=== PATIENT | female | born 1935 | race Caucasian/White ===

== ENCOUNTER 2016-11-06 14:05 | Observation (INO) ==
--- NOTE | 2016-11-06 14:36 | Emergency Department Note ---
Disposition Clinical Impression: Syncope Qualifiers: Syncope type: unspecified Qualified Code(s): R55 - Syncope and collapse Anemia Qualifiers: Anemia type: unspecified type Qualified Code(s): D64.9 - Anemia, unspecified Disposition: Admitted As Inpatient Condition: Good Time of Disposition: 19:08 General Adult HPI - General Chief complaint: ED Syncope Stated complaint: syncopal Time Seen by Provider: 11/06/16 14:13 Source: patient, EMS Limitations: age Nursing Notes Reviewed: Yes Vital Signs Reviewed: Yes - History of Present Illness HPI Narrative: Female patient presenting to emergency department complaining of a syncopal episode after leaving the Coumadin clinic. She presents by EMS. Her only complaint currently is left shoulder pain. Patient daughter advises that she believes the patient had a syncopal event. The daughter assisted her to the ground. Biases the patient has been complaining of floaters in her vision today and has been going to sleep whenever she is talking to her. She states she just has not been acting appropriate today. Pain Scale: 0 - Related Data Home Medications Medication Instructions Recorded Confirmed Aspirin [Adult Low Dose Aspirin EC] 81 mg PO DAILY 03/18/15 11/06/16 Citalopram Hydrobromide [Celexa] 20 mg PO QAM 03/18/15 11/06/16 CloNIDine HCl 0.2 mg PO TID 03/18/15 11/06/16 Glucosamine Sulfate Dipot Chlr 1,000 mg PO QAM 03/18/15 11/06/16 [Glucosamine Relief] Hydralazine HCl 50 mg PO TID 03/18/15 11/06/16 Loratadine [Claritin] 10 mg PO QAM 03/18/15 11/06/16 Memantine HCl [Namenda Xr] 28 mg PO QPM 03/18/15 11/06/16 Metoprolol [Lopressor] 100 mg PO BID 03/18/15 11/06/16 Nitroglycerin [Nitrostat] 0.4 mg SL Q5M PRN 03/18/15 11/06/16 Raloxifene [Evista] 60 mg PO QAM 03/18/15 11/06/16 SitaGLIPtin [Januvia] 50 mg PO QAM 03/18/15 11/06/16 Warfarin [Coumadin] 2.5 mg PO TUTHSA 03/18/15 11/06/16 Ergocalciferol (VITAMIN D2) 50,000 unit PO WE 05/04/15 11/06/16 [Vitamin D2 (50,000 UNIT)] Multivitamin/Iron/Folic Acid 1 each PO QAM 05/04/15 11/06/16 [Centrum Complete Multivit Tab] Valsartan/Hydrochlorothiazide 1 each PO QAM 05/04/15 11/06/16 [Diovan Hct 320-12.5 mg Tab] Warfarin [Coumadin] 5 mg PO SUMOWEFR 05/04/15 11/06/16 Allopurinol [Zyloprim] 100 mg PO DAILY 03/08/16 11/06/16 Atorvastatin [Lipitor] 40 mg PO HS 03/08/16 11/06/16 Calcium Polycarbophil [Fibercon] 625 mg PO BID 03/08/16 11/06/16 Docusate [Colace] 200 mg PO TID 03/08/16 11/06/16 Felodipine [Felodipine ER] 10 mg PO DAILY 03/08/16 11/06/16 L. Acidophilus/Pectin, [place] 1 each PO BID 03/08/16 11/06/16 [Acidophilus Probiotic Capsule] Diltiazem HCl [Diltiazem 24Hr Cd] 180 mg PO QPM 11/06/16 11/06/16 Famotidine [Pepcid] 40 mg PO QPM 11/06/16 11/06/16 OxyCODONE Immed Rel [Roxicodone 5 5 mg PO Q6H PRN 11/06/16 11/06/16 MG] Pantoprazole Sodium 40 mg PO BID 11/06/16 11/06/16 Pioglitazone [Actos] 15 mg PO QPM 11/06/16 11/06/16 Allergies Allergy/AdvReac Type Severity Reaction Status Date / Time No Known Drug Allergies Allergy See Verified 01/05/15 14:50 Comments All systems ED: reviewed and negative except as stated. Constitutional: Denies: fever, chills Eyes: Reports: vision change Cardiovascular: Reports: syncope. Denies: chest pain Respiratory: Denies: cough, dyspnea Gastrointestinal: Reports: constipation (No bowel movement in over a week.). Denies: abdominal pain, nausea, vomiting, diarrhea Musculoskeletal: Reports: other (Left shoulder pain). Denies: back pain, neck pain Integumentary: Denies: rash Neurological: Denies: headache Past Medical History - Past Medical History Medical history: Reports: atrial fibrillation, dementia, diabetes, hyperlipidemia, hypertension, renal disease Surgical history: Reports: appendectomy, cataract, hysterectomy, knee replacement, orthopedic, other, pacemaker/AICD Psychiatric history: Reports: no psych history - Social History Smoking Status: Never smoker Smokeless Tobacco Status: No Alcohol use: Reports: none Drug use: Reports: none Physical Exam - General Limitations: age General appearance: alert, in no apparent distress - Head Head exam: atraumatic, normocephalic, normal inspection - Eye Eye exam: Present: normal appearance, PERRL, EOMI. Absent: scleral icterus - ENT ENT exam: normal exam, normal oropharynx, mucous membranes moist - Neck Neck exam: Present: normal inspection, full ROM, trachea midline. Absent: tenderness, meningismus, lymphadenopathy - Chest Chest inspection: Present: normal inspection, symmetric chest wall rise. Absent : tenderness, rash - Respiratory Respiratory exam: Present: normal lung sounds bilaterally. Absent: respiratory distress, accessory muscle use - Cardiovascular Cardiovascular exam: Present: regular rate, normal rhythm, normal heart sounds - Abdominal Exam Abdominal exam: Present: soft, Non-Tender, normal bowel sounds. Absent: tenderness, distention, guarding, rebound, rigidity, organomegaly Course Course Narrative: Female patient brought in by EMS for a syncopal event. She is coming out of the Coumadin clinic and fell. EMS reports that the patient's daughter helped her down to the ground. Patient's daughter arrives and states that the patient has been complaining of some visual trouble today. Seeing floaters and has been very tired. States that she falls asleep while talking. She states that the patient said that she had tripped however she believes patient actually passed out. She states she then helped her to the ground. She insists that the patient did not strike her head very hard. She states that she used her fall. I do not appreciate any signs of trauma to the patient at this time. The patient's only complaint reanalysis of left shoulder pain. She recently had shoulder surgery 6 days ago. Patient is alert and oriented 3 at this time. However daughter states she does have a history of dementia. Daughter also notes that the patient has not had a bowel movement in greater than one week. She states that she has tried Metamucil several times with no relief. Patient denies of any abdominal pain on palpation. She has bowel sounds in all 4 quadrants. Patient has no signs of trauma to her body. Her pupils are equal and reactive. She is mentating appropriately. She does not appear to be in any distress. He does complain of left shoulder pain. This is to be expected from her surgery. She also has some ecchymosis to her left shoulder and left chest most likely from the surgery as well. Due to patient's fall and the complaints of her having visual trouble today we will scan patient's head. Patient denies any visual disturbance at this time. We will also get a chest x- ray and abdominal CT. I am concerned since patient does have a pacemaker and had a syncopal event today that this may be a cardiac etiology. EKG showed no signs of acute ischemia and a paced rhythm at 60. We will do basic lab workup on patient and most likely admit. - Reevaluation(s) Reevaluation #1: Patient workup showed a low hemoglobin. I do not see any signs of active bleeding. However she did have a recent left shoulder surgery there is a large amount of ecchymosis. The daughter states that the sutures did bust open on Saturday and had to be replaced there is a significant amount of bleeding associated with that. Could possibly be the cause. She also has a mildly increased creatinine from her baseline. We will admit patient to hospital for serial neuro exams. Time: 17:50 - Consultations Consultation #1: Dr Srivastava accepted Pt in stable condition. Time: 18:02 Vital Signs Temperature 97.9 F 11/06/16 14:07 Pulse Rate 61 11/06/16 14:07 Respiratory Rate 18 11/06/16 14:07 Blood Pressure 131/64 11/06/16 14:07 O2 Sat by Pulse Oximetry 97 11/06/16 14:07 Temperature 98.1 F 11/06/16 20:07 Pulse Rate 59 11/06/16 20:07 Respiratory Rate 16 11/06/16 20:07 Blood Pressure 166/82 11/06/16 20:07 O2 Sat by Pulse Oximetry 95 11/06/16 20:07 Oxygen Delivery Oxygen Delivery Room Air Medical Decision Making - Medical Records Medical records reviewed: Yes I reviewed the patient's medical records. - Lab Data Lab results reviewed: Yes I reviewed the patient's lab results. Result diagrams: 11/06/16 14:32 11/06/16 14:32 Lab Results 11/06/16 11/06/16 11/06/16 Range/Units 14:32 14:32 14:32 WBC 11.3 H (4.3-11.1) K/mcL RBC 2.87 L (3.82-4.97) M/mcL Hgb 8.9 L (11.5-15.4) g/dL Hct 27.3 L (35.3-44.9) % MCV 95.1 (83.0-100.0) fL MCH 31.0 (28.0-33.3) pg MCHC 32.6 (31.6-35.5) g/dL RDW 15.3 H (11.5-14.5) % Plt Count 175 (140-400) K/mcL MPV 10.4 (9.4-12.4) fL Immature Gran % 1.1 (0-4) % Seg Neutrophils % 75.8 % Lymphocytes % 12.7 % Monocytes % 9.5 % Eosinophils % 0.5 % Basophils % 0.4 % Neutrophils # 8.6 (1.6-8.9) K/mcL Lymphocytes # 1.4 (0.6-4.6) K/mcL Monocytes # 1.1 (0.0-1.3) K/mcL Eosinophils # 0.1 (0.0-0.6) K/mcL Basophils # 0.0 (0.0-0.2) K/mcL Nucleated RBCs/100 WBC 0.2 H (0) /100 WBC PT 23.6 H (9.4-12.1) Seconds INR 2.1 APTT 43.1 H (26.0-36.0) Seconds Sodium 131 L (136-145) mEq/L Potassium 3.9 (3.5-4.5) mEq/L Chloride 96 L (98-109) mEq/L Carbon Dioxide 29 (19-29) mEq/L BUN 53 H (7-20) mg/dL Creatinine 1.85 H (0.57-1.11) mg/dL Est GFR ( Amer) 32 L (> 60) Est GFR (Non-Af Amer) 26 L (> 60) BUN/Creatinine Ratio 29 H (6-26) Glucose 201 H (70-99) mg/dL Calculated Osmolality 292 (280-300) Lactic Acid (0.5-2.2) mmol/L Calcium 9.2 (8.6-10.8) mg/dL Troponin I (0-0.03) ng/mL Urine Color (Yellow) Urine Clarity (Clear) Urine pH (5.0-8.0) pH Units Ur Specific [place] (1.010-1.025) Urine Protein (Neg-Trace) mg/dL Urine Glucose (UA) (Normal) mg/dL Urine Ketones (Negative) mg/dL Urine Blood (Negative) Urine Nitrite (Negative) Urine Bilirubin (Negative) Urine Urobilinogen (Normal) mg/dL Ur Leukocyte Esterase (Negative) Urine Microscopic RBC (0-3) per hpf Urine Microscopic WBC (0-3) per hpf Ur Squamous Epith Cells (None-Few) per lpf Urine Bacteria (None-Few) per hpf Hyaline Casts (None-Few) per lpf 11/06/16 11/06/16 11/06/16 Range/Units 14:32 14:32 17:07 WBC (4.3-11.1) K/mcL RBC (3.82-4.97) M/mcL Hgb (11.5-15.4) g/dL Hct (35.3-44.9) % MCV (83.0-100.0) fL MCH (28.0-33.3) pg MCHC (31.6-35.5) g/dL RDW (11.5-14.5) % Plt Count (140-400) K/mcL MPV (9.4-12.4) fL Immature Gran % (0-4) % Seg Neutrophils % % Lymphocytes % % Monocytes % % Eosinophils % % Basophils % % Neutrophils # (1.6-8.9) K/mcL Lymphocytes # (0.6-4.6) K/mcL Monocytes # (0.0-1.3) K/mcL Eosinophils # (0.0-0.6) K/mcL Basophils # (0.0-0.2) K/mcL Nucleated RBCs/100 WBC (0) /100 WBC PT (9.4-12.1) Seconds INR APTT (26.0-36.0) Seconds Sodium (136-145) mEq/L Potassium (3.5-4.5) mEq/L Chloride (98-109) mEq/L Carbon Dioxide (19-29) mEq/L BUN (7-20) mg/dL Creatinine (0.57-1.11) mg/dL Est GFR ( Amer) (> 60) Est GFR (Non-Af Amer) (> 60) BUN/Creatinine Ratio (6-26) Glucose (70-99) mg/dL Calculated Osmolality (280-300) Lactic Acid 1.2 (0.5-2.2) mmol/L Calcium (8.6-10.8) mg/dL Troponin I 0.01 (0-0.03) ng/mL Urine Color Yellow (Yellow) Urine Clarity Clear (Clear) Urine pH 6.0 (5.0-8.0) pH Units Ur Specific [place] 1.013 (1.010-1.025) Urine Protein Negative (Neg-Trace) mg/dL Urine Glucose (UA) Normal (Normal) mg/dL Urine Ketones Negative (Negative) mg/dL Urine Blood Negative (Negative) Urine Nitrite Negative (Negative) Urine Bilirubin Negative (Negative) Urine Urobilinogen Normal (Normal) mg/dL Ur Leukocyte Esterase Trace H (Negative) Urine Microscopic RBC 0-3 (0-3) per hpf Urine Microscopic WBC 5-15 H (0-3) per hpf Ur Squamous Epith Cells Many H (None-Few) per lpf Urine Bacteria None Seen (None-Few) per hpf Hyaline Casts None Seen (None-Few) per lpf - Radiology Data Radiology results reviewed: Yes I reviewed the patient's radiology results. Chest X-Ray 11/06/16 14:16 IMPRESSION: No acute cardiopulmonary disease. D/ / Terrell Cao MD / Terrell Cao MD Interpreting Provider: Terrell Cao MD Head CT 11/06/16 14:17 IMPRESSION: No acute intracranial abnormality. D/ / Joel Gaming MD / Joel Gaming MD Interpreting Provider: Joel Gaming MD Abdomen/Pelvis CT 11/06/16 14:18 IMPRESSION: 1. Dense stool in the proximal colon suggests underlying constipation. The GI tract is otherwise unremarkable. 2. Decreased size of a complex lesion at the upper pole of the left kidney from prior imaging. Please correlate with interval workup. 3. Limited evaluation of additional simple and complex cysts in the kidneys on this noncontrast exam although there has been no interval detrimental change with regards to size. D/ / Luis Manuel Vee MD / Luis Manuel Vee MD Interpreting Provider: Luis Manuel Vee MD - EKG Data EKG #1 EKG attestation: Yes I reviewed and interpreted this EKG. EKG results narrative: Atrially paced rhythm. Rate is 60. UT interval is 140. QRS duration is 160. QT is 461. QTC is 462. No signs of acute ischemia. Attestation Statement - Attestation Attestation: I, Fabián Dwyer, examined this patient and my medical decision-making was reviewed with the ROLL UP OPERATOR/PA/Advanced Practice Nurse/Resident Physician. I agree with the documented findings, disposition and treatment plan as described except to the extent set forth below. 81-year-old female presents to the emergency department for evaluation after a fall. Patient states she was walking into a Coumadin clinic for evaluation of her INR when she stumbled forward, falling to the ground. Daughter is present when this occurred and caught her, lowing her to the ground however she is unclear whether or not she hit her head. Daughter states the patient was dazed and did not respond for a few seconds after the fall. Patient was not incontinent of urine and did not bite her tongue and there was no other associated tonic-clonic movements. Patient denies pain in the emergency department. Patient is alert and oriented during the exam and she does not have evidence of new focal neurologic deficits. Laboratory evaluation reveals anemia. This is likely secondary to bleeding from the surgical site she had of her left rotator cuff. CT of the head and was not neck was negative for acute fracture or intracranial hemorrhage. Patient will be admitted to the hospital for further care and evaluation of her anemia and her syncopal event.
[2016-11-06 14:44] LABS: Basophils % 0.4 %; Eosinophils # 0.1 K/mcL (0.0-0.6); Eosinophils % 0.5 %; Hematocrit 27.3 % (35.3-44.9); Hemoglobin 8.9 g/dL (11.5-15.4); Immature Granulocytes % 1.1 % (0-4); Lymphocytes # 1.4 K/mcL (0.6-4.6); Lymphocytes % 12.7 %; Mean Corpuscular HGB Conc 32.6 g/dL (31.6-35.5); Mean Corpuscular Volume 95.1 fL (83.0-100.0); Mean Platelet Volume 10.4 fL (9.4-12.4); Monocytes # 1.1 K/mcL (0.0-1.3); Monocytes % 9.5 %; Neutrophils # 8.6 K/mcL (1.6-8.9); Nucleated Red Blood Cells 0.2 /100 WBC (0); Platelet Count 175 K/mcL (140-400); Red Blood Count 2.87 M/mcL (3.82-4.97); Red Cell Distribution Width 15.3 % (11.5-14.5); Segmented Neutrophils % 75.8 %
[2016-11-06 14:54] LABS: INR 2.1; Prothrombin Time 23.6 Seconds (9.4-12.1)
[2016-11-06 14:56] LABS: Calcium 9.2 mg/dL (8.6-10.8); Potassium 3.9 mEq/L (3.5-4.5)
[2016-11-06 14:57] LABS: Activated Partial Thrombo Time 43.1 Seconds (26.0-36.0)
[2016-11-06 17:38] LABS: Bilirubin,Urine Negative (Negative); Blood,Urine Negative (Negative); Clarity,Urine Clear (Clear); Color,Urine Yellow (Yellow); Glucose,Urine (UA) Normal (Normal); Ketones,Urine Negative (Negative); Leukocyte Esterase,Urine Trace (Negative); Nitrite,Urine Negative (Negative); Protein,Urine Negative (Neg-Trace); Specific Gravity,Urine 1.013 (1.010-1.025); Urobilinogen,Urine Normal (Normal)
[2016-11-06 17:41] LABS: Bacteria,Urine None Seen per hpf (None-Few); Hyaline Casts,Urine None Seen per lpf (None-Few); RBC,Urine 0-3 per hpf (0-3); Squamous Epithelial Cell,Urine Many per lpf (None-Few)
[2016-11-06] MEDS ORDERED: Nitroglycerin 0.4 MG TAB.SUBL SL PRN (19:27)
[2016-11-06] MEDS ORDERED: MOM Conc 10 ML UD.LIQ PO ONE (19:30)
[2016-11-06] MEDS ORDERED: D5% in Water 1,000 ML IVC PRN (19:34)
[2016-11-06] MEDS ORDERED: Dextrose Gel 15 GM PO PRN ×2 (19:34)
[2016-11-06] MEDS ORDERED: *HR* Dextrose 50 % in Water (Syg) 50 ML SYRINGE IVP PRN (19:34)
--- NOTE | 2016-11-06 19:42 | Internal Med History&Physical ---
Date of Encounter: 11/06/16 Time of Encounter: 19:00 Assessment and Plan (1) Syncope and collapse Current visit: Yes Status: Acute I am concerned that this is secondary to acute blood loss anemia from left shoulder surgery while on Coumadin. Also possibly compounded by narcotics ( Percocet) and hypotension (on a multitude of antihypertensives). INR is 2.1. Unclear recent baseline Hb, but before July 2016, it has always been around 12 g. Today, is 8.9. Will not resume Coumadin this evening. Will type and screen and patient already consented for blood products. If hemoglobin continues to drop, will transfuse given her symptoms (shortness of breath, syncope). Will also order CT of the left shoulder and consult Orthopedic Surgery (daytime hospitalist will need to contact in a.m.). For completeness sake, will order Echocardiogram and bilateral carotid ultrasounds. Holding some antihypertensives (see below). (2) Anemia due to blood loss, acute Current visit: Yes Status: Acute Secondary to left shoulder surgery (was seen at [place] for bleeding complications postoperatively on November 02). Unclear recent baseline Hb, but before July 2016, it has always been around 12 g. Today, is 8.9. Will not resume Coumadin this evening. Will type and screen and patient already consented for blood products. If hemoglobin continues to drop, will transfuse given her symptoms (shortness of breath, syncope). Denies any rectal bleeding, but will order guaic stool. (3) SHAREE (acute kidney injury) Current visit: No Status: Acute Likely secondary to decrease PO intake and emesis (prerenal). Given her edema, will give small bolus of .9NS of 250cc x 1. Check urine lytes. (4) Diabetes Current visit: No Status: Chronic Holding PO agents. low dose SSI coverage. Qualifiers: Diabetes mellitus type: type 2 Diabetes mellitus complication status: without complication Diabetes mellitus fci insulin use: without fci use Qualified Code(s): E11.9 - Type 2 diabetes mellitus without complications (5) Constipation Current visit: Yes Status: Acute Senna and Milk of Mag ordered. Continue Fibercon and Docusate Sodium. Qualifiers: Constipation type: unspecified constipation type Qualified Code(s): K59.00 - Constipation, unspecified (6) Atrial fibrillation Current visit: Yes Status: Acute s/p pacemaker. Continue Diltiazem and Metoprolol per home dose. Holding anticoaguation as patient is already therapeutic (INR 2.1) and patient appears to have significant bleed. Daytime hospitalist to resume anticoagulation when clinically appropriate. Qualifiers: Atrial fibrillation type: chronic Qualified Code(s): I48.2 - Chronic atrial fibrillation (7) HTN (hypertension) Current visit: No Status: Chronic Holding Losartan given SHAREE. Patient's blood pressure is only in the 120s systolic, thus I have held her TID Clonidine. I have continue Hydralazine per home dose. Qualifiers: Hypertension type: essential hypertension Qualified Code(s): I10 - Essential (primary) hypertension Internal Medicine - H&P: HPI Chief complaint: passed out, bleeding from shoulder Admitted From: Home Plans for Post Hospital Care: Home History of present illness: Ms. Davison is a 81 year old female with PMH dementia, afib on Coumadin s/p pacemaker placement, DM II, HTN who presents with syncope. Patient is accompanied by her daughter who witnessed the event. The patient underwent a left shoulder arthroscopy on November 01 at [facility]. Surgery was performed by Dr. Hoffman. She developed bleeding at surgical site, and returned to the ED on the . Per daughter, the sutures were replaced and another dressing was placed and was to be removed tomorrow (11/07). Over the weekend, her wound continued to bleed. She has been sleeping quite a bit, had two episodes of non-bloody emesis. She was walking from the car to the coumadin clinic and passed out, falling forward. Her daughter was able to break her fall, and patient did not hit her head or cause any further injury. Patient denies any chest pain or palpations recently, but admits to shortness of breath on minimal exertion over the last month. Past Med Surg Social Fam HX - Past Medical History Medical history: atrial fibrillation, dementia, diabetes, hyperlipidemia, hypertension, renal disease Psychiatric history: no psych history - Past Surgical History Surgical History: appendectomy, cataract, hysterectomy, knee replacement, orthopedic, other, pacemaker/AICD - Social History Smoking Status: Never smoker Smokeless Tobacco Status: No Alcohol use: none Drug use: none - Family History Mother Living Status: Hx Family Cardiac Disorders: No Hx Family Respiratory Disorders: No Hx Family Cancer: Yes (Breast) Hx Family GI Disorders: No Hx Family Endocrine Disorder: No Hx Family Neuromuscular Disorders: No Hx Family Neurologic Disorders: No Hx Family HEENT Disorders: Yes (Blind, Glaucoma) Hx Family Autoimmune Disorders: No Father Living Status: Hx Family Cardiac Disorders: No Hx Family Respiratory Disorders: No Hx Family Cancer: No Hx Family GI Disorders: Yes (Cirrhosis) Hx Family Endocrine Disorder: No Hx Family Neuromuscular Disorders: No Hx Family Neurologic Disorders: No Hx Family HEENT Disorders: No Hx Family Autoimmune Disorders: No Internal Medicine - H&P: Meds Aspirin [Adult Low Dose Aspirin EC] 81 mg PO DAILY 03/18/15 [History] Citalopram Hydrobromide [Celexa] 20 mg PO QAM 03/18/15 [History] CloNIDine HCl 0.2 mg PO TID 03/18/15 [History] Glucosamine Sulfate Dipot Chlr [Glucosamine Relief] 1,000 mg PO QAM 03/18/15 [ History] Hydralazine HCl 50 mg PO TID 03/18/15 [History] Loratadine [Claritin] 10 mg PO QAM 03/18/15 [History] Memantine HCl [Namenda Xr] 28 mg PO QPM 03/18/15 [History] Metoprolol [Lopressor] 100 mg PO BID 03/18/15 [History] Nitroglycerin [Nitrostat] 0.4 mg SL Q5M PRN 03/18/15 [History] Raloxifene [Evista] 60 mg PO QAM 03/18/15 [History] SitaGLIPtin [Januvia] 50 mg PO QAM 03/18/15 [History] Warfarin [Coumadin] 2.5 mg PO TUTHSA 03/18/15 [History] Ergocalciferol (VITAMIN D2) [Vitamin D2 (50,000 UNIT)] 50,000 unit PO WE [History] Multivitamin/Iron/Folic Acid [Centrum Complete Multivit Tab] 1 each PO QAM 05/04 [History] Valsartan/Hydrochlorothiazide [Diovan Hct 320-12.5 mg Tab] 1 each PO QAM [History] Warfarin [Coumadin] 5 mg PO SUMOWEFR 05/04/15 [History] Allopurinol [Zyloprim] 100 mg PO DAILY 12/01/16 [History] Atorvastatin [Lipitor] 40 mg PO HS 03/08/16 [History] Calcium Polycarbophil [Fibercon] 625 mg PO BID 03/08/16 [History] Docusate [Colace] 200 mg PO TID 03/08/16 [History] Felodipine [Felodipine ER] 10 mg PO DAILY 03/08/16 [History] L. Acidophilus/Pectin, [place] [Acidophilus Probiotic Capsule] 1 each PO BID 04/23 [History] Diltiazem HCl [Diltiazem 24Hr Cd] 180 mg PO QPM 11/06/16 [History] Famotidine [Pepcid] 40 mg PO QPM 11/06/16 [History] OxyCODONE Immed Rel [Roxicodone 5 MG] 5 mg PO Q6H PRN 11/06/16 [History] Pantoprazole Sodium 40 mg PO BID 11/06/16 [History] Pioglitazone [Actos] 15 mg PO QPM 11/06/16 [History] Allergies No Known Drug Allergies Allergy (Verified 01/05/15 14:50) See Comments All Systems PM: A 10-system review of systems was performed and is negative for pertinent findings except as documented above in the HPI. - Constitutional Constitutional: chills, no fever(s) - EENT Additional comments: occasional blurred vision - Cardiovascular Cardiovascular ROS IM: lightheadedness, syncope, no chest pain - Respiratory Respiratory: dyspnea on exertion - Gastrointestinal Gastrointestinal: constipation, nausea Additional comments: last bm was 6 days ago - Neurological Neurological ROS: confusion - Constitutional Vitals: Temp Pulse Resp BP Pulse Ox 97.9 F 60 16 120/72 96 11/06/16 14:07 11/06/16 16:39 11/06/16 18:12 11/06/16 18:12 11/06/16 16:39 General appearance: Present: A&O X 3, no acute distress Exam: appears confused at times with some inappropriate answers. - Head Head exam: Present: atraumatic - Eye Eye exam: Present: EOMI - Neck Neck exam general surgery: Present: supple. Absent: thyromegaly - Respiratory Respiratory exam: Present: CTAB - Cardiovascular Cardiovascular exam: Present: +S1, +S2 Additional comments: paced rhythm - GI/Abdominal GI/Abdominal exam: Present: normal bowel sounds, soft. Absent: tenderness - Extremities Exam Extremities exam: Present: pedal edema (non pitting pedal edema), radial pulses palpable and symetrical. Absent: calf tenderness Additional comments: L-shoulder dressing is clean and intact. Has L-forearm swelling. - Psychiatric Psychiatric exam: Present: normal affect, normal mood - Skin Additional comments: left forearm swelling with erthema. forearm is nontender Internal Med - H&P Results - Labs CBC & Chem 7: 11/06/16 14:32 11/06/16 14:32
[2016-11-06] MEDS ORDERED: Naloxone 0.4 MG/ML INJ IVP PRN (20:58)
[2016-11-06] MEDS ORDERED: 0.9 % Sodium Chloride 250 ML IVC ONE (21:07)
[2016-11-06] MEDS: Metoprolol 100 MG TABLET PO SCH (22:00)
[2016-11-06] MEDS: Sennosides 8.6 MG TABLET PO SCH (22:01)
[2016-11-06] MEDS: hydrALAZINE 25 MG TABLET PO SCH (22:01)
[2016-11-06] MEDS: Diltiazem CD (24hr) 180 MG CAPSULE PO SCH (22:05)
[2016-11-06] MEDS: Insulin LISPRO 300 UNITS/3 ML VIAL SQ SCH (22:05)
[2016-11-07 04:34] LABS: INR 2.3; Prothrombin Time 25.7 Seconds (9.4-12.1)
[2016-11-07 05:17] LABS: Folate 15.8 ng/mL (7.0-31.4)
[2016-11-07] MEDS: Multivit/Ca/Min/Fe/FA 1 TAB TABLET PO SCH (09:10)
[2016-11-07] MEDS: hydrALAZINE 25 MG TABLET PO SCH ×3 (09:10→21:27)
[2016-11-07] MEDS: Metoprolol 100 MG TABLET PO SCH ×2 (09:10→21:27)
[2016-11-07] MEDS: Loratadine 10 MG TABLET PO SCH (09:11)
[2016-11-07] MEDS: *HR* OxyCODONE Immed Rel 5 MG TABLET PO PRN ×2 (09:11→18:23)
[2016-11-07] MEDS: (Felodipine [Felodipine Er] 10 MG) PO SCH (09:12)
[2016-11-07] MEDS: Insulin LISPRO 300 UNITS/3 ML VIAL SQ SCH ×4 (09:17→21:26)
--- NOTE | 2016-11-07 10:50 | Cardiology Consult Note ---
Date of Encounter: 11/07/16 Time of Encounter: 10:47 Assessment and Plan (1) Syncope and collapse Current Visit: Yes Status: Acute Negative orthostatics. Could be secondary to blood loss s/p shoulder surgery with HGB 8.9, baseline 12 range. Pt also with SHAREE on CKD, creatinine 1.85. Possible dehydration could be contributing. Also on narcotics s/p surgery. Will interrogate dual chamber PPM to rule out cardiac cause. Echo pending. Prior echo 04/2015 EF 60%. If no significant findings on device interrogation or echo, anticipate sign off once seen and evaluated by Dr. Fabián Villa. (2) Atrial fibrillation Current Visit: No Status: Chronic Known A-Fib, currently paced. Continue BB and CCB. Previously anticoagulated on Coumadin, currently on hold due to anemia and blood loss s/p surgery. CHADSVASC score 5 (Age, HTN, DM, Female). Recommend resuming Coumadin when okay with ortho, as pt is high stroke risk. Qualifiers: Atrial fibrillation type: paroxysmal Qualified Code(s): I48.0 - Paroxysmal atrial fibrillation (3) Pacemaker Current Visit: No Status: Acute Last interrogated 07/2016 Multiple high atrial rates, longest 13 hours on 2016, average ventricular rate 135. Will interrogate again given syncopal episode. (4) Anemia Current Visit: Yes Status: Acute HGB 8.9 s/p shoulder surgery last week with bleeding at site. Coumadin currently on hold. Baseline HGB ~12 range. Recommend resuming Coumadin once okay with ortho. Qualifiers: Anemia type: unspecified type Qualified Code(s): D64.9 - Anemia, unspecified (5) HTN (hypertension) Current Visit: No Status: Chronic Not well controlled, 160 systolic this AM. Resume home Hydralazine. Continue BB and CCB. Adjust as necessary. Qualifiers: Hypertension type: essential hypertension Qualified Code(s): I10 - Essential (primary) hypertension Discussion w patient/family: The assessment and plan as outlined above was discussed with the patient and/or family members who expressed understanding and agreement. All questions were answered. Thank you for involving us in the care of your patient. Please call with any questions. I will discuss all the above with Dr. Fabián Villa and make changes as necessary. History of Present Illness Consult date: 11/07/16 Requesting physician: Pratima Nelson Consult reason: syncope Chief complaint: syncope History of present illness: Ms. Davison is a 81 year old female with PMH of dementia, afib on Coumadin, s/p pacemaker placement for SSS, DM II, HTN who presented to ED for syncope. Patient reports the syncopal event occurred yesterday while ambulating. She was dizzy/lightheaded prior to episode. It was reportedly witnessed by her daughter and per pt, she regained consciousness quickly after. The patient underwent a left shoulder arthroscopy on November 01 at [facility]. Surgery was performed by Dr. Hoffman. She developed bleeding at surgical site, and returned to the ED on the . Per daughter, the sutures were replaced and another dressing was placed and was to be removed tomorrow (11/07). Over the weekend, her wound continued to bleed. She has been sleeping quite a bit, had two episodes of non-bloody emesis. She was walking from the car to the coumadin clinic and passed out, falling forward. Her daughter was able to break her fall, and patient did not hit her head or cause any further injury. Patient denies any chest pain or palpations recently, but admits to shortness of breath on minimal exertion over the last month and increased lower extremity edema. HGB found to be 8.9, baseline ~12. Coumadin currently on hold. Orthostatic vitals negative. Prior CV testing: Carotid duplex 01/11/2016: Essentially normal bilaterally. Echocardiogram 05/04/2015: EF 60%. Mild MR, TR, PI. Mild pulmonary hypertension. RVSP 43 mmHg. Pharmacological nuclear stress test 05/05/2015: Negative for ischemia or prior infarct. Left heart catheterization 04/30/2011: Minimal CAD described. Device interrogation 07/18/2016: Multiple high atrial rates, longest 13 hours on 05/25/2016, average ventricular rate 135. Past Med Surg Social Fam HX - Past Medical History Medical history: atrial fibrillation, dementia, diabetes, hyperlipidemia, hypertension, renal disease Psychiatric history: no psych history - Past Surgical History Surgical History: appendectomy, cataract, hysterectomy, knee replacement, orthopedic, other, pacemaker - Social History Smoking Status: Never smoker Smokeless Tobacco Status: No Alcohol use: none Drug use: none - Family History Mother Living Status: Hx Family Cardiac Disorders: No Hx Family Respiratory Disorders: No Hx Family Cancer: Yes (Breast) Hx Family GI Disorders: No Hx Family Endocrine Disorder: No Hx Family Neuromuscular Disorders: No Hx Family Neurologic Disorders: No Hx Family HEENT Disorders: Yes (Blind, Glaucoma) Hx Family Autoimmune Disorders: No Father Living Status: Hx Family Cardiac Disorders: No Hx Family Respiratory Disorders: No Hx Family Cancer: No Hx Family GI Disorders: Yes (Cirrhosis) Hx Family Endocrine Disorder: No Hx Family Neuromuscular Disorders: No Hx Family Neurologic Disorders: No Hx Family HEENT Disorders: No Hx Family Autoimmune Disorders: No Medications and Allergies Aspirin [Adult Low Dose Aspirin EC] 81 mg PO DAILY 03/18/15 [History] Citalopram Hydrobromide [Celexa] 20 mg PO QAM 03/18/15 [History] CloNIDine HCl 0.2 mg PO TID 03/18/15 [History] Glucosamine Sulfate Dipot Chlr [Glucosamine Relief] 1,000 mg PO QAM 03/18/15 [ History] Hydralazine HCl 50 mg PO TID 03/18/15 [History] Loratadine [Claritin] 10 mg PO QAM 03/18/15 [History] Memantine HCl [Namenda Xr] 28 mg PO QPM 03/18/15 [History] Metoprolol [Lopressor] 100 mg PO BID 03/18/15 [History] Nitroglycerin [Nitrostat] 0.4 mg SL Q5M PRN 03/18/15 [History] Raloxifene [Evista] 60 mg PO QAM 03/18/15 [History] SitaGLIPtin [Januvia] 50 mg PO QAM 03/18/15 [History] Warfarin [Coumadin] 2.5 mg PO TUTHSA 03/18/15 [History] Ergocalciferol (VITAMIN D2) [Vitamin D2 (50,000 UNIT)] 50,000 unit PO WE [History] Multivitamin/Iron/Folic Acid [Centrum Complete Multivit Tab] 1 each PO QAM 05/04 [History] Valsartan/Hydrochlorothiazide [Diovan Hct 320-12.5 mg Tab] 1 each PO QAM [History] Warfarin [Coumadin] 5 mg PO SUMOWEFR 05/04/15 [History] Allopurinol [Zyloprim] 100 mg PO DAILY 03/08/16 [History] Atorvastatin [Lipitor] 40 mg PO HS 03/08/16 [History] Calcium Polycarbophil [Fibercon] 625 mg PO BID 03/08/16 [History] Docusate [Colace] 200 mg PO TID 03/08/16 [History] L. Acidophilus/Pectin, [place] [Acidophilus Probiotic Capsule] 1 each PO BID 04/23 [History] Diltiazem HCl [Diltiazem 24Hr Cd] 180 mg PO QPM 11/06/16 [History] Famotidine [Pepcid] 40 mg PO QPM 11/06/16 [History] OxyCODONE Immed Rel [Roxicodone 5 MG] 5 mg PO Q6H PRN 11/06/16 [History] Pantoprazole Sodium 40 mg PO BID 11/06/16 [History] Pioglitazone [Actos] 15 mg PO QPM 11/06/16 [History] Allergies No Known Drug Allergies Allergy (Verified 01/05/15 14:50) See Comments All Systems Review: A 10-system review of systems was performed and is negative for pertinent findings except as documented above in the HPI. - Cardiovascular Cardiovascular: as per HPI, dyspnea on exertion, leg edema, syncope - Respiratory Respiratory: dyspnea Physical Examination Vital Signs, Last 4 Hours Temp Pulse Resp BP Pulse Ox 11/07/16 08:50 98.2 F 65 17 192/75 94 Vital Signs Temp Pulse Pulse Pulse Pulse Resp BP 11/07/16 08:50 98.2 F 65 17 192/75 11/07/16 03:56 99 F 61 62 63 62 16 145/72 11/06/16 22:23 98.3 F 61 16 190/72 11/06/16 20:07 98.1 F 59 16 166/82 11/06/16 18:12 16 120/72 11/06/16 16:39 60 16 115/66 11/06/16 15:16 61 18 130/49 11/06/16 14:07 97.9 F 61 18 131/64 BP BP BP Pulse Ox 11/07/16 08:50 94 11/07/16 03:56 145/72 197/73 184/72 95 11/06/16 22:23 94 11/06/16 20:07 95 11/06/16 18:12 11/06/16 16:39 96 11/06/16 15:16 98 11/06/16 14:07 97 Intake and Output 11/06/16 11/07/16 11/07/16 23:59 07:59 15:59 Intake Total 480 / 480 Output Total 300 / 300 900 / 900 350 / 350 Balance -300 / -300 -900 / -900 130 / 130 Intake: Oral 480 / 480 Output: Urine 300 / 300 900 / 900 350 / 350 Other: Meal Breakfast Percent of Meal Consumed 30% Weight 82.4 kg Blood Glucose* 164 192 Patient Weight 11/07/16 23:59 Weight 82.4 kg General: Conversant, No Apparent Distress HEENT: Atraumatic, Normocephaly, Mucus Membranes Moist Neck: No JVD, Normal carotid pulses Cardiac: Reg Rate and Rhythm, Normal S1 and S2, No Murmur Lungs: Normal Breath Sounds, No Wheeze, Rales, Rhonchi Neuro: Alert and responsive, No focal deficits noted Abdomen: Soft, Non-Tender Skin: No rashes noted on visualized skin Musculoskeletal: No Chest Wall Tenderness Extremities: Other (mild BLE edema) Results 11/06/16 14:32 11/06/16 14:32 Lab Results 11/07/16 11/07/16 04:19 04:19 INR 2.3 B-Natriuretic Peptide 550 H Short CBC 11/06/16 Range/Units 14:32 WBC 11.3 H (4.3-11.1) K/mcL Hgb 8.9 L (11.5-15.4) g/dL Hct 27.3 L (35.3-44.9) % Plt Count 175 (140-400) K/mcL Neutrophils # 8.6 (1.6-8.9) K/mcL BMP 11/06/16 Range/Units 14:32 Sodium 131 L (136-145) mEq/L Potassium 3.9 (3.5-4.5) mEq/L Chloride 96 L (98-109) mEq/L Carbon Dioxide 29 (19-29) mEq/L BUN 53 H (7-20) mg/dL Creatinine 1.85 H (0.57-1.11) mg/dL Glucose 201 H (70-99) mg/dL Calcium 9.2 (8.6-10.8) mg/dL Cardiac Enzymes 11/06/16 Range/Units 14:32 Troponin I 0.01 (0-0.03) ng/mL Urine 11/06/16 Range/Units 17:07 Urine Color Yellow (Yellow) Urine Clarity Clear (Clear) Urine pH 6.0 (5.0-8.0) pH Units Ur Specific [place] 1.013 (1.010-1.025) Urine Protein Negative (Neg-Trace) mg/dL Urine Glucose (UA) Normal (Normal) mg/dL Impressions Chest X-Ray 11/06/16 14:16 IMPRESSION: No acute cardiopulmonary disease. D/ / Terrell Cao MD / Terrell Cao MD Interpreting Provider: Terrell Cao MD Head CT 11/06/16 14:17 IMPRESSION: No acute intracranial abnormality. D/ / Joel Gaming MD / Joel Gaming MD Interpreting Provider: Joel Gaming MD Abdomen/Pelvis CT 11/06/16 14:18 IMPRESSION: 1. Dense stool in the proximal colon suggests underlying constipation. The GI tract is otherwise unremarkable. 2. Decreased size of a complex lesion at the upper pole of the left kidney from prior imaging. Please correlate with interval workup. 3. Limited evaluation of additional simple and complex cysts in the kidneys on this noncontrast exam although there has been no interval detrimental change with regards to size. D/ / Luis Manuel Vee MD / Luis Manuel Vee MD Interpreting Provider: Luis Manuel Vee MD Shoulder CT 11/06/16 19:31 IMPRESSION: 1. 5.2 x 5.1 x 2.3 cm lobular heterogeneous soft tissue density collection in the subcutaneous fat superior to the distal left clavicle and acromion process compatible with a postoperative hematoma. Superimposed infection not excluded. Adjacent subcutaneous fat stranding and soft tissue gas may represent expected postoperative changes. Heterogeneous attenuation of the infraspinatus muscle suggesting intramuscular hematoma. 2. Postoperative changes of the distal left clavicle and acromion process. 3. Question partially visualized soft tissue mass in the left breast. Recommend correlation with mammography. D/ / Francisco Ortiz MD / Francisco Ortiz MD Interpreting Provider: Francisco Ortiz MD Active Medications Allopurinol (Zyloprim) 100 mg PO DAILY [facility]E Stop: 05/09/17 09:01 Last Admin: 11/07/16 09:11 Dose: 100 mg Atorvastatin Calcium (Lipitor) 40 mg PO HS [facility] Stop: 05/08/17 21:01 Last Admin: 11/06/16 22:01 Dose: 40 mg Calcium Polycarbophil (Fibercon) 625 mg PO BID [facility] Stop: 05/08/17 21:01 Last Admin: 11/07/16 09:10 Dose: 625 mg Citalopram Hydrobromide (Celexa) 20 mg PO QAM [facility] Stop: 05/09/17 09:01 Last Admin: 11/07/16 09:10 Dose: 20 mg Dextrose/Water (Dextrose 50% (Syg)) 25 ml IVP AD PRN PRN Reason: Hypoglycemia Stop: 05/08/17 19:35 Diltiazem HCl (Cardizem Cd) 180 mg PO QPM [facility] Stop: 05/08/17 19:31 Last Admin: 11/06/16 22:05 Dose: 180 mg Docusate Sodium (Colace) 200 mg PO TID [facility] PRN Reason: Protocol Stop: 05/08/17 21:01 Last Admin: 11/07/16 09:11 Dose: 200 mg Ergocalciferol (Drisdol (50,000 Unit)) 50,000 unit PO WE [facility] Stop: 05/09/17 19:31 Famotidine (Pepcid) 20 mg PO QPM [facility] Stop: 05/09/17 18:01 Glucagon (Glucagen) 1 mg IM ONCE PRN PRN Reason: Hypoglycemia Stop: 05/08/17 19:35 Glucose (Gluctose) 15 gm PO ONCE PRN PRN Reason: Hypoglycemia Stop: 05/08/17 19:35 Glucose (Gluctose) 30 gm PO ONCE PRN PRN Reason: Hypoglycemia Stop: 05/08/17 19:35 Hydralazine HCl (Hydralazine) 50 mg PO TID [facility] Stop: 05/08/17 21:01 Last Admin: 11/07/16 09:10 Dose: 50 mg Dextrose (Dextrose 5%) 1,000 mls @ 100 mls/hr IVC .Q10H PRN PRN Reason: HYPOGLYCEMIA Stop: 05/08/17 19:35 Ceftriaxone Sodium 1,000 mg/ (Dextrose) 100 mls @ 200 mls/hr IVPB Q24H [facility] Stop: 05/08/17 20:01 Last Admin: 11/06/16 21:58 Dose: 200 mls/hr Insulin Human Lispro (Humalog) 0 units SQ HS [facility] PRN Reason: Protocol Stop: 05/08/17 21:01 Last Admin: 11/06/16 22:05 Dose: Not Given Insulin Human Lispro (Humalog) 0 units SQ TIDAC [facility] PRN Reason: Protocol Stop: 05/09/17 07:31 Last Admin: 11/07/16 09:17 Dose: 4 units Loratadine (Claritin) 10 mg PO QAM [facility] PRN Reason: Protocol Stop: 05/09/17 09:01 Last Admin: 11/07/16 09:11 Dose: 10 mg Metoprolol Tartrate (Lopressor) 100 mg PO BID [facility] Stop: 05/08/17 21:01 Last Admin: 11/07/16 09:10 Dose: 100 mg Multivitamins/Calcium (Thera M Plus) 1 tab PO QAM [facility] Stop: 05/09/17 09:01 Last Admin: 11/07/16 09:10 Dose: 1 tab Naloxone HCl (Narcan) 0.4 mg IVP Q2MIN PRN PRN Reason: Opioid Reversal Stop: 05/08/17 20:59 Nitroglycerin (Nitroglycerin) 0.4 mg SL Q5M PRN PRN Reason: Chest Pain Stop: 05/08/17 19:28 Omeprazole (Prilosec) 20 mg PO BIDAC [facility] Stop: 05/08/17 20:16 Last Admin: 11/07/16 09:11 Dose: 20 mg Oxycodone HCl (Roxicodone) 5 mg PO Q6H PRN PRN Reason: Pain Stop: 05/08/17 19:28 Last Admin: 11/07/16 09:11 Dose: 5 mg Pharmacy Profile Note (Patient Taking Own Medication) 0 each PO DAILY [facility] Stop: 05/09/17 09:01 Last Admin: 11/07/16 09:12 Dose: Not Given Pharmacy Profile Note (Patient Taking Own Medication) 0 each PO QPM [facility] Stop: 05/09/17 18:01 Senna (Senna) 17.2 mg PO HS [facility] Stop: 05/08/17 21:01 Last Admin: 11/06/16 22:01 Dose: 17.2 mg - Imaging and Cardiology Stress Test: report reviewed Echo: report reviewed - EKG Interpretation EKG results cardiology: personally reviewed (paced), other (12 hr tele AVG HR 62 , paced, no significant pauses) Consult Discharge Plan - Plan Referrals: Elmer Davey MD [Primary Care Provider] -
--- NOTE | 2016-11-07 13:10 | Event Note ---
Date of Encounter: 11/07/16 Time of Encounter: 13:08 - Cardiology Event Note Echo resulted. Impressions: LVEF 65%. Normal left ventricular size and systolic function. Mild concentric hypertrophy of the left ventricle. There is evidence of moderate diastolic dysfunction of the left ventricle. Normal right ventricular size and function. Mild mitral regurgitation. Mild tricuspid regurgitation. Mild pulmonic regurgitation. No pulmonary hypertension. Device interrogation shows atrial high rates, but no events to explain yesterday 's syncopal event. AT/AF 2.8% of the time. Cardiology signing off. Reconsult PRN. Restart Coumadin when okay with ortho. If recurrent falls or syncope, will then need to re-evaluate anticoagulation risks and benefits.
[2016-11-07 13:21] LABS: Basophils % 0.2 %; Eosinophils % 0.1 %; Hematocrit 28.3 % (35.3-44.9); Hemoglobin 9.2 g/dL (11.5-15.4); Immature Granulocytes % 0.9 % (0-4); Lymphocytes # 1.2 K/mcL (0.6-4.6); Lymphocytes % 7.5 %; Mean Corpuscular HGB Conc 32.5 g/dL (31.6-35.5); Mean Corpuscular Hemoglobin 31.2 pg (28.0-33.3); Mean Corpuscular Volume 95.9 fL (83.0-100.0); Mean Platelet Volume 10.3 fL (9.4-12.4); Monocytes # 1.8 K/mcL (0.0-1.3); Monocytes % 11.2 %; Nucleated Red Blood Cells 0.2 /100 WBC (0); Platelet Count 200 K/mcL (140-400); Red Blood Count 2.95 M/mcL (3.82-4.97); Red Cell Distribution Width 15.4 % (11.5-14.5); Segmented Neutrophils % 80.1 %
[2016-11-07 13:29] LABS: Calcium 9.4 mg/dL (8.6-10.8); Potassium 3.9 mEq/L (3.5-4.5)
--- NOTE | 2016-11-07 18:04 | Orthopedic Consult Note ---
Date of Encounter: 11/07/16 Time of Encounter: 17:58 History of Present Illness Chief complaint: Bleeding left shoulder HPI: Ms. Davison is a 81 year old female who underwent an uncomplicated left shoulder arthroscopy with subacromial decompression and distal clavicle resection approximately 1 week ago. Surgery was performed as an outpatient. Patient was off her anticoagulation prior. The patient reportedly went to the emergency room the next day after having broken or torn her sutures in her arthroscopy portals. She was noted to have some bleeding at that time. She is put in a new dressing and was scheduled for follow-up by phone on Saturday. At that time there was some persistent of leakage from the wound and the patient was instructed to continue with dressing changes and for follow-up today. Unfortunately the patient had a syncopal episode and was admitted for further evaluation and treatment. Patient was noted to have a diminished hemoglobin with concerns for a symptomatic anemia. For complete history and physical data please refer the formal medical chart. Pertinent orthopedic examination at this time reveals an obvious hematoma in the subcutaneous tissues anterior superior. Portals are intact. There is a steadied dark blood oozing from the lateral portal. Ecchymosis extends posteriorly. Neurovascular exam is normal. I reviewed the CT scan of the shoulder and this is consistent with a subcutaneous hematoma as evidenced clinically as well. Patient's coloration is good. Hemoglobin is currently 9.2. Impression: Soft tissue hematoma left shoulder Recommendation: Agree with holding Coumadin at this time and continue with dressing changes as needed and ice to the left shoulder. Bleeding should slow down. Would not proceed with evacuation of the clot at this time. Discussed this with the patient and daughter. Minimize use of the shoulder of some gentle range of motion exercises. Will follow up in the office as scheduled in about 10 days' time. Thank you for taking care of Mrs. Davison and allowing me to see her. Sincerely , Siddharth Hoffman,DO Past Med Surg Social Fam HX - Past Medical History Medical history: atrial fibrillation, dementia, diabetes, hyperlipidemia, hypertension, renal disease Psychiatric history: no psych history - Past Surgical History Surgical History: appendectomy, cataract, hysterectomy, knee replacement, orthopedic, other, pacemaker - Social History Smoking Status: Never smoker Smokeless Tobacco Status: No Alcohol use: none Drug use: none - Family History Mother Living Status: Hx Family Cardiac Disorders: No Hx Family Respiratory Disorders: No Hx Family Cancer: Yes (Breast) Hx Family GI Disorders: No Hx Family Endocrine Disorder: No Hx Family Neuromuscular Disorders: No Hx Family Neurologic Disorders: No Hx Family HEENT Disorders: Yes (Blind, Glaucoma) Hx Family Autoimmune Disorders: No Father Living Status: Hx Family Cardiac Disorders: No Hx Family Respiratory Disorders: No Hx Family Cancer: No Hx Family GI Disorders: Yes (Cirrhosis) Hx Family Endocrine Disorder: No Hx Family Neuromuscular Disorders: No Hx Family Neurologic Disorders: No Hx Family HEENT Disorders: No Hx Family Autoimmune Disorders: No Medications and Allergies Aspirin [Adult Low Dose Aspirin EC] 81 mg PO DAILY 03/18/15 [History] Citalopram Hydrobromide [Celexa] 20 mg PO QAM 03/18/15 [History] CloNIDine HCl 0.2 mg PO TID 03/18/15 [History] Glucosamine Sulfate Dipot Chlr [Glucosamine Relief] 1,000 mg PO QAM 03/18/15 [ History] Hydralazine HCl 50 mg PO TID 03/18/15 [History] Loratadine [Claritin] 10 mg PO QAM 03/18/15 [History] Memantine HCl [Namenda Xr] 28 mg PO QPM 03/18/15 [History] Metoprolol [Lopressor] 100 mg PO BID 03/18/15 [History] Nitroglycerin [Nitrostat] 0.4 mg SL Q5M PRN 03/18/15 [History] Raloxifene [Evista] 60 mg PO QAM 03/18/15 [History] SitaGLIPtin [Januvia] 50 mg PO QAM 03/18/15 [History] Warfarin [Coumadin] 2.5 mg PO TUTHSA 03/18/15 [History] Ergocalciferol (VITAMIN D2) [Vitamin D2 (50,000 UNIT)] 50,000 unit PO WE [History] Multivitamin/Iron/Folic Acid [Centrum Complete Multivit Tab] 1 each PO QAM 05/04 [History] Valsartan/Hydrochlorothiazide [Diovan Hct 320-12.5 mg Tab] 1 each PO QAM [History] Warfarin [Coumadin] 5 mg PO SUMOWEFR 05/04/15 [History] Allopurinol [Zyloprim] 100 mg PO DAILY 03/08/16 [History] Atorvastatin [Lipitor] 40 mg PO HS 03/08/16 [History] Calcium Polycarbophil [Fibercon] 625 mg PO BID 03/08/16 [History] Docusate [Colace] 200 mg PO TID 03/08/16 [History] L. Acidophilus/Pectin, [place] [Acidophilus Probiotic Capsule] 1 each PO BID 04/23 [History] Diltiazem HCl [Diltiazem 24Hr Cd] 180 mg PO QPM 11/06/16 [History] Famotidine [Pepcid] 40 mg PO QPM 11/06/16 [History] OxyCODONE Immed Rel [Roxicodone 5 MG] 5 mg PO Q6H PRN 11/06/16 [History] Pantoprazole Sodium 40 mg PO BID 11/06/16 [History] Pioglitazone [Actos] 15 mg PO QPM 11/06/16 [History] Allergies No Known Drug Allergies Allergy (Verified 01/05/15 14:50) See Comments All Systems Reviewed: A 10-system review of systems was performed and is negative for pertinent findings except as documented above in the HPI. Physical Exam - Constitutional Vitals: Temp Pulse Resp BP Pulse Ox 98.8 F 60 15 183/73 93 11/07/16 15:40 11/07/16 15:40 11/07/16 15:40 11/07/16 15:40 11/07/16 15:40 Results - Labs Result Diagrams: 11/07/16 13:03 11/07/16 13:03 Labs: Abnormal lab results WBC 16.3 K/mcL (4.3-11.1) H 11/07/16 13:03 RBC 2.95 M/mcL (3.82-4.97) L 11/07/16 13:03 Hgb 9.2 g/dL (11.5-15.4) L 11/07/16 13:03 Hct 28.3 % (35.3-44.9) L 11/07/16 13:03 RDW 15.4 % (11.5-14.5) H 11/07/16 13:03 Neutrophils # 13.0 K/mcL (1.6-8.9) H 11/07/16 13:03 Monocytes # 1.8 K/mcL (0.0-1.3) H 11/07/16 13:03 Nucleated RBCs/100 WBC 0.2 /100 WBC (0) H 11/07/16 13:03 PT 25.7 Seconds (9.4-12.1) H 11/07/16 04:19 APTT 43.1 Seconds (26.0-36.0) H 11/06/16 14:32 Sodium 135 mEq/L (136-145) L 11/07/16 13:03 Carbon Dioxide 30 mEq/L (19-29) H 11/07/16 13:03 BUN 38 mg/dL (7-20) H D 11/07/16 13:03 Creatinine 1.42 mg/dL (0.57-1.11) H 11/07/16 13:03 Est GFR ( Amer) 43 (> 60) L 11/07/16 13:03 Est GFR (Non-Af Amer) 35 (> 60) L 11/07/16 13:03 BUN/Creatinine Ratio 27 (6-26) H 11/07/16 13:03 Glucose 180 mg/dL (70-99) H 11/07/16 13:03 POC Glucose 228 (58-89) H 11/07/16 12:02 B-Natriuretic Peptide 550 pg/mL (0-100) H 11/07/16 04:19 Vitamin B12 883 pg/mL (213-816) H 11/07/16 04:19 Ur Leukocyte Esterase Trace (Negative) H 11/06/16 17:07 Urine Microscopic WBC 5-15 per hpf (0-3) H 11/06/16 17:07 Ur Squamous Epith Cells Many per lpf (None-Few) H 11/06/16 17:07 H & H 11/07/16 Range/Units 13:03 Hgb 9.2 L (11.5-15.4) g/dL Hct 28.3 L (35.3-44.9) % All other labs normal. - Diagnostic results Shoulder CT: image reviewed Consult Discharge Plan - Plan Referrals: Elmer Davey MD [Primary Care Provider] -
--- NOTE | 2016-11-07 18:11 | Internal Med Progress Note ---
Date of Encounter: 11/07/16 Time of Encounter: 14:00 - Assessment and plan (1) Syncope and collapse Current Visit: Yes Status: Acute Assessment and plan: Patient has had bleeding at surgical site since left shoulder arthroscopy on November 01 [facility]. She returned to the emergency department on the for evaluation. At this time she states that she had ripped her stitches out somehow and the sutures were replaced and another dressing was placed and was to be removed today. Patient had continued bleeding even after new sutures placed. She has been increasingly somnolent and has had 2 episodes of nonbloody emesis. Daughter states she was walking from her car to the Coumadin clinic and passed out, falling forward. Her daughter was able to break the fall patient did not hit her head causing any further injury. Patient denies any chest pain, palpitations but does admit to shortness of breath, dyspnea on exertion, and fatigue over the last month. Her cardiogram today showed LVEF of 65% with normal systolic function, mild concentric hypertrophy of LV evidence of moderate LV DD, mild MR, mild TR, mild UT and no pulmonary hypertension. All wall segments showed normal motion. Preliminary report for carotid Dopplers is right has nonstenotic plaque in left has 40-59% stenosis ICA. Syncope is most likely due to hypovolemia, blood loss anemia. IV fluid resuscitation Prepare to Transfuse if hemoglobin drops below 8. On another patient for falls, up with assist. Continue to monitor labs and vital signs. (2) Anemia due to blood loss, acute Current Visit: Yes Status: Acute Assessment and plan: Patient has had almost constant bleeding since surgery 6 days ago. At this time she has a dressing to the left shoulder that is saturated with blood. On initial presentation, hemoglobin was 8.9, today is 9.2. We will need to continue to monitor this. Prepared to transfuse if hemoglobin is below 8. Patient is symptomatic. IV fluid resuscitation Stop any anticoagulation. (3) Atrial fibrillation Current Visit: No Status: Chronic Assessment and plan: Patient is having a pacemaker. She is rate controlled with diltiazem and metoprolol. Anticoagulation is already held, INR subtherapeutic at 2.1 yesterday. Continue to monitor INR Telemetry Continue medications Qualifiers: Atrial fibrillation type: paroxysmal Qualified Code(s): I48.0 - Paroxysmal atrial fibrillation (4) HTN (hypertension) Current Visit: Yes Status: Chronic Assessment and plan: Chronic continue home medications. Qualifiers: Hypertension type: essential hypertension Qualified Code(s): I10 - Essential (primary) hypertension (5) Diabetes Current Visit: Yes Status: Chronic Assessment and plan: Chronic. Continue sliding scale insulin, diabetic diet, Accu-Cheks before meals and at bedtime Qualifiers: Diabetes mellitus type: type 2 Diabetes mellitus complication status: without complication Diabetes mellitus tank terminal gauger insulin use: without tank terminal gauger use Qualified Code(s): E11.9 - Type 2 diabetes mellitus without complications (6) Constipation Current Visit: Yes Status: Acute Assessment and plan: Continue laxatives, stool softener, fiber supplementation. Abdomen is soft and nontender, bowel sounds are present. Qualifiers: Constipation type: unspecified constipation type Qualified Code(s): K59.00 - Constipation, unspecified (7) SHAREE (acute kidney injury) Current Visit: No Status: Acute Assessment and plan: This is most likely due to decreased by mouth intake and blood/fluid loss. Renal function has improved with serum creatinine at 1.42 and GFR improved to 35. We will continue to monitor renal status and avoid nephrotoxins and NSAIDs. - Time Spent With Patient less than 15 minutes - Subjective Interval history: Patient was seen and assessed about 2 PM. She is sitting up in her bed, alert, awake, oriented 3. Speech is clear. He does state that she has already been to her echocardiogram and carotid Dopplers. Patient denies pain to left arm and appears to have range of motion to elbow wrist and fingers left upper extremity. Patient has palpable pulse and +3-4 nonpitting edema. - Constitutional Vitals: Temp Pulse Resp BP Pulse Ox 98.8 F 60 15 183/73 93 11/07/16 15:40 11/07/16 15:40 11/07/16 15:40 11/07/16 15:40 11/07/16 15:40 General appearance: Present: cooperative, A&O X 3, pleasant, no acute distress, answers questions appropriately - Head Head exam: Present: normal inspection - ENT ENT exam: Present: mucous membranes moist, normal exam - Neck Neck exam general surgery: Present: normal inspection. Absent: lymphadenopathy , tenderness - Respiratory Respiratory exam: Present: CTAB. Absent: chest wall tenderness, decreased breath sounds, rales, respiratory distress, rhonchi, stridor, wheezes, tachypnea - Cardiovascular Cardiovascular exam: Present: RRR, +S1, +S2. Absent: diastolic murmur, systolic murmur - GI/Abdominal GI/Abdominal exam: Present: distended, normal bowel sounds, soft. Absent: hepatomegaly, tenderness - Extremities Exam Extremities exam: Present: warm, radial pulses palpable and symetrical. Absent : calf tenderness, joint swelling, pedal edema - Expanded Upper Extremities Exam Shoulder exam: Present: ecchymosis, swelling, tenderness Upper Arm exam: Present: erythema, swelling Forearm wrist exam: Present: swelling Hand wrist exam: Present: ecchymosis, swelling Vascular exam: Present: pedal pulse right, pedal pulse left, radial pulse right , radial pulse left. Absent: normal capillary refill - Neurological Exam Neurological exam: Present: alert, oriented X3. Absent: facial droop, speech deficit Internal Medicine: Result - Labs CBC & Chem 7: 11/07/16 13:03 11/07/16 13:03 Labs: Short CBC 11/07/16 Range/Units 13:03 WBC 16.3 H (4.3-11.1) K/mcL Hgb 9.2 L (11.5-15.4) g/dL Hct 28.3 L (35.3-44.9) % Plt Count 200 (140-400) K/mcL Neutrophils # 13.0 H (1.6-8.9) K/mcL BMP 11/07/16 13:03 Sodium 135 L Potassium 3.9 Chloride 98 Carbon Dioxide 30 H BUN 38 H D Creatinine 1.42 H Glucose 180 H Calcium 9.4 - ABG Interpretation ABG results: PT/INR, D-dimer PT 25.7 Seconds (9.4-12.1) H 11/07/16 04:19 - Impressions Impressions Echocardiogram 11/07/16 19:33 Impressions: LVEF 65%. Normal left ventricular size and systolic function. Mild concentric hypertrophy of the left ventricle. There is evidence of moderate diastolic dysfunction of the left ventricle. Normal right ventricular size and function. Mild mitral regurgitation. Mild tricuspid regurgitation. Mild pulmonic regurgitation. No pulmonary hypertension. Left Ventricular Wall Motion: Rest Echo Findings All wall segments showed normal motion. Findings: Study Quality * Technically adequate exam. ECG Findings * Sinus rhythm. Left Ventricle * Mild concentric left ventricular hypertrophy. * LVEF 65%. * Moderate left ventricular diastolic dysfunction. Aorta * Normally sized aortic root. Aortic Valve * No aortic regurgitation. * Trileaflet aortic valve. * No aortic stenosis. Mitral Valve * No mitral stenosis. * Mild mitral annular calcification * Mild mitral regurgitation. * Mildly calcified mitral valve leaflets. Tricuspid Valve * Tricuspid valve not well visualized. * Mild tricuspid regurgitation. * Estimated RA pressure is 3 mmHg. * Estimated RVSP is 47 mmHg. * Mild pulmonary hypertension. Pulmonic Valve * Pulmonic valve is not well visualized. * No pulmonic stenosis. * Mild pulmonic regurgitation. Pulmonary Artery * Pulmonary artery not well visualized. Right Ventricle * Normal right ventricular structure and function. Right Atrium * Normal right atrial size. Left Atrium * Severely dilated left atrium. Pericardium * There is no pericardial effusion present. Interatrial Septum * No evidence of PFO by color Doppler. IVC * Normal IVC dimensions and inspiratory collapse. Device lead * A device lead was visualized in the right atrium and right ventricle. - VTE Documentation of Mechanical Device: Graduated compression elastic hosiery Consult Discharge Plan - Plan Referrals: Elmer Davey MD [Primary Care Provider] -
[2016-11-07] MEDS: Diltiazem CD (24hr) 180 MG CAPSULE PO SCH (18:23)
[2016-11-07] MEDS: (Memantine Hcl [Namenda Xr] 28 MG) PO SCH (18:24)
[2016-11-07] MEDS: Famotidine 20 MG TABLET PO SCH (18:24)
--- NOTE | 2016-11-07 20:36 | Electrocardiograph Report ---
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
[2016-11-07] MEDS: Sennosides 8.6 MG TABLET PO SCH (21:27)
[2016-11-08 06:14] LABS: Basophils % 0.2 %; Eosinophils % 0.1 %; Hematocrit 26.4 % (35.3-44.9); Hemoglobin 8.5 g/dL (11.5-15.4); Immature Granulocytes % 1.2 % (0-4); Lymphocytes # 1.6 K/mcL (0.6-4.6); Lymphocytes % 9.8 %; Mean Corpuscular HGB Conc 32.2 g/dL (31.6-35.5); Mean Corpuscular Hemoglobin 30.7 pg (28.0-33.3); Mean Corpuscular Volume 95.3 fL (83.0-100.0); Mean Platelet Volume 10.8 fL (9.4-12.4); Monocytes # 2.4 K/mcL (0.0-1.3); Monocytes % 14.6 %; Nucleated Red Blood Cells 0.3 /100 WBC (0); Platelet Count 194 K/mcL (140-400); Red Blood Count 2.77 M/mcL (3.82-4.97); Red Cell Distribution Width 15.3 % (11.5-14.5); Segmented Neutrophils % 74.1 %
[2016-11-08 06:37] LABS: Calcium 9.5 mg/dL (8.6-10.8); Potassium 3.9 mEq/L (3.5-4.5)
[2016-11-08] MEDS: Insulin LISPRO 300 UNITS/3 ML VIAL SQ SCH ×4 (08:43→21:06)
[2016-11-08] MEDS: Multivit/Ca/Min/Fe/FA 1 TAB TABLET PO SCH (08:44)
[2016-11-08] MEDS: hydrALAZINE 25 MG TABLET PO SCH ×3 (08:44→19:45)
[2016-11-08] MEDS: Loratadine 10 MG TABLET PO SCH (08:44)
[2016-11-08] MEDS: (Felodipine [Felodipine Er] 10 MG) PO SCH (08:44)
[2016-11-08] MEDS: Metoprolol 100 MG TABLET PO SCH ×2 (08:44→19:45)
--- NOTE | 2016-11-08 08:54 | Carotid Imaging Report ---
Carotid Duplex Patient Name:Rachel Davison Order Number:[id number] Procedure Date:11/07/2016 Date:1935ge:81 yrs Gender:Female Rt.BP:178 / 88 mmHgHeart Rate: Location:[facility] Room #: 3B14 Boarding Machine Operator:Tee Sotelo RN Referring MD:Pratima Nelson MD stepdown nurse:Elmer Davey MD Reading MD:Terry Winslow MD , [facility] Primary Indications:Syncope Risk Factors Yes/No Hypertension Yes Hypercholesterolemia Yes Diabetes Yes Impressions: Findings: Right carotid system has nonstenotic plaque. Findings: Left mid ICA has a moderate, 40-59% stenosis. Recommendations: Test completed on 11/07/2016 at 7:40:00 am. Findings Carotid Duplex: Right: The right proximal common carotid artery has a PSV of 150 cm/s and a EDV of 15 cm/s. The right mid common carotid artery has a PSV of 86 cm/s and a EDV of 10 cm/s. There is nonstenotic plaque in the right distal common carotid artery with a PSV of 77 cm/s and a EDV of 11 cm/s. There is smooth, heterogeneous calcified plaque. There is nonstenotic plaque in the right bifurcation with a PSV of 63 cm/s and a EDV of 13 cm/s. There is smooth, heterogeneous calcified plaque. There is nonstenotic plaque in the right proximal internal carotid artery with a PSV of 89 cm/s and a EDV of 14 cm/s. There is smooth, heterogeneous calcified plaque. The right mid internal carotid artery has a PSV of 64 cm/s and a EDV of 12 cm/s. The right distal internal carotid artery has a PSV of 80 cm/s and a EDV of 14 cm/s. The right eca has a PSV of 126 cm/s and a EDV of 12 cm/s. The right vertebral artery has a PSV of 62 cm/s and a EDV of 11 cm/s. Left: The left proximal common carotid artery has a PSV of 135 cm/s and a EDV of 14 cm/s. The left mid common carotid artery has a PSV of 101 cm/s and a EDV of 15 cm/s. There is nonstenotic plaque in the left distal common carotid artery with a PSV of 78 cm/s and a EDV of 13 cm/s. There is smooth, heterogeneous calcified plaque. There is nonstenotic plaque in the left bifurcation with a PSV of 79 cm/s and a EDV of 14 cm/s. There is smooth, heterogeneous calcified plaque. There is nonstenotic plaque in the left proximal internal carotid artery with a PSV of 92 cm/s and a EDV of 17 cm/s. There is smooth, heterogeneous calcified plaque. There is 40-59% stenosis in the left mid internal carotid artery with a PSV of 141 cm/s and a EDV of 27 cm/s. There is 40-59% stenosis in the left distal internal carotid artery with a PSV of 147 cm/s and a EDV of 19 cm/s. The left eca has a PSV of 94 cm/s and a EDV of 10 cm/s. The left vertebral artery has a PSV of 73 cm/s and a EDV of 9 cm/s. Prior Study: Changes noted compared to prior study dated: 01/11/2016. Carotid Results Right PSV EDV Assessment Proximal CCA 150 15 Normal Mid CCA 86 10 Normal Distal CCA 77 11 Non Stenotic Plaque Bifurcation 63 13 Non Stenotic Plaque Proximal ICA 89 14 Non Stenotic Plaque Mid ICA 64 12 Normal Distal ICA 80 14 Normal ECA 126 12 Normal Vertebral Artery 62 11 Normal Left PSV EDV Assessment Proximal CCA 135 14 Normal Mid CCA 101 15 Normal Distal CCA 78 13 Non Stenotic Plaque Bifurcation 79 14 Non Stenotic Plaque Proximal ICA 92 17 Non Stenotic Plaque Mid ICA 141 27 40-59% stenosis Distal ICA 147 19 40-59% stenosis ECA 94 10 Normal Vertebral Artery 73 9 Normal Ratio's Right ICA/CCA Ratio: 0.97 ICA/CCA Values: 86/89 Left ICA/CCA Ratio: 1.46 ICA/CCA Values: 147/101 Updated by Terry Winslow MD, FACS on 11/08/2016 8:47:02 AM Terry Winslow MD electronically signed on 11/08/2016 8:47:26 AM with status of Final
[2016-11-08] MEDS ORDERED: Acetaminophen 325 MG TABLET PO PRN (11:04)
[2016-11-08 16:33] LABS: Hematocrit 27.4 % (35.3-44.9); Hemoglobin 8.9 g/dL (11.5-15.4)
[2016-11-08] MEDS: Diltiazem CD (24hr) 180 MG CAPSULE PO SCH (17:19)
[2016-11-08] MEDS: Famotidine 20 MG TABLET PO SCH (17:19)
[2016-11-08] MEDS: (Memantine Hcl [Namenda Xr] 28 MG) PO SCH (17:19)
--- NOTE | 2016-11-08 18:15 | Internal Med Progress Note ---
Date of Encounter: 11/08/16 Time of Encounter: 16:00 - Assessment and plan (1) Syncope and collapse Current Visit: Yes Status: Acute Assessment and plan: Pt has not had anymore syncopal episodes since arrival. She has been involved in PT without problems. We will continue to monitor. Pt is close to the nurse's station and has a bed alarm. We are replacing fluids monitoring labs. (2) Anemia due to blood loss, acute Current Visit: Yes Status: Acute Assessment and plan: Hbg is staying around 9, 8.9 after repeat draw. We will continue to monitor hgb and transfuse if less than 8 and symptomatic. Pt denies chest pain or SOB currently, though she does say that she has been SOB over the last week. Stool occult blood is positive today. GI consult is in, day hospitalist will need to call. (3) Atrial fibrillation Current Visit: No Status: Chronic Assessment and plan: Patient has a pacemaker. She is rate controlled with diltiazem and metoprolol. Anticoagulation is already held, INR subtherapeutic at 2.1 yesterday. Continue to monitor INR Telemetry Continue medications Qualifiers: Atrial fibrillation type: paroxysmal Qualified Code(s): I48.0 - Paroxysmal atrial fibrillation (4) HTN (hypertension) Current Visit: Yes Status: Chronic Assessment and plan: Chronic. continue home medications. Pt has been hypertensive today. She returned to baseline with Hydralazine IV. Continue to monitor. Qualifiers: Hypertension type: essential hypertension Qualified Code(s): I10 - Essential (primary) hypertension (5) Diabetes Current Visit: Yes Status: Chronic Assessment and plan: Chronic. Continue sliding scale insulin, diabetic diet, Accu-Cheks before meals and at bedtime Qualifiers: Diabetes mellitus type: type 2 Diabetes mellitus complication status: without complication Diabetes mellitus intermediate insulin use: without buttermaker use Qualified Code(s): E11.9 - Type 2 diabetes mellitus without complications (6) Constipation Current Visit: Yes Status: Acute Assessment and plan: Continue laxatives, stool softener, fiber supplementation. Abdomen is soft and nontender, bowel sounds are present. Pt has had a BM today, however, we will continue with plan due to pain medications, decreased activity. Qualifiers: Constipation type: unspecified constipation type Qualified Code(s): K59.00 - Constipation, unspecified (7) SHAREE (acute kidney injury) Current Visit: No Status: Acute Assessment and plan: This is most likely due to decreased by mouth intake and blood/fluid loss. Renal function has improved with serum creatinine at 1.28 and GFR improved to 40. We will continue to monitor renal status and avoid nephrotoxins and NSAIDs. (8) Pacemaker Current Visit: No Status: Chronic (9) DVT prophylaxis Current Visit: Yes Status: Acute Assessment and plan: Pt is not receiving pharmacological prophylaxis due to anemia and blood loss. Pt has MARLON hose and is up to side of bed with PT and for meals. (10) Diastolic CHF Current Visit: Yes Status: Acute Assessment and plan: Pt with elevated BNP and SOB. Lungs are clear. Pt has +3 non-pitting edema to BLE and BUE. Lasix 20mg po daily, continue to monitor renal function. Qualifiers: Congestive heart failure chronicity: acute Qualified Code(s): I50.31 - Acute diastolic (congestive) heart failure - Time Spent With Patient less than 15 minutes - Subjective Interval history: Patient was seen and assessed 1600. She is sitting up in her bed, alert, awake , oriented 3. Speech is clear. Patient denies pain to left arm and appears to have range of motion to elbow wrist and fingers left upper extremity. Patient has palpable pulse and +3-4 nonpitting edema. Pt states that she is better. I feel that if her hgb stays steady overnight, she may be ready for discharge tomorrow. - Constitutional Vitals: Temp Pulse Resp BP Pulse Ox 98.3 F 61 16 199/71 97 11/08/16 15:33 11/08/16 15:33 11/08/16 15:33 11/08/16 15:33 11/08/16 15:33 General appearance: Present: cooperative, A&O X 3, pleasant, no acute distress, answers questions appropriately - Head Head exam: Present: normal inspection - Eye Eye exam: Present: normal appearance, conjuntiva pink - ENT ENT exam: Present: mucous membranes moist, normal exam, normal external ear exam - Neck Neck exam general surgery: Present: normal inspection. Absent: lymphadenopathy , tenderness - Respiratory Respiratory exam: Present: CTAB. Absent: chest wall tenderness, decreased breath sounds, rales, respiratory distress, rhonchi, stridor, wheezes - Cardiovascular Cardiovascular exam: Present: RRR, +S1, +S2. Absent: diastolic murmur, systolic murmur - GI/Abdominal GI/Abdominal exam: Present: soft. Absent: distended, hepatomegaly, tenderness - Extremities Exam Extremities exam: Present: pedal edema, warm, radial pulses palpable and symetrical. Absent: tenderness - Neurological Exam Neurological exam: Present: alert, oriented X3, no focal deficits. Absent: strengths equal and symetr throughout, facial droop, speech deficit Internal Medicine: Result - Labs CBC & Chem 7: 11/08/16 16:22 11/08/16 05:27 Labs: Short CBC 11/08/16 11/08/16 Range/Units 05:27 16:22 WBC 16.2 H (4.3-11.1) K/mcL Hgb 8.5 L 8.9 L (11.5-15.4) g/dL Hct 26.4 L 27.4 L (35.3-44.9) % Plt Count 194 (140-400) K/mcL Neutrophils # 12.0 H (1.6-8.9) K/mcL BMP 11/08/16 05:27 Sodium 137 Potassium 3.9 Chloride 99 Carbon Dioxide 34 H BUN 30 H Creatinine 1.28 H Glucose 167 H Calcium 9.5 - ABG Interpretation ABG results: PT/INR, D-dimer PT 25.7 Seconds (9.4-12.1) H 11/07/16 04:19 - VTE Documentation of Mechanical Device: Graduated compression elastic hosiery Consult Discharge Plan - Plan Referrals: Elmer Davey MD [Primary Care Provider] - 11/12/16 9:45 am
[2016-11-08] MEDS ORDERED: Furosemide 20 MG TABLET PO PRN (18:34)
[2016-11-08] MEDS: Sennosides 8.6 MG TABLET PO SCH (19:45)
[2016-11-09 05:09] LABS: Basophils % 0.2 %; Eosinophils % 0.3 %; Hematocrit 27.7 % (35.3-44.9); Hemoglobin 8.8 g/dL (11.5-15.4); Immature Granulocytes % 1.5 % (0-4); Lymphocytes # 1.9 K/mcL (0.6-4.6); Lymphocytes % 12.1 %; Mean Corpuscular HGB Conc 31.8 g/dL (31.6-35.5); Mean Corpuscular Hemoglobin 30.2 pg (28.0-33.3); Mean Corpuscular Volume 95.2 fL (83.0-100.0); Monocytes # 1.9 K/mcL (0.0-1.3); Monocytes % 12.1 %; Neutrophils # 11.5 K/mcL (1.6-8.9); Nucleated Red Blood Cells 0.3 /100 WBC (0); Platelet Count 213 K/mcL (140-400); Red Blood Count 2.91 M/mcL (3.82-4.97); Red Cell Distribution Width 15.3 % (11.5-14.5); Segmented Neutrophils % 73.8 %
[2016-11-09 05:34] LABS: Calcium 9.6 mg/dL (8.6-10.8); Potassium 4.1 mEq/L (3.5-4.5)
--- NOTE | 2016-11-09 08:20 | Gastroenterology Consult Note ---
<Rachel Maxwell - Last Filed: 11/09/16 11:01> Date of Encounter: 11/09/16 Time of Encounter: 10:25 - Assessment and plan (1) Anemia Current Visit: Yes Status: Acute Assessment and plan: Likely 2ndary to recent surgical procedure, no evidence of GIB other than positive hemoccult. Currently hgb stable in the 11-14. EGD/Colon on SATURDAY to r/o esophagitis, gastritis, duodenitis, PUD, MW tear, AVM, tumor, polyp, varices, anorectal pathology, colitis. Qualifiers: Anemia type: other cause Other causes of anemia: acute posthemorrhagic Qualified Code(s): D62 - Acute posthemorrhagic anemia (2) Syncope Current Visit: Yes Status: Resolved Qualifiers: Syncope type: unspecified Qualified Code(s): R55 - Syncope and collapse (3) Renal failure, chronic Current Visit: No Status: Chronic Qualifiers: Chronic kidney disease stage: unspecified stage Qualified Code(s): N18.9 - Chronic kidney disease, unspecified - Time Spent With Patient Total time spent is greater than 50% in coordination of care (as documented) at patient's floor/unit and/or counseling patient: less than 15 minutes GI History of Present Illness - Data of Consult Patient: new to practice Consult date: 11/09/16 Requesting Physician: Sisi Santo - Consult Narrative Reason for consult: anemia History of present illness: Ms. Davison is a 81 year old female with a PMH significant for dementia, afib on Coumadin, AICD/PM, DM, HTN who presented to ED 11/06/16 following a syncopal event. The patient underwent a left shoulder arthroscopy on November 01 at [facility]. Surgery was performed by Dr. Hoffman. She developed bleeding at surgical site, and returned to the ED on the . Per daughter, the sutures were replaced and another dressing was placed and was to be removed tomorrow (11/07). Over the weekend, her wound continued to bleed. She has been sleeping quite a bit, had two episodes of non-bloody emesis. She was walking from the car to the coumadin clinic and passed out, falling forward. Her daughter was able to break her fall, and patient did not hit her head or cause any further injury. Patient denies any chest pain or palpations recently, but admits to shortness of breath on minimal exertion over the last month. Daughter also notes that the patient has not had a bowel movement in greater than one week at the time of admission. GI was consulted due to persistant anemia, patient is 8-9 and was normal prior to that. Patient also had positive occult blood in stool. She denies any BRBPR or black stools, has been constipated since the surgery until yesterday. Appetite is good, however, patient has some long-standing abdominal pain that worsens after eating mid-abdomen. Some acid reflux even on current regimen. Denies N/V or dysphagia. Colonoscopy: [id number] EGD: None Past Med Surg Social Fam HX - Past Medical History Medical history: atrial fibrillation, dementia, diabetes, hyperlipidemia, hypertension, renal disease Psychiatric history: no psych history - Past Surgical History Surgical History: appendectomy, cataract, hysterectomy, knee replacement, orthopedic, other, pacemaker - Social History Smoking Status: Never smoker Smokeless Tobacco Status: No Alcohol use: none Drug use: none - Family History Mother Living Status: Hx Family Cardiac Disorders: No Hx Family Respiratory Disorders: No Hx Family Cancer: Yes (Breast) Hx Family GI Disorders: No Hx Family Endocrine Disorder: No Hx Family Neuromuscular Disorders: No Hx Family Neurologic Disorders: No Hx Family HEENT Disorders: Yes (Blind, Glaucoma) Hx Family Autoimmune Disorders: No Father Living Status: Hx Family Cardiac Disorders: No Hx Family Respiratory Disorders: No Hx Family Cancer: No Hx Family GI Disorders: Yes (Cirrhosis) Hx Family Endocrine Disorder: No Hx Family Neuromuscular Disorders: No Hx Family Neurologic Disorders: No Hx Family HEENT Disorders: No Hx Family Autoimmune Disorders: No - Gastrointestinal NSAID use: None noted Anticoagulation Use: Coumadin Number of BM Per Day: qod Gastrointestinal: Present: abdominal pain, constipation - Constitutional Constitutional: fatigue - EENT Eyes: as per HPI Ears: Present: as per HPI Nose, mouth and throat: Present: as per HPI - Cardiovascular Cardiovascular ROS: Present: irregular heart rhythm - Respiratory Respiratory IM: Present: as per HPI - Neurological ROS Neurological GI: Present: dizziness, weakness - Hematologic/Lymphatic Hematologic/Lymphatic pediatric: Present: as per HPI - Musculoskeletal Musculoskeletal ROS GI: Present: as per HPI - Integumentary Integumentary GI: Present: as per HPI - Psychiatric ROS Psychiatric GI: Present: as per HPI - Endocrine Endocrine IM: Present: as per HPI - Constitutional Vitals: Temp Pulse Resp BP Pulse Ox 98.2 F 70 14 169/69 92 11/09/16 07:08 11/09/16 07:08 11/09/16 07:08 11/09/16 07:08 11/09/16 07:08 General appearance: Present: cooperative, A&O X 3, pleasant, no acute distress, answers questions appropriately - Head Head exam: Present: atraumatic, normocephalic - Eye Eye exam: Present: normal appearance, sclera anicteric - ENT ENT exam: Present: mucous membranes moist - Neck Neck exam general surgery: Present: normal inspection, trachea midline - Respiratory Respiratory exam: Present: CTAB - Cardiovascular Cardiovascular exam: Present: irregular rhythm - GI/Abdominal GI/Abdominal exam: Present: normal bowel sounds, soft, no peritoneal signs - Rectal Rectal exam: Present: deferred - Extremities Exam Additional comments: L arm/shoulder bandaged, noticeable amount of edema in L hand with ecchymosis. - Neurological Exam Neurological exam: Present: no focal deficits - Psychiatric Psychiatric exam: Present: normal affect, normal mood - Skin Skin exam: Present: dry, intact, pallor, warm Results - Labs CBC & Chem 7: 11/09/16 04:26 11/09/16 04:26 Labs: Last Result Calcium 9.6 mg/dL (8.6-10.8) 11/09/16 04:26 Troponin I 0.01 ng/mL (0-0.03) 11/06/16 14:32 Vitamin B12 883 pg/mL (213-816) H 11/07/16 04:19 Folate 15.8 ng/mL (7.0-31.4) 11/07/16 04:19 Stool Occult Blood Positive (Negative) A 11/08/16 09:30 Entire Visit Hgb 8.8 g/dL (11.5-15.4) L 11/09/16 04:26 Hct 27.7 % (35.3-44.9) L 11/09/16 04:26 PT 25.7 Seconds (9.4-12.1) H 11/07/16 04:19 Folate 15.8 ng/mL (7.0-31.4) 11/07/16 04:19 - ABG ABG results: PT/INR, D-dimer PT 25.7 Seconds (9.4-12.1) H 11/07/16 04:19 Consult Discharge Plan - Plan Referrals: Elmer Davey MD [Primary Care Provider] - 11/12/16 9:45 am <[email or web address] - Last Filed: 11/09/16 12:26> Date of Encounter: 11/09/16 Time of Encounter: 12:00 - Time Spent With Patient Total time spent is greater than 50% in coordination of care (as documented) at patient's floor/unit and/or counseling patient: GI History of Present Illness - Data of Consult Requesting Physician: Sisi Santo - Consult Narrative History of present illness: Ms. Davison is a 81 year old female - Constitutional Vitals: Temp Pulse Resp BP Pulse Ox 98.6 F 121 18 163/78 93 11/09/16 11:27 11/09/16 11:27 11/09/16 11:27 11/09/16 11:27 11/09/16 11:27 Results - Labs CBC & Chem 7: 11/09/16 04:26 11/09/16 04:26 Labs: Last Result Calcium 9.6 mg/dL (8.6-10.8) 11/09/16 04:26 Troponin I 0.01 ng/mL (0-0.03) 11/06/16 14:32 Vitamin B12 883 pg/mL (213-816) H 11/07/16 04:19 Folate 15.8 ng/mL (7.0-31.4) 11/07/16 04:19 Stool Occult Blood Positive (Negative) A 11/08/16 09:30 Entire Visit Hgb 8.8 g/dL (11.5-15.4) L 11/09/16 04:26 Hct 27.7 % (35.3-44.9) L 11/09/16 04:26 PT 14.9 Seconds (9.4-12.1) H 11/09/16 08:35 Folate 15.8 ng/mL (7.0-31.4) 11/07/16 04:19 - ABG ABG results: PT/INR, D-dimer PT 14.9 Seconds (9.4-12.1) H 11/09/16 08:35 - Attending Attestation I examined this patient and my medical decision-making was reviewed with the Resident Physician. I agree with the documented findings, disposition and treatment plan as described except to the extent set forth below.
[2016-11-09] MEDS: Insulin LISPRO 300 UNITS/3 ML VIAL SQ SCH ×3 (08:26→16:20)
[2016-11-09] MEDS: Loratadine 10 MG TABLET PO SCH (08:27)
[2016-11-09] MEDS: Multivit/Ca/Min/Fe/FA 1 TAB TABLET PO SCH (08:27)
[2016-11-09] MEDS: (Felodipine [Felodipine Er] 10 MG) PO SCH (08:27)
[2016-11-09] MEDS: Metoprolol 100 MG TABLET PO SCH ×2 (08:27→20:22)
[2016-11-09] MEDS: hydrALAZINE 25 MG TABLET PO SCH ×3 (08:27→20:22)
[2016-11-09] MEDS ORDERED: Furosemide 40 MG/4 ML VIAL IVP SCH (09:00)
[2016-11-09 09:17] LABS: INR 1.4; Prothrombin Time 14.9 Seconds (9.4-12.1)
--- NOTE | 2016-11-09 09:41 | Internal Med Progress Note ---
Date of Encounter: 11/09/16 Time of Encounter: 08:35 - Assessment and plan (1) Syncope and collapse Current Visit: Yes Status: Acute Assessment and plan: Pt has not had anymore syncopal episodes since arrival. She has been involved in PT without problems. We will continue to monitor. Pt is close to the nurse's station and has a bed alarm. Continue to monitor labs. (2) Anemia due to blood loss, acute Current Visit: Yes Status: Acute Assessment and plan: Hbg is staying around 9, 8.9 after repeat draw. We will continue to monitor hgb and transfuse if less than 8 and symptomatic. Pt denies chest pain or SOB currently, though she does say that she has been SOB over the last week. Stool occult blood is positive today. Pt has been assessed by GI, no intervention required at this time. Primary RN reports that daughter does not want the pt to have a scope due to the risks vs benefits. (3) Atrial fibrillation Current Visit: No Status: Chronic Assessment and plan: Patient has a pacemaker. She is rate controlled with diltiazem and metoprolol. Anticoagulation is already held, INR subtherapeutic at 1.4 today. Continue to monitor INR Telemetry Continue medications Qualifiers: Atrial fibrillation type: paroxysmal Qualified Code(s): I48.0 - Paroxysmal atrial fibrillation (4) HTN (hypertension) Current Visit: Yes Status: Chronic Assessment and plan: Chronic. continue home medications. Pt is closer to goal today, 160s/60s. Continue to monitor. Qualifiers: Hypertension type: essential hypertension Qualified Code(s): I10 - Essential (primary) hypertension (5) Diabetes Current Visit: Yes Status: Chronic Assessment and plan: A1c ordered. Pt remains hyperglycemic. Continue diabetic diet. SSI changed to medium dose. Continue to monitor. Qualifiers: Diabetes mellitus type: type 2 Diabetes mellitus complication status: without complication Diabetes mellitus intermediate insulin use: without terminal supervisor use Qualified Code(s): E11.9 - Type 2 diabetes mellitus without complications (6) Constipation Current Visit: Yes Status: Acute Assessment and plan: Continue laxatives, stool softener, fiber supplementation. Abdomen is soft and nontender, bowel sounds are present. Qualifiers: Constipation type: unspecified constipation type Qualified Code(s): K59.00 - Constipation, unspecified (7) SHAREE (acute kidney injury) Current Visit: No Status: Acute Assessment and plan: Sr Cr 1.27, GFR 40 today. Creatinine appears to be at baseline for her known CKD III. Continue to monitor and avoid nephrotoxins and NSAIDS (8) Pacemaker Current Visit: No Status: Chronic Assessment and plan: Per history. (9) DVT prophylaxis Current Visit: Yes Status: Acute Assessment and plan: Pt is not receiving pharmacological prophylaxis due to anemia and blood loss. Pt has MARLON hose and is up to side of bed and BSC with PT and for meals. (10) Diastolic CHF Current Visit: Yes Status: Acute Assessment and plan: Pt with elevated BNP and SOB. Lungs are clear. BLE edema has improved to +2, non -pitting. LUE edema has significantly increased, most likely related to surgery , doppler has been ordered. Lasix 20mg po daily, continue to monitor renal function. I and O Daily weight Low Na diet. Qualifiers: Congestive heart failure chronicity: acute Qualified Code(s): I50.31 - Acute diastolic (congestive) heart failure (11) Edema extremities Current Visit: Yes Status: Acute Assessment and plan: pt has increasing LUE edema, significant change from yesterday. Doppler has been ordered to assess for DVT, same side as surgical site. BLE edema has improved, pt is wearing MARLON hose and receiving lasix. - Time Spent With Patient less than 15 minutes - Subjective Interval history: Patient was seen and assessed 0835. She is sitting up in her bed, alert, awake , oriented 3. Speech is clear. Patient denies pain to left arm and appears to have range of motion to elbow wrist and fingers left upper extremity. Pt's LUE with increased edema since yesterday. She has hematoma shoulder, upper arm and upper back, appears to be improving. Pt's daughter states that she normally has edema, however, due to the significant change, doppler will be done. Pt states that her BLE edema has improved. Pt is wearing MARLON hose and has gotten po Lasix. She states that she feels better today. - Constitutional Vitals: Temp Pulse Resp BP Pulse Ox 98.2 F 70 14 169/69 92 11/09/16 07:08 11/09/16 07:08 11/09/16 07:08 11/09/16 07:08 11/09/16 07:08 General appearance: Present: cooperative, A&O X 3, pleasant, no acute distress, answers questions appropriately - Head Head exam: Present: normal inspection - Eye Eye exam: Present: normal appearance, conjuntiva pink - ENT ENT exam: Present: mucous membranes moist, normal exam, normal external ear exam - Respiratory Respiratory exam: Present: decreased breath sounds, CTAB. Absent: rales, respiratory distress, rhonchi, stridor, wheezes - Cardiovascular Cardiovascular exam: Present: RRR, +S1, +S2. Absent: diastolic murmur, systolic murmur - GI/Abdominal GI/Abdominal exam: Present: distended, normal bowel sounds, soft. Absent: tenderness - Extremities Exam Extremities exam: Present: pedal edema, warm. Absent: full ROM, normal capillary refill, normal inspection, tenderness - Expanded Upper Extremities Exam General: Absent: normal inspection Shoulder exam: Present: swelling, tenderness Upper Arm exam: Present: ecchymosis, swelling. Absent: normal inspection Elbow exam: Present: swelling. Absent: full ROM, normal inspection Hand wrist exam: Present: swelling. Absent: normal inspection - Neurological Exam Neurological exam: Present: alert, oriented X3. Absent: facial droop, speech deficit - Skin Skin exam: Present: dry, intact, normal color, warm Internal Medicine: Result - Labs CBC & Chem 7: 11/09/16 04:26 11/09/16 04:26 Labs: Short CBC 11/08/16 11/09/16 Range/Units 16:22 04:26 WBC 15.6 H (4.3-11.1) K/mcL Hgb 8.9 L 8.8 L (11.5-15.4) g/dL Hct 27.4 L 27.7 L (35.3-44.9) % Plt Count 213 (140-400) K/mcL Neutrophils # 11.5 H (1.6-8.9) K/mcL BMP 11/09/16 04:26 Sodium 139 Potassium 4.1 Chloride 100 Carbon Dioxide 31 H BUN 24 H Creatinine 1.27 H Glucose 191 H Calcium 9.6 - ABG Interpretation ABG results: PT/INR, D-dimer PT 14.9 Seconds (9.4-12.1) H 11/09/16 08:35 - VTE Documentation of Mechanical Device: Graduated compression elastic hosiery Consult Discharge Plan - Plan Referrals: Elmer Davey MD [Primary Care Provider] - 11/12/16 9:45 am
[2016-11-09] MEDS ORDERED: Dextrose Gel 15 GM PO PRN ×2 (09:49)
[2016-11-09] MEDS ORDERED: D5% in Water 1,000 ML IVC PRN (09:49)
[2016-11-09] MEDS ORDERED: *HR* Dextrose 50 % in Water (Syg) 50 ML SYRINGE IVP PRN (09:49)
[2016-11-09 11:13] LABS: Hemoglobin A1C 6.8 %
[2016-11-09] MEDS: *HR* OxyCODONE Immed Rel 5 MG TABLET PO PRN (13:08)
[2016-11-09] MEDS: (Memantine Hcl [Namenda Xr] 28 MG) PO SCH (16:21)
[2016-11-09] MEDS: Diltiazem CD (24hr) 240 MG CAPSULE PO SCH (16:21)
[2016-11-09] MEDS: Famotidine 20 MG TABLET PO SCH (16:21)
--- NOTE | 2016-11-09 18:30 | Venous Imaging Report ---
UE Venous Duplex Patient Name:Rachel Davison Order Number:[id number] Procedure Date:11/09/2016 Date:1935ge:81 yrs Gender:Female Location:[facility] Room #: 3B41 Auto Suspension And Steering Mechanic:Beth Gamble RDMOOKIE Referring MD:Ashley Bell CNP management trainee marketing:Elmer Davey MD Reading MD:Terry Winslow MD , FACS Primary Indications:Swelling of limb Secondary Indications: Impressions: Bilateral upper extremity: normal superficial and deep exam. Recommendations: Preliminary noted in pt EMR. Findings Venous Duplex Results: Right: Venous imaging of the upper extremity reveals full patency and normal vessel compressibility of the right jugular, right subclavian, right axillary, right brachial, right cephalic, right basilic, right radial and right ulnar. Doppler signals in the evaluated veins were normal. Left: Venous imaging of the upper extremity reveals full patency and normal vessel compressibility of the left jugular, left subclavian, left axillary, left brachial, left cephalic, left basilic, left radial and left ulnar. Doppler signals in the evaluated veins were normal. Prior Study: No prior study available for comparison. Upper Extremity Venous Duplex Side Vein Compress Spontaneous Flow Augment Right Jugular Normal Yes Phasic Yes Right Subclavian Normal Yes Phasic Yes Right Axillary Normal Yes Phasic Yes Right Brachial Normal Yes Phasic Yes Right Cephalic Normal Yes Phasic Yes Right Basilic Normal Yes Phasic Yes Right Radial Normal Yes Phasic Yes Right Ulnar Normal Yes Phasic Yes Left Jugular Normal Yes Phasic Yes Left Subclavian Normal Yes Phasic Yes Left Axillary Normal Yes Phasic Yes Left Brachial Normal Yes Phasic Yes Left Cephalic Normal Yes Phasic Yes Left Basilic Normal Yes Phasic Yes Left Radial Normal Yes Phasic Yes Left Ulnar Normal Yes Phasic Yes Updated by Terry Winslow MD, FACS on 11/09/2016 6:23:06 PM Terry Winslow MD electronically signed on 11/09/2016 6:23:24 PM with status of Final
[2016-11-09] MEDS: Sennosides 8.6 MG TABLET PO SCH (20:22)
[2016-11-10] MEDS: Insulin LISPRO 300 UNITS/3 ML VIAL SQ SCH ×5 (00:39→21:39)
[2016-11-10 07:56] LABS: Calcium 9.5 mg/dL (8.6-10.8); Potassium 4.1 mEq/L (3.5-4.5)
[2016-11-10 08:02] LABS: Basophils % 0.3 %; Eosinophils # 0.1 K/mcL (0.0-0.6); Eosinophils % 0.5 %; Hematocrit 28.4 % (35.3-44.9); Hemoglobin 9.2 g/dL (11.5-15.4); Immature Granulocytes % 1.1 % (0-4); Lymphocytes # 1.3 K/mcL (0.6-4.6); Mean Corpuscular HGB Conc 32.4 g/dL (31.6-35.5); Mean Corpuscular Volume 95.6 fL (83.0-100.0); Mean Platelet Volume 10.8 fL (9.4-12.4); Monocytes # 1.3 K/mcL (0.0-1.3); Monocytes % 9.1 %; Neutrophils # 11.7 K/mcL (1.6-8.9); Nucleated Red Blood Cells 0.2 /100 WBC (0); Platelet Count 248 K/mcL (140-400); Red Blood Count 2.97 M/mcL (3.82-4.97); Red Cell Distribution Width 15.4 % (11.5-14.5)
--- NOTE | 2016-11-10 08:57 | Internal Med Progress Note ---
Date of Encounter: 11/10/16 Time of Encounter: 08:51 - Assessment and plan (1) Syncope Current Visit: Yes Status: Resolved Assessment and plan: Mostly due to ortho static and vaso vagal reaction given her anemia and hematoma over left shoulder after recent left shoulder arthroscope No more syncopal episodes here cont close monitoring Qualifiers: Syncope type: unspecified Qualified Code(s): R55 - Syncope and collapse (2) Anemia due to blood loss, acute Current Visit: Yes Status: Acute Assessment and plan: Her anemia is multi factorial with post procedural hematoma + Occult GI bleed cont holding coumading and anti platelet medication so far stable Hb : 9.2 GI scheduled for EGD / Colonoscopy on Saturday (3) Edema extremities Current Visit: Yes Status: Acute Assessment and plan: dependent edema over LUE recommend to keep elevated the arm and properly placed sling ruled out DVT - Venous doppler negative (4) Hematoma following procedure Current Visit: Yes Status: Acute Assessment and plan: stable Hb cont close monitoring Ortho on board no further interventions needed (5) HTN (hypertension) Current Visit: Yes Status: Chronic Assessment and plan: stable.. Cont home medications. Continue to monitor. Qualifiers: Hypertension type: essential hypertension Qualified Code(s): I10 - Essential (primary) hypertension (6) Diabetes Current Visit: Yes Status: Chronic Assessment and plan: HbA1C - 6.8 resumed home breanna Pathak will educate the pt to d/c Actos due to her CHF Qualifiers: Diabetes mellitus type: type 2 Diabetes mellitus complication status: without complication Diabetes mellitus terminal superintendent insulin use: without [facility] use Qualified Code(s): E11.9 - Type 2 diabetes mellitus without complications (7) Atrial fibrillation Current Visit: Yes Status: Acute Assessment and plan: rate controlled with Cardizem Hled Coumadin due to anemia / hematoma Qualifiers: Atrial fibrillation type: chronic Qualified Code(s): I48.2 - Chronic atrial fibrillation (8) Constipation Current Visit: Yes Status: Acute Assessment and plan: improved. Continue laxatives, stool softener, fiber supplementation Qualifiers: Constipation type: unspecified constipation type Qualified Code(s): K59.00 - Constipation, unspecified (9) Diastolic CHF Current Visit: Yes Status: Acute Assessment and plan: not in exacerbation Lasix 20mg po daily, continue to monitor renal function. I and O Daily weight Low Na diet. Qualifiers: Congestive heart failure chronicity: acute Qualified Code(s): I50.31 - Acute diastolic (congestive) heart failure - Subjective Interval history: Ms. Davison is a 81 year old female with a PMH significant for dementia, afib on Coumadin, AICD/PM, DM, HTN who presented to ED 11/06/16 following a syncopal event. The patient underwent a left shoulder arthroscopy on November 01 at [facility]. Surgery was performed by Dr. Hoffman. She developed bleeding at surgical site, and returned to the ED on the . Per daughter, the sutures were replaced and another dressing was placed and was to be removed tomorrow (11/07). Over the weekend, her wound continued to bleed. She has been sleeping quite a bit, had two episodes of non-bloody emesis. She was walking from the car to the coumadin clinic and passed out, falling forward. Her daughter was able to break her fall, and patient did not hit her head or cause any further injury. Pt was admitted her for syncope, also noted to have Left shoulder hematoma and occult GI bleed. Pt is resting comfortably now. Denied any CP. had a BM y/d. No bright red blood per rectum. - Constitutional Vitals: Temp Pulse Resp BP Pulse Ox 98.8 F 108 16 177/83 93 11/10/16 07:39 11/10/16 07:39 11/10/16 07:39 11/10/16 07:39 11/10/16 07:39 General appearance: Present: cooperative, A&O X 3, pleasant, no acute distress, answers questions appropriately - Head Head exam: Present: atraumatic, normal inspection - Neck Neck exam general surgery: Present: supple - Respiratory Respiratory exam: Present: decreased breath sounds, wheezes. Absent: rales, respiratory distress, rhonchi - Cardiovascular Cardiovascular exam: Present: irregular rhythm, +S1, +S2. Absent: systolic murmur - GI/Abdominal GI/Abdominal exam: Present: soft. Absent: distended, firm, rebound, rigid, tenderness - Extremities Exam Additional comments: moderate edema in Left UE due to dependent edema limited ORM over Left shoulder. Dressing and sling placed on Left UE - Psychiatric Psychiatric exam: Present: normal affect, normal mood Internal Medicine: Result - Labs CBC & Chem 7: 11/10/16 06:52 08/05/17 06:52 Labs: Short CBC 11/10/16 Range/Units 06:52 WBC 14.6 H (4.3-11.1) K/mcL Hgb 9.2 L (11.5-15.4) g/dL Hct 28.4 L (35.3-44.9) % Plt Count 248 (140-400) K/mcL Neutrophils # 11.7 H (1.6-8.9) K/mcL BMP 11/10/16 06:52 Sodium 136 Potassium 4.1 Chloride 98 Carbon Dioxide 30 H BUN 23 H Creatinine 1.29 H Glucose 216 H Calcium 9.5 - ABG Interpretation ABG results: PT/INR, D-dimer PT 14.9 Seconds (9.4-12.1) H 11/09/16 08:35 - VTE Documentation of Mechanical Device: Graduated compression elastic hosiery Consult Discharge Plan - Plan Referrals: Elmer Davey MD [Primary Care Provider] - 11/12/16 9:45 am
[2016-11-10] MEDS: Loratadine 10 MG TABLET PO SCH (10:27)
[2016-11-10] MEDS: hydrALAZINE 25 MG TABLET PO SCH ×3 (10:27→21:38)
[2016-11-10] MEDS: Multivit/Ca/Min/Fe/FA 1 TAB TABLET PO SCH (10:27)
[2016-11-10] MEDS: Metoprolol 100 MG TABLET PO SCH ×2 (10:27→21:36)
[2016-11-10] MEDS: (Felodipine [Felodipine Er] 10 MG) PO SCH (10:38)
[2016-11-10] MEDS: *HR* OxyCODONE Immed Rel 5 MG TABLET PO PRN (15:38)
[2016-11-10] MEDS: Famotidine 20 MG TABLET PO SCH (18:48)
[2016-11-10] MEDS: (Memantine Hcl [Namenda Xr] 28 MG) PO SCH (18:49)
[2016-11-10] MEDS: Diltiazem CD (24hr) 240 MG CAPSULE PO SCH (18:49)
[2016-11-10] MEDS: Sennosides 8.6 MG TABLET PO SCH (21:36)
--- NOTE | 2016-11-11 08:33 | Internal Med Progress Note ---
Date of Encounter: 11/11/16 Time of Encounter: 08:31 - Assessment and plan (1) Syncope Current Visit: Yes Status: Resolved Assessment and plan: Mostly due to ortho static and vaso vagal reaction given her anemia and hematoma over left shoulder after recent left shoulder arthroscope No more syncopal episodes here cont close monitoring Talked to pt's daughter and updated to her about current care. Pt and her daughter both requested for DNR / DNI.. so will changer her code status. Qualifiers: Syncope type: unspecified Qualified Code(s): R55 - Syncope and collapse (2) Anemia due to blood loss, acute Current Visit: Yes Status: Acute Assessment and plan: Her anemia is multi factorial with post procedural hematoma + Occult GI bleed cont holding coumading and anti platelet medication so far stable Hb : 9.2 GI scheduled for EGD / Colonoscopy on Saturday (3) Edema extremities Current Visit: Yes Status: Acute Assessment and plan: dependent edema over LUE recommend to keep elevated the arm and properly placed sling ruled out DVT - Venous doppler negative (4) Hematoma following procedure Current Visit: Yes Status: Acute Assessment and plan: stable Hb cont close monitoring Ortho on board no further interventions needed (5) HTN (hypertension) Current Visit: Yes Status: Chronic Assessment and plan: stable.. Cont home medications. Continue to monitor. Qualifiers: Hypertension type: essential hypertension Qualified Code(s): I10 - Essential (primary) hypertension (6) Diabetes Current Visit: Yes Status: Chronic Assessment and plan: HbA1C - 6.8 resumed home breanna Pathak will educate the pt to d/c Actos due to her CHF Qualifiers: Diabetes mellitus type: type 2 Diabetes mellitus complication status: without complication Diabetes mellitus halfway insulin use: without termite treater use Qualified Code(s): E11.9 - Type 2 diabetes mellitus without complications (7) Atrial fibrillation Current Visit: Yes Status: Acute Assessment and plan: rate controlled with Cardizem Held Coumadin due to anemia / hematoma Qualifiers: Atrial fibrillation type: chronic Qualified Code(s): I48.2 - Chronic atrial fibrillation (8) Constipation Current Visit: Yes Status: Acute Assessment and plan: improved. Continue laxatives, stool softener, fiber supplementation Qualifiers: Constipation type: unspecified constipation type Qualified Code(s): K59.00 - Constipation, unspecified (9) Diastolic CHF Current Visit: Yes Status: Chronic Assessment and plan: not in exacerbation Lasix 20mg po daily, continue to monitor renal function. I and O Daily weight Low Na diet. Qualifiers: Congestive heart failure chronicity: acute Qualified Code(s): I50.31 - Acute diastolic (congestive) heart failure - Subjective Interval history: Ms. Davison is a 81 year old female with a PMH significant for dementia, afib on Coumadin, AICD/PM, DM, HTN who presented to ED 11/06/16 following a syncopal event. The patient underwent a left shoulder arthroscopy on November 01 at [facility]. Surgery was performed by Dr. Hoffman. She developed bleeding at surgical site, and returned to the ED on the . Per daughter, the sutures were replaced and another dressing was placed and was to be removed tomorrow (11/07). Over the weekend, her wound continued to bleed. She has been sleeping quite a bit, had two episodes of non-bloody emesis. She was walking from the car to the coumadin clinic and passed out, falling forward. Her daughter was able to break her fall, and patient did not hit her head or cause any further injury. Pt was admitted her for syncope, also noted to have Left shoulder hematoma and occult GI bleed. Pt is resting comfortably now. Denied any CP. had a BM y/d. No bright red blood per rectum. - Constitutional Vitals: Temp Pulse Resp BP Pulse Ox 98.4 F 97 16 191/96 97 11/11/16 07:26 11/11/16 07:26 11/11/16 07:26 11/11/16 07:26 11/11/16 07:26 General appearance: Present: cooperative, A&O X 3, pleasant, no acute distress, answers questions appropriately - Head Head exam: Present: atraumatic, normal inspection - Respiratory Respiratory exam: Present: decreased breath sounds, wheezes. Absent: rales, respiratory distress, rhonchi - Cardiovascular Cardiovascular exam: Present: RRR, +S1, +S2 - GI/Abdominal GI/Abdominal exam: Present: normal bowel sounds, soft. Absent: rebound, rigid, tenderness - Extremities Exam Additional comments: dressing and shoulder sling placed in.. ROM limited in Left shoulder due to pain. Improving edema in LUE - Psychiatric Psychiatric exam: Present: normal affect, normal mood Internal Medicine: Result - Labs CBC & Chem 7: 11/10/16 06:52 11/10/16 06:52 - ABG Interpretation ABG results: PT/INR, D-dimer PT 14.9 Seconds (9.4-12.1) H 11/09/16 08:35 - VTE Documentation of Mechanical Device: Graduated compression elastic hosiery Consult Discharge Plan - Plan Referrals: Elmer Davey MD [Primary Care Provider] - 11/12/16 9:45 am
[2016-11-11] MEDS: Insulin LISPRO 300 UNITS/3 ML VIAL SQ SCH ×4 (09:17→21:01)
[2016-11-11] MEDS: (Felodipine [Felodipine Er] 10 MG) PO SCH (09:18)
[2016-11-11] MEDS: Metoprolol 100 MG TABLET PO SCH ×2 (09:18→21:38)
[2016-11-11] MEDS: hydrALAZINE 25 MG TABLET PO SCH ×3 (09:18→21:26)
[2016-11-11] MEDS: *HR* SitaGLIPtin 25 MG TABLET PO SCH (09:18)
[2016-11-11] MEDS: Loratadine 10 MG TABLET PO SCH (09:18)
[2016-11-11] MEDS: Multivit/Ca/Min/Fe/FA 1 TAB TABLET PO SCH (09:19)
[2016-11-11] MEDS: Diltiazem CD (24hr) 240 MG CAPSULE PO SCH (16:11)
[2016-11-11] MEDS ORDERED: Polyethylene Glycol 3350 255 GM POWDER PO ONE (17:00)
[2016-11-11] MEDS: Famotidine 20 MG TABLET PO SCH (17:21)
[2016-11-11] MEDS: (Memantine Hcl [Namenda Xr] 28 MG) PO SCH (17:21)
[2016-11-11] MEDS ORDERED: amLODIPine 5 MG TABLET PO ONE ×2 (21:27)
[2016-11-11] MEDS: Sennosides 8.6 MG TABLET PO SCH (21:38)
[2016-11-12 04:52] LABS: Basophils % 0.3 %; Eosinophils # 0.1 K/mcL (0.0-0.6); Hematocrit 27.3 % (35.3-44.9); Immature Granulocytes % 0.8 % (0-4); Lymphocytes # 1.9 K/mcL (0.6-4.6); Lymphocytes % 14.3 %; Mean Corpuscular Hemoglobin 30.9 pg (28.0-33.3); Mean Corpuscular Volume 93.8 fL (83.0-100.0); Mean Platelet Volume 10.7 fL (9.4-12.4); Monocytes # 1.2 K/mcL (0.0-1.3); Monocytes % 8.9 %; Neutrophils # 9.8 K/mcL (1.6-8.9); Nucleated Red Blood Cells 0.2 /100 WBC (0); Platelet Count 247 K/mcL (140-400); Red Blood Count 2.91 M/mcL (3.82-4.97); Red Cell Distribution Width 14.9 % (11.5-14.5); Segmented Neutrophils % 74.7 %
[2016-11-12 05:02] LABS: BUN/Creatinine Ratio 17 (6-26); Blood Urea Nitrogen 18 mg/dL (7-20); Calcium 9.2 mg/dL (8.6-10.8); Carbon Dioxide 28 mEq/L (19-29); Chloride 95 mEq/L (98-109); Glucose 226 mg/dL (70-99); Magnesium 1.7 mg/dL (1.6-2.6); Osmolality,Calculated 283 (280-300); Potassium 4.4 mEq/L (3.5-4.5); Sodium 132 mEq/L (136-145); eGFR For African Americans > 60 (> 60); eGFR For Non-African Americans 50 (> 60)
[2016-11-12] MEDS: *HR* SitaGLIPtin 25 MG TABLET PO SCH (08:38)
[2016-11-12] MEDS: Metoprolol 100 MG TABLET PO SCH (08:38)
[2016-11-12] MEDS: Loratadine 10 MG TABLET PO SCH (08:38)
[2016-11-12] MEDS: Insulin LISPRO 300 UNITS/3 ML VIAL SQ SCH ×2 (08:38→12:15)
[2016-11-12] MEDS: Multivit/Ca/Min/Fe/FA 1 TAB TABLET PO SCH (08:39)
[2016-11-12] MEDS: (Felodipine [Felodipine Er] 10 MG) PO SCH (08:39)
--- NOTE | 2016-11-12 12:33 | Anesthesia Evaluation PreOp ---
Date of Encounter: 11/12/16 Time of Encounter: 12:31 - Past History Planned Operation: EGD/Colon Cardiac History: HTN (maintained on Hydralazine, Valsartan/Hctz, Felopdipine, Clonidine), Hyperlipidemia (maintained on Atrovastatin), Arrhythmia (AFib nmaitnained on Diltiaze, Metoprolol, Anticoagulated on Coumadin), Pacemaker/ICD , Other (See Echo [11/06/2016] report Below) Pulmonary History: Denies Any Significant HX MUSEUM SECURITY CHIEF History: Syncope (Witnessed syncope 11/06/16 s/p Shoulder scope 11/01 at [place] [[facility]]), Other (Dementia maintained on Namenda) Other Medical History: Renal (SHAREE this admission), Diabetes Type II (maintained on Januvia, Actos, Evista), GERD (maintained on Pepcid) Anesthesia History: No Prior Anesthetic Complications, Past Anesthesia (Appy, Cataracts, Hsyter, Knee replacement) Alcohol Use: none Drug use: none Medications and Allergies Aspirin [Adult Low Dose Aspirin EC] 81 mg PO DAILY 03/18/15 [History] Citalopram Hydrobromide [Celexa] 20 mg PO QAM 03/18/15 [History] CloNIDine HCl 0.2 mg PO TID 03/18/15 [History] Glucosamine Sulfate Dipot Chlr [Glucosamine Relief] 1,000 mg PO QAM 03/18/15 [ History] Hydralazine HCl 50 mg PO TID 03/18/15 [History] Loratadine [Claritin] 10 mg PO QAM 03/18/15 [History] Memantine HCl [Namenda Xr] 28 mg PO QPM 03/18/15 [History] Metoprolol [Lopressor] 100 mg PO BID 03/18/15 [History] Nitroglycerin [Nitrostat] 0.4 mg SL Q5M PRN 03/18/15 [History] Raloxifene [Evista] 60 mg PO QAM 03/18/15 [History] SitaGLIPtin [Januvia] 50 mg PO QAM 03/18/15 [History] Warfarin [Coumadin] 2.5 mg PO TUTHSA 03/18/15 [History] Ergocalciferol (VITAMIN D2) [Vitamin D2 (50,000 UNIT)] 50,000 unit PO WE [History] Multivitamin/Iron/Folic Acid [Centrum Complete Multivit Tab] 1 each PO QAM 05/04 [History] Valsartan/Hydrochlorothiazide [Diovan Hct 320-12.5 mg Tab] 1 each PO QAM [History] Warfarin [Coumadin] 5 mg PO SUMOWEFR 05/04/15 [History] Allopurinol [Zyloprim] 100 mg PO DAILY 03/08/16 [History] Atorvastatin [Lipitor] 40 mg PO HS 03/08/16 [History] Calcium Polycarbophil [Fibercon] 625 mg PO BID 03/08/16 [History] Docusate [Colace] 200 mg PO TID 03/08/16 [History] L. Acidophilus/Pectin, Jenkins [Acidophilus Probiotic Capsule] 1 each PO BID 04/23 [History] Diltiazem HCl [Diltiazem 24Hr Cd] 180 mg PO QPM 11/06/16 [History] Famotidine [Pepcid] 40 mg PO QPM 11/06/16 [History] OxyCODONE Immed Rel [Roxicodone 5 MG] 5 mg PO Q6H PRN 11/06/16 [History] Pantoprazole Sodium 40 mg PO BID 11/06/16 [History] Pioglitazone [Actos] 15 mg PO QPM 11/06/16 [History] Allergies No Known Drug Allergies Allergy (Verified 01/05/15 14:50) See Comments - Meds/Allergy Pre-op Review Medications Reviewed: Yes Allergies Reviewed: Yes Beta Blockers on Current Med List: Yes (Metoprolol ) If Beta Blockers taken, Date/Time (Last Dose taken): 11/12/2016 @ 0838 Anesthesia Results - Labs 11/12/16 04:16 11/12/16 04:16 Laboratory Results WBC 13.1 K/mcL (4.3-11.1) H 11/12/16 04:16 RBC 2.91 M/mcL (3.82-4.97) L 11/12/16 04:16 Hgb 9.0 g/dL (11.5-15.4) L 11/12/16 04:16 Hct 27.3 % (35.3-44.9) L 11/12/16 04:16 MCV 93.8 fL (83.0-100.0) 11/12/16 04:16 MCH 30.9 pg (28.0-33.3) 11/12/16 04:16 MCHC 33.0 g/dL (31.6-35.5) 11/12/16 04:16 RDW 14.9 % (11.5-14.5) H 11/12/16 04:16 Plt Count 247 K/mcL (140-400) 11/12/16 04:16 MPV 10.7 fL (9.4-12.4) 11/12/16 04:16 Immature Gran % 0.8 % (0-4) 11/12/16 04:16 Seg Neutrophils % 74.7 % 11/12/16 04:16 Lymphocytes % 14.3 % 11/12/16 04:16 Monocytes % 8.9 % 11/12/16 04:16 Eosinophils % 1.0 % 11/12/16 04:16 Basophils % 0.3 % 11/12/16 04:16 Neutrophils # 9.8 K/mcL (1.6-8.9) H 11/12/16 04:16 Lymphocytes # 1.9 K/mcL (0.6-4.6) 11/12/16 04:16 Monocytes # 1.2 K/mcL (0.0-1.3) 11/12/16 04:16 Eosinophils # 0.1 K/mcL (0.0-0.6) 11/12/16 04:16 Basophils # 0.0 K/mcL (0.0-0.2) 11/12/16 04:16 Nucleated RBCs/100 WBC 0.2 /100 WBC (0) H 11/12/16 04:16 PT 14.9 Seconds (9.4-12.1) H 11/09/16 08:35 INR 1.4 11/09/16 08:35 APTT 43.1 Seconds (26.0-36.0) H 11/06/16 14:32 Sodium 132 mEq/L (136-145) L 11/12/16 04:16 Potassium 4.4 mEq/L (3.5-4.5) 11/12/16 04:16 Chloride 95 mEq/L (98-109) L 11/12/16 04:16 Carbon Dioxide 28 mEq/L (19-29) 11/12/16 04:16 BUN 18 mg/dL (7-20) 11/12/16 04:16 Creatinine 1.06 mg/dL (0.57-1.11) 11/12/16 04:16 Est GFR ( Amer) > 60 (> 60) 11/12/16 04:16 Est GFR (Non-Af Amer) 50 (> 60) L 11/12/16 04:16 BUN/Creatinine Ratio 17 (6-26) 11/12/16 04:16 Glucose 226 mg/dL (70-99) H 11/12/16 04:16 POC Glucose 136 (58-89) H 11/12/16 11:59 Est Mean Plasma Glucose 148 mg/dl 11/09/16 04:26 Hemoglobin A1c 6.8 % (-5.6) H 11/09/16 04:26 Calculated Osmolality 283 (280-300) 11/12/16 04:16 Lactic Acid 1.0 mmol/L (0.5-2.2) 11/07/16 04:19 Calcium 9.2 mg/dL (8.6-10.8) 11/12/16 04:16 Magnesium 1.7 mg/dL (1.6-2.6) 11/12/16 04:16 Creatine Kinase 75 Units/L (29-168) 11/07/16 04:19 Troponin I 0.01 ng/mL (0-0.03) 11/06/16 14:32 B-Natriuretic Peptide 550 pg/mL (0-100) H 11/07/16 04:19 Vitamin B12 883 pg/mL (213-816) H 11/07/16 04:19 Folate 15.8 ng/mL (7.0-31.4) 11/07/16 04:19 Urine Color Yellow (Yellow) 11/06/16 17:07 Urine Clarity Clear (Clear) 11/06/16 17:07 Urine pH 6.0 pH Units (5.0-8.0) 11/06/16 17:07 Ur Specific Keyes 1.013 (1.010-1.025) 11/06/16 17:07 Urine Protein Negative mg/dL (Neg-Trace) 11/06/16 17:07 Urine Glucose (UA) Normal mg/dL (Normal) 11/06/16 17:07 Urine Ketones Negative mg/dL (Negative) 11/06/16 17:07 Urine Blood Negative (Negative) 11/06/16 17:07 Urine Nitrite Negative (Negative) 11/06/16 17:07 Urine Bilirubin Negative (Negative) 11/06/16 17:07 Urine Urobilinogen Normal mg/dL (Normal) 11/06/16 17:07 Ur Leukocyte Esterase Trace (Negative) H 11/06/16 17:07 Urine Microscopic RBC 0-3 per hpf (0-3) 11/06/16 17:07 Urine Microscopic WBC 5-15 per hpf (0-3) H 11/06/16 17:07 Ur Squamous Epith Cells Many per lpf (None-Few) H 11/06/16 17:07 Urine Bacteria None Seen per hpf (None-Few) 11/06/16 17:07 Hyaline Casts None Seen per lpf (None-Few) 11/06/16 17:07 Urine Creatinine 56 mg/dL 11/06/16 17:07 Urine Sodium 24.0 mEq/L 11/06/16 17:07 Stool Occult Blood Positive (Negative) A 11/08/16 09:30 Blood Type B POSITIVE 11/07/16 04:19 Antibody Screen NEGATIVE 11/07/16 04:19 Impressions Chest X-Ray 11/06/16 14:16 IMPRESSION: No acute cardiopulmonary disease. D/ / Terrell Cao MD / Terrell Cao MD Interpreting Provider: Terrell Cao MD Head CT 11/06/16 14:17 IMPRESSION: No acute intracranial abnormality. D/ / Joel Gaming MD / Joel Gaming MD Interpreting Provider: Joel Gaming MD Abdomen/Pelvis CT 11/06/16 14:18 IMPRESSION: 1. Dense stool in the proximal colon suggests underlying constipation. The GI tract is otherwise unremarkable. 2. Decreased size of a complex lesion at the upper pole of the left kidney from prior imaging. Please correlate with interval workup. 3. Limited evaluation of additional simple and complex cysts in the kidneys on this noncontrast exam although there has been no interval detrimental change with regards to size. D/ / Luis Manuel Vee MD / Luis Manuel Vee MD Interpreting Provider: Luis Manuel Vee MD Shoulder CT 11/06/16 19:31 IMPRESSION: 1. 5.2 x 5.1 x 2.3 cm lobular heterogeneous soft tissue density collection in the subcutaneous fat superior to the distal left clavicle and acromion process compatible with a postoperative hematoma. Superimposed infection not excluded. Adjacent subcutaneous fat stranding and soft tissue gas may represent expected postoperative changes. Heterogeneous attenuation of the infraspinatus muscle suggesting intramuscular hematoma. 2. Postoperative changes of the distal left clavicle and acromion process. 3. Question partially visualized soft tissue mass in the left breast. Recommend correlation with mammography. D/ / Francisco Ortiz MD / Francisco Ortiz MD Interpreting Provider: Francisco Ortiz MD Echocardiogram 11/07/16 19:33 Impressions: LVEF 65%. Normal left ventricular size and systolic function. Mild concentric hypertrophy of the left ventricle. There is evidence of moderate diastolic dysfunction of the left ventricle. Normal right ventricular size and function. Mild mitral regurgitation. Mild tricuspid regurgitation. Mild pulmonic regurgitation. No pulmonary hypertension. Left Ventricular Wall Motion: Rest Echo Findings All wall segments showed normal motion. Findings: Study Quality * Technically adequate exam. ECG Findings * Sinus rhythm. Left Ventricle * Mild concentric left ventricular hypertrophy. * LVEF 65%. * Moderate left ventricular diastolic dysfunction. Aorta * Normally sized aortic root. Aortic Valve * No aortic regurgitation. * Trileaflet aortic valve. * No aortic stenosis. Mitral Valve * No mitral stenosis. * Mild mitral annular calcification * Mild mitral regurgitation. * Mildly calcified mitral valve leaflets. Tricuspid Valve * Tricuspid valve not well visualized. * Mild tricuspid regurgitation. * Estimated RA pressure is 3 mmHg. * Estimated RVSP is 47 mmHg. * Mild pulmonary hypertension. Pulmonic Valve * Pulmonic valve is not well visualized. * No pulmonic stenosis. * Mild pulmonic regurgitation. Pulmonary Artery * Pulmonary artery not well visualized. Right Ventricle * Normal right ventricular structure and function. Right Atrium * Normal right atrial size. Left Atrium * Severely dilated left atrium. Pericardium * There is no pericardial effusion present. Interatrial Septum * No evidence of PFO by color Doppler. IVC * Normal IVC dimensions and inspiratory collapse. Device lead * A device lead was visualized in the right atrium and right ventricle. Anesthesia Exam Vital Signs Temp Pulse Resp BP Pulse Ox 11/12/16 12:38 98.7 F 62 20 198/78 92 11/12/16 12:18 98.7 F 68 18 169/81 92 11/12/16 11:56 98.0 F 63 16 161/67 94 11/12/16 07:37 98.2 F 88 16 199/71 96 11/12/16 04:48 98.2 F 59 16 163/72 96 11/12/16 02:41 179/81 11/11/16 23:58 98.5 F 91 16 208/68 96 11/11/16 21:45 97 11/11/16 20:44 98.6 F 78 16 169/92 97 11/11/16 15:51 98.1 F 103 18 179/90 93 Intake and Output 11/11/16 11/12/16 11/12/16 23:59 07:59 15:59 Intake Total 0 / 0 Balance 0 / 0 Intake: Oral 0 / 0 Other: Meal Breakfast Percent of Meal Consumed 0% Stool Size Copious Small Stool Consistency soft liquid Stool Color Brown Brown # Voids 1 2 # Bowel Movements 1 1 Weight 76.9 kg Blood Glucose* 227 187 136 Patient Weight 11/12/16 23:59 Weight 76.9 kg Height: 5'6" Weight: 169# BMI = 27 NPO (# of Hours): MNoc - HEENT Pupil (Motor): Pupils equal, EOMI Mallampati: II Teeth: Missing Denture Type: Upper: Partial, Lower: Complete Oral Opening: Greater than 3 - MUSEUM SECURITY CHIEF LOC: Oriented MUSEUM SECURITY CHIEF Motor: Normal RUE, Normal LUE, Normal RLE, Normal LLE, Normal Face MUSEUM SECURITY CHIEF Sensory: Normal: RUE, LUE, RLE, LLE, Face - Cardiac Rhythm: Irregular Murmur: Systolic JVD: No - Pulmonary Breath Sounds: bilateral Clear Respiratory Effort: Symmetrical Anesthesia Assess/Plan ASA Score: 3 (AFib, HTN, Chol, DM, Acute Blood Loss Anemia) Modified Stephy Scale for Level of Consciousness: Cooperative, oriented, and tranquil Anesthetic Plan: MAC Monitoring Plan: Standard Monitors Recovery Plan: Other Anes Supervising Prov Stmt: Pt seen/evaluated, R&B discussed, questions answered and consent obtained. Eamon River MD
[2016-11-12] MEDS ORDERED: Simethicone 40 MG/0.6 ML MLS IR ONE (13:05)
[2016-11-12] MEDS ORDERED: Tetracaine/Benzocaine/Butamben 200MG/SPRAY (100SPY/BOT) MM ONE (13:05)
[2016-11-12] MEDS ORDERED: 0.9 % Sodium Chloride 1,000 ML IVC SCH (13:15)
[2016-11-12] MEDS: hydrALAZINE 25 MG TABLET PO SCH ×2 (14:21→14:24)
[2016-11-12] MEDS: *HR* OxyCODONE Immed Rel 5 MG TABLET PO PRN (14:21)
--- NOTE | 2016-11-12 15:08 | Electrocardiograph Report ---
[address] [place] [address] Test Date: 2016-11-09 Pat Name: Rachel Davison Department: 113 Room: 3B41 Gender: F [employer]: : 1935 Requested By: Sisi Griffith Order Number: [id number] Reading MD: Verena Henson Measurements Intervals [place] Rate: 112 P: [place]: 0 QRS: 3 QRSD: 90 T: 95 QT: 240 QTc: 307 Interpretive Statements ATRIAL FIBRILLATION WITH RAPID VENTRICULAR RESPONSE NONSPECIFIC ST & T-WAVE ABNORMALITY Electronically Signed On 11-11-2016 11:54:30 EDT by Verena Henson
--- NOTE | 2016-11-12 15:46 | Discharge Summary ---
Date of Encounter: 11/12/16 Time of Encounter: 15:40 - Discharge Diagnosis (1) Syncope Priority: Primary Status: Resolved Qualifiers: Syncope type: unspecified Qualified Code(s): R55 - Syncope and collapse (2) Anemia due to blood loss, acute Priority: Primary Status: Acute (3) Edema extremities Priority: Secondary Status: Acute (4) Hematoma following procedure Priority: Secondary Status: Acute (5) HTN (hypertension) Priority: Secondary Status: Chronic Qualifiers: Hypertension type: essential hypertension Qualified Code(s): I10 - Essential (primary) hypertension (6) Diabetes Priority: Secondary Status: Chronic Qualifiers: Diabetes mellitus type: type 2 Diabetes mellitus complication status: without complication Diabetes mellitus terminal operations manager insulin use: without terminal operations manager use Qualified Code(s): E11.9 - Type 2 diabetes mellitus without complications (7) Atrial fibrillation Priority: Secondary Status: Chronic Qualifiers: Atrial fibrillation type: chronic Qualified Code(s): I48.2 - Chronic atrial fibrillation (8) Constipation Priority: Secondary Status: Acute Qualifiers: Constipation type: unspecified constipation type Qualified Code(s): K59.00 - Constipation, unspecified (9) Diastolic CHF Priority: Secondary Status: Chronic Qualifiers: Congestive heart failure chronicity: acute Qualified Code(s): I50.31 - Acute diastolic (congestive) heart failure - Discharge Medications Prescriptions: Ferrous Sulfate 324 mg PO DAILY #30 tablet. OxyCODONE Immed Rel [Roxicodone 5 MG] 5 mg PO Q6H PRN #15 PRN Reason: Pain Home Medications: Aspirin [Adult Low Dose Aspirin EC] 81 mg PO DAILY 03/18/15 [History] Citalopram Hydrobromide [Celexa] 20 mg PO QAM 03/18/15 [History] CloNIDine HCl 0.2 mg PO TID 03/18/15 [History] Glucosamine Sulfate Dipot Chlr [Glucosamine Relief] 1,000 mg PO QAM 03/18/15 [ History] Hydralazine HCl 50 mg PO TID 03/18/15 [History] Loratadine [Claritin] 10 mg PO QAM 03/18/15 [History] Memantine HCl [Namenda Xr] 28 mg PO QPM 03/18/15 [History] Metoprolol [Lopressor] 100 mg PO BID 03/18/15 [History] Nitroglycerin [Nitrostat] 0.4 mg SL Q5M PRN 03/18/15 [History] Raloxifene [Evista] 60 mg PO QAM 03/18/15 [History] SitaGLIPtin [Januvia] 50 mg PO QAM 03/18/15 [History] Ergocalciferol (VITAMIN D2) [Vitamin D2 (50,000 UNIT)] 50,000 unit PO WE [History] Multivitamin/Iron/Folic Acid [Centrum Complete Multivit Tab] 1 each PO QAM 05/04 [History] Valsartan/Hydrochlorothiazide [Diovan Hct 320-12.5 mg Tab] 1 each PO QAM [History] Allopurinol [Zyloprim] 100 mg PO DAILY 03/08/16 [History] Atorvastatin [Lipitor] 40 mg PO HS 03/08/16 [History] Calcium Polycarbophil [Fibercon] 625 mg PO BID 03/08/16 [History] Docusate [Colace] 200 mg PO TID 03/08/16 [History] L. Acidophilus/Pectin, Cassia [Acidophilus Probiotic Capsule] 1 each PO BID 04/23 [History] Diltiazem HCl [Diltiazem 24Hr Cd] 180 mg PO QPM 11/06/16 [History] Famotidine [Pepcid] 40 mg PO QPM 11/06/16 [History] Pantoprazole Sodium 40 mg PO BID 11/06/16 [History] Ferrous Sulfate 324 mg PO DAILY #30 tablet. 11/12/16 [Rx] OxyCODONE Immed Rel [Roxicodone 5 MG] 5 mg PO Q6H PRN #15 11/12/16 [Rx] Allergies/Adverse Reactions: Allergies No Known Drug Allergies Allergy (Verified 01/05/15 14:50) See Comments Date of admission: 11/06/16 20:58 Primary care physician: Elmer Davey MD Consults: 11/08/16 18:39 Consult to Gastroenterology [CONS] Routine Consulting Provider: Gastroenterology [place] Reason for Consult: Pt has blood loss anemia, recent shoulder surgery with known bleeding at site. Stool occult blood positive today. Time Notified: 18:40 Call Completed: No - Patient Status Disposition: Home, Self-Care Condition: Good - Discharge Instructions Follow Up With: Elmer Davey MD [Primary Care Provider] - Additional Instructions: f/u with PCP in one week f/u with Cardiology in 1-2 weeks f/u with Ortho in 1 week Stop taking coumadin until you see your barrel washer machine - Diet and Activity Activity: increase activity as tolerated Diet: low salt diet Hospital course: Ms. Davison is a 81 year old female with a PMH significant for dementia, afib on Coumadin, AICD/PM, DM, HTN who presented to ED 11/06/16 following a syncopal event. The patient underwent a left shoulder arthroscopy on November 01 at [facility]. Surgery was performed by Dr. Hoffman. She developed bleeding at surgical site, and returned to the ED on the . Per daughter, the sutures were replaced and another dressing was placed and was to be removed tomorrow (11/07). Over the weekend, her wound continued to bleed. She has been sleeping quite a bit, had two episodes of non-bloody emesis. She was walking from the car to the coumadin clinic and passed out, falling forward. Her daughter was able to break her fall, and patient did not hit her head or cause any further injury. Pt was admitted her for syncope, also noted to have Left shoulder hematoma and occult GI bleed. Pt was admittd her and placed her onc ardiac monitor, checked troponin which were negative. Her 2 D Echo showed normal LVEF no wall motion abnormalities. Her Carotid doppler showed Rt carotid non stenotic plaque and 40- 59% stenosis of Left Mid ICA noticed. We did held her Coumadin, and monitor Hb closely. her is stable in last 3 days. She did go for EGD and Colonoscopy today which showed normal esophagus, stomach and 10mm non bleeding colon polyp which got removed. Pt is resting comfortably now. Denied any CP. had a BM y/d. No bright red blood per rectum. Will d/c her home today in stable condition. Talked to pt's daughter at bed side. - Time Spent with Patient Total time spent providing and/or coordinating discharge services: - Constitutional Vitals: Temp Pulse Resp BP Pulse Ox 98.4 F 96 17 185/79 93 11/12/16 14:36 11/12/16 14:36 11/12/16 14:36 11/12/16 14:36 11/12/16 14:36 General appearance: Present: cooperative, A&O X 3, pleasant, no acute distress, answers questions appropriately - Head Head exam: Present: atraumatic, normal inspection - Respiratory Respiratory exam: Present: decreased breath sounds, wheezes. Absent: rales, respiratory distress, rhonchi - Cardiovascular Cardiovascular exam: Present: +S1, +S2. Absent: systolic murmur - GI/Abdominal GI/Abdominal exam: Present: normal bowel sounds, soft. Absent: distended, guarding, tenderness - Extremities Exam Additional comments: clean incisons noticed over Left shoulder. Improved swelling..ROM also little better now - Psychiatric Psychiatric exam: Present: normal affect, normal mood - VTE Documentation of Mechanical Device: Graduated compression elastic hosiery
[2016-11-12] MEDS: (Memantine Hcl [Namenda Xr] 28 MG) PO SCH (17:58)
[2016-11-12] MEDS: Diltiazem CD (24hr) 240 MG CAPSULE PO SCH (17:58)
[2016-11-12] MEDS: Famotidine 20 MG TABLET PO SCH (17:58)
[2016-11-12 18:03] VITALS: BP 139/81
[2016-11-12] MEDS ORDERED: *HR* Propofol 500 MG/50 ML BOTTLE IVC ONE (18:17)
== END 2016-11-12 18:18 | disposition home health service (06) | DRG 919 ==
LOC: 3BNU 14:05 → EMEROO 14:05 → 3BNU 18:53
PROVIDERS: ADMIT Nurse Practitioner Family; ATTEND Nurse Practitioner Family

== ENCOUNTER 2016-11-14 15:30 | Inpatient (IN) ==
--- NOTE | 2016-11-14 15:54 | Emergency Department Note ---
Disposition Clinical Impression: Syncope and collapse, Acute kidney injury, Dehydration Anemia Qualifiers: Anemia type: unspecified type Qualified Code(s): D64.9 - Anemia, unspecified Disposition: Admitted As Inpatient Condition: Good Forms: ED Satisfaction Letter Time of Disposition: 19:25 General Adult HPI - General Chief complaint: ED Dizziness Stated complaint: Dizziness Time Seen by Provider: 11/14/16 15:36 Source: patient Mode of arrival: ambulatory Limitations: no limitations Nursing Notes Reviewed: Yes Vital Signs Reviewed: Yes - History of Present Illness HPI Narrative: Patient presents emergency room by EMS for near-syncopal event at home. She has had these issues for approximately 2 weeks. Patient was seen her primary care provider's office today and was describing dizziness then. They sent her home to follow-up in several days. Patient went home and needed help this afternoon secondary to almost passing out while the daughter was trying to help her into the house. She denied any chest pain shortness of breath headache vision changes nausea vomiting or diarrhea. She denies palpitations or other symptoms except for lightheadedness dizziness and tunnel vision just prior to feeling actually pass out Onset (ago): Just E [employer] Radiation: non-radiation Pain Severity: moderate Pain Scale: 5 Consistency: now resolved Improves with: rest Worsens with: movement Associated symptoms: Reports: loss of appetite, weakness Treatments Prior to Arrival: none - Related Data Home Medications Medication Instructions Recorded Confirmed Aspirin [Adult Low Dose Aspirin EC] 81 mg PO DAILY 03/18/15 11/06/16 Citalopram Hydrobromide [Celexa] 20 mg PO QAM 03/18/15 11/06/16 CloNIDine HCl 0.2 mg PO TID 03/18/15 11/06/16 Glucosamine Sulfate Dipot Chlr 1,000 mg PO QAM 03/18/15 11/06/16 [Glucosamine Relief] Hydralazine HCl 50 mg PO TID 03/18/15 11/06/16 Loratadine [Claritin] 10 mg PO QAM 03/18/15 11/06/16 Memantine HCl [Namenda Xr] 28 mg PO QPM 03/18/15 11/06/16 Metoprolol [Lopressor] 100 mg PO BID 03/18/15 11/06/16 Nitroglycerin [Nitrostat] 0.4 mg SL Q5M PRN 03/18/15 11/06/16 Raloxifene [Evista] 60 mg PO QAM 03/18/15 11/06/16 SitaGLIPtin [Januvia] 50 mg PO QAM 03/18/15 11/06/16 Ergocalciferol (VITAMIN D2) 50,000 unit PO WE 05/04/15 11/06/16 [Vitamin D2 (50,000 UNIT)] Multivitamin/Iron/Folic Acid 1 each PO QAM 05/04/15 11/06/16 [Centrum Complete Multivit Tab] Valsartan/Hydrochlorothiazide 1 each PO QAM 05/04/15 11/06/16 [Diovan Hct 320-12.5 mg Tab] Allopurinol [Zyloprim] 100 mg PO DAILY 03/08/16 11/06/16 Atorvastatin [Lipitor] 40 mg PO HS 03/08/16 11/06/16 Calcium Polycarbophil [Fibercon] 625 mg PO BID 03/08/16 11/06/16 Docusate [Colace] 200 mg PO TID 03/08/16 11/06/16 L. Acidophilus/Pectin, [place] 1 each PO BID 03/08/16 11/06/16 [Acidophilus Probiotic Capsule] Diltiazem HCl [Diltiazem 24Hr Cd] 180 mg PO QPM 11/06/16 11/06/16 Famotidine [Pepcid] 40 mg PO QPM 11/06/16 11/06/16 Pantoprazole Sodium 40 mg PO BID 11/06/16 11/06/16 Previous Rx's Medication Instructions Recorded Ferrous Sulfate 324 mg PO DAILY #30 tablet. 11/12/16 OxyCODONE Immed Rel [Roxicodone 5 5 mg PO Q6H PRN #15 11/12/16 MG] Allergies Allergy/AdvReac Type Severity Reaction Status Date / Time No Known Drug Allergies Allergy See Verified 01/05/15 14:50 Comments All systems ED: reviewed and negative except as stated. Review of Systems: As Per HPI Constitutional: Denies: fever, chills Cardiovascular: Denies: chest pain, palpitations, dyspnea on exertion, orthopnea , edema Respiratory: Denies: cough, dyspnea, wheezes Gastrointestinal: Denies: abdominal pain, nausea, vomiting, diarrhea Genitourinary: Denies: dysuria, frequency, hematuria, discharge Musculoskeletal: Denies: back pain, neck pain Integumentary: Denies: rash Neurological: Reports: weakness. Denies: headache Endocrine: Reports: fatigue Past Medical History - Past Medical History Attestation: Yes The following information was validated with the patient. Source: patient Medical history: Reports: atrial fibrillation, dementia, diabetes, hyperlipidemia, hypertension, renal disease Surgical history: Reports: appendectomy, cataract, hysterectomy, knee replacement, orthopedic, other, pacemaker Psychiatric history: Reports: no psych history - Social History Smoking Status: Former smoker Smokeless Tobacco Status: No Alcohol use: Reports: none Drug use: Reports: none Physical Exam - General Limitations: no limitations General appearance: alert - Head Head exam: atraumatic, normocephalic, normal inspection - Eye Eye exam: Present: normal appearance, PERRL, EOMI. Absent: conjunctival injection - ENT ENT exam: normal exam, normal oropharynx, mucous membranes moist - Neck Neck exam: Present: normal inspection, full ROM, trachea midline. Absent: tenderness, lymphadenopathy - Chest Chest inspection: Present: normal inspection, symmetric chest wall rise. Absent : tenderness - Respiratory Respiratory exam: Present: normal lung sounds bilaterally. Absent: respiratory distress - Cardiovascular Cardiovascular exam: Present: regular rate, normal rhythm, normal heart sounds - Abdominal Exam Abdominal exam: Present: soft, Non-Tender, normal bowel sounds. Absent: tenderness, distention, guarding, rebound, rigidity, Graham's sign, Rovsing's sign, tenderness at McBurney's Point - Extremities Exam Extremities exam: Present: normal inspection, full ROM, normal capillary refill. Absent: tenderness, pedal edema - Back Exam Back exam: Present: normal inspection, full ROM. Absent: tenderness - Neurological Exam Neurological exam: Present: alert, oriented X3, CN II-XII intact, normal gait - Skin Skin exam: Present: warm, dry, intact, normal color Course Course Narrative: Patient seen and examined at the time of arrival. See history of present illness. 81-year-old female presents emergency room with complaint of near syncopal event and weakness. She has had these symptoms for approximately 2-1/ 2 weeks. She just discharged from the hospital on Saturday night. She had these symptoms time of discharge and they have not changed. She was at her primary care provider's office today and after leaving there felt very lightheaded and weak. On arrival home she did not from her car to the house and felt so lightheaded that she almost passed out. The daughter had to catch her. Prior to this event she denied any chest pain palpitations shortness of breath headache vision changes nausea vomiting or diarrhea. Her only complaint was dizziness and feeling weak. She is alert and able to answer questions appropriately this time. She does have some baseline dementia but does not appear to have any acute exacerbation of this at this point. The daughter is at bedside during my evaluation confirms that she is acting appropriately. Today she did not hit her head. Daughter denied any other trauma. She did not completely pass out. She is mentating appropriately directly after the event. Patient this point denies any other symptoms. Physical exam is otherwise benign. Head is atraumatic pupils are equal round reactive to light. Ocular muscles are intact. No visible signs of nystagmus cranial nerve II through XII appear to be grossly intact. Left upper extremity is in a sling deformity or injury. She did have an orthopedic procedure 2 weeks ago. She does have a history of being on Coumadin secondary to atrial fibrillation. She has stopped that medication for the last several weeks secondary to anemia and the surgery. Patient was evaluated approximately [address] imaging of the head echocardiogram and carotid duplex Dopplers. These were all negative workups at that time. Patient's symptoms of been persistent over that timeframe. Because the presentation today there is concern for orthostasis secondary to her anemia and her atrial fibrillation as well as possible cerebellar defect at this point. She does not have any active cerebellar dysfunction on physical exam at the bedside but the daughter is describing some wobbly ataxia at home. Disposition pending EKG troponin labs including CBC chemistry and MRI imaging of the brain. Chest x-ray and screening evaluation to be completed. Orthostatic blood pressure to be established. Patient is otherwise stable mentating appropriately with no visible signs of trauma this time - Reevaluation(s) Reevaluation #1: patient found to have decrease in her hemoglobin today by 1.2 g. She also shows signs of acute kidney insufficiency. Patient be provided with fluids at this time. Type and screen was completed within the last week during hospital admission does not require to be done at this point. Patient has had recent endoscopy and colonoscopy completed with no acute findings. Patient is symptomatic with ambulation this point. MRI is still pending. Admission process was completed afterwards for secondary symptoms including generalized weakness near-syncopal event with most likely etiology being dehydration and anemia Time: 17:12 Reevaluation #2: Patient is still waiting for MRI at this time. His posterior be completed at 1925 hrs. Time: 18:56 Reevaluation #3: MRI will not be able to be completed till tomorrow assuming the patient have a pacemaker. They will confirm that it is MRI compatible. Patient has urine pending at this point admission process will be completed for acute kidney insufficiency anemia and symptomatic orthostatic hypotension. Hospitalist to be page this time. Although the medical equipment repair technician came back to say that the pacemaker that is in place is unable to have MRI imaging completed. We will review the CT imaging echocardiogram and carotid Dopplers with the hospitalist at admission. Orthostatics appear to be consistent with dehydration as well as her physical exam and findings. Time: 19:24 Additional Reevaluation(s): Patient was discussed with the hospitalist Dr. De Jesus. We reviewed the presentation symptoms medical history and intervention. No other concerns recommendations this time. Patient is stable and in good medical condition at the time of admission. We will continue to monitor his treatment course is completed Vital Signs Temperature 98.3 F 11/14/16 15:35 Pulse Rate 67 11/14/16 15:35 Respiratory Rate 22 11/14/16 15:35 Blood Pressure 111/57 11/14/16 15:35 O2 Sat by Pulse Oximetry 97 11/14/16 15:35 Temperature 98.3 F 11/14/16 15:35 Pulse Rate 67 11/14/16 15:35 Respiratory Rate 22 11/14/16 15:35 Blood Pressure 111/57 11/14/16 15:35 O2 Sat by Pulse Oximetry 97 11/14/16 15:35 Oxygen Delivery Oxygen Delivery Room Air Medical Decision Making - MDM Narrative Medical decision making narrative: Ataxia, dizziness, near syncope - Medical Records Medical records reviewed: Yes I reviewed the patient's medical records. - Lab Data Lab results reviewed: Yes I reviewed the patient's lab results. - Radiology Data Radiology results reviewed: Yes I reviewed the patient's radiology results. Chest x-ray is negative for acute pathology - EKG Data EKG #1 EKG attestation: Yes I reviewed and interpreted this EKG. Rhythm: A.Fib [place]/QRS: normal Voltage: increased voltage throughout When compared to previous EKG there are: no significant changes Interpretation: no acute changes, unchanged when compared to prior tracing (date ) (11/09/16)
[2016-11-14] MEDS: 0.9 % Sodium Chloride 1,000 ML IVC SCH (16:07)
[2016-11-14 16:19] LABS: Basophils % 0.3 %; Eosinophils # 0.2 K/mcL (0.0-0.6); Eosinophils % 1.4 %; Hematocrit 24.2 % (35.3-44.9); Immature Granulocytes % 0.9 % (0-4); Lymphocytes # 1.8 K/mcL (0.6-4.6); Lymphocytes % 13.2 %; Mean Corpuscular HGB Conc 32.2 g/dL (31.6-35.5); Mean Corpuscular Hemoglobin 31.3 pg (28.0-33.3); Mean Corpuscular Volume 97.2 fL (83.0-100.0); Mean Platelet Volume 9.4 fL (9.4-12.4); Monocytes % 7.6 %; Neutrophils # 10.2 K/mcL (1.6-8.9); Platelet Count 251 K/mcL (140-400); Red Blood Count 2.49 M/mcL (3.82-4.97); Red Cell Distribution Width 15.5 % (11.5-14.5); Segmented Neutrophils % 76.6 %
[2016-11-14 16:30] LABS: INR 1.2; Prothrombin Time 12.5 Seconds (9.4-12.1)
[2016-11-14 16:32] LABS: Calcium 9.2 mg/dL (8.6-10.8); Potassium 3.9 mEq/L (3.5-4.5)
[2016-11-14 16:42] LABS: Hemoglobin 7.8 g/dL (11.5-15.4)
[2016-11-14] MEDS ORDERED: 0.9 % Sodium Chloride 1,000 ML IVC ONE ×2 (16:48→18:50)
[2016-11-14 19:36] LABS: Bilirubin,Urine Negative (Negative); Blood,Urine Negative (Negative); Clarity,Urine Clear (Clear); Color,Urine Yellow (Yellow); Glucose,Urine (UA) Normal (Normal); Ketones,Urine Negative (Negative); Leukocyte Esterase,Urine Negative (Negative); Nitrite,Urine Negative (Negative); Protein,Urine Negative (Neg-Trace); Specific Gravity,Urine 1.012 (1.010-1.025); Urobilinogen,Urine Normal (Normal)
[2016-11-14] MEDS ORDERED: Naloxone 0.4 MG/ML INJ IVP PRN (20:44)
[2016-11-14] MEDS ORDERED: *HR* OxyCODONE Immed Rel 5 MG TABLET PO PRN (20:50)
--- NOTE | 2016-11-14 21:05 | Internal Med History&Physical ---
<Serafin Hunter - Last Filed: 11/14/16 21:27> Date of Encounter: 11/14/16 Time of Encounter: 20:57 Assessment and Plan (1) Pre-syncope Current visit: Yes Status: Acute 81 F cc of near syncope patient had gotten out of car walked about 10 feet and stumbled and then almost collapsed but was caught by daughter. denies passing out denies trauma 2nd episode, first one was last week and was a syncopal determined to be 2nd to anemia, dehydration and orthostatic hypotension. Was admitted with full work up done including: echo, b/l carotid doppler, dual-chamber pacemaker interrogation, b/l UE dopplers , head CT, upper and lower endoscopy workup was WNL since left shoulder surgery, remains anemic baseline Hgb used to be 12, now averages 8 reports decreased appetite since surgery Currently in [facility] well 2nd to dehydration, anemia orthostatic vitals done in ER WNL Plan: IVF cardiac tele monitor hgb which is currently 7.8 PT/OT fall risk (2) Acute kidney injury Current visit: Yes Status: Acute 2nd dehydration Scr 1.97 baseline Scr 1.3 >.3 increase plan: IVF strict I/O daily weight (3) Anemia Current visit: Yes Status: Acute postoperative anemia s/p left shoulder surgery in november 02 has bleeding/hematoma at inscision site hgb baseline 12 now 7.8 poor recovery November 2016 EGD and endoscopy negative for bleeding Plan: continue iron supplementation seems like patient has poor appetite and may not be getting adequate protein. Will check albumin and obtain nutrition consult repeat cbc Qualifiers: Anemia type: iron deficiency Iron deficiency anemia type: other iron deficiency Qualified Code(s): D50.8 - Other iron deficiency anemias (4) HTN (hypertension) Current visit: Yes Status: Chronic controlled. continue home medications Qualifiers: Hypertension type: essential hypertension Qualified Code(s): I10 - Essential (primary) hypertension (5) Diabetes Current visit: Yes Status: Chronic controlled. low dose SSI ACHS cardiac/diabetic diet Qualifiers: Diabetes mellitus type: type 2 Diabetes mellitus complication status: without complication Diabetes mellitus longterm insulin use: without longterm use Qualified Code(s): E11.9 - Type 2 diabetes mellitus without complications (6) Atrial fibrillation Current visit: Yes Status: Chronic stable. currently has dual chamber pacemaker and paced rhythm on CCB and BB rate controlled Plan: continue CCB and BB not on anticoagulation due to anemia and postop bleeding. Qualifiers: Atrial fibrillation type: chronic Qualified Code(s): I48.2 - Chronic atrial fibrillation (7) Diastolic CHF Current visit: Yes Status: Chronic has b/l LE edema 2+ plus bibasilar crackles seems to be intravascularly dry otherwise fluid overloaded has been given 2L NS and on 100cc/hr which will be discontinued tomorrow morning Plan: with hold lasix currently due to recent presyncopal event closely monitor respiratory status albumin level: if low nutrition consulted. hypoalbuminenmia with diastolic CHF will worsen fluid overload cardiac/diabetic diet. strict I/O daily weight Qualifiers: Congestive heart failure chronicity: chronic Qualified Code(s): I50.32 - Chronic diastolic (congestive) heart failure (8) Hematoma following procedure Current visit: Yes Status: Acute sutures intact at two sites on left shoulder hematoma resolving no signs of bleeding, dishcarge erythema Plan: change dressing on left shoulder continue to monitor. Internal Medicine - H&P: HPI Chief complaint: near syncope Admitted From: Home History of present illness: Ms. Davison is a 81 year old female presents with chief complaint of near syncope that occurred today after visiting doctors office patient tried another car, uses a cane, walked 10 feet and stumbled forward and then almost fell to the ground, was caught by her daughter. Daughter states she did not obtain any injuries, no trauma to the head. Patient states she had dizziness described as room spinning and she was spinning as well. She denies passing out. This is the second episode patient has had, the first of which was last week and she was admitted to [facility]. Patient had a recent left shoulder surgery which was complicated by post operative anemia secondary to bleeding from surgical site. She was determined to be passing out due to dehydration, orthostasis, anemia. Patient had a workup of echocardiogram, carotid Dopplers, EGD, colonoscopy which were negative for any acute changes. She also has a Dual -chamber pacemaker which was checked last week by cardiology and was working as programmed. Patient denies unilateral weakness, slurred speech, acute change in vision, facial drooping. He reports chronic bilateral lower extremity numbness and tingling. Patient's daughter reports ever since her surgery, she has had poor appetite, weakness and a very slow recovery. Furthermore in the past in her 30s,40s patient has had episodes of syncope secondary to menstrual bleeding. Denies any family history of syncope. Past Med Surg Social Fam HX - Past Medical History Medical history: atrial fibrillation, dementia, diabetes, hyperlipidemia, hypertension, renal disease Psychiatric history: no psych history - Past Surgical History Surgical History: appendectomy, cataract, hysterectomy, knee replacement, orthopedic, other, pacemaker - Social History Smoking Status: Former smoker Smokeless Tobacco Status: No Alcohol use: none Drug use: none - Family History Mother Living Status: Hx Family Cardiac Disorders: No Hx Family Respiratory Disorders: No Hx Family Cancer: Yes (Breast) Hx Family GI Disorders: No Hx Family Endocrine Disorder: No Hx Family Neuromuscular Disorders: No Hx Family Neurologic Disorders: No Hx Family HEENT Disorders: Yes (Blind, Glaucoma) Hx Family Autoimmune Disorders: No Father Living Status: Hx Family Cardiac Disorders: No Hx Family Respiratory Disorders: No Hx Family Cancer: No Hx Family GI Disorders: Yes (Cirrhosis) Hx Family Endocrine Disorder: No Hx Family Neuromuscular Disorders: No Hx Family Neurologic Disorders: No Hx Family HEENT Disorders: No Hx Family Autoimmune Disorders: No Internal Medicine - H&P: Meds Aspirin [Adult Low Dose Aspirin EC] 81 mg PO DAILY 03/18/15 [History] Citalopram Hydrobromide [Celexa] 20 mg PO QAM 03/18/15 [History] CloNIDine HCl 0.2 mg PO TID 03/18/15 [History] Glucosamine Sulfate Dipot Chlr [Glucosamine Relief] 1,000 mg PO QAM 03/18/15 [ History] Hydralazine HCl 50 mg PO TID 03/18/15 [History] Loratadine [Claritin] 10 mg PO QAM 03/18/15 [History] Memantine HCl [Namenda Xr] 28 mg PO QPM 03/18/15 [History] Metoprolol [Lopressor] 100 mg PO BID 03/18/15 [History] Nitroglycerin [Nitrostat] 0.4 mg SL Q5M PRN 03/18/15 [History] Raloxifene [Evista] 60 mg PO QAM 03/18/15 [History] SitaGLIPtin [Januvia] 50 mg PO QAM 03/18/15 [History] Ergocalciferol (VITAMIN D2) [Vitamin D2 (50,000 UNIT)] 50,000 unit PO WE [History] Multivitamin/Iron/Folic Acid [Centrum Complete Multivit Tab] 1 each PO QAM 05/04 [History] Valsartan/Hydrochlorothiazide [Diovan Hct 320-12.5 mg Tab] 1 each PO QAM [History] Allopurinol [Zyloprim] 100 mg PO DAILY 03/08/16 [History] Atorvastatin [Lipitor] 40 mg PO HS 03/08/16 [History] Calcium Polycarbophil [Fibercon] 625 mg PO BID 03/08/16 [History] Docusate [Colace] 200 mg PO TID 03/08/16 [History] L. Acidophilus/Pectin, [place] [Acidophilus Probiotic Capsule] 1 each PO BID 04/23 [History] Diltiazem HCl [Diltiazem 24Hr Cd] 180 mg PO QPM 11/06/16 [History] Famotidine [Pepcid] 40 mg PO QPM 11/06/16 [History] Pantoprazole Sodium 40 mg PO BID 11/06/16 [History] Ferrous Sulfate 324 mg PO DAILY #30 tablet. 11/12/16 [Rx] OxyCODONE Immed Rel [Roxicodone 5 MG] 5 mg PO Q6H PRN #15 11/12/16 [Rx] Allergies No Known Drug Allergies Allergy (Verified 01/05/15 14:50) See Comments All Systems PM: A 10-system review of systems was performed and is negative for pertinent findings except as documented above in the HPI. Review of systems: Constitutional: Denies fever, chills, reports fatigue HEENT: Denies headache, vision changes, neck pain, sore throat, rhinorrhea Heart: Denies chest pain palpitations Lungs: Reports shortness of breath with exertion, denies cough Abdomen: Denies abdominal pain nausea vomiting diarrhea Skin: Denies bleeding from surgical site. Back: Denies back pain Kidney: Denies dysuria, hematuria Extremities: Reports bilateral lower swelling, denies pain Neuro: Reports bilateral lower extremity numbness and tingling Reports presyncope - Constitutional Vitals: Temp Pulse Resp BP Pulse Ox 98.3 F 62 18 151/59 97 11/14/16 15:35 11/14/16 19:50 11/14/16 20:33 11/14/16 20:33 11/14/16 19:30 - Other Additional findings: General: Alert and oriented to place time and situation. Without distress HEENT: Head atraumatic, normocephalic, EOMI, PERRLA, neck nontender to palpation , absent Lymphadenopathy, Moist Mucous Membranes, Heart: Regular rate and rhythm with no murmur Lungs: Bibasilar crackles Abdomen: Soft nontender, nondistended positive bowel sounds Extremities: 2+ pedal edema, left shoulder has to incision points which are sutured and intact without signs of bleeding, discharge, erythema There is multiple points of bruising. Neuro: Cranial nerves II through XII intact, sensation equal bilaterally, strength upper and lower extremity 5/5, alert oriented 3. Finger to nose intact. No dysdiadochokinesia. [id number]-md-jurm intact. Vascular: Pedal and radialpulses 2 out of 4 Internal Med - H&P Results - Labs CBC & Chem 7: 11/14/16 16:10 11/14/16 16:10 <Liza Quinonez - Last Filed: 11/14/16 21:37> Date of Encounter: 11/14/16 Internal Medicine - H&P: HPI History of present illness: Ms. Davison is a 81 year old female All Systems PM: A 10-system review of systems was performed and is negative for pertinent findings except as documented above in the HPI. - Constitutional Vitals: Temp Pulse Resp BP Pulse Ox 98.0 F 60 18 134/75 96 11/14/16 21:18 11/14/16 21:18 11/14/16 21:18 11/14/16 21:18 11/14/16 21:18 Internal Med - H&P Results - Labs CBC & Chem 7: 11/14/16 16:10 11/14/16 16:10 - Attending Attestation I examined this patient and my medical decision-making was reviewed with the Resident Physician. I agree with the documented findings, disposition and treatment plan as described except to the extent set forth below. Rachel Davison is an 81-year-old female with a history of atrial fibrillation status post atrial pacer who presents with recurrent dizziness , lightheadedness, and is syncopal episode. She was getting out of her car this afternoon when she felt dizzy and had a syncopal episode that was witnessed. Her family member with there to support her therefore voiding and a fall. History from her daughter suggest that she recently completed a left shoulder surgery several weeks ago with postoperative blood loss anemia as a complication. Due to her anemia she was recently admitted and underwent an upper and GI endoscopy which did not identify any source of GI bleeding despite a positive occult blood test. On speaking with her family it was suggested that her decline started after her left shoulder surgery with increased functional issues dizziness, anorexia and poor appetite. Objectively she was found to have an acute kidney injury and stable anemia. ROS 14 point review of systems reviewed as best as possible given presentation. Pertinent positive or negative as per HPI or otherwise reviewed as negative General - AAO x 3 Psych - Appropriate affect/speech. No agitation Eyes - [place]. Eye lids intact. No scleral icterus ENT - Oral mucosa pink, dentition intact. External ear clear/dry/intact. No thyromegaly Lymphatics - No cervical/inguinal lympadenopathy Neuro - No gross peripheral or central neuro deficits with intact CN 2-12 exam Heart - Sinus. RRR. S1 and S2 present. No added HS/murmurs appreciated. No elevated JVD appreciated. No calf swellings/erythema Lung - Adequate air entry b/l, No crackes/wheezes appreciated GI - Soft, non-tender. No hepatosplenomegaly/ascities. BS+ - No CVA/suprapubic tenderness or palpable bladder distension Skin - Intact. No rash/petechiae/ecchymosis. Warm extremities MSK - Joints with normal ROM. No joint swellings Reviewed tele with A-paced rhythm Syncope/presyncope - suspect orthostasis given [facility] - IVF bolus in ED, IVF on the floor [facility] - 2/2 to pre renal dehydration. - monitor Cr Anemia - Fe deficient - continue Fe supplementation - pRBC prn for symptoms if needed HTN DM
[2016-11-14] MEDS ORDERED: Sennosides/Docusate Sodium TABLET PO PRN (21:34)
[2016-11-14] MEDS: cloNIDine HCl 0.1 MG TABLET PO SCH (21:55)
[2016-11-14] MEDS: hydrALAZINE 25 MG TABLET PO SCH (21:55)
[2016-11-14] MEDS: Metoprolol 100 MG TABLET PO SCH (21:56)
[2016-11-15] MEDS: 0.9 % Sodium Chloride 1,000 ML IVC SCH (03:47)
[2016-11-15 04:40] LABS: Hematocrit 23.2 % (35.3-44.9); Hemoglobin 7.2 g/dL (11.5-15.4); Mean Corpuscular Hemoglobin 30.5 pg (28.0-33.3); Mean Corpuscular Volume 98.3 fL (83.0-100.0); Mean Platelet Volume 9.9 fL (9.4-12.4); Platelet Count 239 K/mcL (140-400); Red Blood Count 2.36 M/mcL (3.82-4.97); Red Cell Distribution Width 15.9 % (11.5-14.5)
[2016-11-15 05:09] LABS: Calcium 8.6 mg/dL (8.6-10.8); Magnesium 1.6 mg/dL (1.6-2.6); Potassium 4.1 mEq/L (3.5-4.5)
[2016-11-15] MEDS ORDERED: *HR* Dextrose 50 % in Water (Syg) 50 ML SYRINGE IVP PRN (08:30)
[2016-11-15] MEDS ORDERED: D5% in Water 1,000 ML IVC PRN (08:30)
[2016-11-15] MEDS ORDERED: Dextrose Gel 15 GM PO PRN ×2 (08:30)
[2016-11-15] MEDS ORDERED: NON-FORMULARY MEDICATION 1 EACH EACH (Valsartan/Hydrochlorothiazide [Diovan Hct 320-12.5 M PO SCH (09:00)
[2016-11-15] MEDS ORDERED: hydroCHLOROthiazide 25 MG TABLET PO SCH (09:00)
[2016-11-15] MEDS: hydrALAZINE 25 MG TABLET PO SCH ×3 (09:19→21:41)
[2016-11-15] MEDS: cloNIDine HCl 0.1 MG TABLET PO SCH ×3 (09:19→21:41)
[2016-11-15] MEDS: Aspirin Enteric Coated 81 MG Tablet PO SCH (09:20)
[2016-11-15] MEDS: Metoprolol 100 MG TABLET PO SCH ×2 (09:20→21:41)
[2016-11-15] MEDS: Valsartan 160 MG TABLET PO SCH (09:21)
[2016-11-15] MEDS: Insulin LISPRO 300 UNITS/3 ML VIAL SQ SCH ×4 (09:30→22:53)
--- NOTE | 2016-11-15 09:56 | Internal Med Progress Note ---
<Lanre Gonzalez - Last Filed: 11/15/16 15:24> Date of Encounter: 11/15/16 Time of Encounter: 09:56 - Assessment and plan (1) Pre-syncope Current Visit: Yes Status: Acute Assessment and plan: Multi factorial vs anemia vs dehydration vs oxycodone usage. Similiar Previous hospitalization received echo, b/l carotid doppler, b/l UE doppler, pacemaker interrogated, head CT, and EGD without associated cause for pre-syncopal symptoms. Post shoulder surgery on 11/02 patient as remained anemic hgb 8, normally 12, and has not been eating. As well, she was prescribed roxicodone and continued on it since surgery. On this admisison, orthostatics were performed and WNL prior to IVF. Was given 3L IVF. - Ct. IVF, telemetry - daily CBC and BMP - PT/OT consulted - Fall precautions - D/C'ed Roxycodone - Nutrition consulted (2) Acute kidney injury Current Visit: Yes Status: Acute Assessment and plan: most likely due to dehydration. on 11/12 Cr. 1.06. After admission Cr. 1.97. She was given 3 L IVF. Cr today 1.64. over 0.3 increase in less then 48 hours. - continue to monitor Cr (3) Type 2 diabetes mellitus Current Visit: No Status: Acute Assessment and plan: goal BG <180 during admission. 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 continue home HTN meds (5) Pacemaker Current Visit: No Status: Chronic Assessment and plan: currently stable (6) HTN (hypertension) Current Visit: Yes Status: Chronic Assessment and plan: BP were WNL on admission but has risen this AM after fluids BP 174/47 and 168/ 79. Continue to monitor closely. continue home meds. Qualifiers: Hypertension type: essential hypertension Qualified Code(s): I10 - Essential (primary) hypertension (7) Edema extremities Current Visit: No Status: Acute Assessment and plan: no change since discharge. stable for now (8) Dehydration Current Visit: Yes Status: Acute Assessment and plan: continue IVF as needed - Subjective Interval history: Ms Davison is an 81 yo Female on Day 1 of admission for presyncope with a recent hospital discharge with similar symptoms. Patient was getting out of car and patient was about to fall when her daughter caught her. no reported lost of consciouness or trauma. She had a full workup last week for similar symptoms without an positive findings. Patient also had shoulder surgery on 11/02. since the surgery she reports not having eaten anything. - Constitutional Vitals: Temp Pulse Resp BP Pulse Ox 97.6 F 62 14 168/79 96 11/15/16 06:53 11/15/16 06:53 11/15/16 06:53 11/15/16 06:53 11/15/16 06:53 General appearance: Present: A&O X 3 - Neck Neck exam general surgery: Present: supple, trachea midline. Absent: lymphadenopathy - Respiratory Respiratory exam: Present: CTAB. Absent: accessory muscle use, rales, rhonchi, wheezes - Cardiovascular Cardiovascular exam: Present: RRR, +S1, +S2. Absent: diastolic murmur, gallop, rubs, systolic murmur - GI/Abdominal GI/Abdominal exam: Present: normal bowel sounds, soft, no peritoneal signs. Absent: distended, tenderness - Extremities Exam Extremities exam: Present: radial pulses palpable and symmetrical (patient had 2 + UE and LE edema) - Neurological Exam Neurological exam: Present: oriented X3, no focal deficits - Psychiatric Psychiatric exam: Present: normal affect, normal mood Internal Medicine: Result - Labs CBC & Chem 7: 11/15/16 03:41 11/15/16 03:41 Labs: Short CBC 11/15/16 Range/Units 03:41 WBC 8.7 (4.3-11.1) K/mcL Hgb 7.2 L (11.5-15.4) g/dL Hct 23.2 L (35.3-44.9) % Plt Count 239 (140-400) K/mcL [facility] 11/15/16 03:41 Sodium 138 Potassium 4.1 Chloride 104 Carbon Dioxide 29 BUN 27 H Creatinine 1.64 H Glucose 174 H Calcium 8.6 - ABG Interpretation ABG results: PT/INR, D-dimer PT 12.5 Seconds (9.4-12.1) H 11/14/16 16:10 Consult Discharge Plan - Plan Referrals: Elmer Davey MD [Primary Care Provider] - (Possible ECF. Waiting to see if patient goes to ECF or returns home) <Daryn Santana - Last Filed: 11/15/16 17:08> Date of Encounter: 11/15/16 - Constitutional Vitals: Temp Pulse Resp BP Pulse Ox 98.3 F 63 18 164/70 96 11/15/16 16:48 11/15/16 16:48 11/15/16 16:48 11/15/16 16:48 11/15/16 16:48 Internal Medicine: Result - Labs CBC & Chem 7: 11/15/16 03:41 11/15/16 03:41 Labs: Short CBC 11/15/16 Range/Units 03:41 WBC 8.7 (4.3-11.1) K/mcL Hgb 7.2 L (11.5-15.4) g/dL Hct 23.2 L (35.3-44.9) % Plt Count 239 (140-400) K/mcL BMP 11/15/16 03:41 Sodium 138 Potassium 4.1 Chloride 104 Carbon Dioxide 29 BUN 27 H Creatinine 1.64 H Glucose 174 H Calcium 8.6 - ABG Interpretation ABG results: PT/INR, D-dimer PT 12.5 Seconds (9.4-12.1) H 11/14/16 16:10 - Attending Attestation I examined this patient and my medical decision-making was reviewed with the Resident Physician on 11/15/16. I agree with the documented findings, disposition and treatment plan as described except to the extent set forth below. 81 Y/O F admitted for SHAREE and presyncope She has a PMH of Atrial fi rillation, Anemia from blood loss from surgery, as well as iron deficiency, CHFpEF, DM, Afib, CKD III Her work up and history suggest multifactorial causes: High opiate use, poor oral intake, dehydration as well as use of diuretics She denies new complains Physical exam: VSS, not in distress, sitting up in bed, no tachycardia, BP is elevated and stable, chest is clear, HS S1, s2, irregular, Abdomen is soft and not tender, 1+ piting pedal edema Labs and Imaging reviewed: Leukocytosis resolved, Hb is stable at 7.2-7.5, SHAREE is improving, EKG: Afib, paced. CXR no acute processed A/P SHAREE on CKD-Improving, hold diuretics, continue ther management, avoid nephrotoxins Presyncope: Multifactorial. Fall precautions, PT/OT eval. Previous work up negative Anemia: Hemodynamically stable. Transfuse for Hb <7, continue iron therapu. No source of bleeding at this time Other chronic conditions remain stable Fall precautions Rest of details as in resident physician's documentation
--- NOTE | 2016-11-15 15:30 | Electrocardiograph Report ---
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
[2016-11-15] MEDS: Famotidine 20 MG TABLET PO SCH (16:59)
[2016-11-15] MEDS ORDERED: NAMENDA 28 MG PO SCH (18:00)
[2016-11-15] MEDS ORDERED: Diltiazem CD (24hr) 180 MG CAPSULE PO SCH (18:00)
[2016-11-16 05:01] LABS: Hematocrit 24.4 % (35.3-44.9); Hemoglobin 7.6 g/dL (11.5-15.4); Mean Corpuscular HGB Conc 31.1 g/dL (31.6-35.5); Mean Corpuscular Hemoglobin 30.8 pg (28.0-33.3); Mean Corpuscular Volume 98.8 fL (83.0-100.0); Mean Platelet Volume 9.8 fL (9.4-12.4); Platelet Count 250 K/mcL (140-400); Red Blood Count 2.47 M/mcL (3.82-4.97); Red Cell Distribution Width 16.1 % (11.5-14.5)
[2016-11-16 05:21] LABS: Potassium 4.1 mEq/L (3.5-4.5)
[2016-11-16] MEDS: Insulin LISPRO 300 UNITS/3 ML VIAL SQ SCH ×4 (07:57→20:13)
[2016-11-16] MEDS: hydrALAZINE 25 MG TABLET PO SCH ×3 (07:59→19:59)
[2016-11-16] MEDS: Metoprolol 100 MG TABLET PO SCH ×2 (07:59→20:00)
[2016-11-16] MEDS: Aspirin Enteric Coated 81 MG Tablet PO SCH (08:00)
[2016-11-16] MEDS: cloNIDine HCl 0.1 MG TABLET PO SCH ×3 (08:00→19:59)
[2016-11-16] MEDS: Valsartan 160 MG TABLET PO SCH (08:00)
--- NOTE | 2016-11-16 08:54 | Internal Med Progress Note ---
<Lanre Gonzalez - Last Filed: 11/16/16 08:52> Date of Encounter: 11/16/16 Time of Encounter: 08:52 - Assessment and plan (1) Pre-syncope Current Visit: Yes Status: Acute Assessment and plan: Multi factorial vs anemia vs dehydration vs oxycodone usage. Similiar Previous hospitalization received echo, b/l carotid doppler, b/l UE doppler, pacemaker interrogated, head CT, and EGD without associated cause for pre-syncopal symptoms. Post shoulder surgery on 11/02 patient as remained anemic hgb 8, normally 12, and has not been eating. As well, she was prescribed roxicodone and continued on it since surgery. On this admisison, orthostatics were performed and WNL prior to IVF. Was given 3L IVF. hgb today 7.6 - Ct. IVF, telemetry - daily CBC and BMP - PT/OT consulted - Fall precautions - D/C'ed Roxicodone - Nutrition consulted - diuretics held (2) Acute kidney injury Current Visit: Yes Status: Acute Assessment and plan: most likely due to dehydration. on 11/12 Cr. 1.06. After admission Cr. 1.97. She was given 3 L IVF. Cr today 1.64. over 0.3 increase in less then 48 hours. - continue to monitor Cr - Cr today 1.24 - SHAREE most likely resolved (3) Type 2 diabetes mellitus Current Visit: No Status: Acute Assessment and plan: goal BG <180 during admission. 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 continue home HTN meds (5) Pacemaker Current Visit: No Status: Chronic Assessment and plan: denies cardiac symptoms. stable for now. (6) HTN (hypertension) Current Visit: Yes Status: Chronic Assessment and plan: BP were WNL on admission but has risen this AM after fluids BP 174/47 and 168/ 79. - BP 183/75 today - Continue to monitor closely. - continue home meds. Qualifiers: Hypertension type: essential hypertension Qualified Code(s): I10 - Essential (primary) hypertension (7) Edema extremities Current Visit: No Status: Acute Assessment and plan: no change since discharge. stable for now (8) Dehydration Current Visit: Yes Status: Acute Assessment and plan: continue IVF as needed - Subjective Interval history: Ms Davison is an 81 yo Female on Day 2 of admission for presyncope with a recent hospital discharge with similar symptoms. Patient was getting out of car and patient was about to fall when her daughter caught her. no reported lost of consciouness or trauma. She had a full workup last week for similar symptoms without an positive findings. Patient also had shoulder surgery on 11/02. since the surgery she reports not having eaten anything. Roxicodone was stopped yesterday. This morning only complaint is lower back pain. Reports as a soreness. - Constitutional Vitals: Temp Pulse Resp BP Pulse Ox 98.4 F 61 15 183/75 94 11/16/16 07:55 11/16/16 07:55 11/16/16 07:55 11/16/16 07:55 11/16/16 07:55 General appearance: Present: A&O X 3 - Head Head exam: Present: atraumatic, normocephalic - Respiratory Respiratory exam: Present: CTAB. Absent: accessory muscle use, rales, rhonchi, wheezes - Cardiovascular Cardiovascular exam: Present: RRR, +S1, +S2. Absent: diastolic murmur, gallop, rubs, systolic murmur - GI/Abdominal GI/Abdominal exam: Present: normal bowel sounds, soft, no peritoneal signs. Absent: distended, tenderness - Back Exam Back exam: Present: normal inspection - Neurological Exam Neurological exam: Present: alert, oriented X3 Internal Medicine: Result - Labs CBC & Chem 7: 11/16/16 04:18 11/16/16 04:18 Labs: Short CBC 11/16/16 Range/Units 04:18 WBC 8.5 (4.3-11.1) K/mcL Hgb 7.6 L (11.5-15.4) g/dL Hct 24.4 L (35.3-44.9) % Plt Count 250 (140-400) K/mcL BMP 11/16/16 04:18 Sodium 138 Potassium 4.1 Chloride 105 Carbon Dioxide 28 BUN 24 H Creatinine 1.24 H Glucose 136 H Calcium 9.0 - ABG Interpretation ABG results: PT/INR, D-dimer PT 12.5 Seconds (9.4-12.1) H 11/14/16 16:10 Consult Discharge Plan - Plan Referrals: Elmer Davey MD [Primary Care Provider] - (Possible ECF. Waiting to see if patient goes to ECF or returns home) <Daryn Santana - Last Filed: 11/16/16 14:57> Date of Encounter: 11/16/16 - Constitutional Vitals: Temp Pulse Resp BP Pulse Ox 97.7 F 61 18 185/75 97 11/16/16 11:46 11/16/16 11:46 11/16/16 11:46 11/16/16 11:46 11/16/16 11:46 Internal Medicine: Result - Labs CBC & Chem 7: 11/16/16 04:18 11/16/16 04:18 Labs: Short CBC 11/16/16 Range/Units 04:18 WBC 8.5 (4.3-11.1) K/mcL Hgb 7.6 L (11.5-15.4) g/dL Hct 24.4 L (35.3-44.9) % Plt Count 250 (140-400) K/mcL BMP 11/16/16 04:18 Sodium 138 Potassium 4.1 Chloride 105 Carbon Dioxide 28 BUN 24 H Creatinine 1.24 H Glucose 136 H Calcium 9.0 - ABG Interpretation ABG results: PT/INR, D-dimer PT 12.5 Seconds (9.4-12.1) H 11/14/16 16:10 - Attending Attestation I examined this patient and my medical decision-making was reviewed with the Resident Physician on 11/16/16. I agree with the documented findings, disposition and treatment plan as described except to the extent set forth below. 81 Y/O F admitted for SHAREE and presyncope She has a PMH of Atrial fibrillation, Anemia from blood loss from surgery, as well as iron deficiency, CHFpEF, DM, Afib, CKD III Her work up and history suggest multifactorial causes: High opiate use, poor oral intake, dehydration as well as use of diuretics She denies new complains This morning, she is sitting upi bed, tolerating orally and states she feels much more improved Orthostatics are negative Physical exam: VSS, not in distress, sitting up in bed, no tachycardia, BP is elevated and stable, chest is clear, HS S1, s2, irregular, Abdomen is soft and not tender, 1+ piting pedal edema Labs and Imaging reviewed: Leukocytosis resolved, Hb is stable at 7.6 SHAREE is improving, EKG: Afib, paced. CXR no acute processes A/P SHAREE on CKD-Improving, hold diuretics, continue other management, avoid nephrotoxins Presyncope: Multifactorial. Fall precautions, PT/OT zack recommends ECF. Orthostats negative Anemia: Hemodynamically stable. Transfuse for Hb <7, continue iron therapu. No source of bleeding at this time Uncontrolled HTN: Increase ditliazem, continue current meds, continue to hold diuretics Other chronic conditions remain stable Fall precautions Rest of details as in resident physician's documentation
[2016-11-16] MEDS: Famotidine 20 MG TABLET PO SCH (16:53)
[2016-11-17 06:45] LABS: Calcium 9.3 mg/dL (8.6-10.8); Potassium 4.3 mEq/L (3.5-4.5)
--- NOTE | 2016-11-17 08:23 | Internal Med Progress Note ---
<Lanre Gonzalez - Last Filed: 11/17/16 12:19> Date of Encounter: 11/17/16 Time of Encounter: 08:21 - Assessment and plan (1) Pre-syncope Current Visit: Yes Status: Acute Assessment and plan: Multi factorial vs anemia vs dehydration vs oxycodone usage. Similiar Previous hospitalization received echo, b/l carotid doppler, b/l UE doppler, pacemaker interrogated, head CT, and EGD without associated cause for pre-syncopal symptoms. Post shoulder surgery on 11/02 patient as remained anemic hgb 8, normally 12, and has not been eating. As well, she was prescribed roxicodone and continued on it since surgery. Roxicodone was d/c'ed on 11/15, and since the patient appears more alert and interactive, and appetite has improved. On this admisison, orthostatics were performed and WNL prior to IVF. Was given 3L IVF. hgb - CBC pending - Ct. IVF, telemetry - daily CBC and BMP - PT/OT consulted - Fall precautions - D/C'ed Roxicodone - Nutrition consulted - diuretics held (2) Acute kidney injury Current Visit: Yes Status: Acute Assessment and plan: most likely due to dehydration. on 11/12 Cr. 1.06. After admission Cr. 1.97. She was given 3 L IVF. Cr today 1.64. over 0.3 increase in less then 48 hours. - continue to monitor Cr - Cr today 1.24 - SHAREE most likely resolved (3) Type 2 diabetes mellitus Current Visit: No Status: Acute Assessment and plan: goal BG <180 during admission. 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 continue home HTN meds (5) Pacemaker Current Visit: No Status: Chronic Assessment and plan: denies cardiac symptoms. stable for now. (6) HTN (hypertension) Current Visit: Yes Status: Chronic Assessment and plan: BP were WNL on admission but has risen this AM after fluids BP 174/47 and 168/ 79. - 10 mg hydralazine PRN if Sys >160 Nohelia >80, possibly due to withdrawal percocet PRN added - Continue to monitor closely. - continue home meds. Qualifiers: Hypertension type: essential hypertension Qualified Code(s): I10 - Essential (primary) hypertension (7) Edema extremities Current Visit: No Status: Acute Assessment and plan: no change since discharge. stable for now (8) Dehydration Current Visit: Yes Status: Acute Assessment and plan: continue IVF as needed - Subjective Interval history: Ms Davison is an 81 yo Female on Day 3 of admission for presyncope with a recent hospital discharge with similar symptoms with history of Atrial fibrillation, Anemia from blood loss from surgery, as well as iron deficiency, CHFpEF, DM, Afib, CKD III. Patient was getting out of car and patient was about to fall when her daughter caught her. no reported lost of consciouness or trauma. She had a full workup last week for similar symptoms without an positive findings. Patient also had shoulder surgery on 11/02. since the surgery she reports not having eaten anything. Patient reports feeling great this morning. Her stomach pain went away yesterday with a bowel movement - Constitutional Vitals: Temp Pulse Resp BP Pulse Ox 98.3 F 60 19 181/75 95 11/17/16 07:02 11/17/16 07:02 11/17/16 07:02 11/17/16 07:02 11/17/16 07:02 General appearance: Present: A&O X 3 - Head Head exam: Present: atraumatic, normocephalic - Respiratory Respiratory exam: Present: CTAB. Absent: accessory muscle use, rales, rhonchi, wheezes - Cardiovascular Cardiovascular exam: Present: RRR, +S1, +S2. Absent: diastolic murmur, gallop, rubs, systolic murmur - GI/Abdominal GI/Abdominal exam: Present: normal bowel sounds, soft, no peritoneal signs. Absent: distended, tenderness Internal Medicine: Result - Labs CBC & Chem 7: 11/17/16 07:55 11/17/16 06:00 Labs: BMP 11/17/16 06:00 Sodium 137 Potassium 4.3 Chloride 104 Carbon Dioxide 26 BUN 26 H Creatinine 1.29 H Glucose 143 H Calcium 9.3 - ABG Interpretation ABG results: PT/INR, D-dimer PT 12.5 Seconds (9.4-12.1) H 11/14/16 16:10 Consult Discharge Plan - Plan Referrals: Elmer Davey MD [Primary Care Provider] - (Possible ECF. Waiting to see if patient goes to ECF or returns home) <Daryn Santana - Last Filed: 11/17/16 13:15> Date of Encounter: 11/17/16 - Constitutional Vitals: Temp Pulse Resp BP Pulse Ox 98.5 F 60 20 192/73 94 11/17/16 11:56 11/17/16 11:56 11/17/16 11:56 11/17/16 11:56 11/17/16 11:56 Internal Medicine: Result - Labs CBC & Chem 7: 11/17/16 07:55 11/17/16 06:00 Labs: Short CBC 11/17/16 Range/Units 07:55 WBC 8.9 (4.3-11.1) K/mcL Hgb 8.4 L (11.5-15.4) g/dL Hct 26.2 L (35.3-44.9) % Plt Count 252 (140-400) K/mcL BMP 11/17/16 06:00 Sodium 137 Potassium 4.3 Chloride 104 Carbon Dioxide 26 BUN 26 H Creatinine 1.29 H Glucose 143 H Calcium 9.3 - ABG Interpretation ABG results: PT/INR, D-dimer PT 12.5 Seconds (9.4-12.1) H 11/14/16 16:10 - Attending Attestation I examined this patient and my medical decision-making was reviewed with the Resident Physician on 11/17/16. I agree with the documented findings, disposition and treatment plan as described except to the extent set forth below. 81 Y/O F admitted for SHAREE and presyncope She has a PMH of Atrial fibrillation, Anemia from blood loss from surgery, as well as iron deficiency, CHFpEF, DM, Afib, CKD III Her work up and history suggest multifactorial causes: High opiate use, poor oral intake, dehydration as well as use of diuretics She denies new complains She is clinically stable SHAREE has resolved and Cr is back to baseline, tolerating po Physical exam: Uncontrolled BP, not in distress, sitting up in bed, no tachycardia, BP is elevated and stable, chest is clear, HS S1, s2, irregular, Abdomen is soft and not tender, 1+ piting pedal edema Labs and Imaging reviewed: Leukocytosis resolved, Hb is stable at 7.6 SHAREE is improving, EKG: Afib, paced. CXR no acute processes A/P SHAREE on CKD-Resolved Presyncope: Multifactorial. Fall precautions, PT/OT zack recommends ECF. Orthostats negative Anemia: Hemodynamically stable. Transfuse for Hb <7, continue iron therapy. No source of bleeding at this time Uncontrolled HTN: Continu ditliazem, continue current meds, start HCTZ, patient may be withdrawing from opiates, start low dose percocet, increase hydralazine Other chronic conditions remain stable Fall precautions Rest of details as in resident physician's documentation
[2016-11-17 08:28] LABS: Hematocrit 26.2 % (35.3-44.9); Hemoglobin 8.4 g/dL (11.5-15.4); Mean Corpuscular HGB Conc 32.1 g/dL (31.6-35.5); Mean Corpuscular Hemoglobin 31.1 pg (28.0-33.3); Mean Platelet Volume 10.2 fL (9.4-12.4); Red Blood Count 2.7 M/mcL (3.82-4.97)
[2016-11-17] MEDS: cloNIDine HCl 0.1 MG TABLET PO SCH ×3 (09:05→20:46)
[2016-11-17] MEDS: Aspirin Enteric Coated 81 MG Tablet PO SCH (09:05)
[2016-11-17] MEDS: Valsartan 160 MG TABLET PO SCH (09:05)
[2016-11-17] MEDS: Diltiazem CD (24hr) 240 MG CAPSULE PO SCH (09:05)
[2016-11-17] MEDS: Metoprolol 100 MG TABLET PO SCH ×2 (09:05→20:46)
[2016-11-17] MEDS: hydrALAZINE 25 MG TABLET PO SCH ×3 (09:06→20:46)
[2016-11-17] MEDS: hydroCHLOROthiazide 25 MG TABLET PO SCH (09:06)
[2016-11-17] MEDS: Insulin LISPRO 300 UNITS/3 ML VIAL SQ SCH ×4 (09:09→21:10)
[2016-11-17] MEDS ORDERED: *HR* OxyCODONE/APAP 5/325 TABLET PO PRN (12:11)
[2016-11-17] MEDS: Famotidine 20 MG TABLET PO SCH (16:58)
[2016-11-18 05:24] LABS: Hematocrit 28.3 % (35.3-44.9); Mean Corpuscular HGB Conc 31.8 g/dL (31.6-35.5); Mean Corpuscular Hemoglobin 30.5 pg (28.0-33.3); Mean Corpuscular Volume 95.9 fL (83.0-100.0); Platelet Count 240 K/mcL (140-400); Red Blood Count 2.95 M/mcL (3.82-4.97)
[2016-11-18 05:28] LABS: Calcium 9.6 mg/dL (8.6-10.8); Potassium 4.1 mEq/L (3.5-4.5)
[2016-11-18] MEDS: Metoprolol 100 MG TABLET PO SCH ×2 (07:45→20:36)
[2016-11-18] MEDS: Valsartan 160 MG TABLET PO SCH (07:45)
[2016-11-18] MEDS: hydrALAZINE 25 MG TABLET PO SCH ×3 (07:45→20:36)
[2016-11-18] MEDS: cloNIDine HCl 0.1 MG TABLET PO SCH ×3 (07:45→20:36)
[2016-11-18] MEDS: hydroCHLOROthiazide 25 MG TABLET PO SCH (07:46)
[2016-11-18] MEDS: Diltiazem CD (24hr) 240 MG CAPSULE PO SCH (07:46)
[2016-11-18] MEDS: Aspirin Enteric Coated 81 MG Tablet PO SCH (07:46)
[2016-11-18] MEDS: Insulin LISPRO 300 UNITS/3 ML VIAL SQ SCH ×4 (07:49→20:40)
--- NOTE | 2016-11-18 10:51 | Internal Med Progress Note ---
Date of Encounter: 11/18/16 Time of Encounter: 10:51 - Assessment and plan (1) Acute kidney injury Current Visit: Yes Status: Acute Assessment and plan: Renal function is back to baseline Pre-renal , non-olguric, making urine (2) Pre-syncope Current Visit: Yes Status: Acute Assessment and plan: Multi factorial vs anemia vs dehydration vs oxycodone usage. Previous hospitalization received echo, b/l carotid doppler, b/l UE doppler, pacemaker interrogated, head CT, and EGD without associated cause for pre- syncopal symptoms. Post shoulder surgery on 11/02 patient as remained anemic hgb 8, normally 12, and has not been eating. 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 lobsterman insulin use: without lobsterman use Qualified Code(s): E11.9 - Type 2 diabetes mellitus without complications (4) HTN (hypertension) Current Visit: Yes Status: Chronic Assessment and plan: NO controlled Continue current meds Qualifiers: Hypertension type: essential hypertension Qualified Code(s): I10 - Essential (primary) hypertension (5) Atrial fibrillation Current Visit: Yes Status: Chronic Assessment and plan: HR controlled Anticoagulation was held during the last admission Continue Metoprolol Qualifiers: Atrial fibrillation type: paroxysmal Qualified Code(s): I48.0 - Paroxysmal atrial fibrillation (6) CKD (chronic kidney disease) stage 3, GFR 30-59 ml/min Current Visit: Yes Status: Chronic Assessment and plan: currently stable. continue home HTN meds (7) Pacemaker Current Visit: Yes Status: Chronic Assessment and plan: denies cardiac symptoms. stable for now. - Subjective Interval history: Seen and evaluated at bedside No new complains She feels better BP is better controlled Awaiting placement - Constitutional Vitals: Temp Pulse Resp BP Pulse Ox 97.8 F 77 16 178/96 94 11/18/16 07:30 11/18/16 07:30 11/18/16 07:30 11/18/16 07:30 11/18/16 07:30 General appearance: Present: A&O X 3, pleasant, obese - Head Head exam: Present: atraumatic, normocephalic - Eye Eye exam: Present: PERRL, conjuntiva pink, sclera anicteric Pupils: Present: PERRL - Neck Neck exam general surgery: Present: supple, trachea midline. Absent: lymphadenopathy - Respiratory Respiratory exam: Present: CTAB. Absent: accessory muscle use, rales, rhonchi, wheezes - Cardiovascular Cardiovascular exam: Present: RRR, +S1, +S2. Absent: diastolic murmur, gallop, rubs, systolic murmur - GI/Abdominal GI/Abdominal exam: Present: normal bowel sounds, soft, no peritoneal signs. Absent: distended, tenderness - Extremities Exam Extremities exam: Present: warm, radial pulses palpable and symmetrical. Absent : calf tenderness, cyanotic, pedal edema - Neurological Exam Neurological exam: Present: alert, CN II-XII intact, oriented X3, no focal deficits. Absent: pronater drift, facial droop, speech deficit - Skin Skin exam: Present: dry, intact Internal Medicine: Result - Labs CBC & Chem 7: 11/18/16 05:03 11/18/16 05:03 Labs: Short CBC 11/18/16 Range/Units 05:03 WBC 8.9 (4.3-11.1) K/mcL Hgb 9.0 L (11.5-15.4) g/dL Hct 28.3 L (35.3-44.9) % Plt Count 240 (140-400) K/mcL BMP 11/18/16 05:03 Sodium 138 Potassium 4.1 Chloride 102 Carbon Dioxide 29 BUN 29 H Creatinine 1.11 Glucose 155 H Calcium 9.6 - ABG Interpretation ABG results: PT/INR, D-dimer PT 12.5 Seconds (9.4-12.1) H 11/14/16 16:10 Consult Discharge Plan - Plan Referrals: Elmer Davey MD [Primary Care Provider] - (Possible ECF. Waiting to see if patient goes to ECF or returns home)
[2016-11-18] MEDS: Famotidine 20 MG TABLET PO SCH (17:46)
[2016-11-19 04:25] LABS: BUN/Creatinine Ratio 28 (6-26); Blood Urea Nitrogen 30 mg/dL (7-20); Calcium 9.5 mg/dL (8.6-10.8); Carbon Dioxide 28 mEq/L (19-29); Chloride 101 mEq/L (98-109); Glucose 152 mg/dL (70-99); Osmolality,Calculated 293 (280-300); Potassium 3.8 mEq/L (3.5-4.5); Sodium 137 mEq/L (136-145); eGFR For African Americans > 60 (> 60); eGFR For Non-African Americans 50 (> 60)
[2016-11-19 05:32] LABS: Hematocrit 25.9 % (35.3-44.9); Hemoglobin 8.2 g/dL (11.5-15.4); Mean Corpuscular HGB Conc 31.7 g/dL (31.6-35.5); Mean Corpuscular Hemoglobin 30.8 pg (28.0-33.3); Mean Corpuscular Volume 97.4 fL (83.0-100.0); Mean Platelet Volume 10.6 fL (9.4-12.4); Platelet Count 213 K/mcL (140-400); Red Blood Count 2.66 M/mcL (3.82-4.97)
[2016-11-19] MEDS: hydrALAZINE 25 MG TABLET PO SCH ×2 (07:49→15:01)
[2016-11-19] MEDS: Aspirin Enteric Coated 81 MG Tablet PO SCH (07:50)
[2016-11-19] MEDS: Diltiazem CD (24hr) 240 MG CAPSULE PO SCH (07:50)
[2016-11-19] MEDS: Metoprolol 100 MG TABLET PO SCH (07:50)
[2016-11-19] MEDS: cloNIDine HCl 0.1 MG TABLET PO SCH ×2 (07:50→15:01)
[2016-11-19] MEDS: Valsartan 160 MG TABLET PO SCH (07:50)
[2016-11-19] MEDS: hydroCHLOROthiazide 25 MG TABLET PO SCH (07:51)
[2016-11-19] MEDS: Insulin LISPRO 300 UNITS/3 ML VIAL SQ SCH ×2 (07:55→12:25)
--- NOTE | 2016-11-19 09:51 | Discharge Summary ---
Addendum entered and electronically signed by Lanre Gonzalez DO 11/19/16 13:38: Patient and Family are refusing Rehab placement, and prefer to bring patient home. 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 (4) CKD (chronic kidney disease) stage 3, GFR 30-59 ml/min Priority: Secondary Status: Chronic (5) Pacemaker Priority: Secondary Status: Chronic (6) HTN (hypertension) Priority: Secondary Status: Chronic Qualifiers: Hypertension type: essential hypertension Qualified Code(s): I10 - Essential (primary) hypertension (7) Edema extremities Priority: Secondary Status: Acute (8) Dehydration Priority: Secondary Status: Acute - Discharge Medications Home Medications: Aspirin [Adult Low Dose Aspirin EC] 81 mg PO DAILY 03/18/15 [History] Citalopram Hydrobromide [Celexa] 20 mg PO QAM 03/18/15 [History] CloNIDine HCl 0.2 mg PO TID 03/18/15 [History] Glucosamine Sulfate Dipot Chlr [Glucosamine Relief] 1,000 mg PO QAM 03/18/15 [ History] Hydralazine HCl 50 mg PO TID 03/18/15 [History] Loratadine [Claritin] 10 mg PO QAM 03/18/15 [History] Metoprolol [Lopressor] 100 mg PO BID 03/18/15 [History] Nitroglycerin [Nitrostat] 0.4 mg SL Q5M PRN 03/18/15 [History] Raloxifene [Evista] 60 mg PO QAM 03/18/15 [History] SitaGLIPtin [Januvia] 50 mg PO QAM 03/18/15 [History] Ergocalciferol (VITAMIN D2) [Vitamin D2 (50,000 UNIT)] 50,000 unit PO WE [History] Multivitamin/Iron/Folic Acid [Centrum Complete Multivit Tab] 1 each PO QAM 05/04 [History] Valsartan/Hydrochlorothiazide [Diovan Hct 320-12.5 mg Tab] 1 each PO QAM [History] Allopurinol [Zyloprim] 100 mg PO DAILY 03/08/16 [History] Atorvastatin [Lipitor] 40 mg PO HS 03/08/16 [History] Calcium Polycarbophil [Fibercon] 625 mg PO BID 03/08/16 [History] Docusate [Colace] 200 mg PO TID 03/08/16 [History] L. Acidophilus/Pectin, [place] [Acidophilus Probiotic Capsule] 1 each PO BID 04/23 [History] Diltiazem HCl [Diltiazem 24Hr Cd] 180 mg PO QPM 11/06/16 [History] Famotidine [Pepcid] 40 mg PO QPM 11/06/16 [History] Pantoprazole Sodium 40 mg PO BID 11/06/16 [History] Ferrous Sulfate 324 mg PO DAILY #30 tablet. 11/12/16 [Rx] Memantine [Namenda] 10 mg PO BID tab 11/19/16 [Rx] Allergies/Adverse Reactions: Allergies No Known Drug Allergies Allergy (Verified 01/05/15 14:50) See Comments Date of admission: 11/14/16 21:26 Primary care physician: Elmer Davey MD Consults: 11/15/16 15:30 Consult to Sports Team Marketing Intern [CONS] Routine Reason for SW Consult: needs ecf - Patient Status Disposition: Home, Self-Care Condition: Good Overall status at discharge: patient is progressing back to baseline - Discharge Instructions Instructions: Heart Failure (DC), Syncope (DC), Chronic Hypertension (DC) Follow Up With: Elmer Davey MD [Primary Care Provider] - 12/12/16 (Follow up as scheduled) - Diet and Activity Activity: as per physical therapy Diet: regular diet Hospital course: Ms. Davison is a 81 year old female was admited due to fall that was caught b daughter while getting out of car with a similar hospitalization that she was discharged the previous saturday at that time echo, b/l carotid doppler, dual- chamber pacemaker interrogation, b/l UE dopplers, head CT, upper and lower endoscopy were all WNL. since left shoulder surgery in earlier October, remains anemic, hgb 8 baseline Hgb used to be 12, and reported decreased appetite since surgery. PAtient was also given roxicodone for surgery, and was given another prescription upon last hospitalization. IVF were administered, placed on tele, PT/OT evaluation, nutrition consulted and Roxicodone discontinued. After roxicodone D/C'ed patient's appetite returned and was more lively on the second day. There were concerns that the patient was developing withdrawal symptoms in which she was given a percocet. Patient Cr on admission was 1.97, patient's baseline cr is 1.3. IVF given and second day of hospitalization Cr 1.06. Patient will be discharged to rehab facility. - Time Spent with Patient Total time spent providing and/or coordinating discharge services: - Constitutional Vitals: Temp Pulse Resp BP Pulse Ox 97.9 F 59 18 149/65 94 11/19/16 06:54 11/19/16 06:54 11/19/16 06:54 11/19/16 06:54 11/19/16 06:54 General appearance: Present: A&O X 3, pleasant, obese - Head Head exam: Present: atraumatic, normocephalic - Respiratory Respiratory exam: Present: CTAB. Absent: accessory muscle use, rales, rhonchi, wheezes - Cardiovascular Cardiovascular exam: Present: RRR, +S1, +S2. Absent: diastolic murmur, gallop, rubs, systolic murmur - GI/Abdominal GI/Abdominal exam: Present: normal bowel sounds, soft, no peritoneal signs. Absent: distended, tenderness - Neurological Exam Neurological exam: Present: alert, oriented X3 - Psychiatric Psychiatric exam: Present: normal affect, normal mood <Daryn Santana - Last Filed: 11/19/16 17:30> Date of Encounter: 11/19/16 - Discharge Diagnosis (1) Acute kidney injury Status: Acute (2) Pre-syncope Status: Acute (3) Diabetes Status: Chronic Qualifiers: Diabetes mellitus type: type 2 Diabetes mellitus complication status: without complication Diabetes mellitus tank terminal gauger insulin use: without tank terminal gauger use Qualified Code(s): E11.9 - Type 2 diabetes mellitus without complications (4) HTN (hypertension) Status: Chronic Qualifiers: Hypertension type: essential hypertension Qualified Code(s): I10 - Essential (primary) hypertension (5) Atrial fibrillation Status: Chronic Qualifiers: Atrial fibrillation type: paroxysmal Qualified Code(s): I48.0 - Paroxysmal atrial fibrillation (6) CKD (chronic kidney disease) stage 3, GFR 30-59 ml/min Status: Chronic (7) Pacemaker Status: Chronic Date of admission: 11/14/16 21:26 Primary care physician: Elmer Davey MD Consults: 11/15/16 15:30 Consult to Sports Team Marketing Intern [CONS] Routine Reason for SW Consult: needs ecf Hospital course: Ms. Davison is a 81 year old female - Time Spent with Patient Total time spent providing and/or coordinating discharge services: Greater than 30 minutes - Constitutional Vitals: Temp Pulse Resp BP Pulse Ox 97.4 F L 60 18 170/70 95 11/19/16 11:21 11/19/16 11:21 11/19/16 11:21 11/19/16 11:21 11/19/16 11:21 - Attending Attestation I examined this patient and my medical decision-making was reviewed with the Resident Physician on 11/19/16. I agree with the documented findings, disposition and treatment plan as described except to the extent set forth below. 81 Y/O F who was admitted for SHAREE and presyncope She has a PMH of Atrial fibrillation, Anemia from blood loss from surgery, as well as iron deficiency, CHFpEF, DM, Afib, CKD III Her work up and history suggest multifactorial causes: High opiate use, poor oral intake, dehydration as well as use of diuretics She has made significant clinical improvement and is stable for dsicharge PT/OT recommend SNF placement, however, family declines at this time and wish to take her home Physical exam: VSS, not in distress, sitting up in bed, no tachycardia, BP is elevated and stable, chest is clear, HS S1, s2, irregular, Abdomen is soft and not tender, no pedal edema Labs and Imaging reviewed: A/P Stable for discharge home on current medications D/C opiates upon discharge Rest of details as in resident physician's documentation
[2016-11-19 11:24] VITALS: BP 170/70
--- NOTE | 2016-11-19 11:55 | Physician Discharge Referral ---
ExtendedCare Referral Info Transfer To: Rehab facility Provider in Charge after Transfer: PCP Institutional Level of Care: Skilled - Diagnosis (1) Pre-syncope Priority: Primary Status: Acute (2) Acute kidney injury Priority: Secondary Status: Acute (3) Type 2 diabetes mellitus Priority: Secondary Status: Acute (4) CKD (chronic kidney disease) stage 3, GFR 30-59 ml/min Priority: Secondary Status: Chronic (5) Pacemaker Priority: Secondary Status: Chronic (6) HTN (hypertension) Priority: Secondary Status: Chronic (7) Edema extremities Priority: Secondary Status: Acute (8) Dehydration Priority: Secondary Status: Acute Prognosis: Fair Aware of Diagnosis: Patient, Family Aware of Prognosis: Patient, Family - Transfer Medications Home Medications: Aspirin [Adult Low Dose Aspirin EC] 81 mg PO DAILY 03/18/15 [History] Citalopram Hydrobromide [Celexa] 20 mg PO QAM 03/18/15 [History] CloNIDine HCl 0.2 mg PO TID 03/18/15 [History] Glucosamine Sulfate Dipot Chlr [Glucosamine Relief] 1,000 mg PO QAM 03/18/15 [ History] Hydralazine HCl 50 mg PO TID 03/18/15 [History] Loratadine [Claritin] 10 mg PO QAM 03/18/15 [History] Metoprolol [Lopressor] 100 mg PO BID 03/18/15 [History] Nitroglycerin [Nitrostat] 0.4 mg SL Q5M PRN 03/18/15 [History] Raloxifene [Evista] 60 mg PO QAM 03/18/15 [History] SitaGLIPtin [Januvia] 50 mg PO QAM 03/18/15 [History] Ergocalciferol (VITAMIN D2) [Vitamin D2 (50,000 UNIT)] 50,000 unit PO WE [History] Multivitamin/Iron/Folic Acid [Centrum Complete Multivit Tab] 1 each PO QAM 05/04 [History] Valsartan/Hydrochlorothiazide [Diovan Hct 320-12.5 mg Tab] 1 each PO QAM [History] Allopurinol [Zyloprim] 100 mg PO DAILY 03/08/16 [History] Atorvastatin [Lipitor] 40 mg PO HS 03/08/16 [History] Calcium Polycarbophil [Fibercon] 625 mg PO BID 03/08/16 [History] Docusate [Colace] 200 mg PO TID 03/08/16 [History] L. Acidophilus/Pectin, [place] [Acidophilus Probiotic Capsule] 1 each PO BID 04/23 [History] Diltiazem HCl [Diltiazem 24Hr Cd] 180 mg PO QPM 11/06/16 [History] Famotidine [Pepcid] 40 mg PO QPM 11/06/16 [History] Pantoprazole Sodium 40 mg PO BID 11/06/16 [History] Ferrous Sulfate 324 mg PO DAILY #30 tablet. 11/12/16 [Rx] Memantine [Namenda] 10 mg PO BID tab 11/19/16 [Rx] Naloxone [Narcan] 0.4 mg IVP Q2MIN PRN 11/19/16 [Rx] Allergies/Adverse Reactions: Allergies No Known Drug Allergies Allergy (Verified 01/05/15 14:50) See Comments - Respiratory Orders Smoking Cessation: Smoking cessation has been advised. For more information, call the [place] Tobacco Quit Line at 0-943-JHCV-NOW. CERTIFICATION: I certify that the transfer of the above named patient to an Extended Care Facility is necessary for the continuing treatment of the diagnosis listed. The above information is true and accurate reflection of patient's current condition. Confidential - Redisclosure prohibited without a patient's written consent.
== END 2016-11-19 16:35 | disposition home or self-care (01) | DRG 683 ==
LOC: 2ANU 15:30 → EMEROO 15:30 → 2ANU 20:54
PROVIDERS: ADMIT Internal Medicine; ATTEND Internal Medicine

== ENCOUNTER 2016-11-23 09:27 | Inpatient (IN) ==
[2016-11-23] MEDS ORDERED: Ipratropium/Albuterol Neb 3 ML IH ONE (09:42)
--- NOTE | 2016-11-23 09:50 | Emergency Department Note ---
Disposition Clinical Impression: Acute exacerbation of CHF (congestive heart failure) Qualifiers: Congestive heart failure type: unspecified congestive heart failure type Qualified Code(s): I50.9 - Heart failure, unspecified Disposition: Admitted As Inpatient Condition: Fair Time of Disposition: 15:30 General Adult HPI - General Chief complaint: ED General Medical Stated complaint: HTN Time Seen by Provider: 11/23/16 09:31 Source: patient, EMS Limitations: no limitations Nursing Notes Reviewed: Yes Vital Signs Reviewed: Yes - History of Present Illness HPI Narrative: Patient is an 81-year-old female past medical history of atrial fibrillation, syncope due to low blood count, recent shoulder surgery presents with the chief complaint of shortness of breath that started at 10 PM yesterday. The patient states the shortness of breath came on gradually overnight has been worsening. She also admits to chest pain that is central and pressure-like without radiation. She she has also been feeling feverish. Her medicine list states that she has not been on Coumadin since November 06 which may be secondary to her surgery. Patient denies a history of COPD. States she feels nauseous but she has not yet vomited. Pain Scale: 5 - Related Data Home Medications Medication Instructions Recorded Confirmed Aspirin [Adult Low Dose Aspirin EC] 81 mg PO DAILY 03/18/15 11/23/16 Citalopram Hydrobromide [Celexa] 20 mg PO QAM 03/18/15 11/23/16 CloNIDine HCl 0.2 mg PO TID 03/18/15 11/23/16 Glucosamine Sulfate Dipot Chlr 1,000 mg PO QAM 03/18/15 11/23/16 [Glucosamine Relief] Hydralazine HCl 50 mg PO TID 03/18/15 11/23/16 Loratadine [Claritin] 10 mg PO QAM 03/18/15 11/23/16 Metoprolol [Lopressor] 100 mg PO BID 03/18/15 11/23/16 Nitroglycerin [Nitrostat] 0.4 mg SL Q5M PRN 03/18/15 11/23/16 Raloxifene [Evista] 60 mg PO QAM 03/18/15 11/23/16 SitaGLIPtin [Januvia] 50 mg PO QAM 03/18/15 11/23/16 Ergocalciferol (VITAMIN D2) 50,000 unit PO WE 05/04/15 11/23/16 [Vitamin D2 (50,000 UNIT)] Multivitamin/Iron/Folic Acid 1 each PO QAM 05/04/15 11/23/16 [Centrum Complete Multivit Tab] Valsartan/Hydrochlorothiazide 1 each PO QAM 05/04/15 11/23/16 [Diovan Hct 320-12.5 mg Tab] Allopurinol [Zyloprim] 100 mg PO DAILY 03/08/16 11/23/16 Atorvastatin [Lipitor] 40 mg PO HS 03/08/16 11/23/16 Calcium Polycarbophil [Fibercon] 625 mg PO BID 03/08/16 11/23/16 Docusate [Colace] 200 mg PO TID 03/08/16 11/23/16 L. Acidophilus/Pectin, [place] 1 each PO BID 03/08/16 11/23/16 [Acidophilus Probiotic Capsule] Diltiazem HCl [Diltiazem 24Hr Cd] 180 mg PO QPM 11/06/16 11/23/16 Famotidine [Pepcid] 40 mg PO QPM 11/06/16 11/23/16 Pantoprazole Sodium 40 mg PO BID 11/06/16 11/23/16 Memantine HCl [Namenda Xr] 28 mg PO DAILY 11/23/16 11/23/16 Pioglitazone [Actos] 15 mg PO DAILY 11/23/16 11/23/16 Warfarin [Coumadin] 2.5 mg PO TUTHSA 11/23/16 11/23/16 Warfarin [Coumadin] 5 mg PO SUMOWEFR 11/23/16 11/23/16 Previous Rx's Medication Instructions Recorded Ferrous Sulfate 324 mg PO DAILY #30 tablet. 11/12/16 Allergies Allergy/AdvReac Type Severity Reaction Status Date / Time No Known Drug Allergies Allergy See Verified 11/23/16 10:04 Comments All systems ED: reviewed and negative except as stated. Constitutional: Reports: fever, chills Cardiovascular: Reports: chest pain, dyspnea on exertion. Denies: palpitations , syncope Respiratory: Reports: cough (Nonproductive), dyspnea, wheezes. Denies: hemoptysis, sputum production Gastrointestinal: Reports: nausea. Denies: abdominal pain, vomiting Genitourinary: Denies: urgency, dysuria Musculoskeletal: Denies: back pain Past Medical History - Past Medical History Medical history: Reports: atrial fibrillation, dementia, diabetes, hyperlipidemia, hypertension, renal disease Surgical history: Reports: appendectomy, cataract, hysterectomy, knee replacement, orthopedic, other, pacemaker Psychiatric history: Reports: no psych history - Social History Smoking Status: Former smoker Smokeless Tobacco Status: No Alcohol use: Reports: none Drug use: Reports: none Physical Exam Patient does appear to be short of breath she is having difficulty speaking in full sentences however she is alert and oriented 3. She is 99% on 2 L. - General General appearance: alert, in no apparent distress - Head Head exam: atraumatic, normocephalic, normal inspection - Eye Eye exam: Present: normal appearance, PERRL, EOMI - ENT ENT exam: normal exam, normal oropharynx, mucous membranes dry - Neck Neck exam: Present: normal inspection, full ROM, trachea midline. Absent: tenderness - Chest Chest inspection: Present: normal inspection, symmetric chest wall rise. Absent : tenderness - Respiratory Respiratory exam: Present: other (Patient's lungs were clear other than she had a left lower lobe crackles.) - Expanded Respiratory Exam Location: rales: Left - Cardiovascular Cardiovascular exam: Present: regular rate, normal rhythm, normal heart sounds - Abdominal Exam Abdominal exam: Present: soft, Non-Tender, normal bowel sounds - Extremities Exam Extremities exam: Present: full ROM, normal capillary refill, pedal edema. Absent: tenderness - Expanded Lower Extremity Exam Neurovascular/Tendon exam: Present: normal capillary refill. Absent: pulse deficit Gait: not tested/not observed - Back Exam Back exam: Present: normal inspection. Absent: tenderness - Neurological Exam Neurological exam: Present: alert, oriented X3 - Psychiatric Psychiatric exam: Present: normal affect, normal mood - Skin Skin exam: Present: warm, dry, intact, normal color. Absent: cyanosis, diaphoresis, pallor Course Course Narrative: Patient is a 1-year-old female who was recently discharged from the hospital for getting worked up for syncopal event which is found have a "low blood count ". Patient has a history of atrial fibrillation which she is not currently on Coumadin for due to her recent shoulder surgery in the past 2 weeks. The patient is presenting with complaint of shortness of breath and some substernal chest pain that all started around 10 PM yesterday evening. Patient arrived to the ER by squad she receive [place] in route. Physical exam she mainly had crackles in the left lower base and diffuse extremity edema. Upon her discharge date of November 20 it was recommended that she go to rehabilitation facility, however family felt differently and the patient went home. According to past records patient is otherwise had diffuse edema in her extremities. Plan is to do a cardiac workup to rule out any cardiac etiology and also with for an infectious cause such as pneumonia since patient's lungs do not sound fluid overload. We also ordered a d-dimer to r/o PE with patient's recent surgery and stopping of her Coumadin. - Reevaluation(s) Reevaluation #1: Patient was shown to have an elevated d-dimer and therefore order a CTA of her chest. Her creatinine and GFR are within normal ranges. I will give the patient a liter of normal saline and she will be sent for CTA of her chest. I will also trial the patient on nitroglycerin and provide her with a 324 mg of aspirin. Time: 10:26 Reevaluation #2: Patient's pain did not improve with nitroglycerin. Patients hemoglobin here is 9.1 which is consistent with her old hemoglobins. Patient had elevated d-dimer which we ordered a CTA of her chest was negative for pulmonary embolism. Patients chem panel was unremarkable except for a GFR of 49 and however creatinine was 1.07 which seems improved from prior labs. The patients troponin was negative her lactic acid was 1.1 which is normal. Her BNP is elevated which is 567. This is consistent with the patients symptoms also with her chest x-ray which read mild interstitial edema with small bilateral pleural effusions. The patient was started on 20 mg of Lasix in the emergency department. I was reviewing her past medical records it seems at her prior admission 10 days ago the patient was taken off her Lasix while inpatient and I am unsure if the patient was restarted on her Lasix medication. The patient states that she was not. I discussed this case with Dr. Bui who is the hospitalist Lorraine and he agrees to admit the patient for acute exacerbation of patients CHF. Time: 15:29 Vital Signs Temperature 98.2 F 11/23/16 09:29 Pulse Rate 94 11/23/16 09:29 Respiratory Rate 18 11/23/16 09:29 Blood Pressure 188/72 11/23/16 09:29 O2 Sat by Pulse Oximetry 95 11/23/16 09:29 Temperature 98.2 F 11/23/16 09:29 Pulse Rate 60 11/23/16 11:35 Respiratory Rate 16 11/23/16 11:35 Blood Pressure 152/74 11/23/16 11:35 O2 Sat by Pulse Oximetry 99 11/23/16 11:35 Oxygen Delivery Oxygen Delivery Nasal Cannula Medical Decision Making - Medical Records Medical records reviewed: Yes I reviewed the patient's medical records. - Lab Data Lab results reviewed: Yes I reviewed the patient's lab results. Result diagrams: 11/23/16 09:43 11/23/16 09:43 Lab Results 11/23/16 11/23/16 11/23/16 Range/Units 09:43 09:43 09:43 WBC 12.9 H (4.3-11.1) K/mcL RBC 3.02 L (3.82-4.97) M/mcL Hgb 9.1 L (11.5-15.4) g/dL Hct 29.2 L (35.3-44.9) % MCV 96.7 (83.0-100.0) fL MCH 30.1 (28.0-33.3) pg MCHC 31.2 L (31.6-35.5) g/dL RDW 15.9 H (11.5-14.5) % Plt Count 252 (140-400) K/mcL MPV 9.8 (9.4-12.4) fL Immature Gran % 0.7 (0-4) % Seg Neutrophils % 87.0 % Lymphocytes % 4.7 % Monocytes % 7.1 % Eosinophils % 0.2 % Basophils % 0.3 % Neutrophils # 11.2 H (1.6-8.9) K/mcL Lymphocytes # 0.6 (0.6-4.6) K/mcL Monocytes # 0.9 (0.0-1.3) K/mcL Eosinophils # 0.0 (0.0-0.6) K/mcL Basophils # 0.0 (0.0-0.2) K/mcL D-Dimer (0-500) ng/mLFEU Sodium 132 L (136-145) mEq/L Potassium 3.8 (3.5-4.5) mEq/L Chloride 94 L (98-109) mEq/L Carbon Dioxide 31 H (19-29) mEq/L BUN 28 H (7-20) mg/dL Creatinine 1.07 (0.57-1.11) mg/dL Est GFR ( Amer) 60 (> 60) Est GFR (Non-Af Amer) 49 L (> 60) BUN/Creatinine Ratio 26 (6-26) Glucose 181 H (70-99) mg/dL POC Glucose (58-89) Calculated Osmolality 284 (280-300) Lactic Acid 1.1 (0.5-2.2) mmol/L Calcium 9.8 (8.6-10.8) mg/dL Troponin I (0-0.03) ng/mL B-Natriuretic Peptide (0-100) pg/mL 11/23/16 11/23/16 11/23/16 Range/Units 09:43 09:43 09:43 WBC (4.3-11.1) K/mcL RBC (3.82-4.97) M/mcL Hgb (11.5-15.4) g/dL Hct (35.3-44.9) % MCV (83.0-100.0) fL MCH (28.0-33.3) pg MCHC (31.6-35.5) g/dL RDW (11.5-14.5) % Plt Count (140-400) K/mcL MPV (9.4-12.4) fL Immature Gran % (0-4) % Seg Neutrophils % % Lymphocytes % % Monocytes % % Eosinophils % % Basophils % % Neutrophils # (1.6-8.9) K/mcL Lymphocytes # (0.6-4.6) K/mcL Monocytes # (0.0-1.3) K/mcL Eosinophils # (0.0-0.6) K/mcL Basophils # (0.0-0.2) K/mcL D-Dimer 5552 H (0-500) ng/mLFEU Sodium (136-145) mEq/L Potassium (3.5-4.5) mEq/L Chloride (98-109) mEq/L Carbon Dioxide (19-29) mEq/L BUN (7-20) mg/dL Creatinine (0.57-1.11) mg/dL Est GFR ( Amer) (> 60) Est GFR (Non-Af Amer) (> 60) BUN/Creatinine Ratio (6-26) Glucose (70-99) mg/dL POC Glucose (58-89) Calculated Osmolality (280-300) Lactic Acid (0.5-2.2) mmol/L Calcium (8.6-10.8) mg/dL Troponin I 0.01 (0-0.03) ng/mL B-Natriuretic Peptide 567 H (0-100) pg/mL 11/23/16 Range/Units 09:49 WBC (4.3-11.1) K/mcL RBC (3.82-4.97) M/mcL Hgb (11.5-15.4) g/dL Hct (35.3-44.9) % MCV (83.0-100.0) fL MCH (28.0-33.3) pg MCHC (31.6-35.5) g/dL RDW (11.5-14.5) % Plt Count (140-400) K/mcL MPV (9.4-12.4) fL Immature Gran % (0-4) % Seg Neutrophils % % Lymphocytes % % Monocytes % % Eosinophils % % Basophils % % Neutrophils # (1.6-8.9) K/mcL Lymphocytes # (0.6-4.6) K/mcL Monocytes # (0.0-1.3) K/mcL Eosinophils # (0.0-0.6) K/mcL Basophils # (0.0-0.2) K/mcL D-Dimer (0-500) ng/mLFEU Sodium (136-145) mEq/L Potassium (3.5-4.5) mEq/L Chloride (98-109) mEq/L Carbon Dioxide (19-29) mEq/L BUN (7-20) mg/dL Creatinine (0.57-1.11) mg/dL Est GFR ( Amer) (> 60) Est GFR (Non-Af Amer) (> 60) BUN/Creatinine Ratio (6-26) Glucose (70-99) mg/dL POC Glucose 179 H (58-89) Calculated Osmolality (280-300) Lactic Acid (0.5-2.2) mmol/L Calcium (8.6-10.8) mg/dL Troponin I (0-0.03) ng/mL B-Natriuretic Peptide (0-100) pg/mL - Radiology Data Radiology results reviewed: Yes I reviewed the patient's radiology results. Chest X-Ray 11/23/16 09:38 IMPRESSION: Mild interstitial edema with small bilateral pleural effusions. D/ / Tabatha Hopkins MD / Tabatha Hopkins MD Interpreting Provider: Tabatha Hopkins MD Chest X-Ray 11/23/16 09:38 IMPRESSION: Mild interstitial edema with small bilateral pleural effusions. D/ / Tabatha Hopkins MD / Tabatha Hopkins MD Interpreting Provider: Tabatha Hopkins MD Chest CTA 11/23/16 10:08 IMPRESSION: 1. No pulmonary embolism. 2. Spectrum of findings suggest CHF and pulmonary edema. Moderate right and small left pleural effusions with associated atelectasis in the lower lobes. D/ / Luis Manuel Vee MD / Luis Manuel Vee MD Interpreting Provider: Luis Manuel Vee MD - EKG Data EKG #1 EKG attestation: Yes I reviewed and interpreted this EKG. EKG results narrative: Patient's EKG is a paced rhythm at 62 bpm. It is normal axis. LA is 184, QRS is 101, QT is 408 user within normal limits. No ST elevation or depression or Q waves. Unchanged from her EKG that was done on 11/24/2016
[2016-11-23] MEDS ORDERED: Aspirin 81 MG TAB.CHEW PO STA (09:56)
[2016-11-23 09:57] LABS: Basophils % 0.3 %; Eosinophils % 0.2 %; Hematocrit 29.2 % (35.3-44.9); Hemoglobin 9.1 g/dL (11.5-15.4); Immature Granulocytes % 0.7 % (0-4); Lymphocytes # 0.6 K/mcL (0.6-4.6); Lymphocytes % 4.7 %; Mean Corpuscular HGB Conc 31.2 g/dL (31.6-35.5); Mean Corpuscular Hemoglobin 30.1 pg (28.0-33.3); Mean Corpuscular Volume 96.7 fL (83.0-100.0); Mean Platelet Volume 9.8 fL (9.4-12.4); Monocytes # 0.9 K/mcL (0.0-1.3); Monocytes % 7.1 %; Neutrophils # 11.2 K/mcL (1.6-8.9); Platelet Count 252 K/mcL (140-400); Red Blood Count 3.02 M/mcL (3.82-4.97); Red Cell Distribution Width 15.9 % (11.5-14.5)
--- NOTE | 2016-11-23 09:57 | Emergency Department Note ---
Disposition Clinical Impression: Acute exacerbation of CHF (congestive heart failure) Disposition: Admitted As Inpatient Condition: Fair General Adult HPI - General Chief complaint: ED General Medical Stated complaint: HTN Time Seen by Provider: 11/23/16 09:31 Source: patient, EMS Limitations: no limitations Nursing Notes Reviewed: Yes Vital Signs Reviewed: Yes - History of Present Illness Pain Scale: 5 - Related Data Home Medications Medication Instructions Recorded Confirmed Aspirin [Adult Low Dose Aspirin EC] 81 mg PO DAILY 03/18/15 11/23/16 Citalopram Hydrobromide [Celexa] 20 mg PO QAM 03/18/15 11/23/16 CloNIDine HCl 0.2 mg PO TID 03/18/15 11/23/16 Glucosamine Sulfate Dipot Chlr 1,000 mg PO QAM 03/18/15 11/23/16 [Glucosamine Relief] Hydralazine HCl 50 mg PO TID 03/18/15 11/23/16 Loratadine [Claritin] 10 mg PO QAM 03/18/15 11/23/16 Metoprolol [Lopressor] 100 mg PO BID 03/18/15 11/23/16 Nitroglycerin [Nitrostat] 0.4 mg SL Q5M PRN 03/18/15 11/23/16 Raloxifene [Evista] 60 mg PO QAM 03/18/15 11/23/16 SitaGLIPtin [Januvia] 50 mg PO QAM 03/18/15 11/23/16 Ergocalciferol (VITAMIN D2) 50,000 unit PO WE 05/04/15 11/23/16 [Vitamin D2 (50,000 UNIT)] Multivitamin/Iron/Folic Acid 1 each PO QAM 05/04/15 11/23/16 [Centrum Complete Multivit Tab] Valsartan/Hydrochlorothiazide 1 each PO QAM 05/04/15 11/23/16 [Diovan Hct 320-12.5 mg Tab] Allopurinol [Zyloprim] 100 mg PO DAILY 03/08/16 11/23/16 Atorvastatin [Lipitor] 40 mg PO HS 03/08/16 11/23/16 Calcium Polycarbophil [Fibercon] 625 mg PO BID 03/08/16 11/23/16 Docusate [Colace] 200 mg PO TID 03/08/16 11/23/16 L. Acidophilus/Pectin, [place] 1 each PO BID 03/08/16 11/23/16 [Acidophilus Probiotic Capsule] Diltiazem HCl [Diltiazem 24Hr Cd] 180 mg PO QPM 11/06/16 11/23/16 Famotidine [Pepcid] 40 mg PO QPM 11/06/16 11/23/16 Pantoprazole Sodium 40 mg PO BID 11/06/16 11/23/16 Memantine HCl [Namenda Xr] 28 mg PO DAILY 11/23/16 11/23/16 Pioglitazone [Actos] 15 mg PO DAILY 11/23/16 11/23/16 Warfarin [Coumadin] 2.5 mg PO TUTHSA 11/23/16 11/23/16 Warfarin [Coumadin] 5 mg PO SUMOWEFR 11/23/16 11/23/16 Previous Rx's Medication Instructions Recorded Ferrous Sulfate 324 mg PO DAILY #30 tablet. 11/12/16 Allergies Allergy/AdvReac Type Severity Reaction Status Date / Time No Known Drug Allergies Allergy See Verified 11/23/16 10:04 Comments Constitutional: Reports: fever, chills Cardiovascular: Reports: chest pain, dyspnea on exertion. Denies: palpitations , syncope Respiratory: Reports: cough (Nonproductive), dyspnea, wheezes. Denies: hemoptysis, sputum production Gastrointestinal: Reports: nausea. Denies: abdominal pain, vomiting Genitourinary: Denies: urgency, dysuria Musculoskeletal: Denies: back pain Past Medical History - Past Medical History Medical history: Reports: atrial fibrillation, dementia, diabetes, hyperlipidemia, hypertension, renal disease Surgical history: Reports: appendectomy, cataract, hysterectomy, knee replacement, orthopedic, other, pacemaker Psychiatric history: Reports: no psych history - Social History Smoking Status: Former smoker Smokeless Tobacco Status: No Alcohol use: Reports: none Drug use: Reports: none Physical Exam - General Limitations: no limitations General appearance: alert, in no apparent distress Course Vital Signs Temperature 98.2 F 11/23/16 09:29 Pulse Rate 94 11/23/16 09:29 Respiratory Rate 18 11/23/16 09:29 Blood Pressure 188/72 11/23/16 09:29 O2 Sat by Pulse Oximetry 95 11/23/16 09:29 Temperature 98.2 F 11/23/16 09:29 Pulse Rate 60 11/23/16 11:35 Respiratory Rate 16 11/23/16 11:35 Blood Pressure 152/74 11/23/16 11:35 O2 Sat by Pulse Oximetry 99 11/23/16 11:35 Oxygen Delivery Oxygen Delivery Nasal Cannula Medical Decision Making - MDM Narrative Medical decision making narrative: I examined this patient and my medical decision-making was reviewed with the Resident Physician. I agree with the documented findings, disposition and treatment plan as described except to the extent set forth below. Patient seen and evaluated on arrival with EMS and Dr. West, I agree with his evaluation and treatment plan, supervise care the patient's stay. Patient was just discharged from the hospital due to it sounds like low blood count dehydration. She has been getting increased dyspnea. She has been off Coumadin as she had a recent shoulder surgery. She said no history of blood clots she said some pressure in her chest. Conversationally dyspneic to about 2 word she does have some edema in her lower extremities. No workup cardiac-wang micturition, PE and she will need admission. I also spoke with social science analyst. They said they had her set up for rehabilitation before but family did not want to do that so she went back home. She gets admitted here social science analyst will follow with her also. Patient's agreement with this plan. 1017 hrs.: Do not have a reason for the patient to be dyspneic at this time. Her d-dimer is elevated and she is low to moderate risk for DVT PE. We are awaiting CTA her since her creatinine is coming back normal fluid hydrate her. I do not think she will tolerate a V/Q well. Question is whether she needs to be heparinized or not since she was on Coumadin and does not currently want to make sure there is no risk factors for heparinizing her and then determine if she has a PE or not. Chest X-Ray 11/23/16 09:38 IMPRESSION: Mild interstitial edema with small bilateral pleural effusions. D/ / Tabatha Hopkins MD / Tabatha Hopkins MD Interpreting Provider: Tabatha Hopkins MD 1030 hrs.: Based upon her chest x-ray and her presentation we will give her a small dose of Lasix also. Chest X-Ray 11/23/16 09:38 IMPRESSION: Mild interstitial edema with small bilateral pleural effusions. D/ / Tabatha Hopkins MD / Tabatha Hopkins MD Interpreting Provider: Tabatha Hopkins MD Chest CTA 11/23/16 10:08 IMPRESSION: 1. No pulmonary embolism. 2. Spectrum of findings suggest CHF and pulmonary edema. Moderate right and small left pleural effusions with associated atelectasis in the lower lobes. D/ / Luis Manuel Vee MD / Luis Manuel Vee MD Interpreting Provider: Luis Manuel Vee MD 1434 hrs.: No signs of pulmonary embolism CT is consistent with CHF as hers or clinical signs and her chest x-ray. We will bring her in for dyspnea with new onset CHF. Patient's critical care time excluding any Separately billable procedures is 40 minutes. 1532 hrs.: Hospitalist pulses accepted patient for admission. - Lab Data Result diagrams: 11/23/16 09:43 11/23/16 09:43 Lab Results 11/23/16 11/23/16 11/23/16 Range/Units 09:43 09:43 09:43 WBC 12.9 H (4.3-11.1) K/mcL RBC 3.02 L (3.82-4.97) M/mcL Hgb 9.1 L (11.5-15.4) g/dL Hct 29.2 L (35.3-44.9) % MCV 96.7 (83.0-100.0) fL MCH 30.1 (28.0-33.3) pg MCHC 31.2 L (31.6-35.5) g/dL RDW 15.9 H (11.5-14.5) % Plt Count 252 (140-400) K/mcL MPV 9.8 (9.4-12.4) fL Immature Gran % 0.7 (0-4) % Seg Neutrophils % 87.0 % Lymphocytes % 4.7 % Monocytes % 7.1 % Eosinophils % 0.2 % Basophils % 0.3 % Neutrophils # 11.2 H (1.6-8.9) K/mcL Lymphocytes # 0.6 (0.6-4.6) K/mcL Monocytes # 0.9 (0.0-1.3) K/mcL Eosinophils # 0.0 (0.0-0.6) K/mcL Basophils # 0.0 (0.0-0.2) K/mcL D-Dimer (0-500) ng/mLFEU Sodium 132 L (136-145) mEq/L Potassium 3.8 (3.5-4.5) mEq/L Chloride 94 L (98-109) mEq/L Carbon Dioxide 31 H (19-29) mEq/L BUN 28 H (7-20) mg/dL Creatinine 1.07 (0.57-1.11) mg/dL Est GFR ( Amer) 60 (> 60) Est GFR (Non-Af Amer) 49 L (> 60) BUN/Creatinine Ratio 26 (6-26) Glucose 181 H (70-99) mg/dL POC Glucose (58-89) Calculated Osmolality 284 (280-300) Lactic Acid 1.1 (0.5-2.2) mmol/L Calcium 9.8 (8.6-10.8) mg/dL Troponin I (0-0.03) ng/mL B-Natriuretic Peptide (0-100) pg/mL 11/23/16 11/23/16 11/23/16 Range/Units 09:43 09:43 09:43 WBC (4.3-11.1) K/mcL RBC (3.82-4.97) M/mcL Hgb (11.5-15.4) g/dL Hct (35.3-44.9) % MCV (83.0-100.0) fL MCH (28.0-33.3) pg MCHC (31.6-35.5) g/dL RDW (11.5-14.5) % Plt Count (140-400) K/mcL MPV (9.4-12.4) fL Immature Gran % (0-4) % Seg Neutrophils % % Lymphocytes % % Monocytes % % Eosinophils % % Basophils % % Neutrophils # (1.6-8.9) K/mcL Lymphocytes # (0.6-4.6) K/mcL Monocytes # (0.0-1.3) K/mcL Eosinophils # (0.0-0.6) K/mcL Basophils # (0.0-0.2) K/mcL D-Dimer 5552 H (0-500) ng/mLFEU Sodium (136-145) mEq/L Potassium (3.5-4.5) mEq/L Chloride (98-109) mEq/L Carbon Dioxide (19-29) mEq/L BUN (7-20) mg/dL Creatinine (0.57-1.11) mg/dL Est GFR ( Amer) (> 60) Est GFR (Non-Af Amer) (> 60) BUN/Creatinine Ratio (6-26) Glucose (70-99) mg/dL POC Glucose (58-89) Calculated Osmolality (280-300) Lactic Acid (0.5-2.2) mmol/L Calcium (8.6-10.8) mg/dL Troponin I 0.01 (0-0.03) ng/mL B-Natriuretic Peptide 567 H (0-100) pg/mL 11/23/16 Range/Units 09:49 WBC (4.3-11.1) K/mcL RBC (3.82-4.97) M/mcL Hgb (11.5-15.4) g/dL Hct (35.3-44.9) % MCV (83.0-100.0) fL MCH (28.0-33.3) pg MCHC (31.6-35.5) g/dL RDW (11.5-14.5) % Plt Count (140-400) K/mcL MPV (9.4-12.4) fL Immature Gran % (0-4) % Seg Neutrophils % % Lymphocytes % % Monocytes % % Eosinophils % % Basophils % % Neutrophils # (1.6-8.9) K/mcL Lymphocytes # (0.6-4.6) K/mcL Monocytes # (0.0-1.3) K/mcL Eosinophils # (0.0-0.6) K/mcL Basophils # (0.0-0.2) K/mcL D-Dimer (0-500) ng/mLFEU Sodium (136-145) mEq/L Potassium (3.5-4.5) mEq/L Chloride (98-109) mEq/L Carbon Dioxide (19-29) mEq/L BUN (7-20) mg/dL Creatinine (0.57-1.11) mg/dL Est GFR ( Amer) (> 60) Est GFR (Non-Af Amer) (> 60) BUN/Creatinine Ratio (6-26) Glucose (70-99) mg/dL POC Glucose 179 H (58-89) Calculated Osmolality (280-300) Lactic Acid (0.5-2.2) mmol/L Calcium (8.6-10.8) mg/dL Troponin I (0-0.03) ng/mL B-Natriuretic Peptide (0-100) pg/mL
[2016-11-23 10:04] LABS: Calcium 9.8 mg/dL (8.6-10.8); Potassium 3.8 mEq/L (3.5-4.5)
[2016-11-23] MEDS ORDERED: 0.9 % Sodium Chloride 1,000 ML IVC ONE (10:09)
[2016-11-23] MEDS ORDERED: Ondansetron 4 MG/2 ML VIAL IVP ONE (10:09)
[2016-11-23] MEDS: Nitroglycerin 0.4 MG TAB.SUBL SL PRN ×3 (10:10→10:20)
[2016-11-23] MEDS ORDERED: Furosemide 20 MG/2 ML VIAL IVP ONE (10:31)
[2016-11-23] MEDS ORDERED: Naloxone 0.4 MG/ML INJ IVP PRN (17:00)
[2016-11-23] MEDS ORDERED: Nitroglycerin 0.4 MG TAB.SUBL SL PRN (17:03)
--- NOTE | 2016-11-23 17:12 | Electrocardiograph Report ---
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
--- NOTE | 2016-11-23 17:13 | Internal Med History&Physical ---
<Julieta David - Last Filed: 11/23/16 18:19> Date of Encounter: 11/23/16 Time of Encounter: 16:30 Assessment and Plan (1) Acute exacerbation of CHF (congestive heart failure) Current visit: Yes Status: Acute 1 last echo demonstrated EF of 65% with moderate diastolic dysfunction. Patient has been expressing increasing shortness of breath as well as lower extreme swelling over the past 2 days. Her BNP was 557. CTA did not reveal CHF and pulmonary edema with moderate right pleural effusion and a small left pleural effusion. Patient had not been taking any diuretics due to recent hospitalization for dehydration. She was given IV Lasix in the ER which we will continue 2 monitor intake and output daily weights 3 low sodium diet 4 continuous cardiac monitoring Qualifiers: Congestive heart failure type: diastolic Qualified Code(s): I50.33 - Acute on chronic diastolic (congestive) heart failure (2) DVT prophylaxis Current visit: No Status: Acute 1 patient is on Coumadin due to atrial fibrillation. She has had recent falls as well as recent surgery with anemia. She is a high risk for bleeding Presently Coumadin is being held. We will continue to hold we will place patient on SCDs. (3) Type 2 diabetes mellitus Current visit: No Status: Acute 1 Accu-Cheks before meals at bedtime with sliding scale insulin 2 diabetic diet Qualifiers: Diabetes mellitus complication status: with unspecified complications Diabetes mellitus snf insulin use: without emt intermediate use Qualified Code( s): E11.8 - Type 2 diabetes mellitus with unspecified complications (4) Atrial fibrillation Current visit: No Status: Chronic 1 present patient is atrially paced. We will continue with Cardizem and metoprolol. Coumadin is presently being held due to recent surgery and recent episode of fall with bleeding. We will continue with aspirin- patient's chads vasc score is 5 patient will need to be reevaluated concerning anticoagulation prior to discharge Qualifiers: Atrial fibrillation type: paroxysmal Qualified Code(s): I48.0 - Paroxysmal atrial fibrillation (5) CKD (chronic kidney disease) stage 3, GFR 30-59 ml/min Current visit: No Status: Chronic 1 CK D stage III. Presently creatinine is stable at 1.07. We will continue to monitor 2 monitor intake and output daily weight 3 avoid nephrotoxins (6) HTN (hypertension) Current visit: No Status: Chronic 1 we will continue with hydralazine clonidine metoprolol goal is to maintain systolic less than 140 Low-sodium diet Qualifiers: Hypertension type: essential hypertension Qualified Code(s): I10 - Essential (primary) hypertension Internal Medicine - H&P: HPI Chief complaint: Shortness of breath Admitted From: Emergency Dept Plans for Post Hospital Care: Home History of present illness: Ms. Davison is a 81 year old female past history dementia, atrial fibrillation status post pacemaker placement for sss diabetes type 2 hypertension recent left shoulder arthroscopy on November 01 at [facility] surgery was performed by Dr. Hoffman patient has had several hospitalizations since surgery was performed. She developed bleeding at the surgical site and return to the ED on the per the daughter sutures were replaced and not a dressing was placed and was removed. She continued to bleed and had a syncopal episode while at the Coumadin clinic on 11/07/2016. She was admitted to the hospital at that time , the bleeding was controlled, she remained anemic and hemoglobin 8 baseline is around 12 echo bilateral carotid Doppler dual-chamber pacemaker interrogation head CT and upper and lower endoscopy were all within normal limits. She was discharged home on 11/19/2016. That time her hydrochlorothiazide was held due to dehydration. Her daughter states that the patient has been experiencing increasing shortness of breath on exertion over the past 2 days. This a.m. patient felt lightheaded and was short of breath at rest. The daughter became concerned and she brought patient to the ER for evaluation. According to ER records chest x-ray was obtained which did reveal CHF with pulmonary edema with pleural effusion and a moderate right effusion and a small left effusion. D- dimer was elevated 5552 CTA was performed with no evidence of PE. BNP was 567 troponin was 0.01 rest of lab work unremarkable. Echo completed last week did show EF of 65% with moderate diastolic dysfunction. Patient was given IV Lasix and breathing treatment she has been admitted for further workup evaluation. Presently patient does not appear to be in any respiratory distress. Heart sounds are regular S1-S2 with no rubs clicks counts were as noted she does have scattered wheezes throughout her lung [place]. Abdomen soft nontender she does have +1 pitting edema up to her knees bilaterally. Presently she is hemodynamically stable. I reviewed this case with Dr. Bui who agrees with plan. Past Med Surg Social Fam HX - Past Medical History Medical history: atrial fibrillation, dementia, diabetes, hyperlipidemia, hypertension, renal disease Psychiatric history: no psych history - Past Surgical History Surgical History: appendectomy, cataract, hysterectomy, knee replacement, orthopedic, other, pacemaker - Social History Smoking Status: Former smoker Smokeless Tobacco Status: No Alcohol use: none Drug use: none - Family History Mother Living Status: Hx Family Cardiac Disorders: No Hx Family Respiratory Disorders: No Hx Family Cancer: Yes (Breast) Hx Family GI Disorders: No Hx Family Endocrine Disorder: No Hx Family Neuromuscular Disorders: No Hx Family Neurologic Disorders: No Hx Family HEENT Disorders: Yes (Blind, Glaucoma) Hx Family Autoimmune Disorders: No Father Living Status: Hx Family Cardiac Disorders: No Hx Family Respiratory Disorders: No Hx Family Cancer: No Hx Family GI Disorders: Yes (Cirrhosis) Hx Family Endocrine Disorder: No Hx Family Neuromuscular Disorders: No Hx Family Neurologic Disorders: No Hx Family HEENT Disorders: No Hx Family Autoimmune Disorders: No Internal Medicine - H&P: Meds Aspirin [Adult Low Dose Aspirin EC] 81 mg PO DAILY 03/18/15 [History] Citalopram Hydrobromide [Celexa] 20 mg PO QAM 03/18/15 [History] CloNIDine HCl 0.2 mg PO TID 03/18/15 [History] Glucosamine Sulfate Dipot Chlr [Glucosamine Relief] 1,000 mg PO QAM 03/18/15 [ History] Hydralazine HCl 50 mg PO TID 03/18/15 [History] Loratadine [Claritin] 10 mg PO QAM 03/18/15 [History] Metoprolol [Lopressor] 100 mg PO BID 03/18/15 [History] Nitroglycerin [Nitrostat] 0.4 mg SL Q5M PRN 03/18/15 [History] Raloxifene [Evista] 60 mg PO QAM 03/18/15 [History] SitaGLIPtin [Januvia] 50 mg PO QAM 03/18/15 [History] Ergocalciferol (VITAMIN D2) [Vitamin D2 (50,000 UNIT)] 50,000 unit PO WE [History] Multivitamin/Iron/Folic Acid [Centrum Complete Multivit Tab] 1 each PO QAM 05/04 [History] Valsartan/Hydrochlorothiazide [Diovan Hct 320-12.5 mg Tab] 1 each PO QAM [History] Allopurinol [Zyloprim] 100 mg PO DAILY 03/08/16 [History] Atorvastatin [Lipitor] 40 mg PO HS 03/08/16 [History] Calcium Polycarbophil [Fibercon] 625 mg PO BID 03/08/16 [History] Docusate [Colace] 200 mg PO TID 03/08/16 [History] L. Acidophilus/Pectin, [place] [Acidophilus Probiotic Capsule] 1 each PO BID 04/23 [History] Diltiazem HCl [Diltiazem 24Hr Cd] 180 mg PO QPM 11/06/16 [History] Famotidine [Pepcid] 40 mg PO QPM 11/06/16 [History] Pantoprazole Sodium 40 mg PO BID 11/06/16 [History] Ferrous Sulfate 324 mg PO DAILY #30 tablet. 11/12/16 [Rx] Memantine HCl [Namenda Xr] 28 mg PO DAILY 11/23/16 [History] Pioglitazone [Actos] 15 mg PO DAILY 11/23/16 [History] Warfarin [Coumadin] 2.5 mg PO TUTHSA 11/23/16 [History] Warfarin [Coumadin] 5 mg PO SUMOWEFR 11/23/16 [History] 3 Allergy/AdvReac Type Severity Reaction Status Date / Time No Known Drug Allergies Allergy See Verified 11/23/16 10:04 Comments All Systems PM: A 10-system review of systems was performed and is negative for pertinent findings except as documented above in the HPI. - Constitutional Vitals: Temp Pulse Resp BP Pulse Ox 98.2 F 60 16 205/72 97 11/23/16 09:29 11/23/16 15:35 11/23/16 16:41 11/23/16 16:41 11/23/16 15:35 Internal Med - H&P Results - Labs CBC & Chem 7: 11/23/16 09:43 11/23/16 09:43 - EKG Data Prior EKG available for review: yes When compared to previous EKG: there is no significant change EKG comments: 11/23/16 18:03 Atrial paced rhythm - Diagnostic Studies Chest x-ray Additional comments: Chest X-Ray 11/23/16 09:38 IMPRESSION: Mild interstitial edema with small bilateral pleural effusions. D/ / Tabatha Hopkins MD / Tabatha Hopkins MD Interpreting Provider: Tabatha Hopkins MD Chest CTA 11/23/16 10:08 IMPRESSION: 1. No pulmonary embolism. 2. Spectrum of findings suggest CHF and pulmonary edema. Moderate right and small left pleural effusions with associated atelectasis in the lower lobes. D/ / Luis Manuel Vee MD / Luis Manuel Vee MD Interpreting Provider: Luis Manuel Vee MD <Marybel Bui - Last Filed: 11/23/16 19:38> Date of Encounter: 11/23/16 Internal Medicine - H&P: HPI History of present illness: Ms. Davison is a 81 year old female All Systems PM: A 10-system review of systems was performed and is negative for pertinent findings except as documented above in the HPI. - Constitutional Vitals: Temp Pulse Resp BP Pulse Ox 98.6 F 60 16 186/75 96 11/23/16 18:54 11/23/16 18:54 11/23/16 18:54 11/23/16 18:54 11/23/16 18:54 Internal Med - H&P Results - Labs CBC & Chem 7: 11/23/16 09:43 11/23/16 09:43 Labs: Cardiac Enzymes 11/23/16 Range/Units 17:31 Troponin I 0.01 (0-0.03) ng/mL - Attending Attestation I saw and examined pt. I have discussed with STATE PATROL OFFICER regarding the management plan, agree with the documentation. Pt has pulmonary congestion, elevated BNP, c/o SOB consider CHF exacerbation. Pt also has nonproductive cough with sometimes wheezes, will give her nebulizer and cough syrup as well.
[2016-11-23] MEDS ORDERED: Albuterol 2.5 MG/3 ML NEBULIZER IH PRN (18:02)
[2016-11-23] MEDS ORDERED: D5% in Water 1,000 ML IVC PRN (18:06)
[2016-11-23] MEDS ORDERED: *HR* Dextrose 50 % in Water (Syg) 50 ML SYRINGE IVP PRN (18:06)
[2016-11-23] MEDS ORDERED: Dextrose Gel 15 GM PO PRN ×2 (18:06)
[2016-11-23] MEDS: Diltiazem CD (24hr) 180 MG CAPSULE PO SCH (18:21)
[2016-11-23] MEDS: cloNIDine HCl 0.1 MG TABLET PO SCH ×2 (18:21→20:12)
[2016-11-23] MEDS: Lactobacillus 1 EACH CAP.SPRINK PO SCH (20:11)
[2016-11-23] MEDS: hydrALAZINE 25 MG TABLET PO SCH (20:11)
[2016-11-23] MEDS: Metoprolol 100 MG TABLET PO SCH (20:11)
[2016-11-23] MEDS: Insulin LISPRO 300 UNITS/3 ML VIAL SQ SCH (20:58)
[2016-11-23] MEDS: Ipratropium/Albuterol Neb 3 ML IH SCH (22:31)
[2016-11-24 00:38] LABS: Basophils % 0.3 %; Eosinophils # 0.1 K/mcL (0.0-0.6); Eosinophils % 0.7 %; Hemoglobin 8.1 g/dL (11.5-15.4); Immature Granulocytes % 0.5 % (0-4); Lymphocytes # 0.9 K/mcL (0.6-4.6); Lymphocytes % 10.7 %; Mean Corpuscular HGB Conc 31.2 g/dL (31.6-35.5); Mean Corpuscular Hemoglobin 30.2 pg (28.0-33.3); Mean Platelet Volume 9.9 fL (9.4-12.4); Monocytes % 11.2 %; Neutrophils # 6.6 K/mcL (1.6-8.9); Platelet Count 195 K/mcL (140-400); Red Blood Count 2.68 M/mcL (3.82-4.97); Red Cell Distribution Width 16.1 % (11.5-14.5); Segmented Neutrophils % 76.6 %
[2016-11-24 00:53] LABS: Calcium 9.2 mg/dL (8.6-10.8); Chol/HDL Ratio 3.3 (0-4.9); Magnesium 1.5 mg/dL (1.6-2.6); Potassium 3.5 mEq/L (3.5-4.5)
[2016-11-24] MEDS: Ipratropium/Albuterol Neb 3 ML IH SCH ×4 (04:14→21:56)
[2016-11-24] MEDS: cloNIDine HCl 0.1 MG TABLET PO SCH ×3 (08:12→21:10)
[2016-11-24] MEDS: Loratadine 10 MG TABLET PO SCH (08:12)
[2016-11-24] MEDS: hydrALAZINE 25 MG TABLET PO SCH ×3 (08:12→21:11)
[2016-11-24] MEDS: Lactobacillus 1 EACH CAP.SPRINK PO SCH ×2 (08:12→21:10)
[2016-11-24] MEDS: Aspirin Enteric Coated 81 MG Tablet PO SCH (08:13)
[2016-11-24] MEDS: Metoprolol 100 MG TABLET PO SCH ×2 (08:13→21:11)
[2016-11-24] MEDS: Magnesium Oxide 400 MG TABLET PO SCH (08:13)
[2016-11-24] MEDS: Insulin LISPRO 300 UNITS/3 ML VIAL SQ SCH ×3 (08:14→17:08)
[2016-11-24] MEDS: (Memantine Hcl [Namenda Xr] 28 MG) PO SCH (08:29)
[2016-11-24] MEDS ORDERED: Furosemide 20 MG/2 ML VIAL IVP SCH (09:00)
--- NOTE | 2016-11-24 09:17 | Internal Med Progress Note ---
Date of Encounter: 11/24/16 Time of Encounter: 08:20 - Assessment and plan (1) Acute exacerbation of CHF (congestive heart failure) Current Visit: Yes Status: Acute Assessment and plan: Patient reports difficulty breathing and nonproductive cough for 2 days. Patient reports feeling a couple of lower extremity swelling for 3 years since the onset of A. fib. She denies any changes in lower extremity edema. Patient was not taking any diuretics due to recent hospitalization for dehydration. She was given IV Lasix in the ER which we will continue. She denies chest pain. She is wearing 2 L of oxygen to maintain her sats. Continue telemetry Continue cardiac diet and fluid restriction Monitor labs and patient condition. Continue IV Lasix and monitor renal function. Oxygen as needed to maintain sats greater than 92%. Chest X-Ray 11/23/16 09:38 IMPRESSION: Mild interstitial edema with small bilateral pleural effusions. D/ / Tabatha Hopkins MD / Tabatha Hopkins MD Interpreting Provider: Tabatha Hopkins MD Chest CTA 11/23/16 10:08 IMPRESSION: 1. No pulmonary embolism. 2. Spectrum of findings suggest CHF and pulmonary edema. Moderate right and small left pleural effusions with associated atelectasis in the lower lobes. D/ / Luis Manuel Vee MD / Luis Manuel Vee MD Interpreting Provider: Luis Manuel Vee MD Qualifiers: Congestive heart failure type: diastolic Qualified Code(s): I50.33 - Acute on chronic diastolic (congestive) heart failure (2) Type 2 diabetes mellitus Current Visit: Yes Status: Chronic Assessment and plan: A1c is 6.8. Continue sliding scale insulin, diabetic diet, Accu-Cheks before meals and at bedtime. Qualifiers: Diabetes mellitus complication status: with unspecified complications Diabetes mellitus half-way insulin use: without assistant terminal manager use Qualified Code( s): E11.8 - Type 2 diabetes mellitus with unspecified complications (3) Atrial fibrillation Current Visit: Yes Status: Chronic Assessment and plan: Patient is atrially paced. Continue Cardizem and metoprolol. Her Coumadin is held due to recent surgery and recent episode of fall with bleeding. We will continue the aspirin and she will need to be reevaluated concerning anticoagulation prior to discharge. Continue telemetry Continue Cardizem metoprolol for rate control Aspirin. Coumadin held. Qualifiers: Atrial fibrillation type: paroxysmal Qualified Code(s): I48.0 - Paroxysmal atrial fibrillation (4) CKD (chronic kidney disease) stage 3, GFR 30-59 ml/min Current Visit: Yes Status: Chronic Assessment and plan: Serum creatinine is 1.17 with a GFR 44. Continue to monitor labs. Avoid nephrotoxins and NSAIDs. Carefully monitor labs, patient is being diuresed for CHF and is on Lasix. (5) HTN (hypertension) Current Visit: Yes Status: Chronic Assessment and plan: Well-controlled. Continue home medications and continue to monitor vital signs. Qualifiers: Hypertension type: essential hypertension Qualified Code(s): I10 - Essential (primary) hypertension (6) Edema extremities Current Visit: No Status: Acute (7) DVT prophylaxis Current Visit: Yes Status: Acute Assessment and plan: Coumadin is being held due to recent fall and recent surgery. SCDs ordered. Patient up to chair twice a day. - Time Spent With Patient less than 15 minutes - Subjective Interval history: Patient was seen and assessed at 8:20 AM. She is sitting up in bed and primary nurse was in the room also. Patient is alert and oriented 3, however is slow to respond and seems to be altered at times. Patient reports that she could not breathe for the last 2 days and has had a nonproductive cough. Patient has +2-3 bilateral lower extremity pitting edema, patient states this is normal for her and is unchanged. Patient's left arm is also obviously more edematous than the right. She says that she feels there is damage to the arm and her pacemaker was inserted. She reports constant swelling to left upper extremity, but is worse at this time. He has adequate range of motion and strength are equal bilaterally. There is a no redness or signs of infection. He states that she lives home alone and does not have any oxygen or home health. Due to her apparent weakness and sometimes altered mental status, I am going to put in physical therapy and occupational therapy consultations. - Constitutional Vitals: Temp Pulse Resp BP Pulse Ox 98.1 F 101 15 147/92 97 11/24/16 07:01 11/24/16 07:01 11/24/16 07:01 11/24/16 07:01 11/24/16 07:01 General appearance: Present: cooperative, A&O X 3, pleasant, obese, answers questions appropriately - Head Head exam: Present: normal inspection, normocephalic - Eye Eye exam: Present: normal appearance, conjuntiva pink - ENT ENT exam: Present: mucous membranes moist, normal exam, normal external ear exam - Neck Neck exam general surgery: Present: normal inspection. Absent: lymphadenopathy , tenderness - Respiratory Respiratory exam: Present: decreased breath sounds. Absent: chest wall tenderness, respiratory distress, rhonchi, stridor, wheezes - Cardiovascular Cardiovascular exam: Present: RRR, +S1, +S2. Absent: diastolic murmur, systolic murmur - Expanded Cardiovascular Exam Peripheral pulses: 1+: Dorsalis Pedis (L) PM, Dorsalis Pedis (R) PM - GI/Abdominal GI/Abdominal exam: Present: distended, normal bowel sounds, soft. Absent: hepatomegaly, tenderness - Extremities Exam Extremities exam: Present: pedal edema, warm, radial pulses palpable and symmetrical. Absent: normal inspection, tenderness - Neurological Exam Neurological exam: Present: alert, oriented X3, no focal deficits. Absent: facial droop, speech deficit - Skin Skin exam: Present: dry, intact, warm Internal Medicine: Result - Labs CBC & Chem 7: 11/24/16 00:12 11/24/16 00:12 Labs: Short CBC 11/24/16 Range/Units 00:12 WBC 8.6 (4.3-11.1) K/mcL Hgb 8.1 L (11.5-15.4) g/dL Hct 26.0 L (35.3-44.9) % Plt Count 195 (140-400) K/mcL Neutrophils # 6.6 (1.6-8.9) K/mcL BMP 11/24/16 00:12 Sodium 136 Potassium 3.5 Chloride 97 L Carbon Dioxide 31 H BUN 27 H Creatinine 1.17 H Glucose 152 H Calcium 9.2 Cardiac Enzymes 11/23/16 11/24/16 Range/Units 17:31 00:12 Troponin I 0.01 0.02 (0-0.03) ng/mL - ABG Interpretation ABG results: PT/INR, D-dimer D-Dimer 5552 ng/mLFEU (0-500) H 11/23/16 09:43 Consult Discharge Plan - Plan Referrals: Elmer Davey MD [Primary Care Provider] -
[2016-11-24] MEDS: Diltiazem CD (24hr) 180 MG CAPSULE PO SCH (17:08)
[2016-11-25] MEDS: Insulin LISPRO 300 UNITS/3 ML VIAL SQ SCH ×5 (00:23→21:54)
[2016-11-25 03:26] LABS: Immature Granulocytes % 0.5 % (0-4); Immature Platelets 3.3 % (1.1-6.1); Lymphocytes % 16.7 %; Mean Corpuscular Hemoglobin 30.8 pg (28.0-33.3); Mean Corpuscular Volume 96.2 fL (83.0-100.0); Mean Platelet Volume 10.8 fL (9.4-12.4); Monocytes % 12.9 %; Platelet Count 192 K/mcL (140-400); Red Cell Distribution Width 15.9 % (11.5-14.5); Segmented Neutrophils % 68.2 %
[2016-11-25 03:27] LABS: Basophils % 0.3 %; Eosinophils # 0.1 K/mcL (0.0-0.6); Eosinophils % 1.4 %; Lymphocytes # 1.5 K/mcL (0.6-4.6); Monocytes # 1.1 K/mcL (0.0-1.3)
[2016-11-25 03:34] LABS: Calcium 8.6 mg/dL (8.6-10.8); Magnesium 1.6 mg/dL (1.6-2.6); Potassium 3.4 mEq/L (3.5-4.5)
[2016-11-25 03:37] LABS: Platelet Estimate Normal (Normal)
[2016-11-25] MEDS: Ipratropium/Albuterol Neb 3 ML IH SCH ×4 (03:51→21:29)
[2016-11-25] MEDS: cloNIDine HCl 0.1 MG TABLET PO SCH ×3 (08:29→21:53)
[2016-11-25] MEDS: Metoprolol 100 MG TABLET PO SCH ×2 (08:29→21:54)
[2016-11-25] MEDS: Lactobacillus 1 EACH CAP.SPRINK PO SCH ×2 (08:29→21:53)
[2016-11-25] MEDS: Magnesium Oxide 400 MG TABLET PO SCH (08:29)
[2016-11-25] MEDS: Loratadine 10 MG TABLET PO SCH (08:29)
[2016-11-25] MEDS: Furosemide 40 MG/4 ML VIAL IVP SCH (08:30)
[2016-11-25] MEDS: hydrALAZINE 25 MG TABLET PO SCH ×3 (08:30→21:53)
[2016-11-25] MEDS: Aspirin Enteric Coated 81 MG Tablet PO SCH (08:30)
[2016-11-25 08:33] LABS: INR 1.2; Prothrombin Time 12.5 Seconds (9.4-12.1)
[2016-11-25] MEDS: (Memantine Hcl [Namenda Xr] 28 MG) PO SCH (08:44)
--- NOTE | 2016-11-25 10:51 | Internal Med Progress Note ---
Date of Encounter: 11/25/16 Time of Encounter: 08:10 - Assessment and plan (1) Acute exacerbation of CHF (congestive heart failure) Current Visit: Yes Status: Acute Assessment and plan: Acute exacerbation of chronic CHF diastolic dysfunction LVEF 65% - causing shortness of breath and edema - slowly improving Continue IV Lasix, O2 via nasal cannula, Continue ASA, Metoprolol, statin Hold warfarin due to recent GI bleed BN peptide - 567 Chest x-ray - Mild interstitial edema with small bilateral pleural effusions Troponin - 0.02 CT angiogram of chest - No pulmonary embolism, CHF and pulmonary edema, Moderate right and small left pleural effusions with associated atelectasis in the lower lobes US Doppler - pending EKG - atrial pacemaker, incomplete RBBB Cardiac telemetry, strict I's and O's, daily weight, fluid restriction Labs in a.m. Qualifiers: Congestive heart failure type: diastolic Qualified Code(s): I50.33 - Acute on chronic diastolic (congestive) heart failure (2) Acute kidney injury Current Visit: No Status: Acute Assessment and plan: Acute kidney injury on chronic kidney disease stage III - likely secondary to CHF exacerbation and possibly due to medication use Monitor renal function closely, avoid nephrotoxins Labs in a.m. (3) Anemia Current Visit: No Status: Acute Assessment and plan: Acute on chronic anemia - probably due to acute illness and possibly due to recent GI bleed H&H now stable, no active bleeding Monitor H&H closely, transfuse PRBC if needed Colonoscopy (11/12/2016) - 110 mm nonbleeding polyp in the rectum removed, diverticulosis in sigmoid, internal hemorrhoids Qualifiers: Anemia type: iron deficiency Iron deficiency anemia type: other iron deficiency Qualified Code(s): D50.8 - Other iron deficiency anemias (4) Atrial fibrillation Current Visit: No Status: Chronic Assessment and plan: Chronic atrial fibrillation - controlled Continue home medications including metoprolol and Cardizem, aspirin Warfarin on hold due to recent GI bleed and recent fall Whether patient needs to be on anticoagulation due to fall risk and bleed risk Qualifiers: Atrial fibrillation type: chronic Qualified Code(s): I48.2 - Chronic atrial fibrillation (5) Type 2 diabetes mellitus Current Visit: Yes Status: Chronic Assessment and plan: HbA1c is 6.8, diabetes mellitus type 2, [id number], hyperglycemia Continue sliding scale insulin, diabetic diet, Accu-Cheks before meals and at bedtime Qualifiers: Diabetes mellitus complication status: with unspecified complications Diabetes mellitus termite control representative insulin use: without termite control representative use Qualified Code( s): E11.8 - Type 2 diabetes mellitus with unspecified complications (6) HTN (hypertension) Current Visit: Yes Status: Chronic Assessment and plan: Essential hypertension, controlled, continue home meds, monitor Qualifiers: Hypertension type: essential hypertension Qualified Code(s): I10 - Essential (primary) hypertension (7) DVT prophylaxis Current Visit: Yes Status: Acute Assessment and plan: Coumadin is being held due to recent fall and recent GI bleed. SCDs. Ambulate - Time Spent With Patient 25 - 35 minutes - Subjective Interval history: Examined this morning. Patient is awake and alert. Not in any distress. Tolerating oral diet. Denies chest pain or shortness of breath. No vomiting or abdominal pain. No fever. Hemodynamically stable. H&H is slightly lower. No active bleeding. No other acute events or complaints. - Constitutional Vitals: Temp Pulse Resp BP Pulse Ox 98.0 F 59 17 139/73 90 11/25/16 10:46 11/25/16 10:46 11/25/16 10:46 11/25/16 10:46 11/25/16 10:46 General appearance: Present: cooperative, A&O X 3, pleasant, obese, answers questions appropriately - Head Head exam: Present: atraumatic - Eye Eye exam: Present: EOMI - Respiratory Respiratory exam: Present: decreased breath sounds (Slightly decreased in both bases, but otherwise clear to auscultation). Absent: rales, rhonchi, wheezes, tachypnea - Cardiovascular Cardiovascular exam: Present: RRR, +S1, +S2 - GI/Abdominal GI/Abdominal exam: Present: distended, soft. Absent: firm, guarding, rigid, tenderness - Extremities Exam Extremities exam: Present: pedal edema (Bilateral lower leg 2+ pitting edema), radial pulses palpable and symmetrical. Absent: cyanotic - Neurological Exam Neurological exam: Present: alert, oriented X3, no focal deficits. Absent: facial droop, speech deficit Internal Medicine: Result - Labs CBC & Chem 7: 11/25/16 02:41 11/25/16 02:41 - ABG Interpretation ABG results: PT/INR, D-dimer PT 12.5 Seconds (9.4-12.1) H 11/25/16 08:06 D-Dimer 5552 ng/mLFEU (0-500) H 11/23/16 09:43 Consult Discharge Plan - Plan Referrals: Elmer Davey MD [Primary Care Provider] -
[2016-11-25] MEDS: Diltiazem CD (24hr) 180 MG CAPSULE PO SCH (16:52)
[2016-11-25] MEDS ORDERED: *HR* Morphine 2 MG/ML SYRINGE IVP PRN (23:11)
[2016-11-25] MEDS: Nitroglycerin 1 INCH/GM PACKET TP SCH (23:30)
[2016-11-26 03:05] LABS: Hemoglobin 8.6 g/dL (11.5-15.4)
[2016-11-26 03:10] LABS: Basophils # 0.1 K/mcL (0.0-0.2); Basophils % 0.5 %; Eosinophils # 0.1 K/mcL (0.0-0.6); Eosinophils % 1.2 %; Hematocrit 26.4 % (35.3-44.9); Immature Granulocytes % 0.6 % (0-4); Immature Platelets 3.4 % (1.1-6.1); Lymphocytes # 1.4 K/mcL (0.6-4.6); Lymphocytes % 12.7 %; Mean Corpuscular HGB Conc 32.6 g/dL (31.6-35.5); Mean Corpuscular Hemoglobin 30.8 pg (28.0-33.3); Mean Corpuscular Volume 94.6 fL (83.0-100.0); Mean Platelet Volume 10.6 fL (9.4-12.4); Monocytes # 1.2 K/mcL (0.0-1.3); Neutrophils # 8.1 K/mcL (1.6-8.9); Platelet Count 193 K/mcL (140-400); Red Blood Count 2.79 M/mcL (3.82-4.97); Red Cell Distribution Width 15.7 % (11.5-14.5)
[2016-11-26 03:18] LABS: Albumin 2.6 g/dL (3.5-5.0); Albumin/Globulin Ratio 0.8 (1.1-2.2); Bilirubin,Total 0.4 mg/dL (0.2-1.2); Calcium 9.2 mg/dL (8.6-10.8); Globulin 3.1 g/dL (2.4-3.5); Magnesium 2.2 mg/dL (1.6-2.6); Total Protein 5.7 g/dL (6.0-8.3)
[2016-11-26 03:30] LABS: Platelet Clumps Few (Not Present); Platelet Estimate Normal (Normal)
[2016-11-26 03:36] LABS: Potassium 4.9 mEq/L (3.5-4.5)
[2016-11-26] MEDS: Ipratropium/Albuterol Neb 3 ML IH SCH ×4 (05:42→22:42)
[2016-11-26] MEDS ORDERED: hydroCHLOROthiazide 25 MG TABLET PO SCH (09:00)
[2016-11-26] MEDS: Multivit/Ca/Min/Fe/FA 1 TAB TABLET PO SCH (09:28)
[2016-11-26] MEDS: Insulin LISPRO 300 UNITS/3 ML VIAL SQ SCH ×4 (09:28→21:43)
[2016-11-26] MEDS: Furosemide 40 MG/4 ML VIAL IVP SCH ×2 (09:28→17:13)
[2016-11-26] MEDS: Loratadine 10 MG TABLET PO SCH (09:28)
[2016-11-26] MEDS: Lactobacillus 1 EACH CAP.SPRINK PO SCH ×2 (09:29→21:37)
[2016-11-26] MEDS: hydrALAZINE 25 MG TABLET PO SCH ×3 (09:29→21:37)
[2016-11-26] MEDS: Aspirin Enteric Coated 81 MG Tablet PO SCH (09:29)
[2016-11-26] MEDS: Magnesium Oxide 400 MG TABLET PO SCH (09:29)
[2016-11-26] MEDS: cloNIDine HCl 0.1 MG TABLET PO SCH ×3 (09:29→21:36)
[2016-11-26] MEDS: Metoprolol 100 MG TABLET PO SCH ×2 (09:29→21:36)
[2016-11-26] MEDS: (Memantine Hcl [Namenda Xr] 28 MG) PO SCH (09:30)
[2016-11-26] MEDS: Nitroglycerin 1 INCH/GM PACKET TP SCH (13:32)
--- NOTE | 2016-11-26 13:32 | Palliative - Consult Note ---
Date of Encounter: 11/26/16 Time of Encounter: 13:25 - Assessment and Plan (1) Constipation Current Visit: No Status: Acute Assessment and plan: D/C Colace and begin Senna-Plus 2 tabs BID. Have Miralax available PRN if needed. Monitor. Last bm was 5 days ago Qualifiers: Constipation type: unspecified constipation type Qualified Code(s): K59.00 - Constipation, unspecified (2) Dyspnea Current Visit: Yes Status: Acute Assessment and plan: Patient symptoms have resolved. She continues on supportive oxygen. Monitor Qualifiers: Dyspnea type: unspecified Qualified Code(s): R06.00 - Dyspnea, unspecified (3) Counseling regarding advanced care planning and goals of care Current Visit: Yes Status: Acute Assessment and plan: Met with daughter Ann Marie YANEZ re: goals of care. Ann Marie lives next door to patient and her, her and daughter assist with her care. She states pt had been on decline the last month, and this is 3rd hospitalization in a short period of time. Daughter states that pt does not like coming to hospital, and they desire to try and manage her at home as much as possible. They are very focused on maintaining good quality of life. Patient's known EF if 65%, and she is not symptomatic at rest, she is not eligible for hospice at this time, but did give daughter information related to when she may be ready for hospice care. She has already completed advanced directives back in 2010 and have DPOA/ living will forms on her record here. Code status has also already been established as DNR/DNI. WE did discuss the option of the [facility] Palliative program, where the nurses would work with the pt's primary physician and try and better manage her illnesses at home. Gave daughter information pamphlet to review, and will follow up with her in am. (4) Atrial fibrillation Current Visit: Yes Status: Chronic Qualifiers: Atrial fibrillation type: paroxysmal Qualified Code(s): I48.0 - Paroxysmal atrial fibrillation (5) Diastolic CHF Current Visit: No Status: Chronic Qualifiers: Congestive heart failure chronicity: chronic Qualified Code(s): I50.32 - Chronic diastolic (congestive) heart failure Palliative-CN HPI - Data of Consult Consult date: 11/26/16 Requesting Physician: Ashley Bell CNP Primary Care Provider: Elmer Davey MD - Consult Narrative History of present illness: Ms. Davison is a 81 year old female with a history of afib, previously on coumadin, pacemaker insertion, early dementia, recent shoulder surgery and fall , who was admitted with shortness of breath. Patient had shoulder surgery in October,. Since that time, she had complications with bleeding from incision, and anticoagulation was stopped, then had admission for a fall. At that time, she was dehydrated and required some IV fluids. Patient and family had refused ECF placement and denied need for Home health at that time. Daughter, Ann Marie (POA) was transporting her to outtpt therapy. Ann Marie stated she noticed a change in her breathing a few days prior to admission. She was admitted for CHF, and treated with IV diuretics. BNP 567. Last EF at beginning of November was 65%. Her shortness of breath has now resolved. However, she has developed a lower extremity DVT. It is yet to be determined whether to restart blood thinners or place filter. She is a fall risk. At my visit, she is pleasant, alert, and oriented. Daughter Ann Marie is at bedside. Patient states she is no longer short of breath, denies any pain. Eating well and no nausea. She does complain of constipation and states last bm was 5 days ago. Daughter inquiring about different homecare options, and desires information regarding palliative care and hospice. CC: Ashley Bell, DANETTE Past Med Surg Social Fam HX - Past Medical History Medical history: atrial fibrillation, dementia, diabetes, hyperlipidemia, hypertension, renal disease Psychiatric history: no psych history - Past Surgical History Surgical History: appendectomy, cataract, hysterectomy, knee replacement, orthopedic, other, pacemaker - Social History Smoking Status: Former smoker Smokeless Tobacco Status: No Alcohol use: none Drug use: none - Family History Mother Living Status: Hx Family Cardiac Disorders: No Hx Family Respiratory Disorders: No Hx Family Cancer: Yes (Breast) Hx Family GI Disorders: No Hx Family Endocrine Disorder: No Hx Family Neuromuscular Disorders: No Hx Family Neurologic Disorders: No Hx Family HEENT Disorders: Yes (Blind, Glaucoma) Hx Family Autoimmune Disorders: No Father Living Status: Hx Family Cardiac Disorders: No Hx Family Respiratory Disorders: No Hx Family Cancer: No Hx Family GI Disorders: Yes (Cirrhosis) Hx Family Endocrine Disorder: No Hx Family Neuromuscular Disorders: No Hx Family Neurologic Disorders: No Hx Family HEENT Disorders: No Hx Family Autoimmune Disorders: No Medications and Allergies Aspirin [Adult Low Dose Aspirin EC] 81 mg PO DAILY 03/18/15 [History] Citalopram Hydrobromide [Celexa] 20 mg PO QAM 03/18/15 [History] CloNIDine HCl 0.2 mg PO TID 03/18/15 [History] Glucosamine Sulfate Dipot Chlr [Glucosamine Relief] 1,000 mg PO QAM 03/18/15 [ History] Hydralazine HCl 50 mg PO TID 03/18/15 [History] Loratadine [Claritin] 10 mg PO QAM 03/18/15 [History] Metoprolol [Lopressor] 100 mg PO BID 03/18/15 [History] Nitroglycerin [Nitrostat] 0.4 mg SL Q5M PRN 03/18/15 [History] Raloxifene [Evista] 60 mg PO QAM 03/18/15 [History] SitaGLIPtin [Januvia] 50 mg PO QAM 03/18/15 [History] Ergocalciferol (VITAMIN D2) [Vitamin D2 (50,000 UNIT)] 50,000 unit PO WE [History] Multivitamin/Iron/Folic Acid [Centrum Complete Multivit Tab] 1 each PO QAM 05/04 [History] Valsartan/Hydrochlorothiazide [Diovan Hct 320-12.5 mg Tab] 1 each PO QAM [History] Allopurinol [Zyloprim] 100 mg PO DAILY 03/08/16 [History] Atorvastatin [Lipitor] 40 mg PO HS 03/08/16 [History] Calcium Polycarbophil [Fibercon] 625 mg PO BID 03/08/16 [History] Docusate [Colace] 200 mg PO TID 03/08/16 [History] L. Acidophilus/Pectin, Mccurtain [Acidophilus Probiotic Capsule] 1 each PO BID 04/23 [History] Diltiazem HCl [Diltiazem 24Hr Cd] 180 mg PO QPM 11/06/16 [History] Famotidine [Pepcid] 40 mg PO QPM 11/06/16 [History] Pantoprazole Sodium 40 mg PO BID 11/06/16 [History] Ferrous Sulfate 324 mg PO DAILY #30 tablet. 11/12/16 [Rx] Memantine HCl [Namenda Xr] 28 mg PO DAILY 11/23/16 [History] Pioglitazone [Actos] 15 mg PO DAILY 11/23/16 [History] Warfarin [Coumadin] 2.5 mg PO TUTHSA 11/23/16 [History] Warfarin [Coumadin] 5 mg PO SUMOWEFR 11/23/16 [History] 3 Allergy/AdvReac Type Severity Reaction Status Date / Time No Known Drug Allergies Allergy See Verified 11/23/16 10:04 Comments All systems: reviewed and no additional remarkable complaints except as stated ( upper and lower extremity edema, constipation, occasional shortness of breath) Palliative Care-Exam - Constitutional Vitals: Temp Pulse Resp BP Pulse Ox 98.1 F 88 14 141/82 95 11/26/16 11:54 11/26/16 11:54 11/26/16 11:54 11/26/16 11:54 11/26/16 11:54 General appearance: Present: no acute distress - Head Head Exam: Present: normal inspection, normocephalic - Respiratory Respiratory exam: Present: decreased breath sounds, CTAB - Cardiovascular Cardiovascular exam: Present: irregular rhythm - GI/Abdominal Exam GI/Abdominal exam: Present: normal bowel sounds, soft - Extremities Exam Additional comments: Upper and lower extremity edema 1-2+ - Neurological Exam Neurological exam: Present: alert, oriented X3, strengths equal and symetr throughout - Skin Skin exam: Present: dry, pallor Internal Medicine - CN: Reslt - Labs CBC & Chem 7: 11/26/16 02:58 11/26/16 02:58 Labs: Short CBC 11/26/16 Range/Units 02:58 WBC 10.9 (4.3-11.1) K/mcL Hgb 8.6 L (11.5-15.4) g/dL Hct 26.4 L (35.3-44.9) % Plt Count 193 (140-400) K/mcL Neutrophils # 8.1 (1.6-8.9) K/mcL BMP 11/26/16 02:58 Sodium 136 Potassium 4.9 H D Chloride 99 Carbon Dioxide 28 BUN 39 H Creatinine 1.47 H Glucose 180 H Calcium 9.2 Liver Function 11/26/16 Range/Units 02:58 Total Bilirubin 0.4 (0.2-1.2) mg/dL AST 63 H (5-34) Units/L ALT 100 H (0-55) Units/L Alkaline Phosphatase 102 (38-126) Units/L Albumin 2.6 L (3.5-5.0) g/dL - ABG Interpretation ABG results: PT/INR, D-dimer PT 12.5 Seconds (9.4-12.1) H 11/25/16 08:06 D-Dimer 5552 ng/mLFEU (0-500) H 11/23/16 09:43 Consult Discharge Plan - Plan Referrals: Elmer Davey MD [Primary Care Provider] - Palliative Quality Palliative Quality: Screen for Code Status: Yes, Screen for Goals of Care: Yes, Screen for Pain: Yes, If Pain Regimen Started, Initiate Bowel Regimen: Yes, Screen for Nausea/Vomitting: Yes
[2016-11-26] MEDS: Sennosides/Docusate Sodium TABLET PO SCH ×2 (13:33→21:36)
--- NOTE | 2016-11-26 16:49 | Internal Med Progress Note ---
Date of Encounter: 11/26/16 Time of Encounter: 08:40 - Assessment and plan (1) Acute exacerbation of CHF (congestive heart failure) Current Visit: Yes Status: Acute Assessment and plan: Acute exacerbation of chronic CHF diastolic dysfunction LVEF 65% - causing shortness of breath and edema - slowly improving Continue IV Lasix, O2 via nasal cannula, Continue ASA, Metoprolol, statin BN peptide - 567 Chest x-ray - Mild interstitial edema with small bilateral pleural effusions Troponin - 0.02 CT angiogram of chest - No pulmonary embolism, CHF and pulmonary edema, Moderate right and small left pleural effusions with associated atelectasis in the lower lobes US Doppler - pending EKG - atrial pacemaker, incomplete RBBB Cardiac telemetry, strict I's and O's, daily weight, fluid restriction Labs in a.m. Qualifiers: Congestive heart failure type: diastolic Qualified Code(s): I50.33 - Acute on chronic diastolic (congestive) heart failure (2) DVT, popliteal, acute Current Visit: Yes Status: Acute Assessment and plan: Acute right popliteal DVT Continue low-dose IV heparin, consider warfarin Can also consider IVC filter - but this is patient's first episode of DVT Hematology/oncology consult pending Patient did have a recent GI bleed - recent colonoscopy revealed nonbleeding polyp in the rectum was removed and diverticulosis was noted in sigmoid colon Qualifiers: Laterality: right Qualified Code(s): I82.431 - Acute embolism and thrombosis of right popliteal vein (3) Acute kidney injury Current Visit: No Status: Acute Assessment and plan: Acute kidney injury on chronic kidney disease stage III - likely secondary to CHF exacerbation and possibly due to medication use Monitor renal function closely, avoid nephrotoxins Labs in a.m. (4) Anemia Current Visit: No Status: Acute Assessment and plan: Acute on chronic anemia - probably due to acute illness and possibly due to recent GI bleed H&H now stable, no active bleeding Monitor H&H closely, transfuse PRBC if needed Colonoscopy (11/12/2016) - 10 mm nonbleeding polyp in the rectum removed, diverticulosis in sigmoid, internal hemorrhoids Qualifiers: Anemia type: iron deficiency Iron deficiency anemia type: other iron deficiency Qualified Code(s): D50.8 - Other iron deficiency anemias (5) Atrial fibrillation Current Visit: No Status: Chronic Assessment and plan: Chronic atrial fibrillation - controlled Continue home medications including metoprolol and Cardizem, aspirin Warfarin on hold due to recent GI bleed and recent fall We will need to reevaluate whether patient needs to be on anticoagulation, due to fall risk and bleed risk Qualifiers: Atrial fibrillation type: chronic Qualified Code(s): I48.2 - Chronic atrial fibrillation (6) Type 2 diabetes mellitus Current Visit: Yes Status: Chronic Assessment and plan: HbA1c is 6.8, diabetes mellitus type 2, [id number], hyperglycemia Continue sliding scale insulin, diabetic diet, Accu-Cheks before meals and at bedtime Qualifiers: Diabetes mellitus complication status: with unspecified complications Diabetes mellitus penitentiary insulin use: without terminal worker use Qualified Code( s): E11.8 - Type 2 diabetes mellitus with unspecified complications (7) HTN (hypertension) Current Visit: Yes Status: Chronic Assessment and plan: Essential hypertension, controlled, continue home meds, monitor Qualifiers: Hypertension type: essential hypertension Qualified Code(s): I10 - Essential (primary) hypertension (8) DVT prophylaxis Current Visit: Yes Status: Acute Assessment and plan: Continue low-dose IV heparin. SCDs. Ambulate Patient is at risk of bleeding, recent GI bleed - Time Spent With Patient 25 - 35 minutes - Subjective Interval history: Examined this morning. Patient is awake and alert. Not in any distress. Tolerating oral diet. Denies chest pain or shortness of breath. No vomiting or abdominal pain. No fever. Hemodynamically stable. H&H is stable. No active bleeding. No other acute events or complaints. Daughter is at bedside and she states the patient has been on the decline over the past month. She has been explained the patient's condition and plan of care. - Constitutional Vitals: Temp Pulse Resp BP Pulse Ox 98.5 F 77 14 188/81 96 11/26/16 14:39 11/26/16 14:39 11/26/16 14:39 11/26/16 14:39 11/26/16 14:39 General appearance: Present: cooperative, A&O X 3, pleasant, obese, answers questions appropriately Exam: Patient is hard of hearing, she does have dementia - Head Head exam: Present: atraumatic - Eye Eye exam: Present: EOMI - ENT ENT exam: Present: mucous membranes moist - Respiratory Respiratory exam: Present: decreased breath sounds (Slightly decreased in both bases). Absent: rales, rhonchi, wheezes, tachypnea - Cardiovascular Cardiovascular exam: Present: RRR, +S1, +S2 - GI/Abdominal GI/Abdominal exam: Present: soft. Absent: distended, firm, guarding, tenderness - Extremities Exam Extremities exam: Present: pedal edema (Bilateral lower leg 3+ pitting edema), radial pulses palpable and symmetrical. Absent: cyanotic - Neurological Exam Neurological exam: Present: alert, no focal deficits. Absent: oriented X3, facial droop, speech deficit Internal Medicine: Result - Labs CBC & Chem 7: 11/26/16 02:58 11/26/16 02:58 Labs: Short CBC 11/26/16 Range/Units 02:58 WBC 10.9 (4.3-11.1) K/mcL Hgb 8.6 L (11.5-15.4) g/dL Hct 26.4 L (35.3-44.9) % Plt Count 193 (140-400) K/mcL Neutrophils # 8.1 (1.6-8.9) K/mcL BMP 11/26/16 02:58 Sodium 136 Potassium 4.9 H D Chloride 99 Carbon Dioxide 28 BUN 39 H Creatinine 1.47 H Glucose 180 H Calcium 9.2 Liver Function 11/26/16 Range/Units 02:58 Total Bilirubin 0.4 (0.2-1.2) mg/dL AST 63 H (5-34) Units/L ALT 100 H (0-55) Units/L Alkaline Phosphatase 102 (38-126) Units/L Albumin 2.6 L (3.5-5.0) g/dL - ABG Interpretation ABG results: PT/INR, D-dimer PT 12.5 Seconds (9.4-12.1) H 11/25/16 08:06 D-Dimer 5552 ng/mLFEU (0-500) H 11/23/16 09:43 Consult Discharge Plan - Plan Referrals: Elmer Davey MD [Primary Care Provider] -
[2016-11-26] MEDS: Diltiazem CD (24hr) 180 MG CAPSULE PO SCH (17:14)
[2016-11-27 03:47] LABS: Basophils % 0.4 %; Eosinophils # 0.1 K/mcL (0.0-0.6); Eosinophils % 1.1 %; Hematocrit 27.5 % (35.3-44.9); Hemoglobin 8.6 g/dL (11.5-15.4); Immature Granulocytes % 0.5 % (0-4); Lymphocytes # 1.3 K/mcL (0.6-4.6); Mean Corpuscular HGB Conc 31.3 g/dL (31.6-35.5); Mean Corpuscular Hemoglobin 29.9 pg (28.0-33.3); Mean Corpuscular Volume 95.5 fL (83.0-100.0); Mean Platelet Volume 11.3 fL (9.4-12.4); Monocytes # 1.1 K/mcL (0.0-1.3); Monocytes % 12.6 %; Neutrophils # 5.8 K/mcL (1.6-8.9); Platelet Count 205 K/mcL (140-400); Red Blood Count 2.88 M/mcL (3.82-4.97); Red Cell Distribution Width 15.5 % (11.5-14.5); Segmented Neutrophils % 69.4 %
[2016-11-27 04:00] LABS: Calcium 9.3 mg/dL (8.6-10.8)
[2016-11-27 04:01] LABS: Potassium 3.7 mEq/L (3.5-4.5)
[2016-11-27 04:09] LABS: Platelet Estimate Normal (Normal)
[2016-11-27] MEDS: Ipratropium/Albuterol Neb 3 ML IH SCH ×4 (05:05→23:08)
[2016-11-27] MEDS: *HR* Heparin 5,000 UNIT/ML VIAL SQ SCH ×3 (06:10→20:59)
[2016-11-27] MEDS: Magnesium Oxide 400 MG TABLET PO SCH (09:07)
[2016-11-27] MEDS: Insulin LISPRO 300 UNITS/3 ML VIAL SQ SCH ×4 (09:07→21:00)
[2016-11-27] MEDS: cloNIDine HCl 0.1 MG TABLET PO SCH ×3 (09:07→20:59)
[2016-11-27] MEDS: hydrALAZINE 25 MG TABLET PO SCH ×3 (09:07→20:58)
[2016-11-27] MEDS: Lactobacillus 1 EACH CAP.SPRINK PO SCH ×2 (09:07→20:59)
[2016-11-27] MEDS: Furosemide 40 MG/4 ML VIAL IVP SCH ×2 (09:07→17:52)
[2016-11-27] MEDS: Loratadine 10 MG TABLET PO SCH (09:07)
[2016-11-27] MEDS: Valsartan 160 MG TABLET PO SCH ×2 (09:08→11:17)
[2016-11-27] MEDS: Multivit/Ca/Min/Fe/FA 1 TAB TABLET PO SCH (09:08)
[2016-11-27] MEDS: Metoprolol 100 MG TABLET PO SCH ×2 (09:08→20:59)
[2016-11-27] MEDS: (Memantine Hcl [Namenda Xr] 28 MG) PO SCH (09:08)
[2016-11-27] MEDS: Sennosides/Docusate Sodium TABLET PO SCH ×2 (09:08→20:59)
[2016-11-27] MEDS: Aspirin Enteric Coated 81 MG Tablet PO SCH (09:08)
[2016-11-27] MEDS ORDERED: Ondansetron 4 MG/2 ML VIAL IVP PRN (09:31)
[2016-11-27] MEDS ORDERED: *HR* Morphine 2 MG/ML SYRINGE IVP PRN (10:26)
--- NOTE | 2016-11-27 10:48 | Palliative Progress Note ---
Date of Encounter: 11/27/16 Time of Encounter: 10:15 - Assessment and plan (1) Constipation Current Visit: No Status: Acute Assessment and plan: Continue Senna 2 tabs bid. Give Dulcolax suppository this am. Qualifiers: Constipation type: unspecified constipation type Qualified Code(s): K59.00 - Constipation, unspecified (2) Dyspnea Current Visit: Yes Status: Acute Qualifiers: Dyspnea type: unspecified Qualified Code(s): R06.00 - Dyspnea, unspecified (3) Counseling regarding advanced care planning and goals of care Current Visit: Yes Status: Acute Assessment and plan: Daughter Ann Marie and pt would like to enroll in [facility] upon discharge. Daughter would like for PT to be transitioned to home, as it is difficult at this point getting her to outpt therapy. Will D/W social work - she has DME needs of W/C and may need qualified for home oxygen. (4) Atrial fibrillation Current Visit: Yes Status: Chronic Qualifiers: Atrial fibrillation type: paroxysmal Qualified Code(s): I48.0 - Paroxysmal atrial fibrillation (5) Diastolic CHF Current Visit: No Status: Chronic Qualifiers: Congestive heart failure chronicity: chronic Qualified Code(s): I50.32 - Chronic diastolic (congestive) heart failure - Time Spent With Patient Total time spent is greater than 50% in coordination of care (as documented) at patient's floor/unit and/or counseling patient: - Subjective Interval history: Patient awake and alert, CIRCLE. Daughter Ann Marie at bedside. Patient still with no BM, having some cramping. No other complaints. - Constitutional Vitals: Abnormal lab results RBC 2.88 M/mcL (3.82-4.97) L 11/27/16 03:02 Hgb 8.6 g/dL (11.5-15.4) L 11/27/16 03:02 Hct 27.5 % (35.3-44.9) L 11/27/16 03:02 MCHC 31.3 g/dL (31.6-35.5) L 11/27/16 03:02 RDW 15.5 % (11.5-14.5) H 11/27/16 03:02 Clumped Platelets Few (Not Present) A 11/26/16 02:58 PT 12.5 Seconds (9.4-12.1) H 11/25/16 08:06 D-Dimer 5552 ng/mLFEU (0-500) H 11/23/16 09:43 Chloride 95 mEq/L (98-109) L 11/27/16 03:02 Carbon Dioxide 35 mEq/L (19-29) H 11/27/16 03:02 BUN 40 mg/dL (7-20) H 11/27/16 03:02 Creatinine 1.28 mg/dL (0.57-1.11) H 11/27/16 03:02 Est GFR ( Amer) 48 (> 60) L 11/27/16 03:02 Est GFR (Non-Af Amer) 40 (> 60) L 11/27/16 03:02 BUN/Creatinine Ratio 31 (6-26) H 11/27/16 03:02 Glucose 145 mg/dL (70-99) H 11/27/16 03:02 POC Glucose 251 (58-89) H 11/26/16 21:04 AST 63 Units/L (5-34) H 11/26/16 02:58 ALT 100 Units/L (0-55) H 11/26/16 02:58 B-Natriuretic Peptide 567 pg/mL (0-100) H 11/23/16 09:43 Serum Total Protein 5.7 g/dL (6.0-8.3) L 11/26/16 02:58 Albumin 2.6 g/dL (3.5-5.0) L 11/26/16 02:58 Albumin/Globulin Ratio 0.8 (1.1-2.2) L 11/26/16 02:58 HDL Cholesterol 36 mg/dL (40-59) L 11/24/16 00:12 Palliative Quality Palliative Quality: Screen for Code Status: Yes, Screen for Goals of Care: Yes, Screen for Pain: Yes, If Pain Regimen Started, Initiate Bowel Regimen: Yes, Screen for Nausea/Vomitting: Yes - Labs CBC & Chem 7: 11/27/16 03:02 11/27/16 03:02 Labs: Laboratory Results - last 24 hr 11/26/16 11/26/16 11/26/16 06:41 11:56 16:26 WBC RBC Hgb Hct MCV MCH MCHC RDW Plt Count MPV Immature Gran % Seg Neutrophils % Lymphocytes % Monocytes % Eosinophils % Basophils % Neutrophils # Lymphocytes # Monocytes # Eosinophils # Basophils # Platelet Estimate Sodium Potassium Chloride Carbon Dioxide BUN Creatinine Est GFR ( Amer) Est GFR (Non-Af Amer) BUN/Creatinine Ratio Glucose POC Glucose 176 H 288 H 188 H Calculated Osmolality Calcium 11/26/16 11/27/16 11/27/16 21:04 03:02 03:02 WBC 8.4 RBC 2.88 L Hgb 8.6 L Hct 27.5 L MCV 95.5 MCH 29.9 MCHC 31.3 L RDW 15.5 H Plt Count 205 MPV 11.3 Immature Gran % 0.5 Seg Neutrophils % 69.4 Lymphocytes % 16.0 Monocytes % 12.6 Eosinophils % 1.1 Basophils % 0.4 Neutrophils # 5.8 Lymphocytes # 1.3 Monocytes # 1.1 Eosinophils # 0.1 Basophils # 0.0 Platelet Estimate Normal Sodium 137 Potassium 3.7 D Chloride 95 L Carbon Dioxide 35 H BUN 40 H Creatinine 1.28 H Est GFR ( Amer) 48 L Est GFR (Non-Af Amer) 40 L BUN/Creatinine Ratio 31 H Glucose 145 H POC Glucose 251 H Calculated Osmolality 296 Calcium 9.3 - ABG Interpretation ABG results: PT/INR, D-dimer PT 12.5 Seconds (9.4-12.1) H 11/25/16 08:06 D-Dimer 5552 ng/mLFEU (0-500) H 11/23/16 09:43 Consult Discharge Plan - Plan Referrals: Elmer Davey MD [Primary Care Provider] -
[2016-11-27] MEDS: Bisacodyl 10 MG RECTAL SUPPOSITORY RC SCH (11:16)
--- NOTE | 2016-11-27 14:23 | Oncology Inp Consult Note ---
<Tessy Maldonado E - Last Filed: 11/27/16 14:20> Date of Encounter: 11/27/16 Time of Encounter: 13:30 Assessment and Plan (1) Atrial fibrillation Status: Chronic Qualifiers: Atrial fibrillation type: paroxysmal Qualified Code(s): I48.0 - Paroxysmal atrial fibrillation (2) DVT, popliteal, acute Status: Acute Assessment and plan: Patient will be seen by Dr Andujar with recommendation regarding anticoagulation. Qualifiers: Laterality: right Qualified Code(s): I82.431 - Acute embolism and thrombosis of right popliteal vein - Data of Consult Patient: new to practice Consult date: 11/27/16 Requesting Physician: Ashley Bell CNP Primary Care Provider: Elmer Davey MD - Consult Narrative Reason for consult: History of atrial fibrillation, new DVT recommendations for anticoagulation History of present illness: Ms. Davison is a 81 year old female with a past medical history of atrial fibrillation, dementia, diabetes, hyperlipidemia, hypertension, and renal disease who was admitted through the ED secondary increased shortness of breath. She was recently discharged from the hospital due to dehydration, She has been off coumadin, she recently had shoulder surgery and had bleeding from operative site. Surgery was on 11/01/2016. She was also seen in the emergency department on 11/07/2016 for syncopal episode that occurred at the Coumadin clinic. We have been asked to see patient regarding anticoagulation. 11/23/2016 CTA of chest indicated CHF, pulmonary edema and bilateral effusions but no evidence of pulmonary embolus. At that time her d-dimer was 5552. 11/25/16 INR 1.2 On 11/26/2016 venous imaging of upper extremities was negative for DVT. On 11/27/2016 she had a Doppler of the lower extremities with preliminary report indicating a DVT of the right popliteal and right peroneal vein. No thrombus noted in the left lower extremity. Chart reviewed, patient examined at beside. Her daughter was not present. Patient had difficulty at times remembering history. ` Past Med Surg Social Fam HX - Past Medical History Medical history: atrial fibrillation (prior to admission had beenon coumadin for many years), dementia, diabetes, hyperlipidemia, hypertension, renal disease Psychiatric history: no psych history - Past Surgical History Surgical History: appendectomy, cataract, hysterectomy, knee replacement ( bilateral), orthopedic, other (bilateral shoulder surgery), pacemaker - Social History Smoking Status: Former smoker Smokeless Tobacco Status: No Alcohol use: none Drug use: none Current living situation: Home (alone but family is near) Activity Level: Other (reports being no ambulatroy recently) - Family History Mother Living Status: Hx Family Cardiac Disorders: No Hx Family Respiratory Disorders: No Hx Family Cancer: Yes (Breast) Hx Family GI Disorders: No Hx Family Endocrine Disorder: No Hx Family Neuromuscular Disorders: No Hx Family Neurologic Disorders: No Hx Family HEENT Disorders: Yes (Blind, Glaucoma) Hx Family Autoimmune Disorders: No Father Living Status: Hx Family Cardiac Disorders: No Hx Family Respiratory Disorders: No Hx Family Cancer: No Hx Family GI Disorders: Yes (Cirrhosis) Hx Family Endocrine Disorder: No Hx Family Neuromuscular Disorders: No Hx Family Neurologic Disorders: No Hx Family HEENT Disorders: No Hx Family Autoimmune Disorders: No Medications and Allergies Aspirin [Adult Low Dose Aspirin EC] 81 mg PO DAILY 03/18/15 [History] Citalopram Hydrobromide [Celexa] 20 mg PO QAM 03/18/15 [History] CloNIDine HCl 0.2 mg PO TID 03/18/15 [History] Glucosamine Sulfate Dipot Chlr [Glucosamine Relief] 1,000 mg PO QAM 03/18/15 [ History] Hydralazine HCl 50 mg PO TID 03/18/15 [History] Loratadine [Claritin] 10 mg PO QAM 03/18/15 [History] Metoprolol [Lopressor] 100 mg PO BID 03/18/15 [History] Nitroglycerin [Nitrostat] 0.4 mg SL Q5M PRN 03/18/15 [History] Raloxifene [Evista] 60 mg PO QAM 03/18/15 [History] SitaGLIPtin [Januvia] 50 mg PO QAM 03/18/15 [History] Ergocalciferol (VITAMIN D2) [Vitamin D2 (50,000 UNIT)] 50,000 unit PO WE [History] Multivitamin/Iron/Folic Acid [Centrum Complete Multivit Tab] 1 each PO QAM 05/04 [History] Valsartan/Hydrochlorothiazide [Diovan Hct 320-12.5 mg Tab] 1 each PO QAM [History] Allopurinol [Zyloprim] 100 mg PO DAILY 03/08/16 [History] Atorvastatin [Lipitor] 40 mg PO HS 03/08/16 [History] Calcium Polycarbophil [Fibercon] 625 mg PO BID 03/08/16 [History] Docusate [Colace] 200 mg PO TID 03/08/16 [History] L. Acidophilus/Pectin, [place] [Acidophilus Probiotic Capsule] 1 each PO BID 04/23 [History] Diltiazem HCl [Diltiazem 24Hr Cd] 180 mg PO QPM 11/06/16 [History] Famotidine [Pepcid] 40 mg PO QPM 11/06/16 [History] Pantoprazole Sodium 40 mg PO BID 11/06/16 [History] Ferrous Sulfate 324 mg PO DAILY #30 tablet. 11/12/16 [Rx] Memantine HCl [Namenda Xr] 28 mg PO DAILY 11/23/16 [History] Pioglitazone [Actos] 15 mg PO DAILY 11/23/16 [History] Warfarin [Coumadin] 2.5 mg PO TUTHSA 11/23/16 [History] Warfarin [Coumadin] 5 mg PO SUMOWEFR 11/23/16 [History] 3 Allergy/AdvReac Type Severity Reaction Status Date / Time No Known Drug Allergies Allergy See Verified 11/23/16 10:04 Comments All systems: reviewed and no additional remarkable complaints except as stated Constitutional: Present: fatigue, weakness Cardiovascular: Present: dyspnea (O2 on at 3 L/m), edema (Upper and lower extremities), irregular heart rhythm (A. fib), leg edema Additional comments: other symptoms negative Respiratory: Present: dyspnea Gastrointestinal: Present: constipation (History given stool softeners and most recently a suppository,) Additional comments: Denies Additional comments: Fitzgerald catheter in place with marin yellow urine Musculoskeletal: Present: muscle weakness (A test been unable to get out of bed or walk at home in the past few weeks) Integumentary: Present: swelling Neurological: Present: weakness Hematologic/Lymphatic: Present: easy bleeding Oncology - Exam - Constitutional Vitals: Temp Pulse Resp BP Pulse Ox 98.2 F 97 16 160/76 98 11/27/16 11:12 11/27/16 11:12 11/27/16 11:25 11/27/16 12:57 11/27/16 12:57 General appearance: cooperative, no acute distress, obese - Head Head exam: Present: normal inspection, normocephalic - ENT ENT exam: Present: mucous membranes moist - Neck Neck exam: Present: normal inspection - Respiratory Respiratory exam: Present: decreased breath sounds, CTAB - Cardiovascular Cardiovascular exam: Present: irregular rhythm - GI/Abdominal GI/Abdominal exam: Present: hyperactive bowel sounds, soft ( nontender) - Additional comments: fitzgerald cath in place with marin yellow urine - Extremities Exam Extremities exam: Present: pedal edema (upper and lower extremity edema L>R) - Psychiatric Psychiatric exam: Present: normal affect, normal mood - Skin Skin exam: Present: dry, warm (very thin and fragile, increased by edema) Oncology - Results Labs: Short CBC 11/27/16 Range/Units 03:02 WBC 8.4 (4.3-11.1) K/mcL Hgb 8.6 L (11.5-15.4) g/dL Hct 27.5 L (35.3-44.9) % Plt Count 205 (140-400) K/mcL Neutrophils # 5.8 (1.6-8.9) K/mcL BMP 11/27/16 03:02 Sodium 137 Potassium 3.7 D Chloride 95 L Carbon Dioxide 35 H BUN 40 H Creatinine 1.28 H Glucose 145 H Calcium 9.3 Consult Discharge Plan - Plan Referrals: Elmer Davey MD [Primary Care Provider] - 12/12/16 1:45 pm <Bill Andujar - Last Filed: 11/28/16 07:45> Date of Encounter: 11/28/16 Assessment and Plan (1) DVT, popliteal, acute Status: Acute Assessment and plan: I have seen and examined Ms. Davison and agree with Rossy Maldonado's impression. This patient has acute popliteal DVT. Anticoagulation is indicated. I see no contraindication to anticoagulation. I would continue heparin with transition to Coumadin. Goal INR should be between 2 and 3, preferably to remain between 2 and 2.5 if possible. For purposes of her DVT, on anticoagulation 3 months as this appears to be a provoked event from recent hospitalization. Longer anticoagulation could be considered for purposes of atrial fibrillation. I will defer this to her cardiology team. She should establish care in the Coumadin clinic for coumadin management. She may return to the care of her primary care physician. If assistance for management her DVT is desired, I would be happy to follow her in my clinic. Qualifiers: Laterality: right Qualified Code(s): I82.431 - Acute embolism and thrombosis of right popliteal vein - Data of Consult Requesting Physician: Ashley Bell CNP Primary Care Provider: Elmer Davey MD Oncology - Exam - Constitutional Vitals: Temp Pulse Resp BP Pulse Ox 97.8 F 95 14 152/85 97 11/28/16 04:29 11/28/16 04:29 11/28/16 04:29 11/28/16 04:29 11/28/16 04:29 - Head Head exam: Present: atraumatic - Eye Eye exam: Present: conjunctival injection, conjuntiva pink, sclera anicteric - ENT ENT exam: Present: mucous membranes moist - Neck Neck exam: Present: full ROM, normal inspection Oncology - Results Labs: Short CBC 11/28/16 Range/Units 03:23 WBC 8.3 (4.3-11.1) K/mcL Hgb 9.1 L (11.5-15.4) g/dL Hct 29.1 L (35.3-44.9) % Plt Count 213 (140-400) K/mcL Neutrophils # 5.6 (1.6-8.9) K/mcL BMP 11/28/16 03:23 Sodium 138 Potassium 3.6 Chloride 93 L Carbon Dioxide 36 H BUN 39 H Creatinine 1.14 H Glucose 133 H Calcium 9.3
--- NOTE | 2016-11-27 15:44 | Internal Med Progress Note ---
Date of Encounter: 11/27/16 Time of Encounter: 15:43 - Assessment and plan (1) Acute exacerbation of CHF (congestive heart failure) Current Visit: Yes Status: Acute Assessment and plan: Acute exacerbation of chronic CHF diastolic dysfunction LVEF 65% - causing shortness of breath and edema - slowly improving Continue IV Lasix, O2 via nasal cannula, Continue ASA, Metoprolol, statin Chest x-ray - Mild interstitial edema with small bilateral pleural effusions Cont telemetry, strict I's and O's, daily weight, fluid restriction Qualifiers: Congestive heart failure type: diastolic Qualified Code(s): I50.33 - Acute on chronic diastolic (congestive) heart failure (2) DVT, popliteal, acute Current Visit: Yes Status: Acute Assessment and plan: Acute right popliteal and peroneal DVT waiting on official report Continue low-dose IV heparin waiting on heme onc eval - May coumadin might be ideal will talk to Heme Onc, as well as with family too Patient did have a recent GI bleed - recent colonoscopy revealed nonbleeding polyp in the rectum was removed and diverticulosis was noted in sigmoid colon Qualifiers: Laterality: right Qualified Code(s): I82.431 - Acute embolism and thrombosis of right popliteal vein (3) Edema extremities Current Visit: No Status: Acute Assessment and plan: due to diastolic CHF Cont IV lasix (4) Constipation Current Visit: No Status: Acute Assessment and plan: Had a BM cont stool softners Qualifiers: Constipation type: unspecified constipation type Qualified Code(s): K59.00 - Constipation, unspecified (5) Acute kidney injury Current Visit: No Status: Acute Assessment and plan: Acute kidney injury on chronic kidney disease stage III - likely secondary to CHF exacerbation and possibly due to medication use Improving Monitor renal function closely, avoid nephrotoxins (6) Anemia Current Visit: No Status: Acute Assessment and plan: Acute mostly chronic anemia H&H now stable, no active bleeding Monitor H&H closely, transfuse PRBC if needed Colonoscopy (11/12/2016) - 10 mm non bleeding polyp in the rectum removed, diverticulosis in sigmoid, internal hemorrhoids Qualifiers: Anemia type: iron deficiency Iron deficiency anemia type: other iron deficiency Qualified Code(s): D50.8 - Other iron deficiency anemias - Subjective Interval history: Ms. Davison is a 81 year old female past history dementia, atrial fibrillation status post pacemaker placement for sss diabetes type 2 hypertension recent left shoulder arthroscopy on November 01 at [facility] surgery was performed by Dr. Hoffman patient has had several hospitalizations since surgery was performed. She developed bleeding at the surgical site and return to the ED on the per the daughter sutures were replaced and not a dressing was placed and was removed. She continued to bleed and had a syncopal episode while at the Coumadin clinic on 11/07/2016. She was admitted to the hospital at that time , the bleeding was controlled, she remained anemic and hemoglobin 8 baseline is around 12 echo bilateral carotid Doppler dual-chamber pacemaker interrogation head CT and upper and lower endoscopy were all within normal limits. She was discharged home on 11/19/2016. That time her hydrochlorothiazide was held due to dehydration. Her daughter states that the patient has been experiencing increasing shortness of breath on exertion over the past 2 days. This a.m. patient felt lightheaded and was short of breath at rest. The daughter became concerned and she brought patient to the ER for evaluation. Pt was admitted in the hospital for acute heart failure exacerbation and started on aggressive IV diuresis. She also c/o constipation and abdominal pain whic improved now after a BM this afternoon. Denied any CP, however still has SOB and GABRIEL - Constitutional Vitals: Temp Pulse Resp BP Pulse Ox 98.4 F 88 18 137/70 96 11/27/16 15:23 11/27/16 15:23 11/27/16 15:23 11/27/16 15:23 11/27/16 15:23 General appearance: Present: cooperative, A&O X 3, pleasant, obese, answers questions appropriately - Head Head exam: Present: atraumatic, normal inspection - Respiratory Respiratory exam: Present: decreased breath sounds, rales, wheezes. Absent: respiratory distress, rhonchi - Cardiovascular Cardiovascular exam: Present: +S1, +S2. Absent: systolic murmur - GI/Abdominal GI/Abdominal exam: Present: normal bowel sounds, soft. Absent: rebound, rigid, tenderness - Extremities Exam Extremities exam: Present: pedal edema (1+). Absent: calf tenderness, tenderness - Neurological Exam Neurological exam: Present: alert, oriented X3 - Psychiatric Psychiatric exam: Present: normal affect, normal mood Internal Medicine: Result - Labs CBC & Chem 7: 11/27/16 03:02 11/27/16 03:02 Labs: Short CBC 11/27/16 Range/Units 03:02 WBC 8.4 (4.3-11.1) K/mcL Hgb 8.6 L (11.5-15.4) g/dL Hct 27.5 L (35.3-44.9) % Plt Count 205 (140-400) K/mcL Neutrophils # 5.8 (1.6-8.9) K/mcL BMP 11/27/16 03:02 Sodium 137 Potassium 3.7 D Chloride 95 L Carbon Dioxide 35 H BUN 40 H Creatinine 1.28 H Glucose 145 H Calcium 9.3 - ABG Interpretation ABG results: PT/INR, D-dimer PT 12.5 Seconds (9.4-12.1) H 11/25/16 08:06 D-Dimer 5552 ng/mLFEU (0-500) H 11/23/16 09:43 Consult Discharge Plan - Plan Referrals: Elmer Davey MD [Primary Care Provider] - 12/12/16 1:45 pm
[2016-11-27] MEDS: Diltiazem CD (24hr) 180 MG CAPSULE PO SCH (17:52)
[2016-11-28 03:59] LABS: Basophils # 0.1 K/mcL (0.0-0.2); Basophils % 0.7 %; Eosinophils # 0.1 K/mcL (0.0-0.6); Eosinophils % 1.2 %; Hematocrit 29.1 % (35.3-44.9); Hemoglobin 9.1 g/dL (11.5-15.4); Immature Granulocytes % 0.6 % (0-4); Lymphocytes # 1.5 K/mcL (0.6-4.6); Lymphocytes % 18.3 %; Mean Corpuscular HGB Conc 31.3 g/dL (31.6-35.5); Mean Corpuscular Hemoglobin 29.5 pg (28.0-33.3); Mean Corpuscular Volume 94.5 fL (83.0-100.0); Mean Platelet Volume 10.4 fL (9.4-12.4); Monocytes # 0.9 K/mcL (0.0-1.3); Monocytes % 11.3 %; Neutrophils # 5.6 K/mcL (1.6-8.9); Platelet Count 213 K/mcL (140-400); Red Blood Count 3.08 M/mcL (3.82-4.97); Red Cell Distribution Width 15.5 % (11.5-14.5); Segmented Neutrophils % 67.9 %
[2016-11-28] MEDS: Ipratropium/Albuterol Neb 3 ML IH SCH ×2 (04:00→10:13)
[2016-11-28 04:12] LABS: Calcium 9.3 mg/dL (8.6-10.8); Magnesium 1.5 mg/dL (1.6-2.6); Potassium 3.6 mEq/L (3.5-4.5)
[2016-11-28] MEDS: *HR* Heparin 5,000 UNIT/ML VIAL SQ SCH (05:21)
[2016-11-28 07:40] VITALS: BP 138/73
--- NOTE | 2016-11-28 07:55 | Venous Imaging Report ---
LE Venous Duplex Patient Name:Rachel Davison Order Number:[id number] Procedure Date:11/26/2016 Date:1935ge:81 yrs Gender:Female Location:[facility] Room #: 3B12 Inventory Assistant:Desmond Dang RDCS Referring MD:Jerad Jean Baptiste MD log hooker:Elmer Davey MD Reading MD:Vish Thorne MD Primary Indications:Elevated D-dimer, Edema Secondary Indications: Risk Factors Yes/No Anticoagulants Yes Impressions: Left lower extremity: normal superficial and deep exam. Lower extremity abnormal deep exam: right popliteal vein and peroneal vein demonstrates acute thrombosis. Recommendations: After imaging the patient returned to their room. Critical findings reported to Sarai by phone by Desmond Dang RDCS. Findings Venous Duplex Results: Right: Venous imaging of the lower extremity reveals full patency and normal vessel compressibility of the right distal iliac, right common femoral, right superficial femoral, right posterior tibial, right great saphenous and right lesser saphenous. Doppler signals in the evaluated veins were normal. The right popliteal demonstrates an incompressible vein. Flow was absent and it did not augment. The right peroneal demonstrates an incompressible vein. Flow was absent and it did not augment. Left: Venous imaging of the lower extremity reveals full patency and normal vessel compressibility of the left distal iliac, left common femoral, left superficial femoral, left popliteal, left posterior tibial, left peroneal, left great saphenous and left lesser saphenous. Doppler signals in the evaluated veins were normal. Prior Study: No prior study available for comparison. Lower Extremity Venous Duplex Side Vein Compress Spontaneous Flow Augment Diameter (cm) Depth (cm) Right Distal Iliac Normal Yes Phasic Yes Right Common Femoral Normal Yes Phasic Yes Right Superficial Femoral Normal Yes Phasic Yes Right Popliteal None no Absent no Right Posterior Tibial Normal Yes Phasic Yes Right Peroneal None no Absent no Right Great Saphenous Normal Yes Phasic Yes Right Lesser Saphenous Normal Yes Phasic Yes Left Distal Iliac Normal Yes Phasic Yes Left Common Femoral Normal Yes Phasic Yes Left Superficial Femoral Normal Yes Phasic Yes Left Popliteal Normal Yes Phasic Yes Left Posterior Tibial Normal Yes Phasic Yes Left Peroneal Normal Yes Phasic Yes Left Great Saphenous Normal Yes Phasic Yes Left Lesser Saphenous Normal Yes Phasic Yes Updated by Vish Thorne MD on 11/28/2016 7:46:55 AM electronically signed on 11/28/2016 7:47:28 AM with status of Final
[2016-11-28] MEDS: Furosemide 40 MG/4 ML VIAL IVP SCH (08:27)
[2016-11-28] MEDS: Insulin LISPRO 300 UNITS/3 ML VIAL SQ SCH ×2 (08:27→12:58)
[2016-11-28] MEDS: Valsartan 160 MG TABLET PO SCH (08:30)
[2016-11-28] MEDS: Loratadine 10 MG TABLET PO SCH (08:30)
[2016-11-28] MEDS: Sennosides/Docusate Sodium TABLET PO SCH (08:31)
[2016-11-28] MEDS: Aspirin Enteric Coated 81 MG Tablet PO SCH (08:31)
[2016-11-28] MEDS: Multivit/Ca/Min/Fe/FA 1 TAB TABLET PO SCH (08:31)
[2016-11-28] MEDS: hydrALAZINE 25 MG TABLET PO SCH (08:31)
[2016-11-28] MEDS: Lactobacillus 1 EACH CAP.SPRINK PO SCH (08:31)
[2016-11-28] MEDS: Metoprolol 100 MG TABLET PO SCH (08:31)
[2016-11-28] MEDS: Magnesium Oxide 400 MG TABLET PO SCH (08:31)
[2016-11-28] MEDS: cloNIDine HCl 0.1 MG TABLET PO SCH (08:31)
[2016-11-28] MEDS: Bisacodyl 10 MG RECTAL SUPPOSITORY RC SCH (08:32)
[2016-11-28] MEDS: (Memantine Hcl [Namenda Xr] 28 MG) PO SCH (08:41)
--- NOTE | 2016-11-28 10:06 | Palliative Progress Note ---
Date of Encounter: 11/28/16 Time of Encounter: 09:45 - Assessment and plan (1) Constipation Current Visit: No Status: Acute Assessment and plan: Continue [place]. Patient did have good BM yesterday - she still desires to continue daily suppositories while here. Qualifiers: Constipation type: unspecified constipation type Qualified Code(s): K59.00 - Constipation, unspecified (2) Dyspnea Current Visit: Yes Status: Acute Assessment and plan: Improved. Did quality for home oxygen. S/W working on setup Qualifiers: Dyspnea type: unspecified Qualified Code(s): R06.00 - Dyspnea, unspecified (3) Counseling regarding advanced care planning and goals of care Current Visit: Yes Status: Acute Assessment and plan: When ready - pt may discharge with [facility] care/palliative. Oncology recommended restart of Warfarin - D/W nurse who will be discussing with hospitalist. I would suspect her daughter would be willing to administer bridging med at home. (4) Atrial fibrillation Current Visit: Yes Status: Chronic Qualifiers: Atrial fibrillation type: paroxysmal Qualified Code(s): I48.0 - Paroxysmal atrial fibrillation (5) Diastolic CHF Current Visit: No Status: Chronic Qualifiers: Congestive heart failure chronicity: chronic Qualified Code(s): I50.32 - Chronic diastolic (congestive) heart failure - Time Spent With Patient Total time spent is greater than 50% in coordination of care (as documented) at patient's floor/unit and/or counseling patient: 25 - 35 minutes - Subjective Interval history: Patient awake and alert, Up in chair working puzzle books. Family not present at this time. States had better night. + BM yesterday after suppository. Denies pain or discomfort. - Constitutional Vitals: Abnormal lab results RBC 3.08 M/mcL (3.82-4.97) L 11/28/16 03:23 Hgb 9.1 g/dL (11.5-15.4) L 11/28/16 03:23 Hct 29.1 % (35.3-44.9) L 11/28/16 03:23 MCHC 31.3 g/dL (31.6-35.5) L 11/28/16 03:23 RDW 15.5 % (11.5-14.5) H 11/28/16 03:23 Clumped Platelets Few (Not Present) A 11/26/16 02:58 PT 12.5 Seconds (9.4-12.1) H 11/25/16 08:06 D-Dimer 5552 ng/mLFEU (0-500) H 11/23/16 09:43 Chloride 93 mEq/L (98-109) L 11/28/16 03:23 Carbon Dioxide 36 mEq/L (19-29) H 11/28/16 03:23 BUN 39 mg/dL (7-20) H 11/28/16 03:23 Creatinine 1.14 mg/dL (0.57-1.11) H 11/28/16 03:23 Est GFR ( Amer) 55 (> 60) L 11/28/16 03:23 Est GFR (Non-Af Amer) 46 (> 60) L 11/28/16 03:23 BUN/Creatinine Ratio 34 (6-26) H 11/28/16 03:23 Glucose 133 mg/dL (70-99) H 11/28/16 03:23 POC Glucose 306 (58-89) H 11/27/16 19:18 Magnesium 1.5 mg/dL (1.6-2.6) L 11/28/16 03:23 AST 63 Units/L (5-34) H 11/26/16 02:58 ALT 100 Units/L (0-55) H 11/26/16 02:58 B-Natriuretic Peptide 567 pg/mL (0-100) H 11/23/16 09:43 Serum Total Protein 5.7 g/dL (6.0-8.3) L 11/26/16 02:58 Albumin 2.6 g/dL (3.5-5.0) L 11/26/16 02:58 Albumin/Globulin Ratio 0.8 (1.1-2.2) L 11/26/16 02:58 HDL Cholesterol 36 mg/dL (40-59) L 11/24/16 00:12 General appearance: Present: no acute distress - Respiratory Respiratory exam: Present: decreased breath sounds, CTAB - Cardiovascular Cardiovascular exam: Present: irregular rhythm - GI/Abdominal GI/Abdominal exam: Present: normal bowel sounds, soft - Extremities Exam Additional comments: LUE edema. Elevated on pillow - Neurological Exam Neurological exam: Present: alert Additional comments: Oriented to name and place - Skin Skin exam: Present: dry, pallor, warm Palliative Quality Palliative Quality: Screen for Code Status: Yes, Screen for Goals of Care: Yes, Screen for Pain: Yes, If Pain Regimen Started, Initiate Bowel Regimen: Yes, Screen for Nausea/Vomitting: Yes - Labs CBC & Chem 7: 11/28/16 03:23 11/28/16 03:23 Labs: Laboratory Results - last 24 hr 11/27/16 11/28/16 11/28/16 19:18 03:23 03:23 WBC 8.3 RBC 3.08 L Hgb 9.1 L Hct 29.1 L MCV 94.5 MCH 29.5 MCHC 31.3 L RDW 15.5 H Plt Count 213 MPV 10.4 Immature Gran % 0.6 Seg Neutrophils % 67.9 Lymphocytes % 18.3 Monocytes % 11.3 Eosinophils % 1.2 Basophils % 0.7 Neutrophils # 5.6 Lymphocytes # 1.5 Monocytes # 0.9 Eosinophils # 0.1 Basophils # 0.1 Sodium 138 Potassium 3.6 Chloride 93 L Carbon Dioxide 36 H BUN 39 H Creatinine 1.14 H Est GFR ( Amer) 55 L Est GFR (Non-Af Amer) 46 L BUN/Creatinine Ratio 34 H Glucose 133 H POC Glucose 306 H Calculated Osmolality 297 Calcium 9.3 Magnesium 1.5 L - ABG Interpretation ABG results: PT/INR, D-dimer PT 12.5 Seconds (9.4-12.1) H 11/25/16 08:06 D-Dimer 5552 ng/mLFEU (0-500) H 11/23/16 09:43 Consult Discharge Plan - Plan Referrals: Elmer Davey MD [Primary Care Provider] - 12/12/16 1:45 pm
[2016-11-28] MEDS ORDERED: Magnesium Sulfate 2 GM in D5% in Water 100 ML IVPB ONE (10:17)
[2016-11-28] MEDS ORDERED: *HR* Enoxaparin 80 MG/0.8 ML SYRINGE SQ SCH (10:53)
--- NOTE | 2016-11-28 11:01 | Discharge Summary ---
Date of Encounter: 11/28/16 Time of Encounter: 10:55 - Discharge Diagnosis (1) Acute exacerbation of CHF (congestive heart failure) Priority: Primary Status: Acute Qualifiers: Congestive heart failure type: diastolic Qualified Code(s): I50.33 - Acute on chronic diastolic (congestive) heart failure (2) DVT, popliteal, acute Priority: Primary Status: Acute Qualifiers: Laterality: right Qualified Code(s): I82.431 - Acute embolism and thrombosis of right popliteal vein (3) Edema extremities Priority: Secondary Status: Acute (4) Constipation Priority: Secondary Status: Acute Qualifiers: Constipation type: unspecified constipation type Qualified Code(s): K59.00 - Constipation, unspecified (5) Acute kidney injury Priority: Secondary Status: Acute (6) Anemia Priority: Secondary Status: Acute Qualifiers: Anemia type: iron deficiency Iron deficiency anemia type: other iron deficiency Qualified Code(s): D50.8 - Other iron deficiency anemias (7) Type 2 diabetes mellitus Priority: Secondary Status: Chronic Qualifiers: Diabetes mellitus complication status: with unspecified complications Diabetes mellitus fpc insulin use: without adjunct faculty for medical terminology use Qualified Code( s): E11.8 - Type 2 diabetes mellitus with unspecified complications (8) Atrial fibrillation Priority: Secondary Status: Chronic Qualifiers: Atrial fibrillation type: paroxysmal Qualified Code(s): I48.0 - Paroxysmal atrial fibrillation - Discharge Medications Prescriptions: Enoxaparin [Lovenox] 80 mg SQ Q12HR #8 syr Furosemide Oral Soln [Lasix] 40 mg PO DAILY #30 solution Polyethylene Glycol 3350 [MiraLAX] 17 gm PO DAILY PRN #30 PRN Reason: Constipation Potassium Chloride 10 meq PO BIDWM #60 Valsartan [Diovan] 320 mg PO QAM 30 Days Warfarin [Coumadin] 5 mg PO DAILY #30 Home Medications: Aspirin [Adult Low Dose Aspirin EC] 81 mg PO DAILY 03/18/15 [History] Citalopram Hydrobromide [Celexa] 20 mg PO QAM 03/18/15 [History] CloNIDine HCl 0.2 mg PO TID 03/18/15 [History] Glucosamine Sulfate Dipot Chlr [Glucosamine Relief] 1,000 mg PO QAM 03/18/15 [ History] Hydralazine HCl 50 mg PO TID 03/18/15 [History] Loratadine [Claritin] 10 mg PO QAM 03/18/15 [History] Metoprolol [Lopressor] 100 mg PO BID 03/18/15 [History] Nitroglycerin [Nitrostat] 0.4 mg SL Q5M PRN 03/18/15 [History] Raloxifene [Evista] 60 mg PO QAM 03/18/15 [History] SitaGLIPtin [Januvia] 50 mg PO QAM 03/18/15 [History] Ergocalciferol (VITAMIN D2) [Vitamin D2 (50,000 UNIT)] 50,000 unit PO WE [History] Multivitamin/Iron/Folic Acid [Centrum Complete Multivit Tab] 1 each PO QAM 05/04 [History] Allopurinol [Zyloprim] 100 mg PO DAILY 03/08/16 [History] Atorvastatin [Lipitor] 40 mg PO HS 03/08/16 [History] Calcium Polycarbophil [Fibercon] 625 mg PO BID 03/08/16 [History] L. Acidophilus/Pectin, [place] [Acidophilus Probiotic Capsule] 1 each PO BID 04/23 [History] Diltiazem HCl [Diltiazem 24Hr Cd] 180 mg PO QPM 11/06/16 [History] Famotidine [Pepcid] 40 mg PO QPM 11/06/16 [History] Ferrous Sulfate 324 mg PO DAILY #30 tablet. 11/12/16 [Rx] Memantine HCl [Namenda Xr] 28 mg PO DAILY 11/23/16 [History] Docusate [Colace] 200 mg PO TID PRN #0 11/28/16 [Rx] Enoxaparin [Lovenox] 80 mg SQ Q12HR #8 syr 11/28/16 [Rx] Furosemide Oral Soln [Lasix] 40 mg PO DAILY #30 solution 11/28/16 [Rx] Pantoprazole Sodium 40 mg PO DAILY #0 11/28/16 [Rx] Polyethylene Glycol 3350 [MiraLAX] 17 gm PO DAILY PRN #30 11/28/16 [Rx] Potassium Chloride 10 meq PO BIDWM #60 11/28/16 [Rx] Valsartan [Diovan] 320 mg PO QAM 30 Days 11/28/16 [Rx] Warfarin [Coumadin] 5 mg PO DAILY #30 11/28/16 [Rx] Allergies/Adverse Reactions: 3 Allergy/AdvReac Type Severity Reaction Status Date / Time No Known Drug Allergies Allergy See Verified 11/23/16 10:04 Comments Date of admission: 11/25/16 10:12 Primary care physician: Elmer Davey MD Consults: 11/26/16 11:33 Consult to Oncology [CONS] Routine Consulting Provider: [facility] Reason for Consult: DVT with GI bleed Call Completed: No 11/26/16 11:34 Consult to Palliative Care [CONS] Routine Comment: Consulting Provider: Palliative [facility] Reason for Consult: CHF, DNR-CCA Call Completed: No - Patient Status Disposition: Home Health Service Condition: Fair Overall status at discharge: patient is back to baseline - Discharge Instructions Follow Up With: Elmer Davey MD [Primary Care Provider] - 12/12/16 1:45 pm Additional Instructions: f/u with Heme Onc Dr. Andujar in 2-3 weeks Continue taking Lovenox 80mg BID x 4 days until your INR becomes 2.0 Continue taking Coumadin 5mg daily at evening and go for PT / INR on Saturday ( 11/30 ) and f/u with PCP for further dosing. - Diet and Activity Activity: as per physical therapy, increase activity as tolerated Diet: low salt diet Hospital course: Ms. Davison is a 81 year old female past history dementia, atrial fibrillation status post pacemaker placement for sss diabetes type 2 hypertension recent left shoulder arthroscopy on November 01 at [facility] surgery was performed by Dr. Hoffman patient has had several hospitalizations since surgery was performed. She developed bleeding at the surgical site and return to the ED on the per the daughter sutures were replaced and not a dressing was placed and was removed. She continued to bleed and had a syncopal episode while at the Coumadin clinic on 11/07/2016. She was admitted to the hospital at that time , the bleeding was controlled, she remained anemic and hemoglobin 8 baseline is around 12 echo bilateral carotid Doppler dual-chamber pacemaker interrogation head CT and upper and lower endoscopy were all within normal limits. She was discharged home on 11/19/2016. That time her hydrochlorothiazide was held due to dehydration. Her daughter states that the patient has been experiencing increasing shortness of breath on exertion over the past 2 days. This a.m. patient felt lightheaded and was short of breath at rest. The daughter became concerned and she brought patient to the ER for evaluation. Pt was admitted in the hospital for acute heart failure exacerbation and started on aggressive IV diuresis. Her SOB started improving. Her Cr also started trending down, today @ 1.14. She did have Venous doppler of b/l LE done , which came back positive for DVT in Rt Popliteal and peroneal. She was seen by Heme Onc who suggested to treat her with anticoagulation meds possibly COumadin for 3 months minimum. So we started her on Coumadin, bridging with Lovenox. Her GFR with in acceptable range to start her Lovenox 1mg/kg Q12hr. Recommend to continue Lovenox until her INR becomes therapeutic. She also c/o constipation and abdominal pain which improved now after a BM. She does required O2 at 2 lit continuously, so will sent her home on 2 lit O2. Talked to pt's daughter and explained to her about current care and discharge instructions. Pt is getting discharged home with home health services who can do PT / OT at home and f/u with PCP for further dosing recommendations. - Time Spent with Patient Total time spent providing and/or coordinating discharge services: Greater than 30 minutes (Spent 45 minutes on this patient's discharge summary due to complex medical problems and patient needed a lot of education regarding discharge instructions) - Constitutional Vitals: Temp Pulse Resp BP Pulse Ox 98.0 F 65 16 138/73 97 11/28/16 07:35 11/28/16 07:35 11/28/16 10:13 11/28/16 07:35 11/28/16 10:13 General appearance: Present: cooperative, A&O X 3, pleasant, obese, answers questions appropriately - Head Head exam: Present: atraumatic, normal inspection - Respiratory Respiratory exam: Present: decreased breath sounds, wheezes. Absent: rales, respiratory distress, rhonchi - Cardiovascular Cardiovascular exam: Present: irregular rhythm, +S1, +S2. Absent: systolic murmur - GI/Abdominal GI/Abdominal exam: Present: soft. Absent: rebound, rigid, tenderness - Extremities Exam Extremities exam: Present: pedal edema (trace). Absent: calf tenderness, tenderness - Neurological Exam Neurological exam: Present: alert, oriented X3 - Psychiatric Psychiatric exam: Present: normal affect, normal mood
--- NOTE | 2016-11-28 11:09 | Physician Discharge Referral ---
Home Health/Hosp Referral Info Transfer to: Home Health Provider in Charge Post Discharge: PCP - Diagnosis (1) Acute exacerbation of CHF (congestive heart failure) Status: Acute (2) DVT, popliteal, acute Status: Acute (3) Edema extremities Status: Acute (4) Constipation Status: Acute (5) Acute kidney injury Status: Acute (6) Anemia Status: Acute (7) Type 2 diabetes mellitus Status: Chronic (8) Atrial fibrillation Status: Chronic - Respiratory Orders Oxygen / L per min (2) Smoking Cessation: Smoking cessation has been advised. For more information, call the [place] Tobacco Quit Line at 0-808-SACO-NOW. - Diet/Nutrition Diet/Nutrition Orders: Cardiac - Activity Activity Orders: Up ad ivelisse - Services Needed Following services are medically necessary services: Nursing (Need to check PT / INR on Saturday ( 11/30/16 ) and f/u with PCP Dr. Davey for further coumadin dosing. Mean while continue Coumadin at 5mg daily, and Lovenox 80mg SQ BID until INR becomes 2.0), Physical Therapy, Occupational Therapy - Transfer Medications Prescriptions: Enoxaparin [Lovenox] 80 mg SQ Q12HR #8 syr Furosemide Oral Soln [Lasix] 40 mg PO DAILY #30 solution Polyethylene Glycol 3350 [MiraLAX] 17 gm PO DAILY PRN #30 PRN Reason: Constipation Potassium Chloride 10 meq PO BIDWM #60 Valsartan [Diovan] 320 mg PO QAM 30 Days Warfarin [Coumadin] 5 mg PO DAILY #30 Home Medications: Aspirin [Adult Low Dose Aspirin EC] 81 mg PO DAILY 03/18/15 [History] Citalopram Hydrobromide [Celexa] 20 mg PO QAM 03/18/15 [History] CloNIDine HCl 0.2 mg PO TID 03/18/15 [History] Glucosamine Sulfate Dipot Chlr [Glucosamine Relief] 1,000 mg PO QAM 03/18/15 [ History] Hydralazine HCl 50 mg PO TID 03/18/15 [History] Loratadine [Claritin] 10 mg PO QAM 03/18/15 [History] Metoprolol [Lopressor] 100 mg PO BID 03/18/15 [History] Nitroglycerin [Nitrostat] 0.4 mg SL Q5M PRN 03/18/15 [History] Raloxifene [Evista] 60 mg PO QAM 03/18/15 [History] SitaGLIPtin [Januvia] 50 mg PO QAM 03/18/15 [History] Ergocalciferol (VITAMIN D2) [Vitamin D2 (50,000 UNIT)] 50,000 unit PO WE [History] Multivitamin/Iron/Folic Acid [Centrum Complete Multivit Tab] 1 each PO QAM 05/04 [History] Allopurinol [Zyloprim] 100 mg PO DAILY 03/08/16 [History] Atorvastatin [Lipitor] 40 mg PO HS 03/08/16 [History] Calcium Polycarbophil [Fibercon] 625 mg PO BID 03/08/16 [History] L. Acidophilus/Pectin, [place] [Acidophilus Probiotic Capsule] 1 each PO BID 04/23 [History] Diltiazem HCl [Diltiazem 24Hr Cd] 180 mg PO QPM 11/06/16 [History] Famotidine [Pepcid] 40 mg PO QPM 11/06/16 [History] Ferrous Sulfate 324 mg PO DAILY #30 tablet. 11/12/16 [Rx] Memantine HCl [Namenda Xr] 28 mg PO DAILY 11/23/16 [History] Docusate [Colace] 200 mg PO TID PRN #0 11/28/16 [Rx] Enoxaparin [Lovenox] 80 mg SQ Q12HR #8 syr 11/28/16 [Rx] Furosemide Oral Soln [Lasix] 40 mg PO DAILY #30 solution 11/28/16 [Rx] Pantoprazole Sodium 40 mg PO DAILY #0 11/28/16 [Rx] Polyethylene Glycol 3350 [MiraLAX] 17 gm PO DAILY PRN #30 11/28/16 [Rx] Potassium Chloride 10 meq PO BIDWM #60 11/28/16 [Rx] Valsartan [Diovan] 320 mg PO QAM 30 Days 11/28/16 [Rx] Warfarin [Coumadin] 5 mg PO DAILY #30 11/28/16 [Rx] Allergies/Adverse Reactions: 3 Allergy/AdvReac Type Severity Reaction Status Date / Time No Known Drug Allergies Allergy See Verified 11/23/16 10:04 Comments Certification: Further, I certify that my clinical findings support that this patient is homebound (i.e. absences from home require considerable and taxing effort and are for medical reasons or confucianist services or infrequently or short duration when for other reasons) because: Homebound Reason: Patient requires assistance of a person or device to safely leave home Attestation: My signature below is to certify that this patient is under my care and that I, or nurse practitioner, or a physician's guest services assistant working with me, has a face-to -face encounter with this patient.
[2016-11-28 11:54] LABS: INR 1.2; Prothrombin Time 13.2 Seconds (9.4-12.1)
[2016-11-28] MEDS ORDERED: *HR* Warfarin 5 MG TABLET PO ONE (18:00)
[2016-11-28] MEDS ORDERED: Warfarin perPT PO PRN (18:00)
[2016-11-28] MEDS ORDERED: *HR* Warfarin 5 MG TABLET PO SCH (18:00)
== END 2016-11-28 17:15 | disposition home health service (06) | DRG 291 ==
LOC: EMEROO 09:27 → 3BNU 09:27
PROVIDERS: ADMIT Internal Medicine; ATTEND Registered Nurse

== ENCOUNTER 2017-08-27 11:00 | Inpatient (IN) ==
[2017-08-27] MEDS ORDERED: Isovue-370 500 ML INFUS..BTL IV ONE (12:04)
[2017-08-27] MEDS ORDERED: *HR* HYDROcodone/Acet 5/325 mg TABLET PO ONE (12:06)
[2017-08-27] MEDS ORDERED: 0.9 % Sodium Chloride 1,000 ML IVC ONE (12:06)
--- NOTE | 2017-08-27 12:38 | Emergency Department Note ---
Disposition Clinical Impression: Abnormal EKG Fall Qualifiers: Encounter type: initial encounter Qualified Code(s): W19.XXXA - Unspecified fall, initial encounter Chronic renal insufficiency Qualifiers: Chronic kidney disease stage: unspecified stage Qualified Code(s): N18.9 - Chronic kidney disease, unspecified Lumbar vertebral fracture Qualifiers: Encounter type: initial encounter Lumbar vertebra fracture level: L5 Fracture morphology: unspecified fracture morphology Disposition: Admitted As Inpatient Condition: Good Referrals: Elmer Davey MD [Primary Care Provider] - Forms: ED Satisfaction Letter Time of Disposition: 16:52 General Adult HPI - General Chief complaint: ED Fall Stated complaint: R side pain fell couples wk ago Time Seen by Provider: 08/27/17 11:04 Source: patient Mode of arrival: ambulatory Limitations: no limitations Nursing Notes Reviewed: Yes Vital Signs Reviewed: Yes - History of Present Illness HPI Narrative: Patient presented to the emergency room today after 2 weeks of pain in the right side of her chest wall over her sacrum. Patient has history of a fall 2 weeks ago. She is on Coumadin. She has not had any other complaints outside of pain and discomfort. The family is concerned because she has had persistent bruising and pain across the back and in her lower buttock. Patient has not had any ambulatory issues. Onset (ago): week(s) Location: chest, buttocks, left Radiation: non-radiation Pain Severity: mild Pain Scale: 10 Quality: aching Consistency: constant Improves with: nothing Worsens with: nothing Associated symptoms: Reports: denies other symptoms Treatments Prior to Arrival: none - Related Data Home Medications Medication Instructions Recorded Confirmed Citalopram Hydrobromide [Celexa] 20 mg PO QAM 03/18/15 11/23/16 Glucosamine Sulfate Dipot Chlr 1,000 mg PO QAM 03/18/15 11/23/16 [Glucosamine Relief] Nitroglycerin [Nitrostat] 0.4 mg SL Q5M PRN 03/18/15 11/23/16 Multivitamin/Iron/Folic Acid 1 each PO QAM 05/04/15 11/23/16 [Centrum Complete Multivit Tab] Atorvastatin [Lipitor] 40 mg PO HS 03/08/16 11/23/16 Calcium Polycarbophil [Fibercon] 625 mg PO BID 03/08/16 11/23/16 L. Acidophilus/Pectin, [place] 1 each PO BID 03/08/16 11/23/16 [Acidophilus Probiotic Capsule] Diltiazem HCl [Diltiazem 24Hr Cd] 180 mg PO QPM 11/06/16 11/23/16 Famotidine [Pepcid] 40 mg PO QPM 11/06/16 11/23/16 Memantine HCl [Namenda Xr] 28 mg PO DAILY 11/23/16 11/23/16 Allopurinol [Zyloprim 100 MG] 100 mg PO DAILY 08/27/17 08/27/17 Aspirin Enteric Coated [Aspirin EC] 81 mg PO DAILY 08/27/17 08/27/17 Dexlansoprazole [Dexilant] 60 mg PO DAILY 08/27/17 08/27/17 Ergocalciferol (VITAMIN D2) 50,000 unit PO WE 08/27/17 08/27/17 [Vitamin D2] Exenatide Microspheres [Bydureon 2 mg SQ Q7D 08/27/17 08/27/17 Pen] Furosemide [Lasix] 40 mg PO DAILY 08/27/17 08/27/17 Loratadine [Allergy Relief] 10 mg PO DAILY 08/27/17 08/27/17 Metoprolol Tartrate 100 mg PO BID 08/27/17 08/27/17 Raloxifene [Evista] 60 mg PO DAILY 08/27/17 08/27/17 Sitagliptin Phosphate [Januvia] 50 mg PO DAILY 08/27/17 08/27/17 cloNIDine HCl [Clonidine HCl] 0.2 mg PO TID 08/27/17 08/27/17 Previous Rx's Medication Instructions Recorded Ferrous Sulfate 324 mg PO DAILY #30 tablet. 11/12/16 Docusate [Colace] 200 mg PO TID PRN #0 11/28/16 Polyethylene Glycol 3350 [MiraLAX] 17 gm PO DAILY PRN #30 11/28/16 Potassium Chloride 10 meq PO BIDWM #60 11/28/16 Valsartan [Diovan] 320 mg PO QAM 30 Days tab 11/28/16 Warfarin [Coumadin] 5 mg PO DAILY #30 11/28/16 Allergies Allergy/AdvReac Type Severity Reaction Status Date / Time No Known Drug Allergies Allergy See Verified 11/23/16 10:04 Comments All systems ED: reviewed and negative except as stated. Review of Systems: As Per HPI Constitutional: Denies: fever, chills, weakness Cardiovascular: Reports: chest pain. Denies: palpitations, dyspnea on exertion , orthopnea, edema Respiratory: Denies: cough, dyspnea, wheezes Gastrointestinal: Denies: nausea, vomiting, diarrhea Genitourinary: Denies: dysuria Musculoskeletal: Reports: back pain. Denies: neck pain Integumentary: Reports: other Neurological: Denies: headache Hematological/Lymphatic: Reports: easy bleeding, easy bruising Past Medical History - Past Medical History Attestation: Yes The following information was validated with the patient. Source: patient Medical history: Reports: atrial fibrillation, dementia, diabetes, hyperlipidemia, hypertension, renal disease Surgical history: Reports: appendectomy, cataract, hysterectomy, knee replacement (bilateral), orthopedic, other (bilateral shoulder surgery), pacemaker Psychiatric history: Reports: no psych history - Social History Smoking Status: Never smoker Smokeless Tobacco Status: No Alcohol use: Reports: none Drug use: Reports: none Physical Exam - General Limitations: no limitations General appearance: alert, in no apparent distress - Head Head exam: atraumatic, normocephalic, normal inspection - Eye Eye exam: Present: normal appearance, PERRL, EOMI - Neck Neck exam: Present: normal inspection, full ROM, trachea midline. Absent: tenderness - Chest Chest inspection: Present: normal inspection, symmetric chest wall rise, tenderness - Respiratory Respiratory exam: Present: normal lung sounds bilaterally - Cardiovascular Cardiovascular exam: Present: regular rate, normal rhythm, normal heart sounds - Abdominal Exam Abdominal exam: Present: soft, Non-Tender. Absent: tenderness, distention, guarding, rebound, rigidity - Extremities Exam Extremities exam: Present: normal inspection, full ROM, normal capillary refill. Absent: tenderness - Back Exam Back exam: Present: normal inspection - Neurological Exam Neurological exam: Present: alert, oriented X3, CN II-XII intact, normal gait - Skin Skin exam: Present: warm, dry, intact, normal color Course Course Narrative: Patient seen and examined the time of arrival. See history of present illness. Patient presents emergency room for evaluation of right-sided chest wall pain and pain in her left buttock after mechanical fall 2 weeks ago. Patient was standing on a chair falling backwards hitting her head. She did not lose consciousness. Patient came in today because she is a persistent pain in her right chest wall as well as swelling and bruising and pain in her left hip. Patient is on Coumadin. She denies any other trauma or injuries. She has not had any changes in her mentation denies any headache or vision changes this time. Clinical suspicion for other etiology this point is low based on the presentation symptoms and timeframe of the incident. Patient will have evaluation for bony abnormality considering she does still have persistent pain. Bruising is noted over the left gluteal fold. There is no tense presentation to the bilateral gluteal areas of the back as well as no tension or tightness to the medial aspect of the thigh and lateral aspect of the thigh. Patient has good pulses in the DP and PT distribution bilaterally that are symmetrical. Both feet are normal in presentation with warm skin to the touch. Patient does not have any crepitus or deformity the chest wall. Lungs are clear heart is regular. Patient will have CT imaging of the head cervical thoracic and lumbar spine as well as plain films of the chest and abdomen ordered at this time looking for any signs of accumulation of blood or hematoma in the pelvis. Fractures will also be addressed. Patient is not requesting anything else at this point. Pain medication will be given by mouth. Vital signs remain stable. Physical exam is otherwise unremarkable. Patient denies any numbness tingling or paresthesias. Disposition pending the full workup and treatment course. - Reevaluation(s) Reevaluation #1: INR is therapeutic at 2.7. No other visible signs of trauma or injury. Imaging is pending at this time. Time: 13:55 Reevaluation #2: Spine surgeon was contacted today revealed presentation. He describes this is a nonemergent intervention this point. Patient is neurologically intact. Will discuss EKG with the on-call city letter carrier to make sure that the concern with the presentation as well as EKG considering the description of the symptoms. Once that is determined they will discuss possible disposition. The read on the CT imaging of the head does not show any acute bleed in the patient has not had any neurologic issues. The only incident was a fall 2 weeks ago and she only came here today because the pain in the chest wall and the leg. Time: 16:08 Reevaluation #3: Cardiology recommended admission for observation. Will also have neurology weigh in on the CT imaging findings of the head. Hospitalist will be contacted admission process will be completed. Patient has stable renal insufficiency as well as BUN. Rest of her labs appear to be at her baseline. Admission process to be established. Further treatment course will be dictated hospital setting. Discussion was had with the hospitalist Dr. Iniguez. No other recommendations this time Time: 16:18 Vital Signs Temperature 98.4 F 08/27/17 11:02 Pulse Rate 76 08/27/17 11:02 Respiratory Rate 16 08/27/17 11:02 Blood Pressure 149/72 08/27/17 11:02 O2 Sat by Pulse Oximetry 93 08/27/17 11:02 Temperature 98.4 F 08/27/17 11:28 Pulse Rate 87 08/27/17 15:25 Respiratory Rate 17 08/27/17 15:25 Blood Pressure 161/75 08/27/17 15:25 O2 Sat by Pulse Oximetry 97 08/27/17 15:25 Oxygen Delivery Oxygen Delivery Room Air Medical Decision Making - MDM Narrative Medical decision making narrative: Mechanical fall, gluteal hematoma, right chest wall pain - Medical Records Medical records reviewed: Yes I reviewed the patient's medical records. - Lab Data Lab results reviewed: Yes I reviewed the patient's lab results. Result diagrams: 08/27/17 12:18 08/27/17 12:18 Lab Results 08/27/17 08/27/17 08/27/17 Range/Units 12:18 12:18 12:18 WBC 11.7 H (4.3-11.1) K/mcL RBC 3.69 L (3.82-4.97) M/mcL Hgb 11.4 L (11.5-15.4) g/dL Hct 35.0 L (35.3-44.9) % MCV 94.9 (83.0-100.0) fL MCH 30.9 (28.0-33.3) pg MCHC 32.6 (31.6-35.5) g/dL RDW 15.2 H (11.5-14.5) % Plt Count 241 (140-400) K/mcL MPV 10.0 (9.4-12.4) fL Immature Gran % 0.7 (0-4) % Seg Neutrophils % 72.9 % Lymphocytes % 16.4 % Monocytes % 8.2 % Eosinophils % 1.2 % Basophils % 0.6 % Neutrophils # 8.5 (1.6-8.9) K/mcL Lymphocytes # 1.9 (0.6-4.6) K/mcL Monocytes # 1.0 (0.0-1.3) K/mcL Eosinophils # 0.1 (0.0-0.6) K/mcL Basophils # 0.1 (0.0-0.2) K/mcL PT 29.8 H (9.4-12.1) Seconds INR 2.7 APTT 33.9 (26.0-36.0) Seconds Sodium 142 (136-145) mEq/L Potassium 3.9 (3.5-5.1) mEq/L Chloride 105 (98-107) mEq/L Carbon Dioxide 31 H (23-29) mEq/L BUN 27 H (8-23) mg/dL Creatinine 1.26 H (0.60-1.20) mg/dL Est GFR ( Amer) 49 L (> 60) Est GFR (Non-Af Amer) 41 L (> 60) BUN/Creatinine Ratio 21 (6-26) Glucose 134 H (70-105) mg/dL Calculated Osmolality 301 H (280-300) Calcium 9.9 (8.6-10.3) mg/dL Creatine Kinase 23 L (30-223) Units/L Troponin I < 0.03 (< 0.04) ng/mL - Radiology Data Radiology results reviewed: Yes I reviewed the patient's radiology results. Imaging of the head cervical thoracic or lumbar spine are unremarkable except for possible previous lacunar infarct versus maybe new infarct. Patient also has what appears to be an acute anterior fracture of the L5-S1. No visible signs of fracture injury to the chest wall. Abdomen is normal. There is a hematoma in left buttock - EKG Data EKG #1 EKG attestation: Yes I reviewed and interpreted this EKG. EKG results narrative: EKG shows electronically atrially paced rhythm. There are new T-wave inversions in lead aVL. No acute signs of ST segment elevation or abnormality here today. Intervals appear to be stable. Bundle-branch is stable. [place] appears to be slightly leftward deviated. No acute signs of ST segment elevation or abnormality. Compared to EKG on 11/23/16. T-wave inversion noted in aVL. Slight elevation in lead V2 and slight depression in leads V5 V6. EKG #2
[2017-08-27 12:39] LABS: Basophils # 0.1 K/mcL (0.0-0.2); Basophils % 0.6 %; Eosinophils # 0.1 K/mcL (0.0-0.6); Eosinophils % 1.2 %; Hemoglobin 11.4 g/dL (11.5-15.4); Immature Granulocytes % 0.7 % (0-4); Lymphocytes # 1.9 K/mcL (0.6-4.6); Lymphocytes % 16.4 %; Mean Corpuscular HGB Conc 32.6 g/dL (31.6-35.5); Mean Corpuscular Hemoglobin 30.9 pg (28.0-33.3); Mean Corpuscular Volume 94.9 fL (83.0-100.0); Monocytes % 8.2 %; Neutrophils # 8.5 K/mcL (1.6-8.9); Platelet Count 241 K/mcL (140-400); Red Blood Count 3.69 M/mcL (3.82-4.97); Red Cell Distribution Width 15.2 % (11.5-14.5); Segmented Neutrophils % 72.9 %
[2017-08-27 12:44] LABS: INR 2.7; Prothrombin Time 29.8 Seconds (9.4-12.1)
[2017-08-27 12:47] LABS: Activated Partial Thrombo Time 33.9 Seconds (26.0-36.0)
[2017-08-27 13:03] LABS: BUN/Creatinine Ratio 21 (6-26); Blood Urea Nitrogen 27 mg/dL (8-23); Calcium 9.9 mg/dL (8.6-10.3); Carbon Dioxide 31 mEq/L (23-29); Chloride 105 mEq/L (98-107); Creatine Kinase 23 Units/L (30-223); Glucose 134 mg/dL (70-105); Osmolality,Calculated 301 (280-300); Potassium 3.9 mEq/L (3.5-5.1); Sodium 142 mEq/L (136-145); eGFR For African Americans 49 (> 60); eGFR For Non-African Americans 41 (> 60)
[2017-08-27 14:55] LABS: Troponin I < 0.03 ng/mL (< 0.04)
[2017-08-27] MEDS ORDERED: Aspirin 81 MG TAB.CHEW PO STA (16:17)
[2017-08-27] MEDS ORDERED: Naloxone 0.4 MG/ML INJ IVP PRN (19:19)
[2017-08-27] MEDS ORDERED: Nitroglycerin 0.4 MG TAB.SUBL SL PRN (19:29)
[2017-08-27] MEDS: Metoprolol 100 MG TABLET PO SCH (20:22)
[2017-08-27] MEDS: Lactobacillus 1 EACH CAP.SPRINK PO SCH (20:22)
[2017-08-27] MEDS: cloNIDine HCl 0.1 MG TABLET PO SCH (20:22)
[2017-08-27] MEDS ORDERED: *HR* Warfarin 5 MG TABLET PO ONE (20:57)
--- NOTE | 2017-08-28 00:46 | Internal Med History&Physical ---
Addendum entered and electronically signed by Nick Francis CNP 01:23: Pt. encounter was on 08/27/17 Original Note: <Nick Francis - Last Filed: 08/28/17 01:14> Date of Encounter: 08/28/17 Time of Encounter: 18:00 Internal Medicine - H&P: HPI Chief complaint: Fall Admitted From: Emergency Dept Plans for Post Hospital Care: Home History of present illness: Ms. Davison is a 82 year old female w/PMH of atrial fibrillation, dementia, diabetes, HLD, HTN, and renal disease presents from the ED with chief complaint of pain sustained from fall 2 weeks ago. Patient reports history of falls with syncope. Reports pain in her right flank area and buttocks where she states she fell. Patient reports she was leaning over a trash bag when she became syncopal and passed out. Currently anticoagulated with Coumadin. Denies hitting her head. Patient denies recent illness, fever, chills, nausea, vomiting, headache, changes in vision, unusual bleeding, abdominal pain, diarrhea, constipation, numbness, tingling, CP, SOB, cough, or chest congestion. Past Med Surg Social Fam HX - Past Medical History Source: patient, old records reviewed, obtained from family Medical history: atrial fibrillation, dementia, diabetes, hyperlipidemia, hypertension, renal disease Psychiatric history: no psych history - Past Surgical History Surgical History: appendectomy, cataract, hysterectomy, knee replacement, orthopedic, other, pacemaker - Social History Smoking Status: Never smoker Smokeless Tobacco Status: No Alcohol use: none Drug use: none Current living situation: Home Activity Level: Independent ambulation, Uses cane/walker Recent Out of Country Travel Within the Last 8 Weeks: No Exposure or Possible Exposure to Illness During Travel: No - Family History Mother Race: Family Member Ethnicity: Non- Living Status: Age at : 72 Cause of : Metastatic breast cancer Hx Family Cancer: Yes (Breast) Hx Family HEENT Disorders: Yes (Blind, Glaucoma) Father Race: Family Member Ethnicity: Non- Living Status: Age at : 54 Cause of : Sucide Hx Family Cancer: Yes Hx Family GI Disorders: Yes (Cirrhosis) Hx Family Psychosocial Disorders: Yes (Suicide) Brother Race: Family Member Ethnicity: Non- Living Status: Age at : 73 Cause of : Accident (Fell down stairs) Sister Race: Family Member Ethnicity: Non- Living Status: Age at : 62 Cause of : Uterine cancer Hx Family Cardiac Disorders: Yes (ID, CVA) Hx Family Cancer: Yes (Uterine) Internal Medicine - H&P: Meds Citalopram Hydrobromide [Celexa] 20 mg PO QAM 03/18/15 [History] Glucosamine Sulfate Dipot Chlr [Glucosamine Relief] 1,000 mg PO QAM 03/18/15 [ History] Nitroglycerin [Nitrostat] 0.4 mg SL Q5M PRN 03/18/15 [History] Multivitamin/Iron/Folic Acid [Centrum Complete Multivit Tab] 1 each PO QAM 05/04 [History] Atorvastatin [Lipitor] 40 mg PO HS 03/08/16 [History] Calcium Polycarbophil [Fibercon] 625 mg PO BID 03/08/16 [History] L. Acidophilus/Pectin, [place] [Acidophilus Probiotic Capsule] 1 each PO BID 04/23 [History] Diltiazem HCl [Diltiazem 24Hr Cd] 180 mg PO QPM 11/06/16 [History] Famotidine [Pepcid] 40 mg PO QPM 11/06/16 [History] Ferrous Sulfate 324 mg PO DAILY #30 tablet. 11/12/16 [Rx] Memantine HCl [Namenda Xr] 28 mg PO DAILY 11/23/16 [History] Docusate [Colace] 200 mg PO TID PRN #0 11/28/16 [Rx] Polyethylene Glycol 3350 [MiraLAX] 17 gm PO DAILY PRN #30 11/28/16 [Rx] Potassium Chloride 10 meq PO BIDWM #60 11/28/16 [Rx] Valsartan [Diovan] 320 mg PO QAM 30 Days tab 11/28/16 [Rx] Allopurinol [Zyloprim 100 MG] 100 mg PO DAILY 08/27/17 [History] Aspirin Enteric Coated [Aspirin EC] 81 mg PO DAILY 08/27/17 [History] Dexlansoprazole [Dexilant] 60 mg PO DAILY 08/27/17 [History] Ergocalciferol (VITAMIN D2) [Vitamin D2] 50,000 unit PO WE 08/27/17 [History] Exenatide Microspheres [Bydureon Pen] 2 mg SQ Q7D 08/27/17 [History] Furosemide [Lasix] 40 mg PO DAILY 08/27/17 [History] Loratadine [Allergy Relief] 10 mg PO DAILY 08/27/17 [History] Metoprolol Tartrate 100 mg PO BID 08/27/17 [History] Raloxifene [Evista] 60 mg PO DAILY 08/27/17 [History] Sitagliptin Phosphate [Januvia] 50 mg PO DAILY 08/27/17 [History] cloNIDine HCl [Clonidine HCl] 0.2 mg PO TID 08/27/17 [History] Warfarin [Coumadin] 2.5 mg PO MOWEFR 08/28/17 [History] Warfarin [Coumadin] 5 mg PO SUTUTHSA 08/28/17 [History] 3 Allergy/AdvReac Type Severity Reaction Status Date / Time No Known Drug Allergies Allergy See Verified 11/23/16 10:04 Comments All Systems PM: A 10-system review of systems was performed and is negative for pertinent findings except as documented above in the HPI. - Constitutional Constitutional: no chills, no fever(s), no night sweats - EENT Eyes: no change in vision, no discharge, no pain, no photophobia Ears: no ear discharge, no ear pain, no tinnitus Nose, mouth and throat: no dysphagia, no nasal discharge, no neck pain, no sore throat - Breasts Breasts: as per HPI - Cardiovascular Cardiovascular ROS IM: as per HPI, syncope, no chest pain, no diaphoresis, no dyspnea, no lightheadedness, no palpitations - Respiratory Respiratory: no cough, no dyspnea, no wheezing, no excessive phlegm production - Gastrointestinal Gastrointestinal: no abdominal pain, no diarrhea, no hematemesis, no hematochezia, no melena, no nausea, no vomiting - Genitourinary Genitourinary: no change in urinary stream, no dysuria, no flank pain, no hematuria Menstruation: as per HPI - Musculoskeletal Musculoskeletal ROS IM: as per HPI, back pain, no numbness, no tingling - Integumentary Integumentary IM: no rash, no unusual bruising - Neurological Neurological ROS: as per HPI, frequent falls, no confusion, no convulsions, no focal weakness, no numbness, no tingling, no tremor(s) - Psychiatric Psychiatric: as per HPI - Endocrine Endocrine IM: as per HPI - Hematologic/Lymphatic Hematologic/Lymphatic: no easy bruising - Allergic/Immunologic Allergic/Immunologic: as per HPI - Constitutional Vitals: Temp Pulse Resp BP Pulse Ox 98.1 F 60 14 155/66 95 08/27/17 22:55 08/27/17 22:55 08/27/17 22:55 08/27/17 22:55 08/27/17 22:55 General appearance: Present: cooperative, A&O X 3, pleasant, no acute distress, answers questions appropriately - Head Head exam: Present: atraumatic, normocephalic - Eye Eye exam: Present: PERRL, conjuntiva pink, sclera anicteric Pupils: Present: PERRL - ENT ENT exam: Present: normal exam - Neck Neck exam general surgery: Present: normal inspection, supple, trachea midline. Absent: lymphadenopathy - Respiratory Respiratory exam: Present: CTAB. Absent: accessory muscle use, rales, rhonchi, wheezes - Cardiovascular Cardiovascular exam: Present: RRR, +S1, +S2. Absent: diastolic murmur, gallop, rubs, systolic murmur - GI/Abdominal GI/Abdominal exam: Present: normal bowel sounds, soft, no peritoneal signs. Absent: distended, tenderness - Rectal Rectal exam: Present: deferred - Additional comments: exam deferred. - Extremities Exam Extremities exam: Present: warm, radial pulses palpable and symmetrical. Absent : calf tenderness, cyanotic, pedal edema - Back Exam Back exam: Present: normal inspection - Neurological Exam Neurological exam: Present: alert, CN II-XII intact, oriented X3, no focal deficits. Absent: pronater drift, facial droop, speech deficit - Psychiatric Psychiatric exam: Present: normal affect, normal mood - Skin Skin exam: Present: dry, intact Internal Med - H&P Results - Labs CBC & Chem 7: 08/27/17 12:18 08/27/17 12:18 - Diagnostic Studies CT scan - head Additional comments: Impressions Head CT 08/27/17 12:03 IMPRESSION: Patchy areas of low density are noted bilaterally, as described above. Findings are likely due to prior lacunar infarcts. However, a subtle recent component would be difficult to exclude. If neurologic symptoms continue consider MRI No acute abnormality otherwise. Specifically, there is no hemorrhage. D/ / Isaiah Yap / Isaiah Yap Interpreting Provider: Isaiah Yap CT scan - abdomen Additional comments: Impressions Abdomen/Pelvis CT 08/27/17 12:04 IMPRESSION: 1. 4 lumbar type vertebral bodies are identified with suspected fracture involving the superior and posterior aspect at the L1 level, as described. Please correlate for point tenderness in this area. MRI could confirm marrow edema that would signify an acute injury. This appearance is new compared to prior of 11/06/2016. 2. Grade 1 anterolisthesis L4 on S1. 3. No acute pathology in the abdomen or pelvis. Incidental findings of cholelithiasis, diverticulosis and a moderate hiatal hernia. 4. Subcutaneous reticular change identified in the soft tissues overlying the left buttock. Possible mild edema involving the gluteus musculature on the left side. D/ / 08/27/2017 15:16:49 Ian Jimeenz / tran Interpreting Provider: Ian Jimenez CT scan - chest Additional comments: Impressions Chest CT 08/27/17 12:05 IMPRESSION: No acute traumatic injury of the chest. No evidence of acute traumatic fracture of the thoracic spine. Please see separate abdominal/pelvic CT and lumbar spine CT reports for discussion of those findings. D/ / 08/27/2017 15:15:21 Riaz Fan MD / praful Interpreting Provider: Riaz Fan MD Other Images Additional comments: Impressions Cervical Spine CT 08/27/17 12:03 IMPRESSION: 1. No acute fracture or subluxation. 2. Degenerative disc disease, greatest at C5-6 and C6-7. D/ / Piter Cantu MD / Piter Cantu MD Interpreting Provider: Piter Cantu MD Lumbar Spine CT 08/27/17 12:04 IMPRESSION: 1. 4 lumbar type vertebral bodies are identified with suspected fracture involving the superior and posterior aspect at the L1 level, as described. Please correlate for point tenderness in this area. MRI could confirm marrow edema that would signify an acute injury. This appearance is new compared to prior of 11/06/2016. 2. Grade 1 anterolisthesis L4 on S1. 3. No acute pathology in the abdomen or pelvis. Incidental findings of cholelithiasis, diverticulosis and a moderate hiatal hernia. 4. Subcutaneous reticular change identified in the soft tissues overlying the left buttock. Possible mild edema involving the gluteus musculature on the left side. D/ / 08/27/2017 15:16:49 Ian Jimenez / tran Interpreting Provider: Ian Jimenez Thoracic Spine CT 08/27/17 12:04 IMPRESSION: No acute traumatic injury of the chest. No evidence of acute traumatic fracture of the thoracic spine. Please see separate abdominal/pelvic CT and lumbar spine CT reports for discussion of those findings. D/ / 08/27/2017 15:15:21 Riaz Fan MD / praful Interpreting Provider: Riaz Fan MD - Assessment and plan (1) Fall Current Visit: Yes Status: Acute Assessment and plan: Acute fall two weeks ago when pt. reports becoming syncopal. Reports hx of falls. Orthostatic BPs and VS ordered. Bilateral carotid Dopplers ordered to r/ o blockages. Echocardiogram ordered. Falls/safety precautions, up with assist, bed rest w/bathroom privileges w/assist only. PT/OT consults ordered to assess pt. for possible rehabilitation placement/needs. Pt. discussed w/Dr. Iniguez who agrees w/plan of care. Pt. is moderate risk for further morbidity d/t current sx sustained from fall, hx of syncopal falls, current lumbar fx, hx, and risk factors. Observation. Qualifiers: Encounter type: initial encounter Qualified Code(s): W19.XXXA - Unspecified fall, initial encounter (2) Lumbar vertebral fracture Current Visit: Yes Status: Acute Assessment and plan: Acute lumbar fx. Spine surgeon was contacted today in ED. He describes this is a non-emergent intervention this point. CT of the lumbar spine today shows four lumbar type vertebral bodies with suspected fracture involving the superior and posterior aspect at the L1 level. Correlate for point tenderness in this area. MRI could confirm marrow edema that would signify an acute injury. This appearance is new compared to prior of 11/06/1617. Grade 1 anterolisthesis L4 on S1 Patient is neurologically intact. Will monitor pt. for pain and administer pain medications as warranted. Qualifiers: Encounter type: initial encounter Lumbar vertebra fracture level: L5 Fracture morphology: unspecified fracture morphology Qualified Code(s): S32.059A - Unspecified fracture of fifth lumbar vertebra, initial encounter for closed fracture (3) Leukocytosis Current Visit: Yes Status: Acute Assessment and plan: Acute leukocytosis of unknown etiology. Pt. is currently asymptomatic for infection and afebrile. Possibly reactive r/t recent fall and injury. Monitor f/ u labs. Qualifiers: Leukocytosis type: unspecified Qualified Code(s): D72.829 - Elevated white blood cell count, unspecified (4) Acute kidney injury Current Visit: Yes Status: Acute Assessment and plan: Acute kidney injury most likely d/t recent reduction in oral food/fluid intake following fall. Pt. given 1L fluid bolus in ED to be followed by 75 mL/HR. Monitor I&O. Avoid nephrotoxins. (5) Dementia Current Visit: Yes Status: Chronic Assessment and plan: Hx of chronic dementia. Continue pts. Namenda. Qualifiers: Dementia type: unspecified type Dementia behavioral disturbance: without behavioral disturbance Qualified Code(s): F03.90 - Unspecified dementia without behavioral disturbance (6) Diabetes Current Visit: Yes Status: Chronic Assessment and plan: Hx of chronic diabetes. Hold patient's home medications and add low-dose correction insulin sliding scale with hypoglycemic protocol. BG checks before meals at bedtime. A1c in a.m. labs. Qualifiers: Diabetes mellitus type: type 2 Diabetes mellitus fdc insulin use: unspecified fdc insulin use status Diabetes mellitus complication status : with unspecified complications Qualified Code(s): E11.8 - Type 2 diabetes mellitus with unspecified complications (7) HLD (hyperlipidemia) Current Visit: Yes Status: Chronic Assessment and plan: Hx of chronic HLD. Lipid panel in a.m. labs. Continue pts. Lipitor. Qualifiers: Hyperlipidemia type: pure hypercholesterolemia Qualified Code(s): E78.00 - Pure hypercholesterolemia, unspecified; E78.0 - Pure hypercholesterolemia (8) HTN (hypertension) Current Visit: Yes Status: Chronic Assessment and plan: Hx of chronic HTN. Monitor pt. and VS. Continue pts. Metoprolol and valsartan. Qualifiers: Hypertension type: essential hypertension Qualified Code(s): I10 - Essential (primary) hypertension (9) Anemia Current Visit: Yes Status: Chronic Assessment and plan: Hx of chronic anemia. Hgb 11.4 and Hct 35.0 on admission which is slightly lower than pts. recent baseline but higher than pts. older hx baseline. Pt. denies unusual bleeding. Monitor H/H in a.m. labs. Qualifiers: Anemia type: iron deficiency Iron deficiency anemia type: other iron deficiency Qualified Code(s): D50.8 - Other iron deficiency anemias (10) DVT prophylaxis Current Visit: Yes Status: Acute Assessment and plan: Continue patient's Coumadin w/Pharmacy dosing for DVT prophylaxis. Monitor patient for signs of bleeding. - Time Spent With Patient Total time spent is greater than 50% in coordination of care (as documented) at patient's floor/unit and/or counseling patient: Greater than 35 minutes <Lisa Iniguez - Last Filed: 08/28/17 10:52> Date of Encounter: 08/27/17 All Systems PM: A 10-system review of systems was performed and is negative for pertinent findings except as documented above in the HPI. - Constitutional Vitals: Temp Pulse Resp BP Pulse Ox 97.5 F L 60 17 182/74 93 08/28/17 06:49 08/28/17 06:49 08/28/17 06:49 08/28/17 10:21 08/28/17 06:49 Internal Med - H&P Results - Labs CBC & Chem 7: 08/28/17 03:37 08/28/17 03:37 Labs: Short CBC 08/28/17 Range/Units 03:37 WBC 10.1 (4.3-11.1) K/mcL Hgb 10.5 L (11.5-15.4) g/dL Hct 32.5 L (35.3-44.9) % Plt Count 233 (140-400) K/mcL Neutrophils # 7.8 (1.6-8.9) K/mcL BMP 08/28/17 03:37 Sodium 141 Potassium 3.6 Chloride 103 Carbon Dioxide 32 H BUN 24 H Creatinine 1.12 Glucose 158 H Calcium 9.3 Liver Function 08/28/17 Range/Units 03:37 Total Bilirubin 0.7 (0.3-1.0) mg/dL AST 14 (13-39) Units/L ALT 11 (7-52) Units/L Alkaline Phosphatase 87 (34-104) Units/L Albumin 3.3 L (3.5-5.7) g/dL - Attending Attestation I personally and independently interviewed and examined the patient with PROGRAM PARAPROFESSIONAL, and I reviewed the patient's medical records. I am in agreement with the assessment and proposed treatment plan. I discussed my findings and recommendation with the patient and answer all questions. The patient's medical records were edited to accurately reflect this encounter. - Assessment and plan (1) Anemia Current Visit: Yes Status: Chronic Qualifiers: Anemia type: iron deficiency Iron deficiency anemia type: other iron deficiency Qualified Code(s): D50.8 - Other iron deficiency anemias (2) Acute kidney injury Current Visit: Yes Status: Acute (3) Fall Current Visit: Yes Status: Acute Qualifiers: Encounter type: initial encounter Qualified Code(s): W19.XXXA - Unspecified fall, initial encounter (4) Lumbar vertebral fracture Current Visit: Yes Status: Acute Qualifiers: Encounter type: initial encounter Lumbar vertebra fracture level: L5 Fracture morphology: unspecified fracture morphology (5) Leukocytosis Current Visit: Yes Status: Acute Qualifiers: Leukocytosis type: unspecified Qualified Code(s): D72.829 - Elevated white blood cell count, unspecified (6) DVT prophylaxis Current Visit: Yes Status: Acute (7) Dementia Current Visit: Yes Status: Chronic Qualifiers: Dementia type: unspecified type Dementia behavioral disturbance: without behavioral disturbance Qualified Code(s): F03.90 - Unspecified dementia without behavioral disturbance (8) Diabetes Current Visit: Yes Status: Chronic Qualifiers: Diabetes mellitus type: type 2 Diabetes mellitus oysterman insulin use: unspecified oysterman insulin use status Diabetes mellitus complication status : with unspecified complications Qualified Code(s): E11.8 - Type 2 diabetes mellitus with unspecified complications (9) HLD (hyperlipidemia) Current Visit: Yes Status: Chronic Qualifiers: Hyperlipidemia type: pure hypercholesterolemia Qualified Code(s): E78.00 - Pure hypercholesterolemia, unspecified; E78.0 - Pure hypercholesterolemia (10) HTN (hypertension) Current Visit: Yes Status: Chronic Qualifiers: Hypertension type: essential hypertension Qualified Code(s): I10 - Essential (primary) hypertension - Time Spent With Patient Total time spent is greater than 50% in coordination of care (as documented) at patient's floor/unit and/or counseling patient:
[2017-08-28] MEDS ORDERED: *HR* Dextrose 50 % in Water (Syg) 50 ML SYRINGE IVP PRN (01:00)
[2017-08-28] MEDS ORDERED: D5% in Water 1,000 ML IVC PRN (01:00)
[2017-08-28] MEDS ORDERED: Dextrose Gel 15 GM/37.5 ML TUBE PO PRN ×2 (01:00)
[2017-08-28] MEDS: 0.9 % Sodium Chloride 1,000 ML IVC SCH (04:37)
[2017-08-28] MEDS: *HR* HYDROcodone/Acet 5/325 mg TABLET PO PRN ×3 (04:43→20:44)
[2017-08-28 05:02] LABS: Basophils % 0.4 %; Eosinophils # 0.2 K/mcL (0.0-0.6); Eosinophils % 2.4 %; Hematocrit 32.5 % (35.3-44.9); Hemoglobin 10.5 g/dL (11.5-15.4); Immature Granulocytes % 0.5 % (0-4); Lymphocytes # 1.3 K/mcL (0.6-4.6); Lymphocytes % 12.6 %; Mean Corpuscular HGB Conc 32.3 g/dL (31.6-35.5); Mean Corpuscular Hemoglobin 30.8 pg (28.0-33.3); Mean Corpuscular Volume 95.3 fL (83.0-100.0); Mean Platelet Volume 10.6 fL (9.4-12.4); Monocytes # 0.7 K/mcL (0.0-1.3); Monocytes % 7.1 %; Neutrophils # 7.8 K/mcL (1.6-8.9); Platelet Count 233 K/mcL (140-400); Red Blood Count 3.41 M/mcL (3.82-4.97); Red Cell Distribution Width 14.8 % (11.5-14.5)
[2017-08-28 05:07] LABS: INR 2.4; Prothrombin Time 26.5 Seconds (9.4-12.1)
[2017-08-28 05:29] LABS: Albumin 3.3 g/dL (3.5-5.7); Albumin/Globulin Ratio 1.2 (1.1-2.2); Bilirubin,Total 0.7 mg/dL (0.3-1.0); Calcium 9.3 mg/dL (8.6-10.3); Chol/HDL Ratio 3.4 (0-4.9); Globulin 2.7 g/dL (2.4-3.5); Magnesium 1.9 mg/dL (1.6-2.6); Potassium 3.6 mEq/L (3.5-5.1)
[2017-08-28 08:49] LABS: Estimated Average Glucose 134 mg/dl; Hemoglobin A1C 6.3 %
[2017-08-28] MEDS: cloNIDine HCl 0.1 MG TABLET PO SCH ×3 (09:42→20:34)
[2017-08-28] MEDS: Acetaminophen 325 MG TABLET PO PRN (09:42)
[2017-08-28] MEDS: Valsartan 160 MG TABLET PO SCH (09:42)
[2017-08-28] MEDS: Lactobacillus 1 EACH CAP.SPRINK PO SCH ×2 (09:42→20:34)
[2017-08-28] MEDS: Loratadine 10 MG TABLET PO SCH (09:43)
[2017-08-28] MEDS: Furosemide 40 MG TABLET PO SCH (09:43)
[2017-08-28] MEDS: Aspirin Enteric Coated 81 MG Tablet PO SCH (09:43)
[2017-08-28] MEDS: Metoprolol 100 MG TABLET PO SCH ×2 (09:43→20:34)
[2017-08-28] MEDS: Insulin LISPRO 300 UNITS/3 ML VIAL SQ SCH ×4 (09:44→20:44)
[2017-08-28] MEDS: GLUCOSAMINE SULFATE DIPOT CHLR 1000 MG PO SCH (09:57)
--- NOTE | 2017-08-28 13:30 | Internal Med Progress Note ---
Date of Encounter: 08/28/17 Time of Encounter: 13:29 - Assessment and plan (1) Fall Current Visit: Yes Status: Chronic Assessment and plan: Patient has hx of falls, she lives alone, cartoid dopplers:Impressions The bilateral carotid arteries have minimal plaque throughout echo Impressions: LVEF 60-65%. Normal LV chamber size and function. Mild concentric left ventricular hypertrophy. Moderate left ventricular diastolic dysfunction. Normal right ventricular structure and function. Mild tricuspid regurgitation. Mild pulmonary hypertension. A device lead was visualized in the right atrium and right ventricle. Pt/OT consult fall precations Qualifiers: Encounter type: initial encounter Qualified Code(s): W19.XXXA - Unspecified fall, initial encounter (2) Anemia Current Visit: Yes Status: Chronic Assessment and plan: Hx of chronic anemia. stable at his time will cont to monitor No bleeding noted at this time Qualifiers: Anemia type: iron deficiency Iron deficiency anemia type: other iron deficiency Qualified Code(s): D50.8 - Other iron deficiency anemias (3) Acute kidney injury Current Visit: Yes Status: Acute Assessment and plan: This has resolved- will cont to monitor avoid nephrotoxins (4) Lumbar vertebral fracture Current Visit: Yes Status: Acute Assessment and plan: Acute lumbar fx. Spine surgeon was contacted today in ED. He describes this is a non-emergent intervention this point. CT of the lumbar spine today shows four lumbar type vertebral bodies with suspected fracture involving the superior and posterior aspect at the L1 level. Patient is neurologically intact. Will monitor pt. for pain and administer pain medications as warranted. PT/OT eval Qualifiers: Encounter type: initial encounter Lumbar vertebra fracture level: L5 Fracture type: closed Fracture morphology: unspecified fracture morphology Qualified Code(s): S32.059A - Unspecified fracture of fifth lumbar vertebra, initial encounter for closed fracture (5) Leukocytosis Current Visit: Yes Status: Acute Assessment and plan: Most likely reactive- back to baseline Qualifiers: Leukocytosis type: unspecified Qualified Code(s): D72.829 - Elevated white blood cell count, unspecified (6) DVT prophylaxis Current Visit: Yes Status: Acute Assessment and plan: Continue patient's Coumadin w/Pharmacy dosing for DVT prophylaxis. Monitor patient for signs of bleeding. (7) Dementia Current Visit: Yes Status: Chronic Assessment and plan: Hx of chronic dementia. Continue pts. Namenda. Qualifiers: Dementia type: unspecified type Dementia behavioral disturbance: without behavioral disturbance Qualified Code(s): F03.90 - Unspecified dementia without behavioral disturbance (8) Diabetes Current Visit: Yes Status: Chronic Assessment and plan: Hold oral medications- cont low dose SSI accucheck Ac/HS A1c-6.3 Qualifiers: Diabetes mellitus type: type 2 Diabetes mellitus termite helper insulin use: unspecified termite helper insulin use status Diabetes mellitus complication status : with unspecified complications Qualified Code(s): E11.8 - Type 2 diabetes mellitus with unspecified complications (9) HLD (hyperlipidemia) Current Visit: Yes Status: Chronic Assessment and plan: cont lipitor Qualifiers: Hyperlipidemia type: pure hypercholesterolemia Qualified Code(s): E78.00 - Pure hypercholesterolemia, unspecified; E78.0 - Pure hypercholesterolemia (10) HTN (hypertension) Current Visit: Yes Status: Chronic Assessment and plan: Hx of chronic HTN. Monitor pt. and VS. Continue Metoprolol and valsartan. Qualifiers: Hypertension type: essential hypertension Qualified Code(s): I10 - Essential (primary) hypertension - Time Spent With Patient Total time spent is greater than 50% in coordination of care (as documented) at patient's floor/unit and/or counseling patient: - Subjective Interval history: This patient is new to me, I reviewed medical records. I examined the patient at bedside. Denies any pain or discomfort at this time - Constitutional Vitals: Temp Pulse Resp BP Pulse Ox 98.1 F 60 17 163/73 95 08/28/17 12:15 08/28/17 12:15 08/28/17 12:15 08/28/17 12:15 08/28/17 12:15 General appearance: Present: cooperative, A&O X 3, pleasant, no acute distress, answers questions appropriately - Head Head exam: Present: atraumatic, normocephalic - Eye Eye exam: Present: PERRL, conjuntiva pink, sclera anicteric Pupils: Present: PERRL - Neck Neck exam general surgery: Present: supple, trachea midline. Absent: lymphadenopathy - Respiratory Respiratory exam: Present: CTAB. Absent: accessory muscle use, rales, rhonchi, wheezes - Cardiovascular Cardiovascular exam: Present: RRR, +S1, +S2. Absent: diastolic murmur, gallop, rubs, systolic murmur - GI/Abdominal GI/Abdominal exam: Present: normal bowel sounds, soft, no peritoneal signs. Absent: distended, tenderness - Extremities Exam Extremities exam: Present: warm, radial pulses palpable and symmetrical. Absent : calf tenderness, cyanotic, pedal edema - Neurological Exam Neurological exam: Present: CN II-XII intact, oriented X3, no focal deficits. Absent: pronater drift, facial droop, speech deficit - Skin Skin exam: Present: dry, intact Internal Medicine: Result - Labs CBC & Chem 7: 08/28/17 03:37 08/28/17 03:37 Labs: Short CBC 08/28/17 Range/Units 03:37 WBC 10.1 (4.3-11.1) K/mcL Hgb 10.5 L (11.5-15.4) g/dL Hct 32.5 L (35.3-44.9) % Plt Count 233 (140-400) K/mcL Neutrophils # 7.8 (1.6-8.9) K/mcL BMP 08/28/17 03:37 Sodium 141 Potassium 3.6 Chloride 103 Carbon Dioxide 32 H BUN 24 H Creatinine 1.12 Glucose 158 H Calcium 9.3 Liver Function 08/28/17 Range/Units 03:37 Total Bilirubin 0.7 (0.3-1.0) mg/dL AST 14 (13-39) Units/L ALT 11 (7-52) Units/L Alkaline Phosphatase 87 (34-104) Units/L Albumin 3.3 L (3.5-5.7) g/dL - ABG Interpretation ABG results: PT/INR, D-dimer PT 26.5 Seconds (9.4-12.1) H 08/28/17 03:37 - Impressions Impressions Echocardiogram 08/28/17 01:11 Impressions: LVEF 60-65%. Normal LV chamber size and function. Mild concentric left ventricular hypertrophy. Moderate left ventricular diastolic dysfunction. Normal right ventricular structure and function. Mild tricuspid regurgitation. Mild pulmonary hypertension. A device lead was visualized in the right atrium and right ventricle. Left Ventricular Wall Motion: Rest Echo Findings All wall segments showed normal motion. Findings: Study Quality * Technically adequate exam. ECG Findings * Normal sinus rhythm. Left Ventricle * LVEF 60-65%. * Normal LV chamber size and function. * Moderate concentric left ventricular hypertrophy. * Mild left ventricular diastolic dysfunction. Right Ventricle * Normal right ventricular structure and function. Left Atrium * Mild to moderately dilated left atrium. Right Atrium * Mildly dilated right atrium. Aortic Valve * Trileaflet aortic valve. * Normal aortic valve function. * Mildly sclerotic aortic valve leaflets. * No aortic regurgitation. Mitral Valve * Mild mitral annular calcification * Mildly thickened mitral valve leaflets. * Trace mitral regurgitation. * No mitral stenosis. Tricuspid Valve * Normal tricuspid valve structure. * Mild tricuspid regurgitation. * Mild pulmonary hypertension. Pulmonic Valve * Normal pulmonic valve structure and function. * No pulmonic regurgitation. Aorta * Normally sized aortic root. Pericardium * The pericardium appears normal. IVC * Normal IVC dimensions and inspiratory collapse. Pulmonary Artery * Normal visualized portions of the main pulmonary artery. Device lead * A device lead was visualized in the right atrium and right ventricle. Consult Discharge Plan - Plan Referrals: Elmer Davey MD [Primary Care Provider] - 10/02/17 1:00 pm
[2017-08-28] MEDS ORDERED: Warfarin perPT PO PRN (18:00)
[2017-08-28] MEDS ORDERED: *HR* Warfarin 2.5 MG TABLET PO ONE (18:00)
[2017-08-28] MEDS ORDERED: Diltiazem CD (24hr) 180 MG CAPSULE PO SCH (18:00)
[2017-08-28] MEDS: Famotidine 20 MG TABLET PO SCH (19:51)
--- NOTE | 2017-08-28 20:20 | Electrocardiograph Report ---
[address] [address] Test Date: 2017-08-27 Pat Name: Rachel Davison Department: 102 Room: 3B24 Gender: F Nursing Agency Manager: Fariha : 1935 Requested By: Ruben Bro Order Number: [id number] Reading MD: Rivas De La Cruz Measurements Intervals [place] Rate: 66 P: 125 MS: 203 QRS: -9 QRSD: 99 T: 92 QT: 394 QTc: 408 Interpretive Statements ELECTRONIC ATRIAL PACEMAKER LEFT VENTRICULAR HYPERTROPHY AND ST-T CHANGE Electronically Signed On 08-28-2017 20:19:26 EDT by Rivas De La Cruz
--- NOTE | 2017-08-28 20:23 | Electrocardiograph Report ---
[address] [address] Test Date: 2017-08-27 Pat Name: Rachel Davison Department: 102 Room: 3B24 Gender: F Senior Business Process Analyst: Fariha : 1935 Requested By: Ruben Bro Order Number: [id number] Reading MD: Rivas De La Cruz Measurements Intervals [place] Rate: 60 P: 146 IN: 198 QRS: -15 QRSD: 102 T: 89 QT: 330 QTc: 330 Interpretive Statements ELECTRONIC ATRIAL PACEMAKER INCOMPLETE RIGHT BUNDLE BRANCH BLOCK VOLTAGE CRITERIA FOR LVH Electronically Signed On 08-28-2017 20:21:56 EDT by Rivas De La Cruz
[2017-08-29] MEDS: 0.9 % Sodium Chloride 1,000 ML IVC SCH ×3 (03:00→22:42)
[2017-08-29 05:13] LABS: Basophils # 0.1 K/mcL (0.0-0.2); Basophils % 0.5 %; Eosinophils # 0.2 K/mcL (0.0-0.6); Eosinophils % 2.2 %; Hematocrit 34.1 % (35.3-44.9); Hemoglobin 11.3 g/dL (11.5-15.4); Immature Granulocytes % 0.6 % (0-4); Lymphocytes # 2.3 K/mcL (0.6-4.6); Lymphocytes % 21.8 %; Mean Corpuscular HGB Conc 33.1 g/dL (31.6-35.5); Mean Corpuscular Hemoglobin 31.3 pg (28.0-33.3); Mean Corpuscular Volume 94.5 fL (83.0-100.0); Mean Platelet Volume 10.3 fL (9.4-12.4); Monocytes % 9.5 %; Platelet Count 255 K/mcL (140-400); Red Blood Count 3.61 M/mcL (3.82-4.97); Red Cell Distribution Width 14.6 % (11.5-14.5); Segmented Neutrophils % 65.4 %
[2017-08-29 05:24] LABS: Albumin 3.2 g/dL (3.5-5.7); Albumin/Globulin Ratio 1.1 (1.1-2.2); Bilirubin,Total 0.5 mg/dL (0.3-1.0); Calcium 9.4 mg/dL (8.6-10.3); Globulin 2.8 g/dL (2.4-3.5); Potassium 3.5 mEq/L (3.5-5.1)
[2017-08-29 05:27] LABS: INR 2.2; Prothrombin Time 23.7 Seconds (9.4-12.1)
[2017-08-29] MEDS: Valsartan 160 MG TABLET PO SCH (09:17)
[2017-08-29] MEDS: Furosemide 40 MG TABLET PO SCH (09:18)
[2017-08-29] MEDS: Aspirin Enteric Coated 81 MG Tablet PO SCH (09:18)
[2017-08-29] MEDS: Insulin LISPRO 300 UNITS/3 ML VIAL SQ SCH ×4 (09:18→20:29)
[2017-08-29] MEDS: Lactobacillus 1 EACH CAP.SPRINK PO SCH ×2 (09:18→20:29)
[2017-08-29] MEDS: Loratadine 10 MG TABLET PO SCH (09:18)
[2017-08-29] MEDS: Metoprolol 100 MG TABLET PO SCH ×2 (09:18→20:29)
[2017-08-29] MEDS: cloNIDine HCl 0.1 MG TABLET PO SCH ×3 (09:18→20:29)
--- NOTE | 2017-08-29 13:27 | Cardiology Consult Note ---
Date of Encounter: 08/29/17 Time of Encounter: 12:30 Assessment and Plan (1) Syncope Current Visit: No Status: Acute Per cardiology: -Admitted after syncopal event 2 weeks ago. -Patient reports chronic dizziness. -States she "blacked out." -TTE iwth LVEf 60-65%, mild concentric LVH, moderate diastolic dysfunction, mild TR, mild PH, no segmental wall motion abnormalities. -Has permanent pacemaker, device checked. Awaiting full report. -Will add antivert for dizziness. Qualifiers: Syncope type: unspecified Qualified Code(s): R55 - Syncope and collapse (2) Atrial fibrillation Current Visit: No Status: Chronic Per cardiology: -Known history of PAF. -Noted to be a.fib, RVR last night. -Average HR previous 12 hours noted to be 82. -On cardizem 180mg, lopressor 100mg BID. ON coumadin for anticoagulation. -TTE as above. -Previous [facility] 2011 with minimal CAD. -Stress 2015 negative for ischemia or infarct. -Will increase cardizem to 240mg daily. -WIll contiue to monitor. Qualifiers: Atrial fibrillation type: paroxysmal Qualified Code(s): I48.0 - Paroxysmal atrial fibrillation Discussion w patient/family: The assessment and plan as outlined above was discussed with the patient and/or family members who expressed understanding and agreement. All questions were answered. Thank you for involving us in the care of your patient. Please call with any questions. Discussed and reviewed with . History of Present Illness Consult date: 08/29/17 Requesting physician: Julieta David Consult reason: a.fib RVR Chief complaint: fall History of present illness: Ms. Davison is a 82 year old female with a relevant past medial history of Paroxysmal a.fib on coumadin, sick sinus syndrome s/p permanent pacemaker, DM, HTN, CKD, HLD, depression, mild non-obstructive CAD, dizziness, anemia, gout who presented to [facility] with complaints of fall 2 weeks ago. Per patient and daughter, patient has had frequent falls. Patient reports she "blacked out." Patient reports dizziness, states she is chronically dizzy. Patient denies chest pain. Patient denies shortness of breath. Patient was noted to have a.fib RVR last night, patient denies symptoms. Denies palpitations or fluttering. Past Med Surg Social Fam HX - Past Medical History Attestation: Yes The following information was validated with the patient. Source: patient, old records reviewed Medical history: atrial fibrillation, dementia, diabetes, hyperlipidemia, hypertension, renal disease Psychiatric history: no psych history - Past Surgical History Surgical History: appendectomy, cataract, hysterectomy, knee replacement, orthopedic, other, pacemaker - Social History Smoking Status: Never smoker Smokeless Tobacco Status: No Alcohol use: none Drug use: none - Family History Mother Race: Family Member Ethnicity: Non- Living Status: Age at : 72 Cause of : Metastatic breast cancer Hx Family Cardiac Disorders: No Hx Family Respiratory Disorders: No Hx Family Cancer: Yes (Breast) Hx Family GI Disorders: No Hx Family Endocrine Disorder: No Hx Family Neuromuscular Disorders: No Hx Family Neurologic Disorders: No Hx Family HEENT Disorders: Yes (Blind, Glaucoma) Hx Family Autoimmune Disorders: No Father Race: Family Member Ethnicity: Non- Living Status: Age at : 54 Cause of : Sucide Hx Family Cardiac Disorders: No Hx Family Respiratory Disorders: No Hx Family Cancer: Yes Hx Family GI Disorders: Yes (Cirrhosis) Hx Family Endocrine Disorder: No Hx Family Neuromuscular Disorders: No Hx Family Neurologic Disorders: No Hx Family HEENT Disorders: No Hx Family Autoimmune Disorders: No Hx Family Psychosocial Disorders: Yes (Suicide) Brother Race: Family Member Ethnicity: Non- Living Status: Age at : 73 Cause of : Accident (Fell down stairs) Sister Race: Family Member Ethnicity: Non- Living Status: Age at : 62 Cause of : Uterine cancer Hx Family Cardiac Disorders: Yes (MA, CVA) Hx Family Cancer: Yes (Uterine) Medications and Allergies Citalopram Hydrobromide [Celexa] 20 mg PO QAM 03/18/15 [History] Glucosamine Sulfate Dipot Chlr [Glucosamine Relief] 1,000 mg PO QAM 03/18/15 [ History] Nitroglycerin [Nitrostat] 0.4 mg SL Q5M PRN 03/18/15 [History] Multivitamin/Iron/Folic Acid [Centrum Complete Multivit Tab] 1 each PO QAM 05/04 [History] Atorvastatin [Lipitor] 40 mg PO HS 03/08/16 [History] Calcium Polycarbophil [Fibercon] 625 mg PO BID 03/08/16 [History] L. Acidophilus/Pectin, [place] [Acidophilus Probiotic Capsule] 1 each PO BID 04/23 [History] Diltiazem HCl [Diltiazem 24Hr Cd] 180 mg PO QPM 11/06/16 [History] Famotidine [Pepcid] 40 mg PO QPM 11/06/16 [History] Ferrous Sulfate 324 mg PO DAILY #30 tablet. 11/12/16 [Rx] Memantine HCl [Namenda Xr] 28 mg PO DAILY 11/23/16 [History] Docusate [Colace] 200 mg PO TID PRN #0 11/28/16 [Rx] Polyethylene Glycol 3350 [MiraLAX] 17 gm PO DAILY PRN #30 11/28/16 [Rx] Potassium Chloride 10 meq PO BIDWM #60 11/28/16 [Rx] Valsartan [Diovan] 320 mg PO QAM 30 Days tab 11/28/16 [Rx] Allopurinol [Zyloprim 100 MG] 100 mg PO DAILY 08/27/17 [History] Aspirin Enteric Coated [Aspirin EC] 81 mg PO DAILY 08/27/17 [History] Dexlansoprazole [Dexilant] 60 mg PO DAILY 08/27/17 [History] Ergocalciferol (VITAMIN D2) [Vitamin D2] 50,000 unit PO WE 08/27/17 [History] Exenatide Microspheres [Bydureon Pen] 2 mg SQ Q7D 08/27/17 [History] Furosemide [Lasix] 40 mg PO DAILY 08/27/17 [History] Loratadine [Allergy Relief] 10 mg PO DAILY 08/27/17 [History] Metoprolol Tartrate 100 mg PO BID 08/27/17 [History] Raloxifene [Evista] 60 mg PO DAILY 08/27/17 [History] Sitagliptin Phosphate [Januvia] 50 mg PO DAILY 08/27/17 [History] cloNIDine HCl [Clonidine HCl] 0.2 mg PO TID 08/27/17 [History] Warfarin [Coumadin] 2.5 mg PO MOWEFR 08/28/17 [History] Warfarin [Coumadin] 5 mg PO SUTUTHSA 08/28/17 [History] 3 Allergy/AdvReac Type Severity Reaction Status Date / Time No Known Drug Allergies Allergy See Verified 11/23/16 10:04 Comments All Systems Review: The remainder of the systems were reviewed and are negative - Constitutional Constitutional: frequent falls - Cardiovascular Cardiovascular: as per HPI - Neurological Neurological: dizziness, syncope Physical Examination Vital Signs, Last 4 Hours Temp Pulse Resp BP Pulse Ox 08/29/17 11:25 97.9 F 60 15 121/76 94 General: Conversant, No Apparent Distress HEENT: Atraumatic, Normocephaly, Mucus Membranes Moist Neck: No JVD, Normal carotid pulses Cardiac: Reg Rate and Rhythm, Normal S1 and S2, No Murmur Lungs: Normal Breath Sounds, No Wheeze, Rales, Rhonchi Neuro: Alert and responsive, No focal deficits noted Abdomen: Soft, Non-Tender Skin: No rashes noted on visualized skin Musculoskeletal: No Chest Wall Tenderness Extremities: No Clubbing, No Cyanosis, No Edema, Normal Pulses Results 08/29/17 04:13 08/29/17 04:13 Lab Results Impressions Abdomen/Pelvis CT 08/27/17 12:04 IMPRESSION: 1. 4 lumbar type vertebral bodies are identified with suspected fracture involving the superior and posterior aspect at the L1 level, as described. Please correlate for point tenderness in this area. MRI could confirm marrow edema that would signify an acute injury. This appearance is new compared to prior of 11/06/2016. 2. Grade 1 anterolisthesis L4 on S1. 3. No acute pathology in the abdomen or pelvis. Incidental findings of cholelithiasis, diverticulosis and a moderate hiatal hernia. 4. Subcutaneous reticular change identified in the soft tissues overlying the left buttock. Possible mild edema involving the gluteus musculature on the left side. D/ / 08/27/2017 15:16:49 Ian Jimenez / tran Interpreting Provider: Ian Jimenez Lumbar Spine CT 08/27/17 12:04 IMPRESSION: 1. 4 lumbar type vertebral bodies are identified with suspected fracture involving the superior and posterior aspect at the L1 level, as described. Please correlate for point tenderness in this area. MRI could confirm marrow edema that would signify an acute injury. This appearance is new compared to prior of 11/06/2016. 2. Grade 1 anterolisthesis L4 on S1. 3. No acute pathology in the abdomen or pelvis. Incidental findings of cholelithiasis, diverticulosis and a moderate hiatal hernia. 4. Subcutaneous reticular change identified in the soft tissues overlying the left buttock. Possible mild edema involving the gluteus musculature on the left side. D/ / 08/27/2017 15:16:49 Ian Jimenez / tran Interpreting Provider: Ian Jimenez Thoracic Spine CT 08/27/17 12:04 IMPRESSION: No acute traumatic injury of the chest. No evidence of acute traumatic fracture of the thoracic spine. Please see separate abdominal/pelvic CT and lumbar spine CT reports for discussion of those findings. D/ / 08/27/2017 15:15:21 Riaz Fan MD / praful Interpreting Provider: Riaz Fan MD Chest CT 08/27/17 12:05 IMPRESSION: No acute traumatic injury of the chest. No evidence of acute traumatic fracture of the thoracic spine. Please see separate abdominal/pelvic CT and lumbar spine CT reports for discussion of those findings. D/ / 08/27/2017 15:15:21 Riaz Fan MD / praful Interpreting Provider: Riaz Fan MD Active Medications Acetaminophen (Tylenol) 650 mg PO Q6HR PRN PRN Reason: Mild Pain/Fever Stop: 02/26/18 19:20 Last Admin: 08/28/17 09:42 Dose: 650 mg Hydrocodone Bitart/Acetaminophen ([place] 5-325 Mg) 1 tab PO Q6HR PRN PRN Reason: Moderate Pain Stop: 02/26/18 19:20 Last Admin: 08/28/17 20:44 Dose: 1 tab Allopurinol (Zyloprim) 100 mg PO DAILY STEVE Stop: 02/27/18 09:01 Last Admin: 08/29/17 09:17 Dose: 100 mg Aspirin (Aspirin Ec) 81 mg PO DAILY STEVE Stop: 02/27/18 09:01 Last Admin: 08/29/17 09:18 Dose: 81 mg Atorvastatin Calcium (Lipitor) 40 mg PO HS STEVE Stop: 02/26/18 21:01 Last Admin: 08/28/17 20:35 Dose: 40 mg Calcium Polycarbophil (Fibercon) 625 mg PO BID STEVE Stop: 02/26/18 21:01 Last Admin: 08/29/17 09:17 Dose: 625 mg Citalopram Hydrobromide (Celexa) 20 mg PO QAM STEVE Stop: 02/27/18 09:01 Last Admin: 08/29/17 09:17 Dose: 20 mg Clonidine HCl (Clonidine Hcl) 0.2 mg PO TID STEVE Stop: 02/26/18 21:01 Last Admin: 08/29/17 09:18 Dose: 0.2 mg Dextrose/Water (Dextrose 50% (Syg)) 25 ml IVP AD PRN PRN Reason: Hypoglycemia Stop: 02/27/18 01:01 Diltiazem HCl (Cardizem Cd) 180 mg PO QPM STEVE Stop: 02/27/18 18:01 Last Admin: 08/28/17 19:51 Dose: 180 mg Docusate Sodium (Colace) 200 mg PO TID PRN; Protocol PRN Reason: Constipation Stop: 02/26/18 19:30 Ergocalciferol (Drisdol (50,000 Unit)) 50,000 unit PO WE STEVE Stop: 02/27/18 09:01 Last Admin: 08/28/17 09:55 Dose: Not Given Famotidine (Pepcid) 10 mg PO QPM STEVE Stop: 02/27/18 18:01 Last Admin: 08/28/17 19:51 Dose: 10 mg Ferrous Sulfate (Ferrous Sulfate) 325 mg PO DAILY STEVE Stop: 02/27/18 09:01 Last Admin: 08/29/17 09:18 Dose: 325 mg Furosemide (Lasix) 40 mg PO DAILY STEVE Stop: 02/27/18 09:01 Last Admin: 08/29/17 09:18 Dose: 40 mg Glucagon (Glucagen) 1 mg IM ONCE PRN PRN Reason: Hypoglycemia Stop: 02/27/18 01:01 Glucose (Gluctose) 15 gm PO ONCE PRN PRN Reason: Hypoglycemia Stop: 02/27/18 01:01 Glucose (Gluctose) 30 gm PO ONCE PRN PRN Reason: Hypoglycemia Stop: 02/27/18 01:01 Dextrose (Dextrose 5%) 1,000 mls @ 100 mls/hr IVC .Q10H PRN PRN Reason: HYPOGLYCEMIA Stop: 02/27/18 01:01 Sodium Chloride (0.9 % Sodium Chloride) 1,000 mls @ 75 mls/hr IVC .[id number] [facility] Stop: 02/27/18 01:16 Last Admin: 08/29/17 03:00 Dose: 75 mls/hr Insulin Human Lispro (Humalog) 0 units SQ TIDAC [facility] PRN Reason: Protocol Stop: 02/27/18 07:31 Last Admin: 08/29/17 09:18 Dose: Not Given Insulin Human Lispro (Humalog) 0 units SQ HS [facility] PRN Reason: Protocol Stop: 02/27/18 21:01 Last Admin: 08/28/17 20:36 Dose: Not Given Lactobacillus Acidophilus/Rhamnosus (Culturelle) 1 each PO BID [facility] Stop: 02/26/18 21:01 Last Admin: 08/29/17 09:18 Dose: 1 each Lidocaine HCl (Lidoderm 5% Patch) 1 each TP DAILY [facility] Stop: 02/27/18 13:31 Last Admin: 08/29/17 09:22 Dose: 1 each Loratadine (Claritin) 10 mg PO DAILY [facility] PRN Reason: Protocol Stop: 02/27/18 09:01 Last Admin: 08/29/17 09:18 Dose: 10 mg Memantine (Namenda) 10 mg PO BID [facility] Stop: 02/27/18 09:01 Last Admin: 08/29/17 09:18 Dose: 10 mg Metoprolol Tartrate (Lopressor) 100 mg PO BID [facility] Stop: 02/26/18 21:01 Last Admin: 08/29/17 09:18 Dose: 100 mg Naloxone HCl (Narcan) 0.4 mg IVP Q2MIN PRN PRN Reason: SEE COMMENTS Stop: 02/26/18 19:20 Nitroglycerin (Nitroglycerin) 0.4 mg SL Q5M PRN PRN Reason: Chest Pain Stop: 02/26/18 19:30 Omeprazole (Prilosec) 40 mg PO 0630 [facility] Stop: 02/27/18 06:31 Last Admin: 08/29/17 05:05 Dose: 40 mg Pharmacy Profile Note (Patient Taking Own Medication) 1,000 each PO QAM [facility] Stop: 02/27/18 09:01 Last Admin: 08/28/17 09:57 Dose: Not Given Polyethylene Glycol (Miralax) 17 gm PO DAILY PRN PRN Reason: Constipation Stop: 02/26/18 19:30 Potassium Chloride (Potassium Chloride) 10 meq PO BIDWM [facility] Stop: 02/27/18 08:01 Last Admin: 08/29/17 09:18 Dose: 10 meq Raloxifene HCl (Evista) 60 mg PO DAILY [facility] Stop: 02/27/18 09:01 Last Admin: 08/29/17 09:17 Dose: 60 mg Valsartan (Diovan) 320 mg PO QAM [facility] Stop: 02/27/18 09:01 Last Admin: 08/29/17 09:17 Dose: 320 mg Warfarin Sodium (Coumadin Perpt) 1 each PO DAILY@1800 PRN PRN Reason: SEE COMMENTS Stop: 02/27/18 18:01 Warfarin Sodium (Coumadin) 5 mg PO 1800 ONE Stop: 08/29/17 18:01 Laboratory Tests 02/09/16 08/27/17 08/28/17 08:50 12:18 03:37 Hgb Potassium Creatinine Magnesium 1.9 Troponin I < 0.03 TSH 3.776 08/29/17 08/29/17 04:13 04:13 Hgb 11.3 L Potassium 3.5 Creatinine 1.07 Magnesium Troponin I TSH - Imaging and Cardiology Chest Xray: report reviewed Echo: report reviewed Cardiac cath: report reviewed - EKG Interpretation EKG results cardiology: personally reviewed (ECG with paced rhythm, HR 66.), other (Telemetry reviewed with average HR previous 12 hours noted to be 82, paced rhythm, intermittent a.fib noted. PVCs noted.) Consult Discharge Plan - Plan Referrals: Elmer Davey MD [Primary Care Provider] - 10/02/17 1:00 pm
[2017-08-29] MEDS: GLUCOSAMINE SULFATE DIPOT CHLR 1000 MG PO SCH (14:38)
[2017-08-29] MEDS: Diltiazem CD (24hr) 240 MG CAPSULE PO SCH (17:26)
[2017-08-29] MEDS: Famotidine 20 MG TABLET PO SCH (17:26)
[2017-08-29] MEDS ORDERED: *HR* Warfarin 5 MG TABLET PO ONE (18:00)
--- NOTE | 2017-08-29 21:24 | Internal Med Progress Note ---
Date of Encounter: 08/29/17 Time of Encounter: 11:00 - Assessment and plan (1) Fall Current Visit: Yes Status: Chronic Assessment and plan: Patient has hx of falls, she lives alone, cartoid dopplers:Impressions The bilateral carotid arteries have minimal plaque throughout echo Impressions: LVEF 60-65%. Normal LV chamber size and function. Mild concentric left ventricular hypertrophy. Moderate left ventricular diastolic dysfunction. Normal right ventricular structure and function. Mild tricuspid regurgitation. Mild pulmonary hypertension. A device lead was visualized in the right atrium and right ventricle. Pt/OT consult fall precations Antivert cardiology consult to interrogate pacemaker Qualifiers: Encounter type: initial encounter Qualified Code(s): W19.XXXA - Unspecified fall, initial encounter (2) Anemia Current Visit: Yes Status: Chronic Assessment and plan: Hx of chronic anemia. stable at his time will cont to monitor No bleeding noted at this time Qualifiers: Anemia type: iron deficiency Iron deficiency anemia type: other iron deficiency Qualified Code(s): D50.8 - Other iron deficiency anemias (3) Acute kidney injury Current Visit: Yes Status: Acute Assessment and plan: This has resolved- will cont to monitor avoid nephrotoxins (4) Lumbar vertebral fracture Current Visit: Yes Status: Acute Assessment and plan: Acute lumbar fx. Spine surgeon was contacted by ED. He describes this is a non- emergent intervention this point. CT of the lumbar spine today shows four lumbar type vertebral bodies with suspected fracture involving the superior and posterior aspect at the L1 level. Patient is neurologically intact. Will monitor pt. for pain and administer pain medications as warranted. PT/OT eval Qualifiers: Encounter type: initial encounter Lumbar vertebra fracture level: L5 Fracture type: closed Fracture morphology: unspecified fracture morphology Qualified Code(s): S32.059A - Unspecified fracture of fifth lumbar vertebra, initial encounter for closed fracture (5) Leukocytosis Current Visit: Yes Status: Resolved Assessment and plan: Most likely reactive- back to baseline Qualifiers: Leukocytosis type: unspecified Qualified Code(s): D72.829 - Elevated white blood cell count, unspecified (6) DVT prophylaxis Current Visit: Yes Status: Acute Assessment and plan: Continue patient's Coumadin w/Pharmacy dosing for DVT prophylaxis. Monitor patient for signs of bleeding. (7) Dementia Current Visit: Yes Status: Chronic Assessment and plan: Hx of chronic dementia. Continue pts. Namenda. Qualifiers: Dementia type: unspecified type Dementia behavioral disturbance: without behavioral disturbance Qualified Code(s): F03.90 - Unspecified dementia without behavioral disturbance (8) Diabetes Current Visit: Yes Status: Chronic Assessment and plan: Hold oral medications- cont low dose SSI accucheck Ac/HS A1c-6.3 Qualifiers: Diabetes mellitus type: type 2 Diabetes mellitus intermodal dispatcher insulin use: unspecified intermodal dispatcher insulin use status Diabetes mellitus complication status : with unspecified complications Qualified Code(s): E11.8 - Type 2 diabetes mellitus with unspecified complications (9) HLD (hyperlipidemia) Current Visit: Yes Status: Chronic Assessment and plan: cont lipitor Qualifiers: Hyperlipidemia type: pure hypercholesterolemia Qualified Code(s): E78.00 - Pure hypercholesterolemia, unspecified; E78.0 - Pure hypercholesterolemia (10) HTN (hypertension) Current Visit: Yes Status: Chronic Assessment and plan: Hx of chronic HTN. Monitor pt. and VS. Continue Metoprolol and valsartan. Qualifiers: Hypertension type: essential hypertension Qualified Code(s): I10 - Essential (primary) hypertension (11) Syncope Current Visit: No Status: Acute Assessment and plan: 1 Patient has hx of falls, she lives alone, cartoid dopplers:Impressions The bilateral carotid arteries have minimal plaque throughout echo Impressions: LVEF 60-65%. Normal LV chamber size and function. Mild concentric left ventricular hypertrophy. Moderate left ventricular diastolic dysfunction. Normal right ventricular structure and function. Mild tricuspid regurgitation. Mild pulmonary hypertension. A device lead was visualized in the right atrium and right ventricle Orhtostatic WNL cardiology consult interrogate pacemaker Qualifiers: Syncope type: unspecified Qualified Code(s): R55 - Syncope and collapse - Time Spent With Patient Total time spent is greater than 50% in coordination of care (as documented) at patient's floor/unit and/or counseling patient: - Subjective Interval history: Patient seen and examined at bedside, states that pain is controlled. Denies any palpitations SOB or CP - Constitutional Vitals: Temp Pulse Resp BP Pulse Ox 98.6 F 63 16 176/73 94 08/29/17 19:33 08/29/17 19:33 08/29/17 19:33 08/29/17 19:33 08/29/17 19:33 General appearance: Present: cooperative, A&O X 3, pleasant, no acute distress, answers questions appropriately - Head Head exam: Present: atraumatic, normocephalic - Eye Eye exam: Present: PERRL, conjuntiva pink, sclera anicteric Pupils: Present: PERRL - Neck Neck exam general surgery: Present: supple, trachea midline. Absent: lymphadenopathy - Respiratory Respiratory exam: Present: CTAB. Absent: accessory muscle use, rales, rhonchi, wheezes - Cardiovascular Cardiovascular exam: Present: RRR, +S1, +S2. Absent: diastolic murmur, gallop, rubs, systolic murmur - GI/Abdominal GI/Abdominal exam: Present: normal bowel sounds, soft, no peritoneal signs. Absent: distended, tenderness - Extremities Exam Extremities exam: Present: warm, radial pulses palpable and symmetrical. Absent : calf tenderness, cyanotic, pedal edema - Neurological Exam Neurological exam: Present: CN II-XII intact, oriented X3, no focal deficits. Absent: pronater drift, facial droop, speech deficit - Skin Skin exam: Present: dry, intact Internal Medicine: Result - Labs CBC & Chem 7: 08/29/17 04:13 08/29/17 04:13 Labs: Short CBC 08/29/17 Range/Units 04:13 WBC 10.6 (4.3-11.1) K/mcL Hgb 11.3 L (11.5-15.4) g/dL Hct 34.1 L (35.3-44.9) % Plt Count 255 (140-400) K/mcL Neutrophils # 7.0 (1.6-8.9) K/mcL BMP 08/29/17 04:13 Sodium 142 Potassium 3.5 Chloride 104 Carbon Dioxide 32 H BUN 20 Creatinine 1.07 Glucose 132 H Calcium 9.4 Liver Function 08/29/17 Range/Units 04:13 Total Bilirubin 0.5 (0.3-1.0) mg/dL AST 14 (13-39) Units/L ALT 11 (7-52) Units/L Alkaline Phosphatase 89 (34-104) Units/L Albumin 3.2 L (3.5-5.7) g/dL - ABG Interpretation ABG results: PT/INR, D-dimer PT 23.7 Seconds (9.4-12.1) H 08/29/17 04:13 Consult Discharge Plan - Plan Referrals: Elmer Davey MD [Primary Care Provider] - 10/02/17 1:00 pm
[2017-08-30] MEDS: Acetaminophen 325 MG TABLET PO PRN (03:57)
[2017-08-30 05:16] LABS: Basophils # 0.1 K/mcL (0.0-0.2); Basophils % 0.4 %; Eosinophils # 0.3 K/mcL (0.0-0.6); Eosinophils % 2.5 %; Hematocrit 34.1 % (35.3-44.9); Hemoglobin 10.7 g/dL (11.5-15.4); Immature Granulocytes % 0.5 % (0-4); Lymphocytes # 2.1 K/mcL (0.6-4.6); Lymphocytes % 17.8 %; Mean Corpuscular HGB Conc 31.4 g/dL (31.6-35.5); Mean Corpuscular Volume 95.5 fL (83.0-100.0); Mean Platelet Volume 10.1 fL (9.4-12.4); Monocytes % 8.6 %; Neutrophils # 8.2 K/mcL (1.6-8.9); Platelet Count 252 K/mcL (140-400); Red Blood Count 3.57 M/mcL (3.82-4.97); Red Cell Distribution Width 14.6 % (11.5-14.5); Segmented Neutrophils % 70.2 %
[2017-08-30 05:20] LABS: Prothrombin Time 21.8 Seconds (9.4-12.1)
[2017-08-30 05:35] LABS: Albumin 3.3 g/dL (3.5-5.7); Albumin/Globulin Ratio 1.2 (1.1-2.2); Bilirubin,Total 0.4 mg/dL (0.3-1.0); Calcium 9.3 mg/dL (8.6-10.3); Globulin 2.8 g/dL (2.4-3.5); Potassium 3.3 mEq/L (3.5-5.1); Total Protein 6.1 g/dL (6.4-8.9)
[2017-08-30] MEDS: Metoprolol 100 MG TABLET PO SCH (08:37)
[2017-08-30] MEDS: Lactobacillus 1 EACH CAP.SPRINK PO SCH (08:37)
[2017-08-30] MEDS: Valsartan 160 MG TABLET PO SCH (08:37)
[2017-08-30] MEDS: *HR* HYDROcodone/Acet 5/325 mg TABLET PO PRN (08:37)
[2017-08-30] MEDS: cloNIDine HCl 0.1 MG TABLET PO SCH ×2 (08:38→15:38)
[2017-08-30] MEDS: Loratadine 10 MG TABLET PO SCH (08:38)
[2017-08-30] MEDS: Furosemide 40 MG TABLET PO SCH (08:38)
[2017-08-30] MEDS: Aspirin Enteric Coated 81 MG Tablet PO SCH (08:38)
[2017-08-30] MEDS: 0.9 % Sodium Chloride 1,000 ML IVC SCH (08:39)
[2017-08-30] MEDS: Insulin LISPRO 300 UNITS/3 ML VIAL SQ SCH ×3 (08:39→17:22)
[2017-08-30] MEDS: GLUCOSAMINE SULFATE DIPOT CHLR 1000 MG PO SCH (08:40)
--- NOTE | 2017-08-30 12:25 | Cardiology Progress Note ---
Date of Encounter: 08/30/17 Time of Encounter: 10:30 Assessment and Plan (1) Syncope Current Visit: No Status: Acute Per cardiology: -Admitted after syncopal event 2 weeks ago. -Patient reports chronic dizziness. -States she "blacked out." -TTE with LVEf 60-65%, mild concentric LVH, moderate diastolic dysfunction, mild TR, mild PH, no segmental wall motion abnormalities. -Device check reviewed with Lorraine Lazaro cardiology device rep, with no significant events noted 2 weeks ago. Patient has had intermittent a.fib, known. . -Started antivert for dizziness. -Cardiology will sign off and will follow in [facility] setting. FOllow up set. Qualifiers: Syncope type: unspecified Qualified Code(s): R55 - Syncope and collapse (2) Atrial fibrillation Current Visit: No Status: Chronic Per cardiology: -Known history of PAF. -Average HR previous 12 hours noted to be 82. PAF noted. -On cardizem 240mg, lopressor 100mg BID. ON coumadin for anticoagulation. -TTE as above. -Previous [facility] 2011 with minimal CAD. -Stress 2015 negative for ischemia or infarct. -Discussed with pateint regarding continuing anticoagulation with falls, syncope. At this time, pateint would like to continue coumadin and further discuss with primary paymaster of purses, . Educated on risks of bleeding with falls on anticoagulation. -Cardiology will continue to follow in outpatient setting. Qualifiers: Atrial fibrillation type: paroxysmal Qualified Code(s): I48.0 - Paroxysmal atrial fibrillation Discussion w patient/family: The assessment and plan as outlined above was discussed with the patient and/or family members who expressed understanding and agreement. All questions were answered. Thank you for involving us in the care of your patient. Please call with any questions. Discussed and reviewed with . Subjective Principal diagnosis: fall Interval history: Patient denies falls or syncope overnight. States she feels "ok" today. Objective Vital Signs, Last 4 Hours Temp Pulse Resp BP Pulse Ox 08/30/17 11:33 98 F 60 16 134/76 96 General: Conversant, No Apparent Distress HEENT: Atraumatic, Normocephaly, Mucus Membranes Moist Neck: No JVD, Normal carotid pulses Cardiac: Reg Rate and Rhythm, Normal S1 and S2, No Murmur Lungs: Normal Breath Sounds, No Wheeze, Rales, Rhonchi Neuro: Alert and responsive, No focal deficits noted Abdomen: Soft, Non-Tender Skin: No rashes noted on visualized skin Musculoskeletal: No Chest Wall Tenderness Extremities: No Clubbing, No Cyanosis, No Edema, Normal Pulses Results 08/30/17 04:39 08/30/17 04:39 Lab Results Active Medications Acetaminophen (Tylenol) 650 mg PO Q6HR PRN PRN Reason: Mild Pain/Fever Stop: 02/26/18 19:20 Last Admin: 08/30/17 03:57 Dose: 650 mg Hydrocodone Bitart/Acetaminophen ([place]ockley 5-325 Mg) 1 tab PO Q6HR PRN PRN Reason: Moderate Pain Stop: 02/26/18 19:20 Last Admin: 08/30/17 08:37 Dose: 1 tab Allopurinol (Zyloprim) 100 mg PO DAILY STEVE Stop: 02/27/18 09:01 Last Admin: 08/30/17 08:37 Dose: 100 mg Aspirin (Aspirin Ec) 81 mg PO DAILY STEVE Stop: 02/27/18 09:01 Last Admin: 08/30/17 08:38 Dose: 81 mg Atorvastatin Calcium (Lipitor) 40 mg PO HS STEVE Stop: 02/26/18 21:01 Last Admin: 08/29/17 20:29 Dose: 40 mg Calcium Polycarbophil (Fibercon) 625 mg PO BID STEVE Stop: 02/26/18 21:01 Last Admin: 08/30/17 08:37 Dose: 625 mg Citalopram Hydrobromide (Celexa) 20 mg PO QAM STEVE Stop: 02/27/18 09:01 Last Admin: 08/30/17 08:38 Dose: 20 mg Clonidine HCl (Clonidine Hcl) 0.2 mg PO TID STEVE Stop: 02/26/18 21:01 Last Admin: 08/30/17 08:38 Dose: 0.2 mg Dextrose/Water (Dextrose 50% (Syg)) 25 ml IVP AD PRN PRN Reason: Hypoglycemia Stop: 02/27/18 01:01 Diltiazem HCl (Cardizem Cd) 240 mg PO QPM STEVE Stop: 02/28/18 18:01 Last Admin: 08/29/17 17:26 Dose: 240 mg Docusate Sodium (Colace) 200 mg PO TID PRN; Protocol PRN Reason: Constipation Stop: 02/26/18 19:30 Ergocalciferol (Drisdol (50,000 Unit)) 50,000 unit PO WE [facility] Stop: 02/27/18 09:01 Last Admin: 08/28/17 09:55 Dose: Not Given Famotidine (Pepcid) 10 mg PO QPM STEVE Stop: 02/27/18 18:01 Last Admin: 08/29/17 17:26 Dose: 10 mg Ferrous Sulfate (Ferrous Sulfate) 325 mg PO DAILY STEVE Stop: 02/27/18 09:01 Last Admin: 08/30/17 08:38 Dose: 325 mg Furosemide (Lasix) 40 mg PO DAILY [facility] Stop: 02/27/18 09:01 Last Admin: 08/30/17 08:38 Dose: 40 mg Glucagon (Glucagen) 1 mg IM ONCE PRN PRN Reason: Hypoglycemia Stop: 02/27/18 01:01 Glucose (Gluctose) 15 gm PO ONCE PRN PRN Reason: Hypoglycemia Stop: 02/27/18 01:01 Glucose (Gluctose) 30 gm PO ONCE PRN PRN Reason: Hypoglycemia Stop: 02/27/18 01:01 Dextrose (Dextrose 5%) 1,000 mls @ 100 mls/hr IVC .Q10H PRN PRN Reason: HYPOGLYCEMIA Stop: 02/27/18 01:01 Insulin Human Lispro (Humalog) 0 units SQ TIDAC [facility] PRN Reason: Protocol Stop: 02/27/18 07:31 Last Admin: 08/30/17 11:56 Dose: 4 units Insulin Human Lispro (Humalog) 0 units SQ HS [facility] PRN Reason: Protocol Stop: 02/27/18 21:01 Last Admin: 08/29/17 20:29 Dose: Not Given Lactobacillus Acidophilus/Rhamnosus (Culturelle) 1 each PO BID [facility] Stop: 02/26/18 21:01 Last Admin: 08/30/17 08:37 Dose: 1 each Lidocaine HCl (Lidoderm 5% Patch) 1 each TP DAILY [facility] Stop: 02/27/18 13:31 Last Admin: 08/30/17 08:38 Dose: 1 each Loratadine (Claritin) 10 mg PO DAILY [facility] PRN Reason: Protocol Stop: 02/27/18 09:01 Last Admin: 05/25/18 08:38 Dose: 10 mg Meclizine HCl (Antivert) 12.5 mg PO TID PRN PRN Reason: DIZZINESS Stop: 02/28/18 13:59 Memantine (Namenda) 10 mg PO BID [facility] Stop: 02/27/18 09:01 Last Admin: 08/30/17 08:38 Dose: 10 mg Metoprolol Tartrate (Lopressor) 100 mg PO BID [facility] Stop: 02/26/18 21:01 Last Admin: 08/30/17 08:37 Dose: 100 mg Naloxone HCl (Narcan) 0.4 mg IVP Q2MIN PRN PRN Reason: SEE COMMENTS Stop: 02/26/18 19:20 Nitroglycerin (Nitroglycerin) 0.4 mg SL Q5M PRN PRN Reason: Chest Pain Stop: 02/26/18 19:30 Omeprazole (Prilosec) 40 mg PO 0630 [facility] Stop: 02/27/18 06:31 Last Admin: 08/30/17 05:56 Dose: 40 mg Pharmacy Profile Note (Patient Taking Own Medication) 1,000 each PO QAM [facility] Stop: 02/27/18 09:01 Last Admin: 08/30/17 08:40 Dose: Not Given Polyethylene Glycol (Miralax) 17 gm PO DAILY PRN PRN Reason: Constipation Stop: 02/26/18 19:30 Potassium Chloride (Potassium Chloride) 10 meq PO BIDWM [facility] Stop: 02/27/18 08:01 Last Admin: 08/30/17 08:38 Dose: 10 meq Raloxifene HCl (Evista) 60 mg PO DAILY [facility] Stop: 02/27/18 09:01 Last Admin: 08/30/17 08:37 Dose: 60 mg Valsartan (Diovan) 320 mg PO QAM [facility] Stop: 02/27/18 09:01 Last Admin: 08/30/17 08:37 Dose: 320 mg Warfarin Sodium (Coumadin Perpt) 1 each PO DAILY@1800 PRN PRN Reason: SEE COMMENTS Stop: 02/27/18 18:01 Warfarin Sodium (Coumadin) 2.5 mg PO 1800 ONE Stop: 08/30/17 18:01 Laboratory Tests 08/30/17 08/30/17 04:39 04:39 Hgb 10.7 L Creatinine 1.27 H - Imaging and Cardiology Chest Xray: report reviewed Echo: report reviewed - EKG Interpretation EKG results cardiology: other (Telemetry reviewed with average HR previous 12 hours noted to be 82, SR. Intermittent paced rhythm, PAF noted.) Consult Discharge Plan - Plan Referrals: Elmer Davey MD [Primary Care Provider] - 10/02/17 1:00 pm
--- NOTE | 2017-08-30 12:31 | Internal Med Progress Note ---
Date of Encounter: 08/30/17 Time of Encounter: 12:31 - Assessment and plan (1) Fall Current Visit: Yes Status: Chronic Qualifiers: Encounter type: initial encounter Qualified Code(s): W19.XXXA - Unspecified fall, initial encounter (2) Anemia Current Visit: Yes Status: Chronic Qualifiers: Anemia type: iron deficiency Iron deficiency anemia type: other iron deficiency Qualified Code(s): D50.8 - Other iron deficiency anemias (3) Acute kidney injury Current Visit: Yes Status: Acute (4) Lumbar vertebral fracture Current Visit: Yes Status: Acute Qualifiers: Encounter type: initial encounter Lumbar vertebra fracture level: L5 Fracture type: closed Fracture morphology: unspecified fracture morphology Qualified Code(s): S32.059A - Unspecified fracture of fifth lumbar vertebra, initial encounter for closed fracture (5) Leukocytosis Current Visit: Yes Status: Resolved Qualifiers: Leukocytosis type: unspecified Qualified Code(s): D72.829 - Elevated white blood cell count, unspecified (6) DVT prophylaxis Current Visit: Yes Status: Acute (7) Dementia Current Visit: Yes Status: Chronic Qualifiers: Dementia type: unspecified type Dementia behavioral disturbance: without behavioral disturbance Qualified Code(s): F03.90 - Unspecified dementia without behavioral disturbance (8) Diabetes Current Visit: Yes Status: Chronic Qualifiers: Diabetes mellitus type: type 2 Diabetes mellitus halfway insulin use: unspecified 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 Diabetes mellitus complication status : with unspecified complications Qualified Code(s): E11.8 - Type 2 diabetes mellitus with unspecified complications (9) HLD (hyperlipidemia) Current Visit: Yes Status: Chronic Qualifiers: Hyperlipidemia type: pure hypercholesterolemia Qualified Code(s): E78.00 - Pure hypercholesterolemia, unspecified; E78.0 - Pure hypercholesterolemia (10) HTN (hypertension) Current Visit: Yes Status: Chronic Qualifiers: Hypertension type: essential hypertension Qualified Code(s): I10 - Essential (primary) hypertension (11) Syncope Current Visit: No Status: Acute Qualifiers: Syncope type: unspecified Qualified Code(s): R55 - Syncope and collapse - Time Spent With Patient Total time spent is greater than 50% in coordination of care (as documented) at patient's floor/unit and/or counseling patient: - Subjective Interval history: Patient seen and examined at bedside, states that pain is controlled. Denies any palpitations SOB or CP- tolerating PT/OT I reviewed treatment plan patient verbalized understanding - Constitutional Vitals: Temp Pulse Resp BP Pulse Ox 98 F 60 16 134/76 96 08/30/17 11:33 08/30/17 11:33 08/30/17 11:33 08/30/17 11:33 08/30/17 11:33 General appearance: Present: cooperative, A&O X 3, pleasant, no acute distress, answers questions appropriately - Head Head exam: Present: atraumatic, normocephalic - Eye Eye exam: Present: PERRL, conjuntiva pink, sclera anicteric Pupils: Present: PERRL - Neck Neck exam general surgery: Present: supple, trachea midline. Absent: lymphadenopathy - Respiratory Respiratory exam: Present: CTAB. Absent: accessory muscle use, rales, rhonchi, wheezes - Cardiovascular Cardiovascular exam: Present: RRR, +S1, +S2. Absent: diastolic murmur, gallop, rubs, systolic murmur - GI/Abdominal GI/Abdominal exam: Present: normal bowel sounds, soft, no peritoneal signs. Absent: distended, tenderness - Extremities Exam Extremities exam: Present: warm, radial pulses palpable and symmetrical. Absent : calf tenderness, cyanotic, pedal edema - Neurological Exam Neurological exam: Present: CN II-XII intact, oriented X3, no focal deficits. Absent: pronater drift, facial droop, speech deficit - Skin Skin exam: Present: dry, intact Internal Medicine: Result - Labs CBC & Chem 7: 08/30/17 04:39 08/30/17 04:39 Labs: Short CBC 08/30/17 Range/Units 04:39 WBC 11.7 H (4.3-11.1) K/mcL Hgb 10.7 L (11.5-15.4) g/dL Hct 34.1 L (35.3-44.9) % Plt Count 252 (140-400) K/mcL Neutrophils # 8.2 (1.6-8.9) K/mcL BMP 08/30/17 04:39 Sodium 141 Potassium 3.3 L Chloride 104 Carbon Dioxide 31 H BUN 23 Creatinine 1.27 H Glucose 161 H Calcium 9.3 Liver Function 08/30/17 Range/Units 04:39 Total Bilirubin 0.4 (0.3-1.0) mg/dL AST 15 (13-39) Units/L ALT 12 (7-52) Units/L Alkaline Phosphatase 91 (34-104) Units/L Albumin 3.3 L (3.5-5.7) g/dL - ABG Interpretation ABG results: PT/INR, D-dimer PT 21.8 Seconds (9.4-12.1) H 08/30/17 04:39 Consult Discharge Plan - Plan Referrals: Elmer Davey MD [Primary Care Provider] - 10/02/17 1:00 pm
[2017-08-30 14:45] VITALS: BP 111/65
--- NOTE | 2017-08-30 17:16 | Discharge Summary ---
- NOTES TO OUTPATIENT PROVIDER Notes to Outpatient Provider: Patient will follow up with Dr. Gar regarding anticoagulation. Patient will follow up with Dr. Watts concerning lumbar fracture. Cardizem increase per cardiology Orders not resulted at time of discharge: Pending orders 08/31/17 04:00 Complete Blood Count [HEME] AM 0400 Comprehensive Metabolic Panel AM 0400 Prothrombin Time INR [COAG] AM 0400 09/01/17 04:00 Prothrombin Time INR [COAG] AM 0400 Date of Encounter: 08/30/17 Time of Encounter: 17:13 - Discharge Diagnosis (1) Fall Priority: Primary Status: Chronic Qualifiers: Encounter type: initial encounter Qualified Code(s): W19.XXXA - Unspecified fall, initial encounter (2) Anemia Priority: Secondary Status: Chronic Qualifiers: Anemia type: iron deficiency Iron deficiency anemia type: other iron deficiency Qualified Code(s): D50.8 - Other iron deficiency anemias (3) Acute kidney injury Priority: Secondary Status: Acute (4) Lumbar vertebral fracture Priority: Primary Status: Acute Qualifiers: Encounter type: initial encounter Lumbar vertebra fracture level: L5 Fracture type: closed Fracture morphology: unspecified fracture morphology Qualified Code(s): S32.059A - Unspecified fracture of fifth lumbar vertebra, initial encounter for closed fracture (6) Dementia Priority: Secondary Status: Chronic Qualifiers: Dementia type: unspecified type Dementia behavioral disturbance: without behavioral disturbance Qualified Code(s): F03.90 - Unspecified dementia without behavioral disturbance (7) Diabetes Priority: Secondary Status: Chronic Qualifiers: Diabetes mellitus type: type 2 Diabetes mellitus fdc insulin use: unspecified exterminator helper insulin use status Diabetes mellitus complication status : with unspecified complications Qualified Code(s): E11.8 - Type 2 diabetes mellitus with unspecified complications (8) HLD (hyperlipidemia) Priority: Secondary Status: Chronic Qualifiers: Hyperlipidemia type: pure hypercholesterolemia Qualified Code(s): E78.00 - Pure hypercholesterolemia, unspecified; E78.0 - Pure hypercholesterolemia (9) HTN (hypertension) Priority: Secondary Status: Chronic Qualifiers: Hypertension type: essential hypertension Qualified Code(s): I10 - Essential (primary) hypertension (10) Syncope Priority: Primary Status: Acute Qualifiers: Syncope type: unspecified Qualified Code(s): R55 - Syncope and collapse Hospital course: Ms. Davison is a 82 year old female past medical history of atrial fibrillation dementia diabetes hyperlipidemia hypertension and renal disease presented to the emergency department with chief complaint of pain after sustaining a fall 2 weeks ago. Apparently she had a syncopal episode where she was bending over to put a trash bag and she passed out. She denied hitting her head she is anticoagulated on Coumadin for A. fib. CT of lumbar spine did show for lumbar type vertebral bodies with suspected fractures involving the superior and posterior aspect of L1. CT of head did show old lacunar infarcts. Patient unable to have an MRI due to pacemaker echocardiogram EF 60-65% normal LV chamber mild concentric left ventricular hypertrophy and moderate left ventricular diastolic dysfunction normal right ventricular structure and function mild tricuspid regurgitation mild pulmonary hypertension. Carotid duplex have minimal plaque throughout. Orthostatics were negative. Patient did have an episode of A. fib RVR while admitted in the hospital. She was seen by cardiology and pacemaker was interrogated cardiology does not think syncope is related to cardiac aspect. Cardiology did increase her cardiazem 240 mg and advised the patient to follow-up with Dr. Gar regarding anticoagulation. I did speak with Dr. Watts concerning lumbar fractures-advised to continue with physical therapy and pain management and to follow-up as outpatient. Patient has not had any neurological changes or syncopal episodes or falls since admitted. She did receive some meclizine did help. Lab work did show some anemia however this appeared to be chronic and stable during stay no signs or symptoms of active bleeding. Her potassium was low and she received replacement. She did have a slight elevation of white count which are to be reactive. She was seen by PT and OT and recommended home health. Patient has been set up for home health. She has been hemodynamically stable and has a controlled heart rate. I reviewed follow-up appointments as well as medications with patient's daughter who verbalized understanding. I advised patient and daughter to follow up with primary care physician since this provider knows her best and can adjust medications accordingly. I also advised to follow-up with cardiology and nephrology. Family verbalized understanding Patient is hemodynamically stable at this time she is ready for discharge. Discharge discussed with: patient - Time Spent with Patient Total time spent providing and/or coordinating discharge services: - Discharge Medications Prescriptions: HYDROcodone/Acet 5/325 mg [[place] 5-325 mg] 1 tab PO Q6HR PRN 5 Days #20 tablet PRN Reason: Moderate Pain Diltiazem CD (24hr) [Cardizem CD] 240 mg PO QPM #30 cap.er.24h Meclizine [Antivert] 12.5 mg PO TID PRN #15 tablet PRN Reason: Dizziness Home Medications: Citalopram Hydrobromide [Celexa] 20 mg PO QAM 03/18/15 [History] Glucosamine Sulfate Dipot Chlr [Glucosamine Relief] 1,000 mg PO QAM 03/18/15 [ History] Nitroglycerin [Nitrostat] 0.4 mg SL Q5M PRN 03/18/15 [History] Multivitamin/Iron/Folic Acid [Centrum Complete Multivit Tab] 1 each PO QAM 05/04 [History] Atorvastatin [Lipitor] 40 mg PO HS 03/08/16 [History] Calcium Polycarbophil [Fibercon] 625 mg PO BID 03/08/16 [History] L. Acidophilus/Pectin, [place] [Acidophilus Probiotic Capsule] 1 each PO BID 04/23 [History] Famotidine [Pepcid] 40 mg PO QPM 11/06/16 [History] Ferrous Sulfate 324 mg PO DAILY #30 tablet. 11/12/16 [Rx] Memantine HCl [Namenda Xr] 28 mg PO DAILY 11/23/16 [History] Docusate [Colace] 200 mg PO TID PRN #0 11/28/16 [Rx] Polyethylene Glycol 3350 [MiraLAX] 17 gm PO DAILY PRN #30 11/28/16 [Rx] Potassium Chloride 10 meq PO BIDWM #60 11/28/16 [Rx] Valsartan [Diovan] 320 mg PO QAM 30 Days tab 11/28/16 [Rx] Allopurinol [Zyloprim 100 MG] 100 mg PO DAILY 08/27/17 [History] Aspirin Enteric Coated [Aspirin EC] 81 mg PO DAILY 08/27/17 [History] Dexlansoprazole [Dexilant] 60 mg PO DAILY 08/27/17 [History] Ergocalciferol (VITAMIN D2) [Vitamin D2] 50,000 unit PO WE 08/27/17 [History] Exenatide Microspheres [Bydureon Pen] 2 mg SQ Q7D 08/27/17 [History] Furosemide [Lasix] 40 mg PO DAILY 08/27/17 [History] Loratadine [Allergy Relief] 10 mg PO DAILY 08/27/17 [History] Metoprolol Tartrate 100 mg PO BID 08/27/17 [History] Raloxifene [Evista] 60 mg PO DAILY 08/27/17 [History] Sitagliptin Phosphate [Januvia] 50 mg PO DAILY 08/27/17 [History] cloNIDine HCl [Clonidine HCl] 0.2 mg PO TID 08/27/17 [History] Warfarin [Coumadin] 2.5 mg PO MOWEFR 08/28/17 [History] Warfarin [Coumadin] 5 mg PO SUTUTHSA 08/28/17 [History] Diltiazem CD (24hr) [Cardizem CD] 240 mg PO QPM #30 cap.er.24h 08/30/17 [Rx] HYDROcodone/Acet 5/325 mg [[place] 5-325 mg] 1 tab PO Q6HR PRN 5 Days #20 tablet 08/30/17 [Rx] Meclizine [Antivert] 12.5 mg PO TID PRN #15 tablet 08/30/17 [Rx] Allergies/Adverse Reactions: 3 Allergy/AdvReac Type Severity Reaction Status Date / Time No Known Drug Allergies Allergy See Verified 11/23/16 10:04 Comments Date of admission: 08/27/17 17:28 Primary care physician: Elmer Davey MD Consults: 08/27/17 19:24 Consult to Occupational Therapy [CONS] Routine Comment: Evaluate, develop and implement POC Reason for Consult: Patient has hx of falls caused by positional changes that cause pre- syncope or syncope. Please assess patient for ambulation strength, safety, stability, and possible home assistive/rehabilitation services needs for post- discharge planning. Does patient have active BEDREST order?: Yes Is patient medically & hemodynamically stable?: Yes Patient assessed for mobility or mobilized this visit?: No Consult to Factory Worker [CONS] Routine Reason for SW Consult: Please assess patient for possible home needs for post -discharge planning. 08/27/17 19:27 Consult to Physical Therapy [CONS] Routine Comment: Evaluate, develop and implement POC Reason for Consult: Patient has hx of falls caused by positional changes that cause pre- syncope or syncope. Please assess patient for ambulation strength, safety, stability, and possible home assistive/rehabilitation services needs for post- discharge planning. Does patient have active BEDREST order?: Yes Is patient medically & hemodynamically stable?: Yes Patient assessed for mobility or mobilized this visit?: No Discharging clinician: Julieta David Anticipated date of discharge: 08/30/17 - Constitutional Vitals: Temp Pulse Resp BP Pulse Ox 97.7 F 62 17 111/65 97 08/30/17 14:44 08/30/17 14:44 08/30/17 14:44 08/30/17 14:44 08/30/17 14:44 General appearance: Present: cooperative, A&O X 3, pleasant, no acute distress, answers questions appropriately - Head Head exam: Present: atraumatic, normocephalic - Eye Eye exam: Present: PERRL, conjuntiva pink, sclera anicteric Pupils: Present: PERRL - Neck Neck exam general surgery: Present: supple, trachea midline. Absent: lymphadenopathy - Respiratory Respiratory exam: Present: CTAB. Absent: accessory muscle use, rales, rhonchi, wheezes - Cardiovascular Cardiovascular exam: Present: RRR, +S1, +S2. Absent: diastolic murmur, gallop, rubs, systolic murmur - GI/Abdominal GI/Abdominal exam: Present: normal bowel sounds, soft, no peritoneal signs. Absent: distended, tenderness - Extremities Exam Extremities exam: Present: warm, radial pulses palpable and symmetrical. Absent : calf tenderness, cyanotic, pedal edema - Neurological Exam Neurological exam: Present: CN II-XII intact, oriented X3, no focal deficits. Absent: pronater drift, facial droop, speech deficit - Skin Skin exam: Present: dry, intact - Patient Status Disposition: Home Health Service Condition: Good Functional capacity at discharge: independent ambulation Overall status at discharge: patient is back to baseline - Discharge Instructions Follow Up With: Elmer Davey MD [Primary Care Provider] - 10/02/17 1:00 pm Saúl Watts DO [Partnered Physician] - Francisco Gar DO [Partnered Physician] - - Diet and Activity Activity: as per physical therapy, increase activity as tolerated Diet: advance to your usual diet
[2017-08-30] MEDS: Famotidine 20 MG TABLET PO SCH (17:21)
[2017-08-30] MEDS: Diltiazem CD (24hr) 240 MG CAPSULE PO SCH (17:22)
[2017-08-30] MEDS ORDERED: *HR* Warfarin 2.5 MG TABLET PO ONE (18:00)
--- NOTE | 2017-08-30 18:12 | Physician Discharge Referral ---
Home Health/Hosp Referral Info Transfer to: Home Health Attending Provider: Frankie Rendon Provider in Charge Post Discharge: PCP - Diagnosis (1) Fall Priority: Primary Status: Chronic (2) Anemia Priority: Secondary Status: Chronic (3) Acute kidney injury Priority: Secondary Status: Acute (4) Lumbar vertebral fracture Priority: Primary Status: Acute (5) Dementia Priority: Secondary Status: Chronic (6) Diabetes Priority: Secondary Status: Chronic (7) HLD (hyperlipidemia) Priority: Secondary Status: Chronic (8) HTN (hypertension) Priority: Secondary Status: Chronic (9) Syncope Priority: Primary Status: Acute - Respiratory Orders Smoking Cessation: Smoking cessation has been advised. For more information, call the [place] Tobacco Quit Line at 4-132-ZOKT-NOW. - Diet/Nutrition Diet/Nutrition Orders: No Added Salt (PABLITO) - Activity Activity Orders: Walker - Services Needed Following services are medically necessary services: Nursing, Physical Therapy, Occupational Therapy - Transfer Medications Prescriptions: HYDROcodone/Acet 5/325 mg [[place] 5-325 mg] 1 tab PO Q6HR PRN 5 Days #20 tablet PRN Reason: Moderate Pain Diltiazem CD (24hr) [Cardizem CD] 240 mg PO QPM #30 cap.er.24h Meclizine [Antivert] 12.5 mg PO TID PRN #15 tablet PRN Reason: Dizziness Home Medications: Citalopram Hydrobromide [Celexa] 20 mg PO QAM 03/18/15 [History] Glucosamine Sulfate Dipot Chlr [Glucosamine Relief] 1,000 mg PO QAM 03/18/15 [ History] Nitroglycerin [Nitrostat] 0.4 mg SL Q5M PRN 03/18/15 [History] Multivitamin/Iron/Folic Acid [Centrum Complete Multivit Tab] 1 each PO QAM 05/04 [History] Atorvastatin [Lipitor] 40 mg PO HS 03/08/16 [History] Calcium Polycarbophil [Fibercon] 625 mg PO BID 03/08/16 [History] L. Acidophilus/Pectin, [place] [Acidophilus Probiotic Capsule] 1 each PO BID 04/23 [History] Famotidine [Pepcid] 40 mg PO QPM 11/06/16 [History] Ferrous Sulfate 324 mg PO DAILY #30 tablet.dr 11/12/16 [Rx] Memantine HCl [Namenda Xr] 28 mg PO DAILY 11/23/16 [History] Docusate [Colace] 200 mg PO TID PRN #0 11/28/16 [Rx] Polyethylene Glycol 3350 [MiraLAX] 17 gm PO DAILY PRN #30 11/28/16 [Rx] Potassium Chloride 10 meq PO BIDWM #60 11/28/16 [Rx] Valsartan [Diovan] 320 mg PO QAM 30 Days tab 11/28/16 [Rx] Allopurinol [Zyloprim 100 MG] 100 mg PO DAILY 08/27/17 [History] Aspirin Enteric Coated [Aspirin EC] 81 mg PO DAILY 08/27/17 [History] Dexlansoprazole [Dexilant] 60 mg PO DAILY 08/27/17 [History] Ergocalciferol (VITAMIN D2) [Vitamin D2] 50,000 unit PO WE 08/27/17 [History] Exenatide Microspheres [Bydureon Pen] 2 mg SQ Q7D 08/27/17 [History] Furosemide [Lasix] 40 mg PO DAILY 08/27/17 [History] Loratadine [Allergy Relief] 10 mg PO DAILY 08/27/17 [History] Metoprolol Tartrate 100 mg PO BID 08/27/17 [History] Raloxifene [Evista] 60 mg PO DAILY 08/27/17 [History] Sitagliptin Phosphate [Januvia] 50 mg PO DAILY 08/27/17 [History] cloNIDine HCl [Clonidine HCl] 0.2 mg PO TID 08/27/17 [History] Warfarin [Coumadin] 2.5 mg PO MOWEFR 08/28/17 [History] Warfarin [Coumadin] 5 mg PO SUTUTHSA 08/28/17 [History] Diltiazem CD (24hr) [Cardizem CD] 240 mg PO QPM #30 cap.er.24h 08/30/17 [Rx] HYDROcodone/Acet 5/325 mg [[place] 5-325 mg] 1 tab PO Q6HR PRN 5 Days #20 tablet 08/30/17 [Rx] Meclizine [Antivert] 12.5 mg PO TID PRN #15 tablet 08/30/17 [Rx] Allergies/Adverse Reactions: 3 Allergy/AdvReac Type Severity Reaction Status Date / Time No Known Drug Allergies Allergy See Verified 11/23/16 10:04 Comments Certification: Further, I certify that my clinical findings support that this patient is homebound (i.e. absences from home require considerable and taxing effort and are for medical reasons or scientology services or infrequently or short duration when for other reasons) because: Homebound Reason: Patient requires assistance of a person or device to safely leave home Attestation: My signature below is to certify that this patient is under my care and that I, or nurse practitioner, or a physician's baking assistant working with me, has a face-to -face encounter with this patient.
== END 2017-08-30 19:25 | disposition home health service (06) | DRG 552 ==
LOC: 3BNU 11:00 → EMEROO 11:00 → 3BNU 17:55
PROVIDERS: ADMIT Nurse Practitioner Acute Care; ATTEND Internal Medicine Nephrology

== ENCOUNTER 2019-10-16 17:20 | Inpatient (IN) ==
[2019-10-16] MEDS ORDERED: Tdap (Boostrix) Vaccine 0.5 ML SYRINGE IM ONE (17:46)
[2019-10-16] MEDS ORDERED: Lidocaine/EPI 1:100k 1% 30 ML VIAL INFILT ONE (17:49)
[2019-10-16 18:15] LABS: Basophils # 0.1 K/mcL (0.0-0.2); Basophils % 0.4 %; Eosinophils % 0.2 %; Hematocrit 39.5 % (35.3-44.9); Immature Granulocytes % 0.8 % (0-4); Lymphocytes # 1.9 K/mcL (0.6-4.6); Lymphocytes % 15.6 %; Mean Corpuscular HGB Conc 32.9 g/dL (31.6-35.5); Mean Corpuscular Hemoglobin 31.4 pg (28.0-33.3); Mean Corpuscular Volume 95.4 fL (83.0-100.0); Mean Platelet Volume 9.9 fL (9.4-12.4); Monocytes % 8.7 %; Neutrophils # 8.9 K/mcL (1.6-8.9); Platelet Count 204 K/mcL (140-400); Red Blood Count 4.14 M/mcL (3.82-4.97); Red Cell Distribution Width 14.7 % (11.5-14.5); Segmented Neutrophils % 74.3 %
[2019-10-16 18:23] LABS: Prothrombin Time 11.4 Seconds (9.4-12.1)
[2019-10-16 18:30] LABS: BUN/Creatinine Ratio 20 (6-26); Blood Urea Nitrogen 42 mg/dL (8-23); Calcium 9.9 mg/dL (8.6-10.3); Carbon Dioxide 30 mEq/L (23-29); Chloride 100 mEq/L (98-107); Glucose 122 mg/dL (70-105); Osmolality,Calculated 298 (280-300); Potassium 3.2 mEq/L (3.5-5.1); Sodium 138 mEq/L (136-145); Troponin I < 0.03 ng/mL (< 0.04); eGFR For African Americans 28 (> 60); eGFR For Non-African Americans 23 (> 60)
[2019-10-16 19:47] LABS: Bacteria,Urine Few per hpf (None-Few); Bilirubin,Urine Negative (Negative); Blood,Urine Negative (Negative); Clarity,Urine Turbid (Clear); Color,Urine Yellow (Yellow); Glucose,Urine (UA) Normal (Normal); Hyaline Casts,Urine Few per lpf (None Seen); Ketones,Urine Negative (Negative); Leukocyte Esterase,Urine Moderate (Negative); Mucus,Urine Few per lpf (None-Few); Nitrite,Urine Negative (Negative); Protein,Urine Trace mg/dL (Neg-Trace); RBC,Urine 0-3 per hpf (0-3); Specific Gravity,Urine 1.019 (1.010-1.025); Squamous Epithelial Cell,Urine Many per hpf (None-Few); Transitional Epi Cells,Urine Few per hpf (None-Few); Urobilinogen,Urine Normal (Normal)
[2019-10-17] MEDS ORDERED: Ondansetron 4 MG/2 ML VIAL IVP PRN (00:38)
[2019-10-17] MEDS ORDERED: Naloxone 0.4 MG/ML INJ IVP PRN (00:38)
[2019-10-17] MEDS ORDERED: Dextrose Gel 15 GM/37.5 ML TUBE PO PRN ×2 (01:45)
[2019-10-17] MEDS ORDERED: *HR* Dextrose 50 % in Water (Vial) 50 ML VIAL IVP PRN (01:45)
[2019-10-17] MEDS ORDERED: D5% in Water 1,000 ML IVC PRN (01:45)
[2019-10-17] MEDS ORDERED: Potassium Chloride 40 MEQ, Lidocaine 1% 2 ML in 0.9 % Sodium Chloride 500 ML IVPB ONE (02:00)
[2019-10-17] MEDS: 0.9 % Sodium Chloride 1,000 ML IVC SCH ×2 (04:46→21:15)
[2019-10-17] MEDS ORDERED: Nitroglycerin 0.4 MG TAB.SUBL SL PRN (07:50)
[2019-10-17] MEDS ORDERED: polyethylene glycoL 3350 17 GM POWD.PACK PO PRN (07:50)
[2019-10-17] MEDS: Insulin LISPRO 300 UNITS/3 ML VIAL SQ SCH ×4 (10:03→20:12)
[2019-10-17] MEDS: Multivit/Ca/Min/Fe/FA 1 TAB TABLET PO SCH (10:17)
[2019-10-17] MEDS: calcium polycarbophiL 625 MG TABLET PO SCH ×2 (10:17→20:11)
[2019-10-17] MEDS: amLODIPine 5 MG TABLET PO SCH (10:17)
[2019-10-17] MEDS: Metoprolol 100 MG TABLET PO SCH ×2 (10:18→20:11)
[2019-10-17] MEDS: risperiDONE 1 MG TABLET PO SCH ×2 (10:18→20:11)
[2019-10-17] MEDS: cloNIDine HCL 0.1 MG TABLET PO SCH ×3 (10:18→20:12)
[2019-10-17] MEDS: Aspirin Enteric Coated 81 MG Tablet PO SCH (10:18)
[2019-10-17] MEDS: allopurinoL 100 MG TABLET PO SCH (10:18)
[2019-10-17] MEDS: hydrALAZINE 25 MG TABLET PO SCH ×3 (10:18→20:11)
[2019-10-17] MEDS: Loratadine 10 MG TABLET PO SCH (10:18)
[2019-10-17 15:06] LABS: Hematocrit 40.9 % (35.3-44.9); Hemoglobin 12.9 g/dL (11.5-15.4); Mean Corpuscular HGB Conc 31.5 g/dL (31.6-35.5); Mean Corpuscular Hemoglobin 30.7 pg (28.0-33.3); Mean Corpuscular Volume 97.4 fL (83.0-100.0); Mean Platelet Volume 10.3 fL (9.4-12.4); Platelet Count 195 K/mcL (140-400); Red Cell Distribution Width 14.8 % (11.5-14.5)
[2019-10-17 15:28] LABS: Albumin 3.1 g/dL (3.5-5.7); Albumin/Globulin Ratio 1.3 (1.1-2.2); Bilirubin,Total 0.5 mg/dL (0.3-1.0); Calcium 8.6 mg/dL (8.6-10.3); Globulin 2.4 g/dL (2.4-3.5); Magnesium 1.3 mg/dL (1.6-2.6); Potassium 3.8 mEq/L (3.5-5.1); Total Protein 5.5 g/dL (6.4-8.9)
[2019-10-17 16:29] LABS: INR 1.1; Prothrombin Time 12.1 Seconds (9.4-12.1)
[2019-10-17] MEDS: DilTIAZem CD (24hr) 240 MG CAP.ER.24H PO SCH (17:13)
[2019-10-17] MEDS: Magnesium Oxide 400 MG TABLET PO SCH (20:11)
[2019-10-17] MEDS: Famotidine 20 MG TABLET PO SCH (20:12)
[2019-10-18] MEDS ORDERED: Acetaminophen 325 MG TABLET PO ONE (01:25)
[2019-10-18] MEDS: Insulin LISPRO 300 UNITS/3 ML VIAL SQ SCH ×4 (09:24→20:05)
[2019-10-18] MEDS: hydrALAZINE 25 MG TABLET PO SCH ×3 (10:25→20:04)
[2019-10-18] MEDS: amLODIPine 5 MG TABLET PO SCH (10:25)
[2019-10-18] MEDS: Loratadine 10 MG TABLET PO SCH (10:25)
[2019-10-18] MEDS: Aspirin Enteric Coated 81 MG Tablet PO SCH (10:25)
[2019-10-18] MEDS: Magnesium Oxide 400 MG TABLET PO SCH ×2 (10:25→20:04)
[2019-10-18] MEDS: cloNIDine HCL 0.1 MG TABLET PO SCH ×3 (10:25→20:04)
[2019-10-18] MEDS: risperiDONE 1 MG TABLET PO SCH ×2 (10:28→20:05)
[2019-10-18] MEDS: allopurinoL 100 MG TABLET PO SCH (10:29)
[2019-10-18] MEDS: Multivit/Ca/Min/Fe/FA 1 TAB TABLET PO SCH (10:29)
[2019-10-18] MEDS: Metoprolol 100 MG TABLET PO SCH ×2 (10:29→20:04)
[2019-10-18] MEDS: calcium polycarbophiL 625 MG TABLET PO SCH ×2 (10:29→20:04)
[2019-10-18 11:54] LABS: Calcium 8.6 mg/dL (8.6-10.3); Chol/HDL Ratio 5.2 (0-4.9); Magnesium 1.4 mg/dL (1.6-2.6); Phosphorous 2.2 mg/dL (2.7-4.5); Potassium 4.5 mEq/L (3.5-5.1)
[2019-10-18 11:56] LABS: Thyroid Stimulating Hormone 2.557 mcIU/mL (0.340-5.600)
[2019-10-18] MEDS: DilTIAZem CD (24hr) 240 MG CAP.ER.24H PO SCH (18:00)
[2019-10-18] MEDS: Famotidine 20 MG TABLET PO SCH (20:04)
[2019-10-19] MEDS: cefTRIAXone 1,000 MG in Water for inj. (sterile) 10 ML IVP SCH ×2 (05:07→10:47)
[2019-10-19] MEDS: Metoprolol 100 MG TABLET PO SCH ×2 (05:24→20:37)
[2019-10-19 09:01] LABS: Hematocrit 41.1 % (35.3-44.9); Hemoglobin 13.4 g/dL (11.5-15.4); Mean Corpuscular HGB Conc 32.6 g/dL (31.6-35.5); Mean Corpuscular Hemoglobin 30.8 pg (28.0-33.3); Mean Corpuscular Volume 94.5 fL (83.0-100.0); Platelet Count 199 K/mcL (140-400); Red Blood Count 4.35 M/mcL (3.82-4.97); Red Cell Distribution Width 14.4 % (11.5-14.5); White Blood Count 11.6 K/mcL (4.3-11.1)
[2019-10-19 09:21] LABS: Calcium 9.9 mg/dL (8.6-10.3); Magnesium 1.5 mg/dL (1.6-2.6); Phosphorous 2.2 mg/dL (2.7-4.5); Potassium 3.8 mEq/L (3.5-5.1)
[2019-10-19] MEDS: Insulin LISPRO 300 UNITS/3 ML VIAL SQ SCH ×4 (09:36→20:38)
[2019-10-19] MEDS: risperiDONE 1 MG TABLET PO SCH ×2 (09:43→20:37)
[2019-10-19] MEDS: cloNIDine HCL 0.1 MG TABLET PO SCH ×3 (09:44→20:37)
[2019-10-19] MEDS: calcium polycarbophiL 625 MG TABLET PO SCH ×2 (09:45→20:37)
[2019-10-19] MEDS: hydrALAZINE 25 MG TABLET PO SCH ×3 (09:45→20:37)
[2019-10-19] MEDS: allopurinoL 100 MG TABLET PO SCH (09:47)
[2019-10-19] MEDS: amLODIPine 5 MG TABLET PO SCH (09:47)
[2019-10-19] MEDS: Loratadine 10 MG TABLET PO SCH (09:47)
[2019-10-19] MEDS: Aspirin Enteric Coated 81 MG Tablet PO SCH (09:47)
[2019-10-19] MEDS: Magnesium Oxide 400 MG TABLET PO SCH ×2 (09:47→20:37)
[2019-10-19] MEDS: Multivit/Ca/Min/Fe/FA 1 TAB TABLET PO SCH (09:48)
[2019-10-19] MEDS: DilTIAZem CD (24hr) 240 MG CAP.ER.24H PO SCH (16:51)
[2019-10-19] MEDS: Famotidine 20 MG TABLET PO SCH (20:37)
[2019-10-20 04:26] LABS: Hematocrit 35.5 % (35.3-44.9); Mean Corpuscular HGB Conc 32.4 g/dL (31.6-35.5); Mean Corpuscular Hemoglobin 30.6 pg (28.0-33.3); Mean Corpuscular Volume 94.4 fL (83.0-100.0); Mean Platelet Volume 10.6 fL (9.4-12.4); Platelet Count 168 K/mcL (140-400); Red Blood Count 3.76 M/mcL (3.82-4.97); Red Cell Distribution Width 14.4 % (11.5-14.5); White Blood Count 8.1 K/mcL (4.3-11.1)
[2019-10-20 04:43] LABS: Hemoglobin 11.5 g/dL (11.5-15.4)
[2019-10-20 04:44] LABS: Calcium 9.5 mg/dL (8.6-10.3); Magnesium 1.6 mg/dL (1.6-2.6); Phosphorous 2.3 mg/dL (2.7-4.5); Potassium 3.8 mEq/L (3.5-5.1)
[2019-10-20] MEDS ORDERED: Bacitracin 50,000 UNIT, Polymyxin B Sulfate 500,000 UNIT, Sodium Chloride IRRigation 1,... IR ONE (06:00)
[2019-10-20] MEDS: Insulin LISPRO 300 UNITS/3 ML VIAL SQ SCH (08:29)
[2019-10-20] MEDS: Magnesium Oxide 400 MG TABLET PO SCH (08:59)
[2019-10-20] MEDS: calcium polycarbophiL 625 MG TABLET PO SCH (08:59)
[2019-10-20] MEDS: Loratadine 10 MG TABLET PO SCH (08:59)
[2019-10-20] MEDS: allopurinoL 100 MG TABLET PO SCH (09:00)
[2019-10-20] MEDS: risperiDONE 1 MG TABLET PO SCH (09:00)
[2019-10-20] MEDS: Multivit/Ca/Min/Fe/FA 1 TAB TABLET PO SCH (09:00)
[2019-10-20] MEDS: cefTRIAXone 1,000 MG in Water for inj. (sterile) 10 ML IVP SCH (09:41)
[2019-10-20] MEDS: cloNIDine HCL 0.1 MG TABLET PO SCH (09:42)
[2019-10-20] MEDS: hydrALAZINE 25 MG TABLET PO SCH (09:42)
[2019-10-20] MEDS: Metoprolol 100 MG TABLET PO SCH (09:42)
[2019-10-20] MEDS: amLODIPine 5 MG TABLET PO SCH (09:42)
[2019-10-20] MEDS: Aspirin Enteric Coated 81 MG Tablet PO SCH (09:46)
[2019-10-20] MEDS ORDERED: Lidocaine -MPF 2% 2 ML VIAL ONE (10:56)
[2019-10-20] MEDS ORDERED: Ondansetron 4 MG/2 ML VIAL ONE (10:56)
[2019-10-20] MEDS ORDERED: *HR* Succinylcholine 200 MG/10 ML VIAL IVP ONE (10:56)
[2019-10-20] MEDS ORDERED: Dexamethasone 4 MG/ML VIAL ONE (10:56)
[2019-10-20] MEDS ORDERED: *HR* Propofol 200 MG/20 ML VIAL IVP ONE (10:57)
[2019-10-20] MEDS ORDERED: *HR* Remifentanil 1 MG VIAL IVP ONE (10:57)
[2019-10-20] MEDS ORDERED: *HR* FentaNYL (PF) 100 MCG/2 ML VIAL ONE (10:57)
[2019-10-20] MEDS ORDERED: *HR* Phenylephrine 10 MG/ML VIAL ONE (11:08)
[2019-10-20] MEDS ORDERED: Lacri-Lube 3.5 GM TUBE ONE (12:26)
[2019-10-20] MEDS ORDERED: *HR* Vasopressin 20 UNIT/ML VIAL ONE (12:31)
[2019-10-20] MEDS ORDERED: Ondansetron 4 MG/2 ML VIAL IVP ONE (13:57)
[2019-10-20] MEDS ORDERED: Morphine Sulfate 2 MG/ML SYRINGE IVP PRN (13:57)
[2019-10-20] MEDS ORDERED: *HR* HYDROcodone/Acet 5/325 mg TABLET PO PRN (15:36)
[2019-10-20] MEDS ORDERED: Acetaminophen 325 MG TABLET PO PRN (15:36)
[2019-10-20] MEDS ORDERED: Naloxone 0.4 MG/ML INJ IVP PRN (15:36)
[2019-10-20] MEDS ORDERED: *HR* OxyCODONE Immed Rel 5 MG TABLET PO PRN (15:36)
[2019-10-20] MEDS: Ringers Solution, Lactated 1,000 ML IVC SCH (17:41)
[2019-10-20] MEDS ORDERED: *HR* Metoprolol 5 MG/5 ML VIAL IVP ONE (20:28)
[2019-10-20] MEDS: DilTIAZem 50 MG/50 ML IV.SOLN IVC SCH (23:50)
[2019-10-21] MEDS: Ringers Solution, Lactated 1,000 ML IVC SCH (05:03)
[2019-10-21 06:37] LABS: Hematocrit 35.4 % (35.3-44.9); Hemoglobin 11.7 g/dL (11.5-15.4); Mean Corpuscular HGB Conc 33.1 g/dL (31.6-35.5); Mean Corpuscular Hemoglobin 31.4 pg (28.0-33.3); Mean Corpuscular Volume 94.9 fL (83.0-100.0); Mean Platelet Volume 10.4 fL (9.4-12.4); Platelet Count 192 K/mcL (140-400); Red Blood Count 3.73 M/mcL (3.82-4.97); Red Cell Distribution Width 14.2 % (11.5-14.5); White Blood Count 10.4 K/mcL (4.3-11.1)
[2019-10-21 06:57] LABS: Calcium 9.5 mg/dL (8.6-10.3); Magnesium 1.6 mg/dL (1.6-2.6); Phosphorous 2.8 mg/dL (2.7-4.5); Potassium 4.1 mEq/L (3.5-5.1)
[2019-10-21] MEDS ORDERED: Cholecalciferol (D-3) 1,000 UNIT (25MCG) TABLET PO SCH (07:50)
[2019-10-21] MEDS ORDERED: *HR* SitaGLIPtin 25 MG TABLET PO SCH (09:00)
[2019-10-21] MEDS: DilTIAZem 50 MG/50 ML IV.SOLN IVC SCH (09:07)
[2019-10-21] MEDS ORDERED: *HR* Metoprolol 5 MG/5 ML VIAL IVP ONE ×2 (10:42→21:55)
[2019-10-21] MEDS: *HR* Metformin 500 MG TABLET PO SCH ×2 (10:59→16:16)
[2019-10-21] MEDS: Loratadine 10 MG TABLET PO SCH (11:14)
[2019-10-21] MEDS: Metoprolol 100 MG TABLET PO SCH ×2 (12:14→22:21)
[2019-10-21] MEDS: cefTRIAXone 1,000 MG in Water for inj. (sterile) 10 ML IVP SCH (14:24)
[2019-10-21] MEDS ORDERED: Dextrose Gel 15 GM/37.5 ML TUBE PO PRN ×2 (17:53)
[2019-10-21] MEDS ORDERED: D5% in Water 1,000 ML IVC PRN (17:53)
[2019-10-21] MEDS ORDERED: *HR* Dextrose 50 % in Water (Vial) 50 ML VIAL IVP PRN (17:53)
[2019-10-21] MEDS ORDERED: Amiodarone Premix 360 MG/200 ML BAG IVC ONE (19:51)
[2019-10-21] MEDS: Insulin LISPRO 300 UNITS/3 ML VIAL SQ SCH (21:52)
[2019-10-21] MEDS: *HR* Metoprolol 5 MG/5 ML VIAL IVP SCH (22:14)
[2019-10-22 01:17] LABS: Basophils % 0.2 %; Eosinophils % 0.2 %; Hematocrit 36.4 % (35.3-44.9); Hemoglobin 11.6 g/dL (11.5-15.4); Immature Granulocytes % 0.5 % (0-4); Lymphocytes # 1.6 K/mcL (0.6-4.6); Lymphocytes % 12.5 %; Mean Corpuscular HGB Conc 31.9 g/dL (31.6-35.5); Mean Corpuscular Hemoglobin 30.9 pg (28.0-33.3); Mean Corpuscular Volume 97.1 fL (83.0-100.0); Monocytes # 1.4 K/mcL (0.0-1.3); Monocytes % 10.9 %; Neutrophils # 9.6 K/mcL (1.6-8.9); Platelet Count 239 K/mcL (140-400); Red Blood Count 3.75 M/mcL (3.82-4.97); Red Cell Distribution Width 14.4 % (11.5-14.5); Segmented Neutrophils % 75.7 %; White Blood Count 12.7 K/mcL (4.3-11.1)
[2019-10-22 01:32] LABS: BUN/Creatinine Ratio 26 (6-26); Blood Urea Nitrogen 27 mg/dL (8-23); Calcium 9.6 mg/dL (8.6-10.3); Carbon Dioxide 33 mEq/L (23-29); Chloride 102 mEq/L (98-107); Glucose 122 mg/dL (70-105); Magnesium 1.7 mg/dL (1.6-2.6); Osmolality,Calculated 298 (280-300); Potassium 4.1 mEq/L (3.5-5.1); Sodium 141 mEq/L (136-145); eGFR For African Americans > 60 (> 60); eGFR For Non-African Americans 50 (> 60)
[2019-10-22 02:32] LABS: Estimated Average Glucose 126 mg/dl
[2019-10-22] MEDS ORDERED: Amiodarone Premix 360 MG/200 ML BAG IVC SCH ×4 (04:53→08:30)
[2019-10-22] MEDS: *HR* Metoprolol 5 MG/5 ML VIAL IVP SCH ×7 (04:59→23:09)
[2019-10-22] MEDS: Ringers Solution, Lactated 1,000 ML IVC SCH ×3 (07:37→16:53)
[2019-10-22] MEDS: cloNIDine HCL 0.1 MG TABLET PO SCH ×4 (07:38→20:30)
[2019-10-22] MEDS: Insulin LISPRO 300 UNITS/3 ML VIAL SQ SCH ×5 (07:38→21:00)
[2019-10-22] MEDS: hydrALAZINE 25 MG TABLET PO SCH (07:39)
[2019-10-22] MEDS: Metoprolol 100 MG TABLET PO SCH ×2 (07:59→20:30)
[2019-10-22] MEDS: Loratadine 10 MG TABLET PO SCH (07:59)
[2019-10-22] MEDS: cefTRIAXone 1,000 MG in Water for inj. (sterile) 10 ML IVP SCH (07:59)
[2019-10-23] MEDS: Ringers Solution, Lactated 1,000 ML IVC SCH (03:36)
[2019-10-23 03:42] LABS: Basophils % 0.3 %; Eosinophils # 0.1 K/mcL (0.0-0.6); Eosinophils % 0.8 %; Hematocrit 37.4 % (35.3-44.9); Hemoglobin 11.7 g/dL (11.5-15.4); Immature Granulocytes % 0.6 % (0-4); Lymphocytes # 2.5 K/mcL (0.6-4.6); Lymphocytes % 20.6 %; Mean Corpuscular HGB Conc 31.3 g/dL (31.6-35.5); Mean Corpuscular Hemoglobin 30.2 pg (28.0-33.3); Mean Corpuscular Volume 96.6 fL (83.0-100.0); Monocytes # 1.2 K/mcL (0.0-1.3); Neutrophils # 8.1 K/mcL (1.6-8.9); Platelet Count 229 K/mcL (140-400); Red Blood Count 3.87 M/mcL (3.82-4.97); Red Cell Distribution Width 14.4 % (11.5-14.5); Segmented Neutrophils % 67.7 %; White Blood Count 11.9 K/mcL (4.3-11.1)
[2019-10-23 04:04] LABS: BUN/Creatinine Ratio 26 (6-26); Blood Urea Nitrogen 27 mg/dL (8-23); Calcium 9.2 mg/dL (8.6-10.3); Carbon Dioxide 32 mEq/L (23-29); Chloride 100 mEq/L (98-107); Glucose 107 mg/dL (70-105); Magnesium 1.6 mg/dL (1.6-2.6); Osmolality,Calculated 296 (280-300); Potassium 3.7 mEq/L (3.5-5.1); Sodium 140 mEq/L (136-145); eGFR For African Americans > 60 (> 60); eGFR For Non-African Americans 50 (> 60)
[2019-10-23] MEDS: *HR* Metoprolol 5 MG/5 ML VIAL IVP SCH ×5 (05:23→20:22)
[2019-10-23] MEDS: cloNIDine HCL 0.1 MG TABLET PO SCH ×3 (08:20→20:22)
[2019-10-23] MEDS: Loratadine 10 MG TABLET PO SCH (08:21)
[2019-10-23] MEDS: cefTRIAXone 1,000 MG in Water for inj. (sterile) 10 ML IVP SCH (08:21)
[2019-10-23] MEDS: Metoprolol 100 MG TABLET PO SCH ×2 (08:21→20:22)
[2019-10-23] MEDS: Insulin LISPRO 300 UNITS/3 ML VIAL SQ SCH ×4 (08:22→21:00)
[2019-10-23] MEDS: *HR* Digoxin 0.125 MG TABLET PO SCH (13:02)
[2019-10-23] MEDS ORDERED: *HR* Metoprolol 5 MG/5 ML VIAL IVP ONE (18:47)
[2019-10-24 03:42] LABS: Basophils # 0.1 K/mcL (0.0-0.2); Basophils % 0.8 %; Eosinophils # 0.1 K/mcL (0.0-0.6); Eosinophils % 1.5 %; Hematocrit 33.5 % (35.3-44.9); Hemoglobin 10.8 g/dL (11.5-15.4); Immature Granulocytes % 0.6 % (0-4); Lymphocytes # 1.7 K/mcL (0.6-4.6); Lymphocytes % 21.7 %; Mean Corpuscular HGB Conc 32.2 g/dL (31.6-35.5); Mean Corpuscular Hemoglobin 31.5 pg (28.0-33.3); Mean Corpuscular Volume 97.7 fL (83.0-100.0); Mean Platelet Volume 10.1 fL (9.4-12.4); Monocytes # 0.8 K/mcL (0.0-1.3); Monocytes % 10.4 %; Neutrophils # 5.1 K/mcL (1.6-8.9); Platelet Count 180 K/mcL (140-400); Red Blood Count 3.43 M/mcL (3.82-4.97); Red Cell Distribution Width 14.1 % (11.5-14.5); White Blood Count 7.8 K/mcL (4.3-11.1)
[2019-10-24 04:03] LABS: BUN/Creatinine Ratio 34 (6-26); Blood Urea Nitrogen 34 mg/dL (8-23); Calcium 8.9 mg/dL (8.6-10.3); Carbon Dioxide 34 mEq/L (23-29); Chloride 100 mEq/L (98-107); Digoxin 0.4 ng/mL (0.8-2.0); Glucose 141 mg/dL (70-105); Magnesium 1.7 mg/dL (1.6-2.6); Osmolality,Calculated 300 (280-300); Potassium 3.4 mEq/L (3.5-5.1); Sodium 140 mEq/L (136-145); eGFR For African Americans > 60 (> 60); eGFR For Non-African Americans 52 (> 60)
[2019-10-24] MEDS: cloNIDine HCL 0.1 MG TABLET PO SCH ×3 (04:55→20:37)
[2019-10-24] MEDS: Insulin LISPRO 300 UNITS/3 ML VIAL SQ SCH ×4 (07:46→20:39)
[2019-10-24] MEDS: *HR* Digoxin 0.125 MG TABLET PO SCH (08:48)
[2019-10-24] MEDS: Loratadine 10 MG TABLET PO SCH (08:48)
[2019-10-24] MEDS: Metoprolol 100 MG TABLET PO SCH ×2 (08:53→20:37)
[2019-10-25] MEDS: Insulin LISPRO 300 UNITS/3 ML VIAL SQ SCH ×4 (08:59→21:03)
[2019-10-25] MEDS: cloNIDine HCL 0.1 MG TABLET PO SCH ×3 (09:00→20:31)
[2019-10-25] MEDS: Loratadine 10 MG TABLET PO SCH (09:00)
[2019-10-25] MEDS: *HR* Digoxin 0.125 MG TABLET PO SCH (09:01)
[2019-10-25] MEDS: Metoprolol 100 MG TABLET PO SCH ×2 (09:02→20:31)
[2019-10-25 09:31] LABS: Basophils % 0.5 %; Eosinophils # 0.1 K/mcL (0.0-0.6); Eosinophils % 0.8 %; Hematocrit 36.2 % (35.3-44.9); Hemoglobin 11.4 g/dL (11.5-15.4); Immature Granulocytes % 0.6 % (0-4); Lymphocytes # 1.8 K/mcL (0.6-4.6); Lymphocytes % 22.9 %; Mean Corpuscular HGB Conc 31.5 g/dL (31.6-35.5); Mean Corpuscular Hemoglobin 30.7 pg (28.0-33.3); Mean Corpuscular Volume 97.6 fL (83.0-100.0); Mean Platelet Volume 10.2 fL (9.4-12.4); Monocytes # 0.7 K/mcL (0.0-1.3); Monocytes % 8.4 %; Neutrophils # 5.2 K/mcL (1.6-8.9); Platelet Count 191 K/mcL (140-400); Red Blood Count 3.71 M/mcL (3.82-4.97); Red Cell Distribution Width 13.9 % (11.5-14.5); Segmented Neutrophils % 66.8 %; White Blood Count 7.7 K/mcL (4.3-11.1)
[2019-10-25 09:36] LABS: BUN/Creatinine Ratio 27 (6-26); Blood Urea Nitrogen 26 mg/dL (8-23); Calcium 9.4 mg/dL (8.6-10.3); Carbon Dioxide 35 mEq/L (23-29); Chloride 103 mEq/L (98-107); Digoxin 0.4 ng/mL (0.8-2.0); Glucose 118 mg/dL (70-105); Magnesium 1.8 mg/dL (1.6-2.6); Osmolality,Calculated 298 (280-300); Sodium 141 mEq/L (136-145); eGFR For African Americans > 60 (> 60); eGFR For Non-African Americans 54 (> 60)
[2019-10-26 01:56] LABS: Basophils % 0.3 %; Eosinophils # 0.1 K/mcL (0.0-0.6); Eosinophils % 0.7 %; Hematocrit 34.4 % (35.3-44.9); Hemoglobin 10.9 g/dL (11.5-15.4); Immature Granulocytes % 0.5 % (0-4); Lymphocytes # 1.8 K/mcL (0.6-4.6); Lymphocytes % 17.5 %; Mean Corpuscular HGB Conc 31.7 g/dL (31.6-35.5); Mean Corpuscular Volume 97.7 fL (83.0-100.0); Monocytes # 0.9 K/mcL (0.0-1.3); Monocytes % 8.7 %; Neutrophils # 7.3 K/mcL (1.6-8.9); Platelet Count 198 K/mcL (140-400); Red Blood Count 3.52 M/mcL (3.82-4.97); Red Cell Distribution Width 14.1 % (11.5-14.5); Segmented Neutrophils % 72.3 %; White Blood Count 10.2 K/mcL (4.3-11.1)
[2019-10-26 02:18] LABS: Calcium 9.7 mg/dL (8.6-10.3); Magnesium 1.8 mg/dL (1.6-2.6); Phosphorous 2.3 mg/dL (2.7-4.5); Potassium 4.6 mEq/L (3.5-5.1)
[2019-10-26] MEDS: Loratadine 10 MG TABLET PO SCH (08:08)
[2019-10-26] MEDS: Insulin LISPRO 300 UNITS/3 ML VIAL SQ SCH ×4 (08:08→21:06)
[2019-10-26] MEDS: cloNIDine HCL 0.1 MG TABLET PO SCH ×3 (08:09→20:13)
[2019-10-26] MEDS: Metoprolol 100 MG TABLET PO SCH ×2 (08:09→20:13)
[2019-10-26] MEDS: *HR* Digoxin 0.125 MG TABLET PO SCH (08:10)
[2019-10-27 01:29] LABS: Basophils % 0.4 %; Eosinophils # 0.1 K/mcL (0.0-0.6); Eosinophils % 0.8 %; Hematocrit 35.3 % (35.3-44.9); Immature Granulocytes % 0.8 % (0-4); Lymphocytes # 1.9 K/mcL (0.6-4.6); Lymphocytes % 18.4 %; Mean Corpuscular HGB Conc 31.2 g/dL (31.6-35.5); Mean Corpuscular Hemoglobin 30.2 pg (28.0-33.3); Mean Platelet Volume 9.7 fL (9.4-12.4); Monocytes # 0.9 K/mcL (0.0-1.3); Neutrophils # 7.6 K/mcL (1.6-8.9); Platelet Count 202 K/mcL (140-400); Red Blood Count 3.64 M/mcL (3.82-4.97); Red Cell Distribution Width 14.4 % (11.5-14.5); Segmented Neutrophils % 71.6 %; White Blood Count 10.6 K/mcL (4.3-11.1)
[2019-10-27 01:47] LABS: Calcium 9.7 mg/dL (8.6-10.3); Magnesium 1.9 mg/dL (1.6-2.6); Potassium 4.3 mEq/L (3.5-5.1)
[2019-10-27] MEDS: Insulin LISPRO 300 UNITS/3 ML VIAL SQ SCH ×3 (07:31→16:30)
[2019-10-27] MEDS: Metoprolol 100 MG TABLET PO SCH (07:32)
[2019-10-27] MEDS: *HR* Digoxin 0.125 MG TABLET PO SCH (07:32)
[2019-10-27] MEDS: Loratadine 10 MG TABLET PO SCH (07:33)
[2019-10-27] MEDS: cloNIDine HCL 0.1 MG TABLET PO SCH ×2 (07:33→16:07)
[2019-10-27 16:29] VITALS: BP 134/112
[2019-10-27 17:25] LABS: Adenovirus Not Detected (Not Detect); Bordetella Pertussis Not Detected (Not Detect); Chlamydophila pneumoniae Not Detected (Not Detect); Coronavirus 229E Not Detected (Not Detect); Coronavirus HKU1 Not Detected (Not Detect); Coronavirus NL63 Not Detected (Not Detect); Coronavirus OC43 Not Detected (Not Detect); Human Metapneumovirus Not Detected (Not Detect); Human Rhinovirus/Enterovirus Not Detected (Not Detect); Influenza A Subtype 2009 H1 Not Detected (Not Detect); Influenza B Not Detected (Not Detect); Mycoplasma pneumoniae Not Detected (Not Detect); Parainfluenza Virus 1 Not Detected (Not Detect); Parainfluenza Virus 2 Not Detected (Not Detect); Parainfluenza Virus 3 Not Detected (Not Detect); Parainfluenza Virus 4 Not Detected (Not Detect); Respiratory Syncytial Virus Not Detected (Not Detect); SARS-CoV-2 Not Detected (Not Detect)
== END 2019-10-27 20:10 | DRG 472 ==
LOC: EMEROOARM 17:20 → 3BNU 17:20 → SUATTDRO 10-17 08:09 → 3NENU 10-20 14:41 → 2NNU 10-21 20:48
PROVIDERS: ADMIT Family Medicine; ATTEND Pharmacist